=== PATIENT | male | born 1940 | race Caucasian/White ===

== ENCOUNTER → 2017-02-09 | Outpatient (CLI) | payer MEDICARE, OTHER ==
[2017-02-09 10:41] LABS: Basophils # (A) 0.1 k/uL (0-0.2); Basophils % (A) 1 %; CH 31.4; CHCM 34.1; Eosinophils # (A) 0.2 k/uL (0-0.7); Eosinophils % (A) 3 %; HDW 2.65; HGB 16.3 gm/dL (13.0-17.5); Luc # (Auto) 0.18; Luc % (Auto) 2; Lymphocytes # (A) 1.2 k/uL (1.0-4.8); Lymphocytes % (A) 15 %; MCH 30.2 pg (25.0-35.0); MCHC 32.7 g/dL (31.0-37.0); MCV 92.5 fL (80.0-100.0); Monocytes # (A) 0.5 k/uL (0-1.0); Monocytes % (A) 6 %; Neutrophils # (A) 6.2 k/uL (1.3-7.7); Neutrophils % (A) 74 %; RDW 14.2 % (11.5-15.5); WBC 8.4 k/uL (3.8-10.6); WBC (Perox) 8.32
[2017-02-09 12:11] LABS: ALT 67 U/L (21-72); AST 53 U/L (17-59); Alkaline Phosphatase 90 U/L (38-126); Anion Gap 12 mmol/L; Blood Urea Nitrogen 27 mg/dL (9-20); Calcium 9.9 mg/dL (8.4-10.2); Carbon Dioxide 23 mmol/L (22-30); Chloride 105 mmol/L (98-107); Cholesterol 133 mg/dL (<200); Glucose 229 mg/dL (74-99); HDL Cholesterol 36 mg/dL (40-60); Non-African American GFR(MDRD) >60 (>60 ml/min/1.73 sqM); Potassium 4.3 mmol/L (3.5-5.1); Sodium 140 mmol/L (137-145); Total Bilirubin 0.7 mg/dL (0.2-1.3); Total Protein 6.7 g/dL (6.3-8.2)
[2017-02-09 12:54] LABS: Vitamin B12 677 pg/mL
== END | disposition home or self-care (01) ==
LOC: LABWHC1 10:12
PROVIDERS: ATTEND Family Medicine
DX: I25.119 Atherosclerotic heart disease of native coronary artery with unspecified angina pectoris (principal); E11.65 Type 2 diabetes mellitus with hyperglycemia; E78.2 Mixed hyperlipidemia; E53.8 Deficiency of other specified B group vitamins; E66.01 Morbid (severe) obesity due to excess calories
CPT/HCPCS: 36415; 80053; 80061; 82607; 83036; 84443; 85025

== ENCOUNTER 2017-12-22 13:35 | Emergency (ER) | payer MEDICARE, OTHER ==
[2017-12-22 13:41] VITALS: RESP 18
[2017-12-22] MEDS ORDERED: ACETAMINOPHEN TAB 500 MG TAB PO STA (14:29)
--- NOTE | 2017-12-22 14:32 | ED ---
General Adult HPI - General Chief complaint: Eye Problems Stated complaint: Blurred vision Time Seen by Provider: 12/22/17 14:01 Source: patient, family, RN notes reviewed Mode of arrival: ambulatory Limitations: no limitations - History of Present Illness Initial comments: Chief complaint and history of present illness is a 77-year-old male here with his . Patient reports while he was driving developed acute double vision when he looks down. No changes when he looks up left or right. He also complains discomfort behind the left eye. Denies any injury or trauma. No nausea no vomiting. No neuro deficits. - Related Data Home Medications Medication Instructions Recorded Confirmed Esomeprazole Magnesium [NexIUM] 40 mg PO HS 12/30/13 05/25/15 Losartan Potassium [Cozaar] 100 mg PO DAILY 12/30/13 05/25/15 Magnesium Oxide [Mag-Ox] 400 mg PO BID 12/30/13 05/25/15 metFORMIN HCL [metFORMIN HCL ER] 1,000 mg PO AC-BID 12/30/13 05/25/15 Fluticasone Propionate [Flonase] 1 spray EA NOSTRIL HS PRN 12/31/13 05/25/15 Cyclobenzaprine [Flexeril] 10 mg PO DAILY PRN 12/14/14 05/25/15 Desloratadine [Clarinex] 5 mg PO DAILY 12/14/14 05/25/15 Glimepiride [Amaryl] 2 mg PO AC-BID 12/14/14 05/25/15 Aspirin 81 mg PO DAILY 12/25/14 05/25/15 ALPRAZolam [Xanax] 0.25 mg PO BID PRN 01/06/15 05/25/15 Isosorbide Mononitrate ER [Imdur] 30 mg PO DAILY 01/06/15 05/25/15 Ranitidine HCl [Zantac] 150 mg PO ONCE 01/11/15 05/25/15 diphenhydrAMINE [Benadryl] 50 mg PO ONCE 01/11/15 05/25/15 predniSONE 40 mg PO ONCE 01/11/15 05/25/15 Furosemide [Lasix] 20 mg PO DAILY 05/20/15 05/25/15 Insulin Glargine,Hum.rec.anlog 48 unit SQ DAILY 05/25/15 05/25/15 [Lantus Solostar] Previous Rx's Medication Instructions Recorded amLODIPine [Norvasc] 5 mg PO DAILY #30 tab 12/25/14 HYDROcodone/APAP 5-325MG [[place] 1 each PO Q6HR PRN #20 tab 01/01/15 5-325] Metoprolol Tartrate [Lopressor] 50 mg PO BID #60 tab 05/26/15 Allergies Allergy/AdvReac Type Severity Reaction Status Date / Time codeine Allergy Unknown Verified 12/22/17 13:41 iodine Allergy Anaphylaxis Verified 12/22/17 13:41 adhesive AdvReac Mild Rash/Hives Verified 12/22/17 13:41 Review of Systems ROS Statement: Those systems with pertinent positive or pertinent negative responses have been documented in the HPI. Review of systems no headache he does complain discomfort behind the left eye. Reports when he looks down were developed double vision. He can look with one eye up down left and right the other eye covered without any difficulty . Denies chest pain shortness breath GI/ problems. No neuro deficits complained of. All systems were reviewed. Past medical problems angina, diabetes, hyperlipidemia, hypertension. Surgeries heart catheterization, tonsillectomy total left knee. Family history noncontributory patient former smoker quit years ago. No alcohol use. ALLERGIES codeine, iodine and adhesive tape. ROS Other: All systems not noted in ROS Statement are negative. Past Medical History Past Medical History: Chest Pain / Angina, Diabetes Mellitus, Hyperlipidemia, Hypertension Additional Past Medical History / Comment(s): Other HX: umbilical hernia, kidney stones, bowel obstruction , arthiritis, cataracts, vertigo, History of Any Multi-Drug Resistant Organisms: None Reported Past Surgical History: Heart Catheterization, Tonsillectomy Additional Past Surgical History / Comment(s): total left knee, R knee arthroscopy, left wrist tendon repair, vasectomy, kidney stones-4 surgeries for removal. Past Anesthesia/Blood Transfusion Reactions: No Reported Reaction Past Psychological History: No Psychological Hx Reported Smoking Status: Former smoker Past Alcohol Use History: None Reported Past Drug Use History: None Reported - Past Family History Father Family Medical History: CVA/TIA, Diabetes Mellitus, Myocardial Infarction ([place]) Mother Family Medical History: CVA/TIA General Exam - General Exam Comments Initial Comments: General: The patient is awake and alert, here because of discomfort behind his left eye. He states he has double vision when he looks downward. Acute onset. Vital signs temp 98.3 pulse 91 respiratory rate 18 pulse ox 94% room air blood pressure 116/78 Eye: Pupils are equal, round and reactive to light, extra-ocular movements are intact ; there is normal conjunctiva bilaterally. No signs of icterus. Ocular pressure shows the right to be 18 (24. Patient complains discomfort behind his left eye. When he looks downward he developed diplopia. Otherwise individual extraocular movements are all normal. Clinically no evidence of entrapment during examination while he is complaining of diplopia upon looking downward. No rash around the eye. No direct trauma. Denies any previous eye injuries or pathology. Ears, nose, mouth and throat: There are moist mucous membranes and no oral lesions. Neck: The neck is supple, Cardiovascular: There is a regular rate and rhythm. No murmur, rub or gallop is appreciated. Respiratory: Lungs are clear to auscultation, respirations are non-labored, breath sounds are equal. No wheezes, stridor, rales, or rhonchi. Gastrointestinal: Soft, non-distended, non-tender abdomen without masses or organomegaly noted. There is no rebound or guarding present. No CVA tenderness. Bowel sounds are unremarkable. Back: There is no tenderness to palpation in the midline. There is no obvious deformity. No rashes noted. Musculoskeletal: Normal ROM, no tenderness, mild, chronic bilateral pitting edema.. There is no calf tenderness or swelling. Sensation intact. Neurological: CN II-XII intact, There are no obvious motor or sensory deficits. Coordination appears grossly intact. Speech is normal. The patient's significant complaint relative to diplopia. With discomfort behind the left eye of acute onset. CT examination of the eye above. Skin: Skin is warm and dry and no rashes or lesions are noted. Limitations: no limitations Course Vital Signs 12/22/17 13:38 Temperature 98.3 F Pulse Rate 91 Respiratory 18 Rate Blood Pressure 168/78 O2 Sat by Pulse 94 L Oximetry Medical Decision Making - Medical Decision Making Medical decision making; the patient's visual acuity test showed 20/30 with both eyes. And then 20/50 with the right eye alone and 20/[address] of the brain was done and reviewed radiologist his impression is no acute intracranial hemorrhage, or midline shift. There is a mild to moderate diffuse age-related cerebral atrophy and chronic small vessel ischemic change redemonstrated. No significant change from prior CT. As read by Dr. galeana Discussed these findings with the patient and his bedside. I discussed these findings including history, eye pressures, visual acuity with on-call bench shear operator Dr. Tomas. As well as a negative CAT scan report. At this time patient will be seen in the office at 5 PM tomorrow. Disposition Clinical Impression: Diplopia Disposition: HOME SELF-CARE Condition: Fair Instructions: Diplopia (ED) Additional Instructions: Follow-up with Dr. tomas, tomorrow as arranged at 5 PM at his office. Return emergency room if there are any difficulties between now and then. Is patient prescribed a controlled substance at d/c from ED?: No Referrals: John Kemp MD [Primary Care Provider] - 1-2 days Time of Disposition: 15:36
--- NOTE | 2017-12-22 15:19 | CT ---
EXAMINATION TYPE: CT brain wo con DATE OF EXAM: 12/22/2017 HISTORY: Pain, Pressure behind left eye CT DLP: 1029.90 mGycm. Automated Exposure Control for Dose Reduction was Utilized. TECHNIQUE: CT scan of the head is performed without contrast. COMPARISON: CT brain December 30, 2013 FINDINGS: There is no acute intracranial hemorrhage or midline shift identified. There is diffuse v entricular and sulcal prominence consistent with diffuse age-related cerebral atrophy. There is low- attenuation in the periventricular white matter consistent with chronic small vessel ischemic change. Vascular calcification distal internal carotid arteries is present bilaterally. The globes are intac t and the visualized sinuses are clear. IMPRESSION: No acute intracranial hemorrhage or midline shift. There is mild to moderate diffuse ag e-related cerebral atrophy and chronic small vessel ischemic change redemonstrated. No significant c hange from prior CT.
[2017-12-22 15:54] VITALS: BP 120/69; PULSE 63; TEMP 97.6
== END 2017-12-22 15:52 | disposition home or self-care (01) ==
LOC: EC 13:35
DX: H53.2 Diplopia (principal); G31.9 Degenerative disease of nervous system, unspecified; E11.9 Type 2 diabetes mellitus without complications; I10 Essential (primary) hypertension; Z95.818 Presence of other cardiac implants and grafts; Z87.891 Personal history of nicotine dependence; Z79.4 Long term (current) use of insulin; Z79.52 Long term (current) use of systemic steroids; Z79.82 Long term (current) use of aspirin; Z79.899 Other long term (current) drug therapy; Z88.5 Allergy status to narcotic agent; Z91.048 Other nonmedicinal substance allergy status
CPT/HCPCS: 70450; 99284

== ENCOUNTER → 2017-12-24 | Outpatient (CLI) | payer MEDICARE, OTHER ==
[2017-12-24 13:54] LABS: Basophils # (A) 0.1 k/uL (0-0.2); Basophils % (A) 1 %; Eosinophils # (A) 0.2 k/uL (0-0.7); Eosinophils % (A) 2 %; HCT 44.1 % (39.0-53.0); HGB 14.3 gm/dL (13.0-17.5); Lymphocytes # (A) 1.4 k/uL (1.0-4.8); Lymphocytes % (A) 20 %; MCH 29.9 pg (25.0-35.0); MCHC 32.3 g/dL (31.0-37.0); MCV 92.4 fL (80.0-100.0); Mean Platelet Volume 7.3; Monocytes # (A) 0.4 k/uL (0-1.0); Monocytes % (A) 6 %; Neutrophils % (A) 70 %; Platelet Count 266 k/uL (150-450); RBC 4.78 m/uL (4.30-5.90); RDW 14.1 % (11.5-15.5); WBC 7.2 k/uL (3.8-10.6)
[2017-12-24 14:14] LABS: Albumin 3.9 g/dL (3.5-5.0); C Reactive Protein 7.3 mg/L (<10.0); Calcium 8.9 mg/dL (8.4-10.2); Potassium 4.7 mmol/L (3.5-5.1); Total Bilirubin 0.5 mg/dL (0.2-1.3); Total Protein 6.3 g/dL (6.3-8.2)
[2017-12-24 16:41] LABS: Erythrocyte Sedimentation Rate 6 mm/hr (0-15)
[2017-12-24 19:38] LABS: LDL Cholesterol, Direct 62.9 mg/dL (0.0-129.0)
[2017-12-24 21:01] LABS: Hemoglobin A1C 8.2 % (4.0-6.0)
== END | disposition home or self-care (01) ==
LOC: LABWHC1 13:06
PROVIDERS: ATTEND Family Medicine
DX: E11.65 Type 2 diabetes mellitus with hyperglycemia (principal); E53.8 Deficiency of other specified B group vitamins; E78.2 Mixed hyperlipidemia
CPT/HCPCS: 36415; 80053; 80061; 82607; 83036; 83721; 85025; 85652; 86140

== ENCOUNTER → 2018-04-04 | Outpatient (CLI) | payer MEDICARE, OTHER ==
--- NOTE | 2018-04-04 14:03 | CT ---
EXAMINATION TYPE: CT sinus wo con DATE OF EXAM: 04/04/2018 COMPARISON: None HISTORY: Sinus problems and hearing problems. CT DLP: [address] of the paranasal sinuses was performed in the axial and coronal planes. Bone and soft tissue settings are submitted. The paranasal sinuses demonstrate normal aeration and development. The paranasal sinuses are free of mucosal thickening or air fluid level. The osteal meatal units are patent bilaterally. The nasal septum is midline. No bony destructive changes are seen within the field of view. IMPRESSION: Normal unenhanced CT of the paranasal sinuses.
== END | disposition home or self-care (01) ==
LOC: RADCTMAIN 13:20
PROVIDERS: ATTEND Otolaryngology
DX: J32.9 Chronic sinusitis, unspecified (principal); R05 Cough
CPT/HCPCS: 70486

== ENCOUNTER → 2019-01-10 | Outpatient (CLI) | payer MEDICARE | END | disposition home or self-care (01) | LOC: LABPAT 17:07 | PROVIDERS: ATTEND Orthopaedic Surgery | DX: Z01.812 Encounter for preprocedural laboratory examination (principal) | CPT/HCPCS: 87070 ==

== ENCOUNTER → 2019-01-17 | Outpatient (CLI) | payer MEDICARE ==
[2019-01-17 13:11] LABS: Basophils % (A) 1 %; Eosinophils # (A) 0.3 k/uL (0-0.7); Eosinophils % (A) 3 %; HCT 45.9 % (39.0-53.0); HGB 14.7 gm/dL (13.0-17.5); Lymphocytes # (A) 1.4 k/uL (1.0-4.8); Lymphocytes % (A) 16 %; MCH 29.4 pg (25.0-35.0); MCHC 31.9 g/dL (31.0-37.0); MCV 92.2 fL (80.0-100.0); Mean Platelet Volume 7.4; Monocytes # (A) 0.6 k/uL (0-1.0); Monocytes % (A) 6 %; Neutrophils # (A) 6.5 k/uL (1.3-7.7); Neutrophils % (A) 73 %; Platelet Count 288 k/uL (150-450); RBC 4.98 m/uL (4.30-5.90); RDW 14.3 % (11.5-15.5); WBC 8.9 k/uL (3.8-10.6)
[2019-01-17 14:26] LABS: Appearance,Urine Cloudy (Clear); Bacteria,Urine Rare /hpf; Bilirubin,Urine Negative (Negative); Blood,Urine Large (Negative); Color,Urine Yellow; Glucose,Urine (UA) Negative (Negative); Ketones,Urine Negative (Negative); Leukocyte Esterase,Urine Negative (Negative); Mucus,Urine Rare /hpf; Nitrite,Urine Negative (Negative); PH, Urine 6.5 (5.0-8.0); Protein,Urine 2+ (Negative); RBC,Urine >182 /hpf (0-5); Urobilinogen,Urine <2.0 mg/dL (<2.0); WBC,Urine 11 /hpf (0-5)
--- NOTE | 2019-01-17 15:46 | XR ---
EXAMINATION TYPE: XR chest 2V DATE OF EXAM: 01/17/2019 COMPARISON: Prior chest x-ray 12/30/2013 HISTORY: Presurgical, I 25.119 TECHNIQUE: Frontal and lateral views of the chest are obtained. FINDINGS: The heart is enlarged. Suspect prominent epicardial fat pads are present, similar increase d density noted towards the cardiac apex on prior exam. Aorta is dense. No evident airspace disease, pneumothorax, or pleural effusion. There is increased AP diameter chest, flattening the hemidiaphragm s. IMPRESSION: Cardiomegaly. Correlate for COPD. Indeterminate density the cardiac apex may be related to epicardial fat pad but is indeterminate. Consider chest CT.
[2019-01-17 18:51] LABS: African American GFR (CKD) 74.7 (60.0-200.0); Albumin/Globulin Ratio 2.11 (1.60-3.17); Anion Gap 9.1 mmol/L (4.00-12.00); BUN/Creat Ratio 29.09 Ratio (12.00-20.00); Calcium 9.2 mg/dL (8.7-10.3); Carbon Dioxide 26.9 mmol/L (21.6-31.8); Globulin 1.9 g/dL (1.6-3.3); Potassium 4.6 mmol/L (3.5-5.5); Total Bilirubin 0.5 mg/dL (0.2-1.2); Total Protein 5.9 g/dL (6.2-8.2)
== END | disposition home or self-care (01) ==
LOC: LABWHC1 11:42
PROVIDERS: ATTEND Family Medicine
DX: I51.7 Cardiomegaly (principal); I25.119 Atherosclerotic heart disease of native coronary artery with unspecified angina pectoris; E11.65 Type 2 diabetes mellitus with hyperglycemia
CPT/HCPCS: 36415; 71046; 80053; 81001; 85025

== ENCOUNTER 2019-01-28 08:37 | Inpatient (IN) | payer MEDICARE ==
--- NOTE | 2019-01-27 09:18 | HP ---
HISTORY AND PHYSICAL CHIEF COMPLAINT: Left shoulder pain. HISTORY OF PRESENT ILLNESS: The patient is a 78-year-old retired right-hand dominant gentleman who presents after injuring his left shoulder on 10/31/2018. He notes he is having anterior pain and pain with attempted overhead use and at night. He notes significant weakness and is unable to raise his arm over his head. Prior to this, he was able to function. He notes it significantly limits him. PAST MEDICAL HISTORY: Significant for coronary artery disease, hypertension, diabetes, sleep apnea, arthritis. PAST SURGICAL HISTORY: Significant for left total knee arthroplasty, cardiac catheterization, lithotripsy. CURRENT MEDICATIONS: 1. Amlodipine. 2. Aspirin. 3. Clarinex. 4. Lasix. 5. Isosorbide. 6. Losartan. 7. Meloxicam. 8. Metformin. 9. Methocarbamol. 10.Metoprolol. ALLERGIES: He has allergies to IV CONTRAST DYE. FAMILY HISTORY: Significant for diabetes, stroke and hypertension. SOCIAL HISTORY: Significant for previous tobacco use; however, he quit in 1999. REVIEW OF SYSTEMS: Sixteen-point review of systems otherwise reviewed and is noncontributory. PHYSICAL EXAMINATION: On examination, the patient is approximately 5 feet 8 inches, 241 pounds of endomorphic habitus. HEENT exam is nonfocal. Neck is supple. Active motion of the left shoulder: Forward elevation 30 degrees, external rotation with arm at side 50 degrees, internal rotation to L3. Passively I am able to forward elevate him 140 degrees. He has moderate subacromial crepitus. He is tender about the anterior subacromial space. Impingement test, Neer test, and Speed test are positive. His distal neurovascular exam appears intact in the left upper extremity. MRI report 10/05/2018 of the left shoulder shows supraspinatus and infraspinatus tears with significant retraction along with biceps tendinopathy and glenohumeral joint arthropathy. IMPRESSION: 1. Acute on chronic left rotator cuff tear. 2. Severe left rotator cuff arthropathy. 3. Diabetes. 4. Heart disease. RECOMMENDATIONS: I talked to the patient at length regarding his condition along with treatment options. At this point, he is quite symptomatic and opts to proceed with surgery. We will plan to proceed with reverse left total shoulder arthroplasty. Risks and benefits were discussed at length in layman's terms. The patient underwent preoperative medical evaluation by Dr. Kemp and preoperative cardiac evaluation. MMODL / IJN: [id number] /
[~2019-01-28 08:37] MED LIST: ACETAMINOPHEN TAB 500 MG TAB PO ONE; DEXAMETHASONE SOD PHOSPHATE 10 MG/ML 1 ML VIAL IV ONE; HYDROmorphone 0.5 MG/0.5 ML SYRINGE IVP PRN; LIDOCAINE 1% 20 ML VIAL (10MG/ML) FOR IV START INTRADERMA PRN; MELOXICAM 7.5 MG TAB PO ONE; MIDAZOLAM 2 MG/2 ML VIAL IV PRN; ONDANSETRON 4 MG/2 ML VIAL IVP ONE; SCOPOLAMINE 1.5MG/72HR PATCH TRANSDERM ONE; TRANEXAMIC ACID 1,000 MG in SODIUM CHLORIDE 0.9% 100 ML IVPB ONE
[2019-01-28] MEDS: LACTATED RINGERS 1,000 ML IV SCH (09:22)
[2019-01-28 09:49] LABS: Glucose,Whole Blood 165 mg/dL (75-99)
[2019-01-28] MEDS ORDERED: MIDAZOLAM (PF) 2 MG/2 ML VIAL IVP ONE (09:57)
[2019-01-28] MEDS ORDERED: PROPOFOL 10 MG/ML 20 ML VIAL IV ONE (10:41)
[2019-01-28] MEDS ORDERED: NEOSTIGMINE 1 MG/ML 10 ML VIAL ONE (10:41)
[2019-01-28] MEDS ORDERED: SUCCINYLCHOLINE CHLORIDE 100 MG/5 ML SYR IV ONE (10:41)
[2019-01-28] MEDS ORDERED: ROPIVACAINE 5 MG/ML 30 ML VIAL ONE (10:41)
[2019-01-28] MEDS ORDERED: PHENYLEPHRINE-0.9% NACL SYG 1 MG/10 ML SYRINGE ONE (10:41)
[2019-01-28] MEDS ORDERED: ROCURONIUM BROMIDE 10 MG/ML 10 ML VIAL IV ONE (10:41)
[2019-01-28] MEDS ORDERED: ePHEDrine SULFATE/0.9% NACL/PF 50 MG/5 ML SYRINGE IV ONE (10:41)
[2019-01-28] MEDS ORDERED: GLYCOPYRROLATE 0.2 MG/ML 2 ML VIAL ONE (10:41)
[2019-01-28] MEDS ORDERED: LIDOCAINE 1% INJ 10MG/ML (20 ML MDV) ONE (10:41)
[2019-01-28] MEDS ORDERED: DEXAMETHASONE SOD PHOSPHATE 4 MG/ML 1 ML VIAL ONE (10:41)
[2019-01-28] MEDS ORDERED: ceFAZolin 3,000 MG in SODIUM CHLORIDE 0.9% IRRIGATIO 3,000 ML IRRIGATION ONE (11:17)
[2019-01-28] MEDS ORDERED: HYDROmorphone 0.5 MG/0.5 ML SYRINGE IVP PRN (12:39)
[2019-01-28] MEDS ORDERED: ONDANSETRON 4 MG/2 ML VIAL IVP PRN (12:39)
[2019-01-28] MEDS ORDERED: ACETAMINOPHEN TAB 325 MG TAB PO PRN (12:44)
--- NOTE | 2019-01-28 13:11 | P.OP ---
Date of Procedure: 01/28/19 Preoperative Diagnosis: Left shoulder severe rotator cuff arthropathy Postoperative Diagnosis: Same Procedure(s) Performed: Left reverse shoulder arthroplastypress-fit Implants: Depuy Xtend size 12/size 2 epiphysis humeral stem, 42+3 articular surface, 42 mm glenosphere with standard baseplate. Anesthesia: [facility] Surgeon: Campbell Bullard Lead Sql Developer #1: Sonny Christy Estimated Blood Loss (ml): 200 Pathology: other (Humeral head) Condition: stable Disposition: PACU Indications for Procedure: The patient's a 78-year-old male who presents with left shoulder pain and weakness after a recent injury. Upon evaluation he was noted have a large retracted chronic rotator cuff tear. He also had significant arthropathy. A discussion of the risks and benefits of operative intervention versus conservative measures was made with patient. He is quite symptomatically opted to proceed with surgery. Operative risks to include infection, neurovascular injury, development of blood clots, possible instability, possible component loosening, and possible need for subsequent procedures was discussed. Informed consent was obtained. Operative Findings: As below Description of Procedure: The patient was brought to the operating room, and after induction of general anesthesia was placed in a beachchair position. Bony prominences were appropriately padded. The left upper extremity was prepped and draped in a normal fashion. A deltopectoral incision was then made lateral to the coracoid process extending approximately 12 cm. Skin and subcutaneous tissues were div ided sharply. Electrocautery was used for hemostasis. The deltopectoral interval was identified and the cephalic vein was gently retracted laterally with deltoid. Subdeltoid adhesions were bluntly dissected. A self-retaining retractor was placed. The upper one third of the pectoralis major was released with electrocautery to help facilitate exposure. The clavipectoral fascia was opened and the conjoined tendon was gently retracted medially with the deltoid retracted laterally. The biceps was identified and tenotomized and lateral to retract distally. A large rotator cuff was then exposed. I did release the upper one third of the subscapularis to help facilitate exposure. The capsule was released directly off the humeral neck. The supraspinatus, infraspinatus, teres minor were ruptured and retracted past the level of the glenoid. The humeral head was then exposed. A starting hole was made in line with the humeral shaft. The canal was reamed by hand up to 12. There is good distal fit. The cutting guide was then pinned in place planning on 20 of retroversion. Humeral head cut was then made. The inferior osteophytes were carefully removed flush with the bone with a rongeur. Humeral protector plate was placed. Attention was then paid towards the glenoid. A Fukuda retractor was placed posteriorly along with an anterior neck retractor the labrum was released from the 6:00 to 12 o'clock position and excised. The posterior labrum was also released. The guidepin was placed in the inferior aspect of the glenoid slightly tilting inferiorly. The glenoid was reamed down to bleeding bony surface. The central peg hole was then drilled. The glenosphere baseplate was inserted. The inferior, superior, and anterior drill holes were then made. Appropriate length screws were placed. The inferior and superior screws were locking. Good purchase was obtained. The 42 mm glenosphere was then inserted over a guidewire and was fully seated. Care was taken to avoid any soft tissue interposition. Attention was then paid towards preparing the proximal humerus. The broach was inserted and 20 of retroversion. The epiphysis was sized to. An eccentric guide was utilized. The metaphysis was prepared with the appropriate reamer. A trial size 12 broach was inserted again and 20 of retroversion. A trial 42 mm +3 articular surface was placed. The shoulder was gently reduced. It was taken through range of motion and felt to be stable in flexion and extension with internal and external rotation. I felt there is adequate holiness of soft tissue tension judging off the conjoined tendon. The shoulder was gently dislocated. The trial components were then removed. I did place #2 Ethibond suture laterally for reattachment of the subscapularis. The final size 12 stem with a size 2 epiphysis was then inserted and was fully seated. There is good rotational stability. The 42 mm +3 articular surface was gently impacted. The shoulder was gently reduced. Again it was taken through to motion felt to be stable in flexion and extension with internal and external rotation. Again I felt there was adequate holiness of soft tissue tension. Pulsatile lavage was utilized. The subscapularis was repaired with #2 Ethibond suture. The deltopectoral interval was closed with interrupted 2-0 Vicryl sutures. Subcu changed tissues reapproximated interrupted 2-0 Vicryl sutures. The skin was reapproximated with 3-0 subcuticular Prolene suture. Steri-Strips were applied. A sterile dressing was applied in addition to a sling. The patient was then awoken from general anesthesia and transferred to recovery room in fair condition. Blood loss was estimated 200 mL. No complications were incurred. Sponge and needle counts were correct at the end of the case.
[2019-01-28 13:40] LABS: Glucose,Whole Blood 239 mg/dL (75-99)
[2019-01-28] MEDS ORDERED: INSULIN ASPART (NovoLOG) 100 UNIT/ML VIAL SQ ONE (14:09)
--- NOTE | 2019-01-28 14:52 | XR ---
"Left shoulder HISTORY: Status post left reverse total shoulder arthroplasty 2 views of the left shoulder Patient shows left shoulder arthroplasty change. There is lucency in the soft tissues. Alignment is m aintained. There are overlying leads and artifacts. There is increased attenuation at the left lung b ase, obscured left hemidiaphragm and blunting the left costophrenic angle. There is evidence of old g ranulomatous disease. IMPRESSION: Orthopedic follow-up. There may be left lower lobe atelectasis versus pneumonia. A Yellow level critical message alert has been initiated for Campbell Bullard MD via the [employer] 36 0 | Critical Results System on 01/28/2019 2:50 PM. This message alert has been sent to Campbell Bullard MD via the preferences provided by the clinician for the receipt of Radiology Critical Findings. [facility] ID [id number]."
[2019-01-28 14:58] VITALS: BMI 35.6
[2019-01-28 16:55] LABS: Glucose,Whole Blood 193 mg/dL (75-99)
[2019-01-28] MEDS: INSULIN ASPART (NovoLOG) 100 UNIT/ML VIAL SQ SCH ×2 (16:59→21:39)
[2019-01-28] MEDS ORDERED: ALPRAZolam 0.25 MG TAB PO PRN (20:51)
[2019-01-28] MEDS ORDERED: FLUTICASONE 50MCG/SPRAY NASAL 16GM EA NOSTRIL PRN (20:51)
[2019-01-28 20:57] LABS: Glucose,Whole Blood 254 mg/dL (75-99)
[2019-01-28] MEDS ORDERED: FENOFIBRATE 160 MG TAB PO SCH (21:00)
[2019-01-28] MEDS ORDERED: ATORVASTATIN 40 MG TAB PO SCH (21:00)
[2019-01-28] MEDS: CYANOCOBALAMIN 500 MCG TAB PO SCH (21:32)
[2019-01-28] MEDS: MAGNESIUM OXIDE 400 MG TAB PO SCH (21:35)
[2019-01-28] MEDS: BENZOCAINE/MENTHOL LOZENG 1 EACH LOZENGE MUCOUS MEM PRN (21:35)
[2019-01-28] MEDS: HYDROcodone/APAP 5-325MG 1 EACH TAB PO PRN (21:35)
[2019-01-28] MEDS: PANTOPRAZOLE 40 MG TABLET PO SCH (21:35)
[2019-01-28] MEDS: INSULIN DETEMIR (LEVEMIR) 100 UNIT/ML SYR SQ SCH (21:40)
--- NOTE | 2019-01-29 01:17 | P.CONS ---
History of Present Illness - Reason for Consult Consult date: 01/28/19 Medical management of multiple medical problems - Chief Complaint Left reverse shoulder arthroplastypress-fit - History of Present Illness Patient is a 78-year-old male with a known history of hypertension, diabetes type 2 insulin-dependent, history of cardiac catheterization and hyperlipidemia as well as morbid obesity BMI 36.1 who has been having shoulder pain due to rotator cuff arthropathy and failed conservative therapy and patient underwent Left reverse shoulder arthroplastypress-fit. Tolerated the procedure very well. Currently pain is controlled with epidural. No complaints of headache or dizziness or lightheadedness. No chest pain or shortness of breath. Postoperatively patient is hypotensive and currently blood pressure in the lower side .blood pressure medications have been held at this time. Review of Systems Constitutional: Patient denies any fever or chills . No generalized weakness or weight loss. Abdomen: Patient denied nausea vomiting and diarrhea and abdominal pain. Cardiovascular: Patient denies any chest pain or short of breath no palpitations. Respiratory: patient denied any cough is from production. No shortness of breath Neurologic: Patient denied any numbness or tingling headache. Musculoskeletal: Patient denies any complaints of joint swelling or deformity. Skin: Negative Psychiatric: Negative Endocrine: No heat or cold intolerance. No recent weight gain. Genitourinary: No dysuria or hematuria. 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, states has been currently passing kidney stones History of Any Multi-Drug Resistant Organisms: None Reported Past Surgical History: Heart Catheterization, Joint Replacement, Tonsillectomy Additional Past Surgical History / Comment(s): total left knee, R knee arthroscopy, left wrist tendon repair, vasectomy, kidney stones-4 surgeries for removal, rt carpal tunnel, lt wrist tendonitis , Reversed total left shoulder Past Anesthesia/Blood Transfusion Reactions: No Reported Reaction Additional Past Anesthesia/Blood Transfusion Reaction / Comm: hx vertigo Past Psychological History: No Psychological Hx Reported Additional Psychological History / Comment(s): Pt resides with his spouse of 48yrs. He is independent. He uses no assistive device but feels he would benefit from possibly a cane. He uses a drive cart when shopping due to bilateral knee pain and R ankle/foot problems. Pt drives a car. Smoking Status: Former smoker Past Alcohol Use History: None Reported Additional Past Alcohol Use History / Comment(s): Pt quit smoking in 1996. Past Drug Use History: None Reported Additional Drug Use History / Comment(s): uses cbd oil for pain in shower - Past Family History Father Family Medical History: CVA/TIA, Diabetes Mellitus, Myocardial Infarction ([place]) Mother Family Medical History: CVA/TIA Medications and Allergies Home Medications Medication Instructions Recorded Confirmed Type Losartan Potassium [Cozaar] 100 mg PO DAILY 12/30/13 01/28/19 History metFORMIN HCL [metFORMIN HCL ER] 1,000 mg PO AC-BID 12/30/13 01/28/19 History Fluticasone Propionate [Flonase] 1 spray EA NOSTRIL HS PRN 12/31/13 01/28/19 History Desloratadine [Clarinex] 5 mg PO DAILY 12/14/14 01/28/19 History Aspirin 81 mg PO DAILY 12/25/14 01/28/19 History ALPRAZolam [Xanax] 0.25 mg PO BID PRN 01/06/15 01/28/19 History Isosorbide Mononitrate ER [Imdur] 30 mg PO DAILY 01/06/15 01/28/19 History Furosemide [Lasix] 20 mg PO Q48H 05/20/15 01/28/19 History Cyanocobalamin (Vitamin B-12) 1,000 mcg PO BID 01/20/19 01/28/19 History [Vitamin B-12] Fenofibrate [Lofibra] 160 mg PO DAILY 01/20/19 01/28/19 History Insulin Detemir (Levemir) [Levemir] 44 unit PO AC-BRKFST 01/20/19 01/28/19 History Insulin Detemir (Levemir) [Levemir] 52 unit SQ AC-SUPPER 01/20/19 01/28/19 History Lansoprazole [Prevacid] 30 mg PO DAILY 01/20/19 01/28/19 History Magnesium Oxide [Mag-Ox] 400 mg PO DAILY 01/20/19 01/28/19 History Meloxicam 15 mg PO DAILY 01/20/19 01/28/19 History Methocarbamol [Robaxin] 500 mg PO BID PRN 01/20/19 01/28/19 History Metoprolol Tartrate [Lopressor] 100 mg PO BID 01/20/19 01/28/19 History Rosuvastatin [Crestor] 20 mg PO DAILY 01/20/19 01/28/19 History amLODIPine BESYLATE [Norvasc] 5 mg PO BID 01/20/19 01/28/19 History HYDROcodone/APAP 5-325MG [[place] 1 tab PO Q6HR PRN 01/28/19 01/28/19 History 5-325] Allergies Allergy/AdvReac Type Severity Reaction Status Date / Time codeine Allergy Unknown Verified 01/28/19 15:20 iodine Allergy Anaphylaxis Verified 01/28/19 15:20 adhesive AdvReac Mild Rash/Hives Verified 01/28/19 15:20 Physical Exam Vitals: Vital Signs Temp Pulse Pulse Pulse Resp BP Pulse Ox 01/28/19 19:09 98.1 F 90 18 119/71 94 L 01/28/19 16:35 81 129/78 94 L 01/28/19 16:20 73 122/71 95 01/28/19 16:05 72 129/73 95 01/28/19 15:50 69 126/72 95 01/28/19 15:35 69 129/76 94 L 01/28/19 15:20 77 131/74 93 L 01/28/19 15:05 79 128/73 92 L 01/28/19 14:50 76 123/70 92 L 01/28/19 14:35 97.1 F L 73 20 118/69 93 L 01/28/19 14:10 75 18 113/65 98 01/28/19 13:55 76 18 113/65 97 01/28/19 13:40 81 18 118/61 100 01/28/19 13:25 81 16 120/74 100 01/28/19 13:11 96.9 F L 81 16 120/65 96 01/28/19 09:00 97.1 F L 69 16 155/74 94 L Intake and Output 01/28/19 01/28/19 01/28/19 06:59 14:59 22:59 Intake Total 802 250 Output Total 300 Balance 502 250 Intake: IV 802 Oral 250 Output: Estimated Blood Loss 300 PHYSICAL EXAMINATION: Patient is lying in the bed comfortably, no acute distress, awake alert and oriented.. HEENT: Normocephalic. Neck is supple. Pupils reactive. Nostrils clear. Oral cavity is moist. Ears reveal no drainage. Neck reveals no JVD, carotid bruits, or thyromegaly. CHEST EXAMINATION: Trachea is central. Symmetrical expansion. Bibasilar diminished air entry Lung slater clear to auscultation and percussion. CARDIAC: Normal S1, S2 with no gallops. No murmurs ABDOMEN: Soft. Bowel sounds normal. No organomegaly. No abdominal bruits. Extremities: reveal no edema. No clubbing or cyanosis Neurologically awake, alert, oriented x3 with well-coordinated movements. No focal deficits noted Skin: No rash or skin lesions. Psychiatric: Coperative. Nonsuicidal Musculoskeletal: No joint swelling or deformity. Left shoulder surgical site is packed. Decreased range of motion.. Results Labs: Abnormal Lab Results - Last 24 Hours (Table) 01/28/19 01/28/19 01/28/19 Range/Units 09:19 13:36 16:54 POC Glucose (mg/dL) 165 H 239 H 193 H (75-99) mg/dL 01/28/19 Range/Units 20:46 POC Glucose (mg/dL) 254 H (75-99) mg/dL Assessment and Plan Assessment: s/p left shoulder reverse arthroplasty due to rotator cuff arthropathy. Hypertension. Currently patient is not hypertensive blood pressure medications have been held. Diabetes type 2 insulin-dependent Hyperlipidemia History of renal stones History of bowel obstruction Osteoarthritis of multiple joints Morbid obesity with BMI 36.1 Previous history of smoking DVT prophylaxis Plan: Patient be continued on pain management, bowel regimen. Encourage incentive spirometry. Continue with home insulin dose and insulin sliding scale and Accu- Cheks. Patient is on Norvasc, metoprolol and lisinopril and Lasix Q48 hours at home, which have been held at this time. Can be started back positive blood pressure starts going up. Continue the home medications and follow closely. Discussed with the patient and his at bedside in detail. Further recommendations based on the clinical course. We will continue to follow. Thank you for your consult. Time with Patient: Greater than 30
[2019-01-29] MEDS: HYDROcodone/APAP 5-325MG 1 EACH TAB PO PRN ×4 (03:19→20:45)
[2019-01-29 06:46] LABS: Glucose,Whole Blood 286 mg/dL (75-99)
[2019-01-29 07:14] LABS: Basophils % (A) 0 %; Eosinophils % (A) 0 %; HCT 40.2 % (39.0-53.0); HGB 12.4 gm/dL (13.0-17.5); Hypochromasia Slight; Lymphocytes # (A) 0.9 k/uL (1.0-4.8); Lymphocytes % (A) 7 %; MCH 28.7 pg (25.0-35.0); MCHC 30.8 g/dL (31.0-37.0); MCV 93.2 fL (80.0-100.0); Mean Platelet Volume 7.4; Monocytes # (A) 0.9 k/uL (0-1.0); Monocytes % (A) 8 %; Neutrophils # (A) 10.3 k/uL (1.3-7.7); Neutrophils % (A) 84 %; Platelet Count 267 k/uL (150-450); RBC 4.32 m/uL (4.30-5.90); RDW 14.1 % (11.5-15.5); WBC 12.3 k/uL (3.8-10.6)
[2019-01-29] MEDS: INSULIN DETEMIR (LEVEMIR) 100 UNIT/ML SYR SQ SCH ×2 (07:20→20:45)
[2019-01-29] MEDS: CYANOCOBALAMIN 500 MCG TAB PO SCH ×2 (07:20→20:45)
[2019-01-29] MEDS: MAGNESIUM OXIDE 400 MG TAB PO SCH ×2 (07:20→20:45)
[2019-01-29] MEDS: PANTOPRAZOLE 40 MG TABLET PO SCH (07:20)
[2019-01-29] MEDS: INSULIN ASPART (NovoLOG) 100 UNIT/ML VIAL SQ SCH ×4 (07:20→20:46)
[2019-01-29] MEDS: BENZOCAINE/MENTHOL LOZENG 1 EACH LOZENGE MUCOUS MEM PRN (07:20)
[2019-01-29] MEDS: ASPIRIN 325 MG TAB PO SCH (07:21)
[2019-01-29 07:34] LABS: Calcium 8.5 mg/dL (8.4-10.2); Potassium 4.5 mmol/L (3.5-5.1)
[2019-01-29 11:25] LABS: Glucose,Whole Blood 218 mg/dL (75-99)
--- NOTE | 2019-01-29 12:42 | P.PN ---
Subjective Progress Note Date: 01/29/19 Principal diagnosis: s/p reverse left tsa Patient evaluate at bedside, resting comfortably. Pain is controlled. Denies chest pain or shortness of breath Objective - Vital Signs Vital signs: Vital Signs Temp 98.2 F 01/29/19 07:00 Pulse 92 01/29/19 08:15 Resp 15 01/29/19 08:15 BP 138/68 01/29/19 07:00 Pulse Ox 94 L 01/29/19 07:00 Intake & Output 01/28/19 01/29/19 01/29/19 18:59 06:59 18:59 Intake Total 802 980 200 Output Total 300 Balance 502 980 200 Intake: IV 802 Intake, IV Titration 580 Amount Lactated Ringers 1,000 ml 480 @ 40 mls/hr IV .Q24H [facility] Rx#:[id number] ceFAZolin 2 gm In Sodium 100 Chloride 0.9% 50 ml @ 100 mls/hr IVPB Q8H [facility] Rx#: [id number] Oral 400 200 Output: Estimated Blood Loss 300 Other: Voiding Method Urinal Urinal # Voids 3 3 - Exam Left upper extremity: Postoperative bandages removed, Steri-Strips are in good position and condition. No active drainage. Soft tissue swelling noted throughout the upper extremity, also bruising. Sensation to light touch throughout the extremity is intact. Extension and flexion are intact at the wrist. Radial pulses 2+. - Labs CBC & Chem 7: 01/29/19 06:24 01/29/19 06:24 Labs: Abnormal Lab Results - Last 24 Hours (Table) 01/28/19 01/28/19 01/28/19 Range/Units 13:36 16:54 20:46 WBC (3.8-10.6) k/uL Hgb (13.0-17.5) gm/dL MCHC (31.0-37.0) g/dL Neutrophils # (1.3-7.7) k/uL Lymphocytes # (1.0-4.8) k/uL BUN (9-20) mg/dL Glucose (74-99) mg/dL POC Glucose (mg/dL) 239 H 193 H 254 H (75-99) mg/dL 01/29/19 01/29/19 01/29/19 Range/Units 06:24 06:24 06:44 WBC 12.3 H (3.8-10.6) k/uL Hgb 12.4 L (13.0-17.5) gm/dL MCHC 30.8 L (31.0-37.0) g/dL Neutrophils # 10.3 H (1.3-7.7) k/uL Lymphocytes # 0.9 L (1.0-4.8) k/uL BUN 38 H (9-20) mg/dL Glucose 253 H (74-99) mg/dL POC Glucose (mg/dL) 286 H (75-99) mg/dL / Range/Units 11:14 WBC (3.8-10.6) k/uL Hgb (13.0-17.5) gm/dL MCHC (31.0-37.0) g/dL Neutrophils # (1.3-7.7) k/uL Lymphocytes # (1.0-4.8) k/uL BUN (9-20) mg/dL Glucose (74-99) mg/dL POC Glucose (mg/dL) 218 H (75-99) mg/dL Assessment and Plan Plan: Assessment: Postop day #1 status post reverse left total shoulder arthroplasty Plan: Pain control, continue current medication GI and DVT prophylaxis, continue current medication Utilize arm sling, ice the extremity often Medical recommendations Plan for discharge home tomorrow Time with Patient: Less than 30
--- NOTE | 2019-01-29 13:42 | P.ANPRN ---
Procedure Note - Anesthesia - Nerve Block Performed Left Adductor Canal Single Time Out Performed: Yes Date of Procedure: 01/29/19 Procedure Start Time: 09:58 Procedure Stop Time: 10:00 Location of Patient Procedure: PreOp Indication: Acute Post-Operative Pain, Requested by Surgeon Sedation Type: Sedate with meaningful contact maintained Preparation: Sterile Prep, Sterile Dressing Position: Supine Needle Types: Pajunk Needle Gauge: 21 Technique: Ultrasound (ropi .5% 30cc plus dexamethasone 4mg) Blood Aspirated: No Pain Paresthesia on Injection Noted: No Resistance on Injection: Normal Events: Uneventful and Well Tolerated
[2019-01-29 16:48] LABS: Glucose,Whole Blood 295 mg/dL (75-99)
[2019-01-29 20:19] LABS: Glucose,Whole Blood 337 mg/dL (75-99)
[2019-01-29] MEDS: LACTATED RINGERS 1,000 ML IV SCH (20:49)
[2019-01-29] MEDS ORDERED: FENOFIBRATE 160 MG TAB PO SCH (21:00)
[2019-01-29] MEDS ORDERED: ATORVASTATIN 40 MG TAB PO SCH (21:00)
[2019-01-30] MEDS: HYDROcodone/APAP 5-325MG 1 EACH TAB PO PRN ×2 (03:04→12:32)
[2019-01-30] MEDS: LACTATED RINGERS 1,000 ML IV SCH (03:54)
[2019-01-30] MEDS: PANTOPRAZOLE 40 MG TABLET PO SCH (07:27)
[2019-01-30] MEDS: ASPIRIN 325 MG TAB PO SCH (07:28)
[2019-01-30] MEDS: CYANOCOBALAMIN 500 MCG TAB PO SCH (07:28)
[2019-01-30] MEDS: INSULIN ASPART (NovoLOG) 100 UNIT/ML VIAL SQ SCH ×2 (07:28→12:32)
[2019-01-30] MEDS: MAGNESIUM OXIDE 400 MG TAB PO SCH (07:28)
[2019-01-30] MEDS: INSULIN DETEMIR (LEVEMIR) 100 UNIT/ML SYR SQ SCH (07:28)
[2019-01-30 07:40] LABS: Glucose,Whole Blood 152 mg/dL (75-99)
[2019-01-30 08:15] VITALS: PULSE 97; RESP 16; TEMP 98.9
[2019-01-30 08:19] VITALS: BP 153/72
--- NOTE | 2019-01-30 10:25 | P.PN ---
Subjective Progress Note Date: 01/30/19 Principal diagnosis: s/p reverse left tsa Patient evaluate at bedside, resting comfortably. Pain is controlled. Denies chest pain or shortness of breath Objective - Vital Signs Vital signs: Vital Signs Temp 98.9 F 01/30/19 07:00 Pulse 97 01/30/19 07:00 Resp 16 01/30/19 07:00 BP 153/72 01/30/19 07:00 Pulse Ox 95 01/30/19 07:00 Intake & Output 01/29/19 01/30/19 01/30/19 18:59 06:59 18:59 Intake Total 1800 540 Output Total 400 Balance 1400 540 Intake: Intake, IV Titration 480 Amount Lactated Ringers 1,000 ml 480 @ 40 mls/hr IV .Q24H [facility] Rx#:[id number] Oral 1320 540 Output: Urine 400 Other: Voiding Method Urinal # Voids 2 - Exam Left upper extremity: Steri-Strips are in good position and condition. No active drainage. Soft tissue swelling noted throughout the upper extremity, also bruising. Sensation to light touch throughout the extremity is intact. Extension and flexion are intact at the wrist. Radial pulses 2+. - Labs CBC & Chem 7: 01/29/19 06:24 01/29/19 06:24 Labs: Abnormal Lab Results - Last 24 Hours (Table) 01/29/19 01/29/19 01/29/19 Range/Units 11:14 16:46 20:17 POC Glucose (mg/dL) 218 H 295 H 337 H (75-99) mg/dL 01/30/19 Range/Units 07:10 POC Glucose (mg/dL) 152 H (75-99) mg/dL Assessment and Plan Plan: Assessment: Postop day #2 status post reverse left total shoulder arthroplasty Plan: Pain control, plan for discharge on [place] 5mg/325mg GI and DVT prophylaxis, aspirin 81mg bid Utilize arm sling, ice the extremity often Medical recommendations Plan for discharge home today Time with Patient: Less than 30
--- NOTE | 2019-01-30 10:28 | P.DS ---
Providers Date of admission: 01/28/19 08:37 Expected date of discharge: 01/30/19 Attending physician: Campbell Bullard Consults: 01/28/19 12:39 Consult Physician Routine Consulting Provider: John Kemp Consult Reason/Comments: medical management Do you want consulting provider notified?: Yes Primary care physician: John Kemp [facility] Course: Date of admission: 01/28/2019 Date of discharge: 01/30/2019 Admission diagnosis: Status post reverse total shoulder arthroplasty Discharge diagnosis: Same Attending physician: Dr. uBllard Surgical procedures: Reverse total shoulder arthroplasty Brief history: Patient is a 78-year-old male with a history of left shoulder rotator cuff arthropathy with osteoarthritis At this point patient has failed conservative treatment measures and has opted to proceed with a elective [reverse left total shoulder arthroplasty. Hospital course: Details of patient's surgery can be found in operative report. Patient tolerated the procedure well and was subsequently transported to orthopedic floor. Patient's orthopeidc and medical care was provided daily. Patient had daily laboratory tests performed for evaluation of overall blood counts Patient had daily physical therapy to include strengthening range of motion as well as education with walker ambulation. Patient was treated with aspirin for their postoperative DVT prophylaxis during their inpatient stay. Patient was noted to have a relatively uneventful postoperative course. Patient reported satisfactory pain control with oral pain medications by postoperative day 0. Patient showed satisfactory progress with physical therapy. Patient moved steadily through the program and had no difficulty meeting the goals by postoperative day 2. Given patient's otherwise satisfactory course and having met physical therapy goals, plan is to discharge patient home on postoperative day 2. Discharge condition/disposition: Patient will be discharged home in stable condition. Discharge medications: Instructions are given on resumption of patient's normal daily medications per primary care recommendation, in addition patient will be prescribed [place] 5 mg/325 mg, aspirin 81 mg. Discharge instructions: 1. Wound care and infection precautions, keep incision dry and covered while showering, no lotions, creams, moisturizers. No soaking, tubs, pools, hottubs. Do not scrub over the incision. 2. Utilize arm sling 3. Ice and elevate when necessary. Do not exceed 20 minutes per hour with ice pack. 4. Utilize compression sleeve until seen at first follow up appointment. 5. Visiting nursing care. 6. Home physical therapy 7. Pain meds and anticoagulants per prescription. 8. Pain medication has potential to cause constipation. Increase oral fluid and fiber intake. Contact primary care provider if you have not had a bowel movement within 48 hours after discharge 9. No anti-inflammatory medication until discussed at first post operative visit, this including Motrin, Aleve, Mobic, Diclofenac 10. Follow up in office at 2 weeks postop with Braden Christy PA-C 11. Follow up with your primary care doctor 7-10 days after discharge. 12. Contact [facility] with any questions, . Procedures: Reverse left total shoulder arthroplasty Patient Condition at Discharge: Good Plan - Discharge Summary Discharge Rx Participant: Yes New Discharge Prescriptions: New Aspirin [Adult Low Dose Aspirin EC] 81 mg PO BID #60 tablet. Hydrocodone/Acetaminophen [[place] 5-325] 1 - 2 each PO Q6HR PRN #56 tab PRN Reason: Pain No Action Losartan Potassium [Cozaar] 100 mg PO DAILY metFORMIN HCL [metFORMIN HCL ER] 1,000 mg PO AC-BID Fluticasone Propionate [Flonase] 1 spray EA NOSTRIL HS PRN PRN Reason: Nasal Congestion Desloratadine [Clarinex] 5 mg PO DAILY Isosorbide Mononitrate ER [Imdur] 30 mg PO DAILY ALPRAZolam [Xanax] 0.25 mg PO BID PRN PRN Reason: Anxiety Furosemide [Lasix] 20 mg PO Q48H Insulin Detemir (Levemir) [Levemir] 52 unit SQ AC-SUPPER Insulin Detemir (Levemir) [Levemir] 44 unit PO AC-BRKFST Methocarbamol [Robaxin] 500 mg PO BID PRN PRN Reason: muscle spasms Meloxicam 15 mg PO DAILY Cyanocobalamin (Vitamin B-12) [Vitamin B-12] 1,000 mcg PO BID Magnesium Oxide [Mag-Ox] 400 mg PO DAILY Rosuvastatin [Crestor] 20 mg PO DAILY Lansoprazole [Prevacid] 30 mg PO DAILY amLODIPine BESYLATE [Norvasc] 5 mg PO BID Fenofibrate [Lofibra] 160 mg PO DAILY Metoprolol Tartrate [Lopressor] 100 mg PO BID Discharge Medication List Losartan Potassium [Cozaar] 100 mg PO DAILY 12/30/13 [History] metFORMIN HCL [metFORMIN HCL ER] 1,000 mg PO AC-BID 12/30/13 [History] Fluticasone Propionate [Flonase] 1 spray EA NOSTRIL HS PRN 12/31/13 [History] Desloratadine [Clarinex] 5 mg PO DAILY 12/14/14 [History] ALPRAZolam [Xanax] 0.25 mg PO BID PRN 01/06/15 [History] Isosorbide Mononitrate ER [Imdur] 30 mg PO DAILY 01/06/15 [History] Furosemide [Lasix] 20 mg PO Q48H 05/20/15 [History] Cyanocobalamin (Vitamin B-12) [Vitamin B-12] 1,000 mcg PO BID 01/20/19 [History] Fenofibrate [Lofibra] 160 mg PO DAILY 01/20/19 [History] Insulin Detemir (Levemir) [Levemir] 44 unit PO AC-BRKFST 01/20/19 [History] Insulin Detemir (Levemir) [Levemir] 52 unit SQ AC-SUPPER 01/20/19 [History] Lansoprazole [Prevacid] 30 mg PO DAILY 01/20/19 [History] Magnesium Oxide [Mag-Ox] 400 mg PO DAILY 01/20/19 [History] Meloxicam 15 mg PO DAILY 01/20/19 [History] Methocarbamol [Robaxin] 500 mg PO BID PRN 01/20/19 [History] Metoprolol Tartrate [Lopressor] 100 mg PO BID 01/20/19 [History] Rosuvastatin [Crestor] 20 mg PO DAILY 01/20/19 [History] amLODIPine BESYLATE [Norvasc] 5 mg PO BID 01/20/19 [History] Aspirin [Adult Low Dose Aspirin EC] 81 mg PO BID #60 tablet. 01/30/19 [Rx] Hydrocodone/Acetaminophen [[place] 5-325] 1 - 2 each PO Q6HR PRN #56 tab 01/30/19 [Rx] Follow up Appointment(s)/Referral(s): Campbell Bullard MD [STAFF PHYSICIAN] - 02/12/19 8:30 am John Kemp MD [Primary Care Provider] - 02/05/19 2:30 pm Activity/Diet/Wound Care/Special Instructions: Orthopedic Discharge Instructions: 1. Wound care and infection precautions, keep incision dry and covered while showering, no lotions, creams, moisturizers. No soaking, pools, hot tubs. Do not scrub over incision. 2. Utilize arm sling 3. Ice and elevate when necessary. Do not exceed 20 minutes per hour with ice pack. 4. Utilize compression sleeve until seen at first follow up appointment. 5. Pain meds and anticoagulants per prescription. 6. Pain medication has potential to cause constipation. Increase oral fluid and fiber intake. Contact primary care provider if you have not had a bowel movement within 48 hours after discharge. 7. No anti-inflammatory medication until discussed at first post operative visit, this including Motrin, Aleve, Mobic, Diclofenac. 8. Follow up in office at 2 weeks postop with Braden Christy PA-C 9. Follow up with your primary care doctor 7-10 days after discharge. 10. Contact [facility] with any questions, . Discharge Disposition: HOME SELF-CARE
[2019-01-30 11:44] LABS: Glucose,Whole Blood 239 mg/dL (75-99)
== END 2019-01-30 14:16 | disposition home or self-care (01) | DRG 483 ==
LOC: 2ORMAIN 08:37 → 4SSUR 14:09
PROVIDERS: ADMIT Orthopaedic Surgery; ATTEND Orthopaedic Surgery
PROC: 0RRK00Z Replacement of Left Shoulder Joint with Reverse Ball and Socket Synthetic Substitute, Open Approach (ICD-10-PCS; principal; 2019-01-28 10:45)
DX: M19.012 Primary osteoarthritis, left shoulder (principal); I95.9 Hypotension, unspecified; E11.65 Type 2 diabetes mellitus with hyperglycemia; E11.36 Type 2 diabetes mellitus with diabetic cataract; E66.01 Morbid (severe) obesity due to excess calories; M75.102 Unspecified rotator cuff tear or rupture of left shoulder, not specified as traumatic; G47.33 Obstructive sleep apnea (adult) (pediatric); E78.2 Mixed hyperlipidemia; I10 Essential (primary) hypertension; I25.119 Atherosclerotic heart disease of native coronary artery with unspecified angina pectoris; Z68.36 Body mass index [BMI] 36.0-36.9, adult; Z79.4 Long term (current) use of insulin; Z79.1 Long term (current) use of non-steroidal anti-inflammatories (NSAID); Z79.82 Long term (current) use of aspirin; Z79.899 Other long term (current) drug therapy; Z96.652 Presence of left artificial knee joint; Z98.890 Other specified postprocedural states; Z87.891 Personal history of nicotine dependence; Z87.442 Personal history of urinary calculi; Z98.52 Vasectomy status; Z91.041 Radiographic dye allergy status; Z88.5 Allergy status to narcotic agent; Z88.8 Allergy status to other drugs, medicaments and biological substances; Z91.048 Other nonmedicinal substance allergy status; Z83.3 Family history of diabetes mellitus; Z82.3 Family history of stroke; Z82.49 Family history of ischemic heart disease and other diseases of the circulatory system
CPT/HCPCS: 64415; 80048; 85025; 88300

== ENCOUNTER 2019-02-05 16:13 | Emergency (ER) | payer MEDICARE ==
[2019-02-05 16:27] VITALS: RESP 18; TEMP 98.1
[2019-02-05] MEDS ORDERED: HYDROcodone/APAP 7.5-325MG 1 EACH TAB PO ONE (16:32)
--- NOTE | 2019-02-05 17:08 | XR ---
EXAMINATION TYPE: XR shoulder complete LT DATE OF EXAM: 02/05/2019 COMPARISON: NONE HISTORY: Pain TECHNIQUE: Shoulder examined in 3 views FINDINGS: Glenoid and humeral prosthesis are present. Postsurgical changes are within the soft tissues. No acut e fractures are evident. The acromio-clavicular junction has some hypertrophy No acute fractures or dislocations are evident. A follow up study can be performed 7-10 days from acute trauma for continued pain. IMPRESSION: 1. No acute fractures. 2. Left shoulder prosthesis appears intact.
--- NOTE | 2019-02-05 17:16 | ED ---
Upper Extremity HPI - General Chief Complaint: Extremity Injury, Upper Stated Complaint: post op shoulder injury Time Seen by Provider: 02/05/19 16:22 Source: patient, family Mode of arrival: wheelchair Limitations: physical limitation - History of Present Illness Initial Comments: 78-year-old male patient presents to the emergency department today for e valuation of left shoulder pain. Patient is one week status post left total shoulder replacement with Dr. Bullard at [facility]. Since states he was getting up into his truck today and was fighting himself over when he pulled his left shoulder. Patient states he had onset of severe pain. Denies any radiation of the pain down his arm. Denies numbness or tingling to the hands. Patient states he has increased pain with any attempt at moving the arm. Patient took his last pain medication around 0800 this morning. Denies any other injuries or concerns. Patient denies any headache, neck pain, back pain, chest pain, shortness of breath, dizziness, weakness, abdominal pain, nausea, vomiting, or difficulties with bowel movements or urination. - Related Data Home Medications Medication Instructions Recorded Confirmed Losartan Potassium [Cozaar] 100 mg PO DAILY 12/30/13 01/28/19 metFORMIN HCL [metFORMIN HCL ER] 1,000 mg PO AC-BID 12/30/13 01/28/19 Fluticasone Propionate [Flonase] 1 spray EA NOSTRIL HS PRN 12/31/13 01/28/19 Desloratadine [Clarinex] 5 mg PO DAILY 12/14/14 01/28/19 ALPRAZolam [Xanax] 0.25 mg PO BID PRN 01/06/15 01/28/19 Isosorbide Mononitrate ER [Imdur] 30 mg PO DAILY 01/06/15 01/28/19 Furosemide [Lasix] 20 mg PO Q48H 05/20/15 01/28/19 Cyanocobalamin (Vitamin B-12) 1,000 mcg PO BID 01/20/19 01/28/19 [Vitamin B-12] Fenofibrate [Lofibra] 160 mg PO DAILY 01/20/19 01/28/19 Insulin Detemir (Levemir) [Levemir] 44 unit PO AC-BRKFST 01/20/19 01/28/19 Insulin Detemir (Levemir) [Levemir] 52 unit SQ AC-SUPPER 01/20/19 01/28/19 Lansoprazole [Prevacid] 30 mg PO DAILY 01/20/19 01/28/19 Magnesium Oxide [Mag-Ox] 400 mg PO DAILY 01/20/19 01/28/19 Meloxicam 15 mg PO DAILY 01/20/19 01/28/19 Methocarbamol [Robaxin] 500 mg PO BID PRN 01/20/19 01/28/19 Metoprolol Tartrate [Lopressor] 100 mg PO BID 01/20/19 01/28/19 Rosuvastatin [Crestor] 20 mg PO DAILY 01/20/19 01/28/19 amLODIPine BESYLATE [Norvasc] 5 mg PO BID 01/20/19 01/28/19 Previous Rx's Medication Instructions Recorded Aspirin [Adult Low Dose Aspirin EC] 81 mg PO BID #60 tablet. 01/30/19 Hydrocodone/Acetaminophen [[place] 1 - 2 each PO Q6HR PRN #56 tab 01/30/19 5-325] Allergies Allergy/AdvReac Type Severity Reaction Status Date / Time codeine Allergy Unknown Verified 02/05/19 16:27 iodine Allergy Anaphylaxis Verified 02/05/19 16:27 adhesive AdvReac Mild Rash/Hives Verified 02/05/19 16:27 Review of Systems ROS Statement: Those systems with pertinent positive or pertinent negative responses have been documented in the HPI. ROS Other: All systems not noted in ROS Statement are negative. 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, states has been currently passing kidney stones History of Any Multi-Drug Resistant Organisms: None Reported Past Surgical History: Heart Catheterization, Joint Replacement, Tonsillectomy Additional Past Surgical History / Comment(s): total left knee, R knee arthroscopy, left wrist tendon repair, vasectomy, kidney stones-4 surgeries for removal, rt carpal tunnel, lt wrist tendonitis , Reversed total left shoulder Past Anesthesia/Blood Transfusion Reactions: No Reported Reaction Additional Past Anesthesia/Blood Transfusion Reaction / Comment(s): hx vertigo Past Psychological History: No Psychological Hx Reported Smoking Status: Former smoker Past Alcohol Use History: None Reported Past Drug Use History: None Reported - Past Family History Father Family Medical History: CVA/TIA, Diabetes Mellitus, Myocardial Infarction ([place]) Mother Family Medical History: CVA/TIA General Exam Limitations: physical limitation General appearance: alert, in no apparent distress, other (This is a well- developed, well-nourished elderly male patient in no acute distress. Vital signs upon presentation are temperature 98.1F, pulse 81, respirations 18, blood pressure 204/96, pulse ox 96% on room air.) Eye exam: Present: normal appearance, PERRL, EOMI. Absent: scleral icterus, conjunctival injection, periorbital swelling ENT exam: Present: normal exam, normal oropharynx, mucous membranes moist Respiratory exam: Present: normal lung sounds bilaterally. Absent: respiratory distress, wheezes, rales, rhonchi, stridor Cardiovascular Exam: Present: regular rate, normal rhythm, normal heart sounds. Absent: systolic murmur, diastolic murmur, rubs, gallop, clicks Extremities exam: Present: full ROM, tenderness (Left shoulder), normal capillary refill, other (Incision is well approximated. No surrounding erythema or drainage. Dressing dry and intact. Skin to the left arm is pink, warm, dry. Cap refills less than 3 seconds. Radial pulses 2+ and equal bilaterally.). Absent: normal inspection, pedal edema, joint swelling, calf tenderness Neurological exam: Present: alert, oriented X3, CN II-XII intact Psychiatric exam: Present: normal affect, normal mood Skin exam: Present: warm, dry, intact, normal color. Absent: rash Course Vital Signs 02/05/19 16:24 Temperature 98.1 F Pulse Rate 81 Respiratory 18 Rate Blood Pressure 204/96 O2 Sat by Pulse 96 Oximetry Medical Decision Making - Medical Decision Making 78-year-old male patient presents to the emergency department today for evaluation of left shoulder pain. Patient is one week status post left total shoulder replacement. He did pull the shoulder today while getting into his truck. Physical examination is unremarkable. He has good neurovascular status. X-ray was obtained and shows an intact prosthesis. I did discuss findings and results with the patient. He was given pain medication. He'll be discharged with his acls specialist for further evaluation as soon as possible. Return parameters were discussed in detail. He verbalizes understanding and agrees with this plan. - Radiology Data Radiology results: report reviewed, image reviewed 3 views of the left shoulder obtained. Report was reviewed in its entirety. Impression by Dr. Fischer shows no acute fractures. Left shoulder prosthesis appears intact. Disposition Clinical Impression: Left shoulder pain, Post-op pain Disposition: HOME SELF-CARE Condition: Good Instructions (If sedation given, give patient instructions): Shoulder Pain (ED) Additional Instructions: Apply ice to the shoulder. Take home medication as directed for pain. Follow up with the surgeon for further evaluation as soon as possible. Return to the emergency department for any new, worsening, or concerning symptoms. Is patient prescribed a controlled substance at d/c from ED?: No Referrals: John Kemp MD [Primary Care Provider] - 1-2 days Time of Disposition: 17:15
[2019-02-05] MEDS ORDERED: amLODIPine 5 MG TAB PO STA (17:53)
[2019-02-05 18:44] VITALS: BP 179/75; PULSE 75
== END 2019-02-05 18:43 | disposition home or self-care (01) ==
LOC: EC 16:13
DX: G89.18 Other acute postprocedural pain (principal); M25.512 Pain in left shoulder; S49.92XA Unspecified injury of left shoulder and upper arm, initial encounter; I25.2 Old myocardial infarction; E11.9 Type 2 diabetes mellitus without complications; E78.5 Hyperlipidemia, unspecified; I10 Essential (primary) hypertension; M19.90 Unspecified osteoarthritis, unspecified site; N20.0 Calculus of kidney; Z79.4 Long term (current) use of insulin; Z79.899 Other long term (current) drug therapy; Z79.1 Long term (current) use of non-steroidal anti-inflammatories (NSAID); Z88.5 Allergy status to narcotic agent; Z91.041 Radiographic dye allergy status; Z91.048 Other nonmedicinal substance allergy status; Z95.5 Presence of coronary angioplasty implant and graft; Z96.612 Presence of left artificial shoulder joint; Z87.891 Personal history of nicotine dependence; X50.0XXA Overexertion from strenuous movement or load, initial encounter; Y93.89 Activity, other specified
CPT/HCPCS: 99283

== ENCOUNTER 2019-03-06 09:16 | Emergency (ER) | payer MEDICARE ==
[2019-03-06 09:27] VITALS: TEMP 98
[2019-03-06] MEDS ORDERED: LIDOCAINE/EPINEPHR/TETRACAINE 5 ML BOTTLE TOPICAL ONE (10:13)
[2019-03-06 10:42] LABS: Appearance,Urine Clear (Clear); Bilirubin,Urine Negative (Negative); Blood,Urine Large (Negative); Color,Urine Yellow; Glucose,Urine (UA) Negative (Negative); Ketones,Urine Negative (Negative); Leukocyte Esterase,Urine Negative (Negative); Mucus,Urine Rare /hpf; Nitrite,Urine Negative (Negative); PH, Urine 5.5 (5.0-8.0); Protein,Urine 2+ (Negative); RBC,Urine 77 /hpf (0-5); Specific Gravity,Urine 1.013 (1.001-1.035); Urobilinogen,Urine <2.0 mg/dL (<2.0)
--- NOTE | 2019-03-06 11:05 | XR ---
EXAMINATION TYPE: XR chest 2V DATE OF EXAM: 03/06/2019 COMPARISON: Prior chest x-ray 01/17/2019 HISTORY: Breathing difficulty TECHNIQUE: Frontal and lateral views of the chest are obtained. FINDINGS: There is no focal air space opacity, pleural effusion, or pneumothorax seen. The cardiac silhouette size is stable and enlarged. The osseous structures are intact. Post op changes are pres ent in the left shoulder. IMPRESSION: No acute cardiopulmonary process. Stable cardiomegaly.
[2019-03-06 11:07] LABS: Basophils # (A) 0.2 k/uL (0-0.2); Basophils % (A) 2 %; Eosinophils # (A) 0.2 k/uL (0-0.7); Eosinophils % (A) 3 %; HCT 43.6 % (39.0-53.0); HGB 13.8 gm/dL (13.0-17.5); Lymphocytes # (A) 1.2 k/uL (1.0-4.8); Lymphocytes % (A) 13 %; MCH 28.3 pg (25.0-35.0); MCHC 31.7 g/dL (31.0-37.0); MCV 89.3 fL (80.0-100.0); Mean Platelet Volume 7.1; Monocytes # (A) 0.7 k/uL (0-1.0); Monocytes % (A) 7 %; Neutrophils # (A) 7.1 k/uL (1.3-7.7); Neutrophils % (A) 74 %; Platelet Count 332 k/uL (150-450); RBC 4.88 m/uL (4.30-5.90); RDW 14.2 % (11.5-15.5); WBC 9.6 k/uL (3.8-10.6)
[2019-03-06 11:22] LABS: INR 1.1 (<1.2); Partial Thromboplastin Time 24.4 sec (22.0-30.0); Prothrombin Time 11.2 sec (9.0-12.0)
[2019-03-06 11:29] LABS: Calcium 10.2 mg/dL (8.4-10.2); Magnesium 1.9 mg/dL (1.6-2.3); Potassium 5.2 mmol/L (3.5-5.1); Total Bilirubin 0.5 mg/dL (0.2-1.3); Total Protein 7.1 g/dL (6.3-8.2)
--- NOTE | 2019-03-06 13:05 | ED ---
SOB HPI - General Chief Complaint: Shortness of Breath Stated Complaint: SOB, swollen feet Time Seen by Provider: 03/06/19 09:28 Source: patient, family, RN notes reviewed Mode of arrival: EMS Limitations: physical limitation - History of Present Illness Initial Comments: This 78-year-old male with a history of a recent left shoulder surgery as well as history kidney stones who is brought in today by his with complaints of shortness of breath denies any chest pain no fevers chills nausea vomiting sweats he states he has a hard time lying down to the shoulder surgery pain. He also is reported have swelling to his legs recently that his got better also elevated glucose of exertional dyspnea and feeling tired he states he feels none of these at this time. She is here for a checkup. MD Complaint: shortness of breath - Related Data Home Medications Medication Instructions Recorded Confirmed Losartan Potassium [Cozaar] 100 mg PO DAILY 12/30/13 03/06/19 metFORMIN HCL [metFORMIN HCL ER] 1,000 mg PO AC-BID 12/30/13 03/06/19 Desloratadine [Clarinex] 5 mg PO HS 12/14/14 03/06/19 Isosorbide Mononitrate ER [Imdur] 30 mg PO DAILY 01/06/15 03/06/19 Furosemide [Lasix] 20 mg PO DAILY 05/20/15 03/06/19 Cyanocobalamin (Vitamin B-12) 1,000 mcg PO BID 01/20/19 03/06/19 [Vitamin B-12] Fenofibrate [Lofibra] 160 mg PO HS 01/20/19 03/06/19 Insulin Detemir (Levemir) [Levemir] 44 unit PO AC-BRKFST 01/20/19 03/06/19 Insulin Detemir (Levemir) [Levemir] 52 unit SQ AC-SUPPER 01/20/19 03/06/19 Lansoprazole [Prevacid] 30 mg PO HS 01/20/19 03/06/19 Magnesium Oxide [Mag-Ox] 400 mg PO BID 01/20/19 03/06/19 Meloxicam 15 mg PO DAILY PRN 01/20/19 03/06/19 Methocarbamol [Robaxin] 500 mg PO BID PRN 01/20/19 03/06/19 Metoprolol Tartrate [Lopressor] 100 mg PO BID 01/20/19 03/06/19 Rosuvastatin [Crestor] 20 mg PO HS 01/20/19 03/06/19 amLODIPine BESYLATE [Norvasc] 5 mg PO BID 01/20/19 03/06/19 HYDROcodone/APAP 5-325MG [[place] 1 tab PO Q6H PRN 03/06/19 03/06/19 5-325] Previous Rx's Medication Instructions Recorded Aspirin [Adult Low Dose Aspirin EC] 81 mg PO BID #60 tablet. 01/30/19 Allergies Allergy/AdvReac Type Severity Reaction Status Date / Time codeine Allergy Unknown Verified 03/06/19 09:39 iodine Allergy Anaphylaxis Verified 03/06/19 09:39 adhesive AdvReac Mild Rash/Hives Verified 03/06/19 09:39 Review of Systems ROS Statement: Those systems with pertinent positive or pertinent negative responses have been documented in the HPI. ROS Other: All systems not noted in ROS Statement are negative. 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, states has been currently passing kidney stones History of Any Multi-Drug Resistant Organisms: None Reported Past Surgical History: Heart Catheterization, Joint Replacement, Tonsillectomy Additional Past Surgical History / Comment(s): total left knee, R knee arthroscopy, left wrist tendon repair, vasectomy, kidney stones-4 surgeries for removal, rt carpal tunnel, lt wrist tendonitis , Reversed total left shoulder Past Anesthesia/Blood Transfusion Reactions: No Reported Reaction Additional Past Anesthesia/Blood Transfusion Reaction / Comment(s): hx vertigo Past Psychological History: No Psychological Hx Reported Smoking Status: Former smoker Past Alcohol Use History: None Reported Past Drug Use History: None Reported - Past Family History Father Family Medical History: CVA/TIA, Diabetes Mellitus, Myocardial Infarction ([place]) Mother Family Medical History: CVA/TIA General Exam - General Exam Comments Initial Comments: This is a well-developed well-nourished awake alert oriented 3 male Limitations: physical limitation General appearance: alert, in no apparent distress Head exam: Present: atraumatic, normocephalic, normal inspection Eye exam: Present: normal appearance, PERRL, EOMI. Absent: scleral icterus, conjunctival injection, periorbital swelling ENT exam: Present: mucous membranes dry Neck exam: Present: normal inspection, full ROM, other (No stridor JVD or bruits). Absent: tenderness, meningismus, lymphadenopathy Respiratory exam: Present: normal lung sounds bilaterally. Absent: respiratory distress, wheezes, rales, rhonchi, stridor Cardiovascular Exam: Present: regular rate, normal rhythm, normal heart sounds. Absent: systolic murmur, diastolic murmur, rubs, gallop, clicks GI/Abdominal exam: Present: soft, normal bowel sounds. Absent: distended, tenderness, guarding, rebound, rigid Extremities exam: Present: full ROM, normal capillary refill, other (Well healing surgical scar in the left shoulder). Absent: tenderness, pedal edema, joint swelling, calf tenderness Back exam: Present: normal inspection Neurological exam: Present: alert, oriented X3, CN II-XII intact Psychiatric exam: Present: normal affect, normal mood Skin exam: Present: warm, dry, intact, normal color. Absent: rash Course Vital Signs 03/06/19 03/06/19 03/06/19 09:23 10:57 11:00 Temperature 98.0 F Pulse Rate 65 68 Respiratory 16 12 Rate Blood Pressure 143/76 135/85 O2 Sat by Pulse 94 L 92 L 92 L Oximetry 03/06/19 03/06/19 11:30 12:00 Temperature Pulse Rate 51 L 66 Respiratory 15 12 Rate Blood Pressure 149/88 172/102 O2 Sat by Pulse 91 L 94 L Oximetry Medical Decision Making - Medical Decision Making I did discuss [employer] the patient's family patient is asymptomatic this time we did discuss the findings he has a history of passing multiple kidney stones. He just has some recently. Which would explain hematuria. The patient was advised to increase his oral fluid intake. He is a follow-up with his doctor and return when necessary a consult does not believe he was short of breath today. - Lab Data Result diagrams: 03/06/19 10:52 03/06/19 10:52 Lab Results 03/06/19 03/06/19 03/06/19 Range/Units 10:25 10:52 10:52 WBC 9.6 (3.8-10.6) k/uL RBC 4.88 (4.30-5.90) m/uL Hgb 13.8 (13.0-17.5) gm/dL Hct 43.6 (39.0-53.0) % MCV 89.3 (80.0-100.0) fL MCH 28.3 (25.0-35.0) pg MCHC 31.7 (31.0-37.0) g/dL RDW 14.2 (11.5-15.5) % Plt Count 332 (150-450) k/uL Neutrophils % 74 % Lymphocytes % 13 % Monocytes % 7 % Eosinophils % 3 % Basophils % 2 % Neutrophils # 7.1 (1.3-7.7) k/uL Lymphocytes # 1.2 (1.0-4.8) k/uL Monocytes # 0.7 (0-1.0) k/uL Eosinophils # 0.2 (0-0.7) k/uL Basophils # 0.2 (0-0.2) k/uL PT (9.0-12.0) sec INR (<1.2) APTT (22.0-30.0) sec Sodium 142 (137-145) mmol/L Potassium 5.2 H (3.5-5.1) mmol/L Chloride 105 (98-107) mmol/L Carbon Dioxide 30 (22-30) mmol/L Anion Gap 7 mmol/L BUN 27 H (9-20) mg/dL Creatinine 0.95 (0.66-1.25) mg/dL Est GFR (CKD-EPI)AfAm 89 (>60 ml/min/1.73 sqM) Est GFR (CKD-EPI)NonAf 77 (>60 ml/min/1.73 sqM) Glucose 207 H (74-99) mg/dL Calcium 10.2 (8.4-10.2) mg/dL Magnesium 1.9 (1.6-2.3) mg/dL Total Bilirubin 0.5 (0.2-1.3) mg/dL AST 30 (17-59) U/L ALT 20 L (21-72) U/L Alkaline Phosphatase 88 (38-126) U/L Creatine Kinase 42 L (55-170) U/L Troponin I (0.000-0.034) ng/mL NT-Pro-B Natriuret Pep pg/mL Total Protein 7.1 (6.3-8.2) g/dL Albumin 4.0 (3.5-5.0) g/dL Urine Color Yellow Urine Appearance Clear (Clear) Urine pH 5.5 (5.0-8.0) Ur Specific [place] 1.013 (1.001-1.035) Urine Protein 2+ H (Negative) Urine Glucose (UA) Negative (Negative) Urine Ketones Negative (Negative) Urine Blood Large H (Negative) Urine Nitrite Negative (Negative) Urine Bilirubin Negative (Negative) Urine Urobilinogen <2.0 (<2.0) mg/dL Ur Leukocyte Esterase Negative (Negative) Urine RBC 77 H (0-5) /hpf Urine WBC 1 (0-5) /hpf Urine Mucus Rare H (None) /hpf 03/06/19 03/06/19 03/06/19 Range/Units 10:52 10:52 10:52 WBC (3.8-10.6) k/uL RBC (4.30-5.90) m/uL Hgb (13.0-17.5) gm/dL Hct (39.0-53.0) % MCV (80.0-100.0) fL MCH (25.0-35.0) pg MCHC (31.0-37.0) g/dL RDW (11.5-15.5) % Plt Count (150-450) k/uL Neutrophils % % Lymphocytes % % Monocytes % % Eosinophils % % Basophils % % Neutrophils # (1.3-7.7) k/uL Lymphocytes # (1.0-4.8) k/uL Monocytes # (0-1.0) k/uL Eosinophils # (0-0.7) k/uL Basophils # (0-0.2) k/uL PT 11.2 (9.0-12.0) sec INR 1.1 (<1.2) APTT 24.4 (22.0-30.0) sec Sodium (137-145) mmol/L Potassium (3.5-5.1) mmol/L Chloride (98-107) mmol/L Carbon Dioxide (22-30) mmol/L Anion Gap mmol/L BUN (9-20) mg/dL Creatinine (0.66-1.25) mg/dL Est GFR (CKD-EPI)AfAm (>60 ml/min/1.73 sqM) Est GFR (CKD-EPI)NonAf (>60 ml/min/1.73 sqM) Glucose (74-99) mg/dL Calcium (8.4-10.2) mg/dL Magnesium (1.6-2.3) mg/dL Total Bilirubin (0.2-1.3) mg/dL AST (17-59) U/L ALT (21-72) U/L Alkaline Phosphatase (38-126) U/L Creatine Kinase (55-170) U/L Troponin I <0.012 (0.000-0.034) ng/mL NT-Pro-B Natriuret Pep 553 pg/mL Total Protein (6.3-8.2) g/dL Albumin (3.5-5.0) g/dL Urine Color Urine Appearance (Clear) Urine pH (5.0-8.0) Ur Specific [place] (1.001-1.035) Urine Protein (Negative) Urine Glucose (UA) (Negative) Urine Ketones (Negative) Urine Blood (Negative) Urine Nitrite (Negative) Urine Bilirubin (Negative) Urine Urobilinogen (<2.0) mg/dL Ur Leukocyte Esterase (Negative) Urine RBC (0-5) /hpf Urine WBC (0-5) /hpf Urine Mucus (None) /hpf - Radiology Data Radiology results: report reviewed, image reviewed Disposition Clinical Impression: Hematuria, Dehydration, Kidney stones Disposition: HOME SELF-CARE Condition: Good Instructions (If sedation given, give patient instructions): Dehydration (ED), Hematuria (ED), Kidney Stones (ED) Is patient prescribed a controlled substance at d/c from ED?: No Referrals: John Kemp MD [Primary Care Provider] - 1-2 days
[2019-03-06 13:39] VITALS: BP 172/90; PULSE 81; RESP 20
== END 2019-03-06 13:38 | disposition home or self-care (01) ==
LOC: EC 09:16
DX: N20.0 Calculus of kidney (principal); E86.0 Dehydration; R31.9 Hematuria, unspecified; E11.9 Type 2 diabetes mellitus without complications; I10 Essential (primary) hypertension; E78.5 Hyperlipidemia, unspecified; Z79.4 Long term (current) use of insulin; Z79.899 Other long term (current) drug therapy; Z88.5 Allergy status to narcotic agent; Z91.048 Other nonmedicinal substance allergy status; Z87.891 Personal history of nicotine dependence; Z95.5 Presence of coronary angioplasty implant and graft
CPT/HCPCS: 36415; 71046; 80053; 81001; 82550; 83735; 83880; 84484; 85025; 85610; 85730; 93005; 99285

== ENCOUNTER → 2019-03-19 | Outpatient (CLI) | payer MEDICARE ==
[2019-03-19 16:35] LABS: Basophils # (A) 0.3 k/uL (0-0.2); Basophils % (A) 3 %; Eosinophils # (A) 0.2 k/uL (0-0.7); Eosinophils % (A) 2 %; HCT 44.8 % (39.0-53.0); HGB 13.1 gm/dL (13.0-17.5); Hypochromasia Slight; Lymphocytes # (A) 1.2 k/uL (1.0-4.8); Lymphocytes % (A) 13 %; MCH 27.4 pg (25.0-35.0); MCHC 29.3 g/dL (31.0-37.0); MCV 93.5 fL (80.0-100.0); Mean Platelet Volume 7.7; Monocytes # (A) 0.6 k/uL (0-1.0); Monocytes % (A) 7 %; Neutrophils # (A) 6.3 k/uL (1.3-7.7); Neutrophils % (A) 73 %; Platelet Count 309 k/uL (150-450); RDW 13.7 % (11.5-15.5); WBC 8.6 k/uL (3.8-10.6)
== END | disposition home or self-care (01) ==
LOC: LABWHC1 14:45
PROVIDERS: ATTEND Family Medicine
DX: R31.0 Gross hematuria (principal)
CPT/HCPCS: 36415; 85025

== ENCOUNTER → 2019-03-24 | Outpatient (CLI) | payer MEDICARE ==
--- NOTE | 2019-03-25 08:53 | XR ---
EXAMINATION TYPE: XR KUB DATE OF EXAM: 03/24/2019 COMPARISON: 01/01/2015 HISTORY: Hematuria TECHNIQUE: One view abdominal series FINDINGS: The osseous structures are intact. The bowel gas pattern is nonspecific. There is a curvature the sp ine with multilevel degenerative disc disease. Technique limits the exam. There is a question of a ca lcification measuring 3 mm adjacent to the L4 left transverse process. Calcifications the pelvis are nonspecific but likely vascular. Vascular calcifications and arthropathy of the hips noted. Subsegmen edwin changes at the lung bases are noted which may been the basis of chronic atelectasis. IMPRESSION: 1. Question a 3 mm left ureteral calcification. Correlate clinically. Correlate with CT scan as clini jaya warranted.
--- NOTE | 2019-03-25 08:54 | US ---
EXAMINATION TYPE: US renals and bladder DATE OF EXAM: 03/24/2019 COMPARISON: NONE CLINICAL HISTORY: R31.0 Hematuria. Gross hematuria. Patient states having multiple kidney stones. EXAM MEASUREMENTS: Right Kidney: 12.2 x 5.5 x 6.1 cm Left Kidney: 13.6 x 5.3 x 6.8 cm Limited exam due to patient body habitus Right Kidney: two cystic appearing lesions visualized. 1- superior lateral = 2.1 x 2.1 x 2.2 cm. 2= m id lateral = 2.0 x 1.6 x 1.7 cm Left Kidney: Appears enlarged in size. Cystic appearing lesions visualized. Largest measured. 1- aguilar perior medial- 6.6 x 6.1 x 5.8 cm. 2- superior medial = 6.2 x 6.4 x 4.5 cm Bladder: mildly distended, anechoic Bilateral Jets not visualized Incidental finding: echogenic foci seen in spleen IMPRESSION: 1. No hydronephrosis or nephrolithiasis. Left kidney appears to be enlarged in size relative to the r ight. Bilateral hypoechoic lesions most typical cysts are seen. KUB x-ray demonstrated findings suspi cious for a ureteral calculus. CT of the abdomen with and without contrast recommended. 2. Splenic granuloma.
== END | disposition home or self-care (01) ==
LOC: RADUSMAIN 15:56
PROVIDERS: ATTEND Family Medicine
DX: R31.0 Gross hematuria (principal); R93.422 Abnormal radiologic findings on diagnostic imaging of left kidney; N28.9 Disorder of kidney and ureter, unspecified; R93.41 Abnormal radiologic findings on diagnostic imaging of renal pelvis, ureter, or bladder; D73.89 Other diseases of spleen
CPT/HCPCS: 74018; 76770

== ENCOUNTER 2019-04-05 07:22 | Emergency (ER) | payer MEDICARE ==
[2019-04-05 07:31] VITALS: TEMP 97.6
[2019-04-05] MEDS ORDERED: SODIUM CHLORIDE 0.9% 1,000 ML IV STA (07:57)
[2019-04-05] MEDS ORDERED: MORPHINE SULFATE 4 MG/ML SYRINGE IV STA (07:57)
[2019-04-05] MEDS ORDERED: FAMOTIDINE 20 MG/2 ML VIAL IV STA (07:59)
[2019-04-05] MEDS ORDERED: methylPREDNISolone SOD SUCCI 125 MG/2 ML VIAL IV STA (07:59)
[2019-04-05] MEDS ORDERED: diphenhydrAMINE 50 MG/ML 1 ML VIAL IVP STA (07:59)
--- NOTE | 2019-04-05 08:03 | ED ---
General Adult HPI - General Chief complaint: Urogenital Stated complaint: blood in urine Time Seen by Provider: 04/05/19 07:29 Source: patient, family, RN notes reviewed Mode of arrival: ambulatory Limitations: no limitations - History of Present Illness Initial comments: Patient is a pleasant 78-year-old male presenting to the emergency Department with with complaints for urinary urgency and hematuria. Patient does have history of kidney stones and does see urology for this. Patient is scheduled for computed tomography scan with contrast next week. Patient has been urinating blood recently as well as blood clots. Patient has been having decreased urinary output since last night and feels like there could be something stuck. No nausea or vomiting or fevers. No abdominal pain. Patient does have fullness in the suprapubic region. - Related Data Home Medications Medication Instructions Recorded Confirmed Losartan Potassium [Cozaar] 100 mg PO DAILY 12/30/13 04/05/19 metFORMIN HCL [metFORMIN HCL ER] 1,000 mg PO AC-BID 12/30/13 04/05/19 Desloratadine [Clarinex] 5 mg PO HS 12/14/14 04/05/19 Isosorbide Mononitrate ER [Imdur] 30 mg PO DAILY 01/06/15 04/05/19 Furosemide [Lasix] 20 mg PO DAILY 05/20/15 04/05/19 Cyanocobalamin (Vitamin B-12) 1,000 mcg PO BID 01/20/19 04/05/19 [Vitamin B-12] Fenofibrate [Lofibra] 160 mg PO HS 01/20/19 04/05/19 Insulin Detemir (Levemir) [Levemir] 44 unit PO AC-BRKFST 01/20/19 04/05/19 Insulin Detemir (Levemir) [Levemir] 52 unit SQ AC-SUPPER 01/20/19 04/05/19 Lansoprazole [Prevacid] 30 mg PO HS 01/20/19 04/05/19 Magnesium Oxide [Mag-Ox] 400 mg PO BID 01/20/19 04/05/19 Methocarbamol [Robaxin] 500 mg PO BID PRN 01/20/19 04/05/19 Metoprolol Tartrate [Lopressor] 100 mg PO BID 01/20/19 04/05/19 Rosuvastatin [Crestor] 20 mg PO HS 01/20/19 04/05/19 amLODIPine BESYLATE [Norvasc] 5 mg PO BID 01/20/19 04/05/19 HYDROcodone/APAP 5-325MG [[place] 1 tab PO Q6H PRN 03/06/19 04/05/19 5-325] Aspirin [Adult Low Dose Aspirin EC] 81 mg PO DAILY 04/05/19 04/05/19 Allergies Allergy/AdvReac Type Severity Reaction Status Date / Time codeine Allergy Unknown Verified 04/05/19 08:58 iodine Allergy Anaphylaxis Verified 04/05/19 08:58 adhesive AdvReac Mild Rash/Hives Verified 04/05/19 08:58 Review of Systems ROS Statement: Those systems with pertinent positive or pertinent negative responses have been documented in the HPI. ROS Other: All systems not noted in ROS Statement are negative. Constitutional: Denies: fever Eyes: Denies: eye pain ENT: Denies: ear pain Respiratory: Denies: cough Cardiovascular: Denies: chest pain Endocrine: Denies: fatigue Gastrointestinal: Reports: as per HPI Genitourinary: Reports: as per HPI, urgency, hematuria. Denies: testicular pain, testicular mass Musculoskeletal: Denies: back pain Skin: Denies: rash Neurological: Denies: weakness 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, states has been currently passing kidney stones History of Any Multi-Drug Resistant Organisms: None Reported Past Surgical History: Heart Catheterization, Joint Replacement, Tonsillectomy Additional Past Surgical History / Comment(s): total left knee, R knee arthroscopy, left wrist tendon repair, vasectomy, kidney stones-4 surgeries for removal, rt carpal tunnel, lt wrist tendonitis , Reversed total left shoulder Past Anesthesia/Blood Transfusion Reactions: No Reported Reaction Additional Past Anesthesia/Blood Transfusion Reaction / Comment(s): hx vertigo Past Psychological History: No Psychological Hx Reported Smoking Status: Former smoker Past Alcohol Use History: None Reported Past Drug Use History: None Reported - Past Family History Father Family Medical History: CVA/TIA, Diabetes Mellitus, Myocardial Infarction ([place]) Mother Family Medical History: CVA/TIA General Exam Limitations: no limitations General appearance: alert, anxious Head exam: Present: normocephalic Eye exam: Present: normal appearance, PERRL Neck exam: Present: normal inspection Respiratory exam: Present: normal lung sounds bilaterally Cardiovascular Exam: Present: regular rate, normal rhythm GI/Abdominal exam: Present: soft. Absent: distended, tenderness exam: Present: normal inspection Extremities exam: Present: normal inspection Neurological exam: Present: alert Psychiatric exam: Present: normal affect, normal mood Skin exam: Present: normal color Course Vital Signs 04/05/19 07:26 Temperature 97.6 F Pulse Rate 88 Respiratory 18 Rate Blood Pressure 200/94 O2 Sat by Pulse 94 L Oximetry Medical Decision Making - Medical Decision Making Patient reevaluated and resting comfortably in bed. Patient remains symptom- free. Patient family updated on results, specifically including CT results regarding right kidney lesion. They give an appointment with urology on Sunday and will keep this. They are advised to have the urologist review of computed tomography scan. - Lab Data Result diagrams: 04/05/19 08:05 04/05/19 08:05 Lab Results 04/05/19 04/05/19 04/05/19 Range/Units 07:50 08:05 08:05 WBC 10.3 (3.8-10.6) k/uL RBC 4.60 (4.30-5.90) m/uL Hgb 13.1 (13.0-17.5) gm/dL Hct 40.8 (39.0-53.0) % MCV 88.8 (80.0-100.0) fL MCH 28.5 (25.0-35.0) pg MCHC 32.0 (31.0-37.0) g/dL RDW 13.8 (11.5-15.5) % Plt Count 352 (150-450) k/uL Neutrophils % 77 % Lymphocytes % 12 % Monocytes % 7 % Eosinophils % 2 % Basophils % 1 % Neutrophils # 7.9 H (1.3-7.7) k/uL Lymphocytes # 1.2 (1.0-4.8) k/uL Monocytes # 0.7 (0-1.0) k/uL Eosinophils # 0.2 (0-0.7) k/uL Basophils # 0.1 (0-0.2) k/uL Hypochromasia Slight PT (9.0-12.0) sec INR (<1.2) APTT (22.0-30.0) sec Sodium 143 (137-145) mmol/L Potassium 4.5 (3.5-5.1) mmol/L Chloride 107 (98-107) mmol/L Carbon Dioxide 27 (22-30) mmol/L Anion Gap 9 mmol/L BUN 28 H (9-20) mg/dL Creatinine 0.96 (0.66-1.25) mg/dL Est GFR (CKD-EPI)AfAm 88 (>60 ml/min/1.73 sqM) Est GFR (CKD-EPI)NonAf 77 (>60 ml/min/1.73 sqM) Glucose 297 H (74-99) mg/dL POC Glucose (mg/dL) (75-99) mg/dL POC Glu Gas Plant Repairer ID Calcium 9.8 (8.4-10.2) mg/dL Total Bilirubin 0.3 (0.2-1.3) mg/dL AST 25 (17-59) U/L ALT 19 L (21-72) U/L Alkaline Phosphatase 118 (38-126) U/L Total Protein 6.8 (6.3-8.2) g/dL Albumin 3.9 (3.5-5.0) g/dL Amylase 48 (30-110) U/L Lipase 377 H (23-300) U/L Urine Color Red Urine Appearance Bloody (Clear) Urine RBC >182 H (0-5) /hpf Urine WBC >182 H (0-5) /hpf Urine WBC Clumps Many H (None) /hpf 04/05/19 04/05/19 Range/Units 08:05 10:06 WBC (3.8-10.6) k/uL RBC (4.30-5.90) m/uL Hgb (13.0-17.5) gm/dL Hct (39.0-53.0) % MCV (80.0-100.0) fL MCH (25.0-35.0) pg MCHC (31.0-37.0) g/dL RDW (11.5-15.5) % Plt Count (150-450) k/uL Neutrophils % % Lymphocytes % % Monocytes % % Eosinophils % % Basophils % % Neutrophils # (1.3-7.7) k/uL Lymphocytes # (1.0-4.8) k/uL Monocytes # (0-1.0) k/uL Eosinophils # (0-0.7) k/uL Basophils # (0-0.2) k/uL Hypochromasia PT 10.4 (9.0-12.0) sec INR 1.0 (<1.2) APTT 23.3 (22.0-30.0) sec Sodium (137-145) mmol/L Potassium (3.5-5.1) mmol/L Chloride (98-107) mmol/L Carbon Dioxide (22-30) mmol/L Anion Gap mmol/L BUN (9-20) mg/dL Creatinine (0.66-1.25) mg/dL Est GFR (CKD-EPI)AfAm (>60 ml/min/1.73 sqM) Est GFR (CKD-EPI)NonAf (>60 ml/min/1.73 sqM) Glucose (74-99) mg/dL POC Glucose (mg/dL) 254 H (75-99) mg/dL POC Glu Gas Plant Repairer ID Raf Mccollum Calcium (8.4-10.2) mg/dL Total Bilirubin (0.2-1.3) mg/dL AST (17-59) U/L ALT (21-72) U/L Alkaline Phosphatase (38-126) U/L Total Protein (6.3-8.2) g/dL Albumin (3.5-5.0) g/dL Amylase (30-110) U/L Lipase (23-300) U/L Urine Color Urine Appearance (Clear) Urine RBC (0-5) /hpf Urine WBC (0-5) /hpf Urine WBC Clumps (None) /hpf - Radiology Data Radiology results: report reviewed (Computed tomography scan of the abdomen and pelvis does show complex high-density lesion right mid pole or kidney. Cholelithiasis.), image reviewed (KUB read as unable to visualize ureterolithiasis) Disposition Clinical Impression: Urinary retention, Hematuria Disposition: HOME SELF-CARE Condition: Stable Instructions (If sedation given, give patient instructions): Hematuria (ED), Urinary Retention in Men (ED) Additional Instructions: Please follow-up with your urologist, Dr. Winter Sunday as planned. Please follow-up with primary care physician in the next couple days for recheck. Return for not passing urine, fever, increased pain, worsening symptoms or other concerns. Please restart her Cipro and discussed this with Dr. Winter again on Sunday. Dr. Winter should review computed tomography scan report, this is very important. Dr. Winter should also review urine culture report. Is patient prescribed a controlled substance at d/c from ED?: No Referrals: John Kemp MD [Primary Care Provider] - 1-2 days Time of Disposition: 10:18
[2019-04-05 08:30] LABS: Basophils # (A) 0.1 k/uL (0-0.2); Basophils % (A) 1 %; Eosinophils # (A) 0.2 k/uL (0-0.7); Eosinophils % (A) 2 %; HCT 40.8 % (39.0-53.0); HGB 13.1 gm/dL (13.0-17.5); Hypochromasia Slight; Lymphocytes # (A) 1.2 k/uL (1.0-4.8); Lymphocytes % (A) 12 %; MCH 28.5 pg (25.0-35.0); MCV 88.8 fL (80.0-100.0); Mean Platelet Volume 6.4; Monocytes # (A) 0.7 k/uL (0-1.0); Monocytes % (A) 7 %; Neutrophils # (A) 7.9 k/uL (1.3-7.7); Neutrophils % (A) 77 %; Platelet Count 352 k/uL (150-450); RDW 13.8 % (11.5-15.5); WBC 10.3 k/uL (3.8-10.6)
[2019-04-05 08:39] LABS: Partial Thromboplastin Time 23.3 sec (22.0-30.0); Prothrombin Time 10.4 sec (9.0-12.0)
[2019-04-05 08:41] LABS: RBC,Urine >182 /hpf (0-5); WBC,Urine >182 /hpf (0-5)
[2019-04-05 08:42] LABS: Albumin 3.9 g/dL (3.5-5.0); Calcium 9.8 mg/dL (8.4-10.2); Potassium 4.5 mmol/L (3.5-5.1); Total Bilirubin 0.3 mg/dL (0.2-1.3); Total Protein 6.8 g/dL (6.3-8.2)
[2019-04-05 08:42] LABS: Appearance,Urine Bloody (Clear); Color,Urine Red
--- NOTE | 2019-04-05 08:50 | XR ---
EXAMINATION TYPE: XR KUB , 2 VIEWS DATE OF EXAM ORDERED: 04/05/2019 HISTORY: abdominal pain. COMPARISON: Previous study dated 03/24/2019. FINDINGS: The abdominal gas pattern is normal. There is no evidence of obstruction or free air. 3 mm questionable right ureteric calculus seen on the left previously is not clearly evident. There is a phlebolith in the right hemipelvis. No other unusual calcifications are seen. There is a dextroscolio sis. There are degenerative changes in the lumbar spine. IMPRESSION: 1. NONOBSTRUCTIVE ABDOMINAL GAS PICTURE. 2. I NO LONGER IDENTIFY THE QUESTIONABLE LEFT URETERIC CALCULUS.
--- NOTE | 2019-04-05 09:52 | CT ---
EXAMINATION TYPE: CT abdomen pelvis wo/w con DATE OF EXAM: 04/05/2019 REFERENCE: NONE HISTORY: Kidney stones, urinary retention, evaluate HISTORY: Blood in urine-bright red CT DLP: 3979.4 mGy Automated exposure control for dose reduction was used. TECHNIQUE: Helical acquisition through the abdomen and pelvis was obtained following the oral ingesti on of without Oral Contrast and following intravenous administration of 100 mL of Isovue 300. The jaqueline a was reformatted in axial, coronal and sagittal projections. FINDINGS: Visualized portions of the lungs are clear. There is no pleural or pericardial fluid. The heart is mildly enlarged. Within the abdomen, the liver is prominent measuring 21 cm. There are gallstones within the gallbladd er. There is granulomatous change within the spleen. There are 2 large, simple appearing cyst in the upper pole of the left kidney measuring 5.5) 5.7 cm r espectively. There is a high density lesion arising from the mid polar region of the right kidney luh suring 2.7 cm. There is a third medullary cyst involving the mid polar region of the right kidney luh suring 1.5 cm. A small calcification associated with the left kidney is believed to BE vascular. Ther e is no evidence of nephrolithiasis or hydronephrosis. The pancreas is unremarkable. There is mild to moderate atheromatous calcification of the visualized arterial tree. There is no sig nificant retroperitoneal, iliac or inguinal adenopathy. There is a Larkin catheter within the bladder. There are scattered diverticula within the sigmoid colon without radiographic evidence of diverticulo sis. The appendix is normal. Small bowel loops are normal in caliber. There is a periumbilical hernia containing fat and a small calcification. The mouth measures 1.4 cm. There is degenerative disc disease, hypertrophic spondylosis and facet arthropathy within the lumbar spine. IMPRESSION: 1. NO EVIDENCE OF HYDRONEPHROSIS OR NEPHROLITHIASIS. 2. MULTIPLE, BILATERAL SIMPLE APPEARING RENAL CYSTS. 3. COMPLEX, HIGH DENSITY LESION SEEN ARISING FROM MID POLAR REGION OF THE RIGHT KIDNEY MEASURING 2.7 CM. #4 HEPATOMEGALY. 5. CHOLELITHIASIS. 6. UNCOMPLICATED DIVERTICULOSIS OF THE SIGMOID COLON. 7. DEGENERATIVE CHANGES WITHIN THE SPINE. 8.. UMBILICAL HERNIA CONTAINING FAT AND A SMALL CALCIFICATION.
[2019-04-05 10:09] LABS: Glucose,Whole Blood 254 mg/dL (75-99)
[2019-04-05 11:31] VITALS: BP 156/83; PULSE 70; RESP 16
== END 2019-04-05 11:29 | disposition home or self-care (01) ==
LOC: EC 07:22
DX: R33.9 Retention of urine, unspecified (principal); R31.9 Hematuria, unspecified; E78.5 Hyperlipidemia, unspecified; E11.9 Type 2 diabetes mellitus without complications; I10 Essential (primary) hypertension; I25.2 Old myocardial infarction; Z79.4 Long term (current) use of insulin; Z79.82 Long term (current) use of aspirin; Z79.899 Other long term (current) drug therapy; Z88.5 Allergy status to narcotic agent; Z91.041 Radiographic dye allergy status; Z91.048 Other nonmedicinal substance allergy status; Z87.19 Personal history of other diseases of the digestive system; Z87.442 Personal history of urinary calculi; Z95.5 Presence of coronary angioplasty implant and graft; Z87.891 Personal history of nicotine dependence; Z96.652 Presence of left artificial knee joint; Z98.52 Vasectomy status; Z98.890 Other specified postprocedural states
CPT/HCPCS: 99284 ×2; 96374 ×3; 96375 ×4; 99283; 51702; 51798; 36415; 80053; 82150; 83690; 85025; 85610; 85730; 81001; 87086; 74018; 74178; J2270; J1200; J2930; Q9967

== ENCOUNTER 2019-04-05 14:13 | Emergency (ER) | payer MEDICARE ==
[2019-04-05 14:32] VITALS: RESP 18; TEMP 97.8
--- NOTE | 2019-04-05 14:41 | ED ---
General Adult HPI - General Chief complaint: Urogenital Stated complaint: Urogenital Time Seen by Provider: 04/05/19 14:34 Source: patient, family, RN notes reviewed Mode of arrival: wheelchair Limitations: no limitations - History of Present Illness Initial comments: 78-year-old male with a complicated past medical history presents for leaking catheter. Patient states that he had a catheter placed this morning as he was unable to urinate and was passing clots. States that they were on their way home when he noticed the catheter was leaking blood. States it is still draining urine. Patient is unsure if it is working correctly.Patient has no other complaints at this time including shortness of breath, chest pain, abdominal pain, nausea or vomiting, headache, or visual changes. - Related Data Home Medications Medication Instructions Recorded Confirmed Losartan Potassium [Cozaar] 100 mg PO DAILY 12/30/13 04/05/19 metFORMIN HCL [metFORMIN HCL ER] 1,000 mg PO AC-BID 12/30/13 04/05/19 Desloratadine [Clarinex] 5 mg PO HS 12/14/14 04/05/19 Isosorbide Mononitrate ER [Imdur] 30 mg PO DAILY 01/06/15 04/05/19 Furosemide [Lasix] 20 mg PO DAILY 05/20/15 04/05/19 Cyanocobalamin (Vitamin B-12) 1,000 mcg PO BID 01/20/19 04/05/19 [Vitamin B-12] Fenofibrate [Lofibra] 160 mg PO HS 01/20/19 04/05/19 Insulin Detemir (Levemir) [Levemir] 44 unit PO AC-BRKFST 01/20/19 04/05/19 Insulin Detemir (Levemir) [Levemir] 52 unit SQ AC-SUPPER 01/20/19 04/05/19 Lansoprazole [Prevacid] 30 mg PO HS 01/20/19 04/05/19 Magnesium Oxide [Mag-Ox] 400 mg PO BID 01/20/19 04/05/19 Methocarbamol [Robaxin] 500 mg PO BID PRN 01/20/19 04/05/19 Metoprolol Tartrate [Lopressor] 100 mg PO BID 01/20/19 04/05/19 Rosuvastatin [Crestor] 20 mg PO HS 01/20/19 04/05/19 amLODIPine BESYLATE [Norvasc] 5 mg PO BID 01/20/19 04/05/19 HYDROcodone/APAP 5-325MG [[place] 1 tab PO Q6H PRN 03/06/19 04/05/19 5-325] Aspirin [Adult Low Dose Aspirin EC] 81 mg PO DAILY 04/05/19 04/05/19 Allergies Allergy/AdvReac Type Severity Reaction Status Date / Time codeine Allergy Unknown Verified 04/05/19 14:32 iodine Allergy Anaphylaxis Verified 04/05/19 14:32 adhesive AdvReac Mild Rash/Hives Verified 04/05/19 14:32 Review of Systems ROS Statement: Those systems with pertinent positive or pertinent negative responses have been documented in the HPI. ROS Other: All systems not noted in ROS Statement are negative. 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, states has been currently passing kidney stones History of Any Multi-Drug Resistant Organisms: None Reported Past Surgical History: Heart Catheterization, Joint Replacement, Tonsillectomy Additional Past Surgical History / Comment(s): total left knee, R knee arthroscopy, left wrist tendon repair, vasectomy, kidney stones-4 surgeries for removal, rt carpal tunnel, lt wrist tendonitis , Reversed total left shoulder Past Anesthesia/Blood Transfusion Reactions: No Reported Reaction Additional Past Anesthesia/Blood Transfusion Reaction / Comment(s): hx vertigo Past Psychological History: No Psychological Hx Reported Smoking Status: Former smoker Past Alcohol Use History: None Reported Past Drug Use History: None Reported - Past Family History Father Family Medical History: CVA/TIA, Diabetes Mellitus, Myocardial Infarction ([place]) Mother Family Medical History: CVA/TIA General Exam Limitations: no limitations General appearance: alert, in no apparent distress Head exam: Present: atraumatic, normocephalic, normal inspection Eye exam: Present: normal appearance, PERRL, EOMI. Absent: scleral icterus, conjunctival injection, periorbital swelling ENT exam: Present: normal exam, mucous membranes moist Neck exam: Present: normal inspection, full ROM. Absent: tenderness, meningismus, lymphadenopathy Respiratory exam: Present: normal lung sounds bilaterally. Absent: respiratory distress, wheezes, rales, rhonchi, stridor Cardiovascular Exam: Present: regular rate, normal rhythm, normal heart sounds. Absent: systolic murmur, diastolic murmur, rubs, gallop, clicks GI/Abdominal exam: Present: soft, normal bowel sounds. Absent: distended, tenderness, guarding, rebound, rigid exam: Present: normal inspection, other (Catheter is placed in an penis. I do not see any significant leakage. There is urine in bag.) Course Vital Signs 04/05/19 04/05/19 14:29 16:46 Temperature 97.8 F 97.8 F Pulse Rate 98 98 Respiratory 18 18 Rate Blood Pressure 108/99 108/99 O2 Sat by Pulse 92 L 92 L Oximetry - Reevaluation(s) Reevaluation #1: 04/05/19 14:41 Previous visit reports reviewed. There are multiple bilateral simple appearing renal cysts. There is a complex high density lesion seen arising from the mid polar region of the right kidney. Urine culture is pending as patient has greater than 182 red blood cells and white blood cells. We will restart Cipro.. Patient has an appointment with urology on Sunday. Medical Decision Making - Medical Decision Making We did flush bladder to remove any clots over none were obtained. Catheter does appear to be draining urine however does have some small amount of blood leaking. Therefore catheter was removed and another catheter was inserted. There is no safety retention. Patient continues to have a very small amount of bleeding around the catheter. I believe this is likely due to inflammation of the prostate or penile tissues rather than related to his hematuria. He will follow-up with his urologist on Sunday which was discussed with him thoroughly. He will return if he has any worsening symptoms. Disposition Clinical Impression: Hematuria Disposition: HOME SELF-CARE Condition: Good Instructions (If sedation given, give patient instructions): Hematuria (ED) Additional Instructions: Please follow-up with your urologist Dr. Bojorquez on Sunday as planned. Follow up with primary care physician in the next couple of days for a recheck. Return for not passing urine, fever, increased pain, worsening symptoms or other concerns. Please restart Cipro and discuss this again with Dr. Winter on Sunday. Dr. Winter should review computed tomography scan report, this is very important. Dr. Winter should also review urine culture report. Is patient prescribed a controlled substance at d/c from ED?: No Referrals: John Kemp MD [Primary Care Provider] - 1-2 days John Bojorquez MD [STAFF PHYSICIAN] - 1-2 days Time of Disposition: 16:43
[2019-04-05] MEDS ORDERED: MORPHINE SULFATE 4 MG/ML SYRINGE IM STA (14:46)
[2019-04-05] MEDS ORDERED: LIDOCAINE URO-JET JELLY 2% 5 ML KIT URETHRAL ONE (16:09)
[2019-04-05 16:52] VITALS: BP 171/92; PULSE 94
== END 2019-04-05 17:12 | disposition home or self-care (01) ==
LOC: EC 14:13
DX: R31.9 Hematuria, unspecified (principal); I25.2 Old myocardial infarction; E11.9 Type 2 diabetes mellitus without complications; E78.5 Hyperlipidemia, unspecified; I10 Essential (primary) hypertension; Z79.4 Long term (current) use of insulin; Z79.82 Long term (current) use of aspirin; Z79.899 Other long term (current) drug therapy; Z88.5 Allergy status to narcotic agent; Z91.041 Radiographic dye allergy status; Z91.048 Other nonmedicinal substance allergy status; Z95.5 Presence of coronary angioplasty implant and graft; Z96.652 Presence of left artificial knee joint; Z87.891 Personal history of nicotine dependence
CPT/HCPCS: 96374; 99283; 51702; J2270

== ENCOUNTER 2019-04-06 17:05 | Emergency (ER) | payer MEDICARE ==
[2019-04-06 17:34] VITALS: BP 128/74; PULSE 74; RESP 18; TEMP 98.1
--- NOTE | 2019-04-06 17:40 | ED ---
Male Urogenital HPI - General Chief complaint: Urogenital Stated complaint: recheck - catheter problem Time Seen by Provider: 04/06/19 17:39 Source: patient, family, RN notes reviewed, old records reviewed Mode of arrival: wheelchair Limitations: physical limitation - History of Present Illness Initial comments: This is a 78-year-old male the ER for evaluation presented for evaluation regards to testicular pain. Patient otherwise has no significant complaints. Patient complaining of Larkin not working he is having urine around his Larkin placement. Patient sent to ER visits history for similar complaint. He does admit to mild abdominal pain. MD Complaint: other (Urinating around Larkin) -: hour(s) Location: penis Radiation: none Severity: mild Severity scale (1-10): 3 Quality: other (No significant current) Consistency: constant Improves with: none Worsens with: urination Reports: urinary retention, other (Patient has Larkin catheter placed) - Related Data Home Medications Medication Instructions Recorded Confirmed Losartan Potassium [Cozaar] 100 mg PO DAILY 12/30/13 04/05/19 metFORMIN HCL [metFORMIN HCL ER] 1,000 mg PO AC-BID 12/30/13 04/05/19 Desloratadine [Clarinex] 5 mg PO HS 12/14/14 04/05/19 Isosorbide Mononitrate ER [Imdur] 30 mg PO DAILY 01/06/15 04/05/19 Furosemide [Lasix] 20 mg PO DAILY 05/20/15 04/05/19 Cyanocobalamin (Vitamin B-12) 1,000 mcg PO BID 01/20/19 04/05/19 [Vitamin B-12] Fenofibrate [Lofibra] 160 mg PO HS 01/20/19 04/05/19 Insulin Detemir (Levemir) [Levemir] 44 unit PO AC-BRKFST 01/20/19 04/05/19 Insulin Detemir (Levemir) [Levemir] 52 unit SQ AC-SUPPER 01/20/19 04/05/19 Lansoprazole [Prevacid] 30 mg PO HS 01/20/19 04/05/19 Magnesium Oxide [Mag-Ox] 400 mg PO BID 01/20/19 04/05/19 Methocarbamol [Robaxin] 500 mg PO BID PRN 01/20/19 04/05/19 Metoprolol Tartrate [Lopressor] 100 mg PO BID 01/20/19 04/05/19 Rosuvastatin [Crestor] 20 mg PO HS 01/20/19 04/05/19 amLODIPine BESYLATE [Norvasc] 5 mg PO BID 01/20/19 04/05/19 HYDROcodone/APAP 5-325MG [[place] 1 tab PO Q6H PRN 03/06/19 04/05/19 5-325] Aspirin [Adult Low Dose Aspirin EC] 81 mg PO DAILY 04/05/19 04/05/19 Allergies Allergy/AdvReac Type Severity Reaction Status Date / Time codeine Allergy Unknown Verified 04/06/19 17:34 iodine Allergy Anaphylaxis Verified 04/06/19 17:34 adhesive AdvReac Mild Rash/Hives Verified 04/06/19 17:34 Review of Systems ROS Statement: Those systems with pertinent positive or pertinent negative responses have been documented in the HPI. ROS Other: All systems not noted in ROS Statement are negative. 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, states has been currently passing kidney stones History of Any Multi-Drug Resistant Organisms: None Reported Past Surgical History: Heart Catheterization, Joint Replacement, Tonsillectomy Additional Past Surgical History / Comment(s): total left knee, R knee arthroscopy, left wrist tendon repair, vasectomy, kidney stones-4 surgeries for removal, rt carpal tunnel, lt wrist tendonitis , Reversed total left shoulder Past Anesthesia/Blood Transfusion Reactions: No Reported Reaction Additional Past Anesthesia/Blood Transfusion Reaction / Comment(s): hx vertigo Past Psychological History: No Psychological Hx Reported Smoking Status: Former smoker Past Alcohol Use History: None Reported Past Drug Use History: None Reported - Past Family History Father Family Medical History: CVA/TIA, Diabetes Mellitus, Myocardial Infarction (SD) Mother Family Medical History: CVA/TIA General Exam Limitations: physical limitation General appearance: alert, in no apparent distress Head exam: Present: atraumatic, normocephalic, normal inspection Eye exam: Present: normal appearance, PERRL, EOMI. Absent: scleral icterus, conjunctival injection, periorbital swelling ENT exam: Present: normal exam, mucous membranes moist Neck exam: Present: normal inspection. Absent: tenderness, meningismus, lymphadenopathy Respiratory exam: Present: normal lung sounds bilaterally. Absent: respiratory distress, wheezes, rales, rhonchi, stridor Cardiovascular Exam: Present: regular rate, normal rhythm, normal heart sounds. Absent: systolic murmur, diastolic murmur, rubs, gallop, clicks GI/Abdominal exam: Present: soft, normal bowel sounds. Absent: distended, tenderness, guarding, rebound, rigid Extremities exam: Present: normal inspection, full ROM, normal capillary refill. Absent: tenderness, pedal edema, joint swelling, calf tenderness Back exam: Present: normal inspection Neurological exam: Present: alert, oriented X3, CN II-XII intact Psychiatric exam: Present: normal affect, normal mood Skin exam: Present: warm, dry, intact, normal color. Absent: rash Course Vital Signs 04/06/19 17:31 Temperature 98.1 F Pulse Rate 74 Respiratory 18 Rate Blood Pressure 128/74 O2 Sat by Pulse 94 L Oximetry - Reevaluation(s) Reevaluation #1: 04/06/19 17:59 Medical records reviewed Reevaluation #2: 04/06/19 19:48 Patient refusing a Larkin reinserted states he is able to urinate and patient did urinate here in the ER Medical Decision Making - Medical Decision Making 38 male the ER patient resents ER with malfunctioning Larkin. Patient states he like to be discharged home when not well for replacement we'll see how he does feel return of abdominal pain or decrease in urination occurs Disposition Clinical Impression: Urinary retention, Malfunction of Larkin catheter Disposition: HOME SELF-CARE Condition: Good Instructions (If sedation given, give patient instructions): Larkin Catheter Placement and Care (ED), Urinary Retention in Men (ED) Is patient prescribed a controlled substance at d/c from ED?: No Referrals: John Kemp MD [Primary Care Provider] - 1-2 days
== END 2019-04-06 22:06 | disposition home or self-care (01) ==
LOC: EC 17:05
DX: T83.018A Breakdown (mechanical) of other urinary catheter, initial encounter (principal); R33.9 Retention of urine, unspecified; E11.9 Type 2 diabetes mellitus without complications; E78.5 Hyperlipidemia, unspecified; I10 Essential (primary) hypertension; M19.90 Unspecified osteoarthritis, unspecified site; Z87.891 Personal history of nicotine dependence; Z88.5 Allergy status to narcotic agent; Z91.048 Other nonmedicinal substance allergy status; Z79.4 Long term (current) use of insulin; Z79.82 Long term (current) use of aspirin; Z79.899 Other long term (current) drug therapy; Z96.652 Presence of left artificial knee joint
CPT/HCPCS: 99283

== ENCOUNTER 2019-06-06 11:55 | Inpatient (IN) | payer MEDICARE ==
--- NOTE | 2019-06-06 12:07 | ED ---
General Adult HPI - General Stated complaint: EVAN Time Seen by Provider: 06/06/19 11:55 Source: RN notes reviewed, old records reviewed - History of Present Illness Initial comments: This is a 78-year-old male who presents emergency Department with a past medical history significant for coronary artery disease. Patient comes in today complaining of difficulty breathing. Patient states his been ongoing since last evening. Patient also is noted that he has had swelling to both his legs which seems to be increased. Patient states he is also swelling to his left arm ever since she had surgery on her shoulder in January. Patient denies any recent fever chills per patient denies any significant cough. Patient denies any chest pain or palpitations. Patient denies being lightheaded dizzy in any way. Patient denies any calf tenderness. Patient denies any abdominal pain patient denies nausea or vomiting. - Related Data Home Medications Medication Instructions Recorded Confirmed Losartan Potassium [Cozaar] 100 mg PO BID 12/30/13 06/06/19 metFORMIN HCL [metFORMIN HCL ER] 1,000 mg PO AC-BID 12/30/13 06/06/19 Desloratadine [Clarinex] 5 mg PO HS 12/14/14 06/06/19 Isosorbide Mononitrate ER [Imdur] 30 mg PO DAILY 01/06/15 06/06/19 Furosemide [Lasix] 20 mg PO Q48H 05/20/15 06/06/19 Cyanocobalamin (Vitamin B-12) 1,000 mcg PO BID 01/20/19 06/06/19 [Vitamin B-12] Fenofibrate [Lofibra] 160 mg PO HS 01/20/19 06/06/19 Insulin Detemir (Levemir) [Levemir] 44 unit PO AC-BRKFST 01/20/19 06/06/19 Insulin Detemir (Levemir) [Levemir] 52 unit SQ AC-SUPPER 01/20/19 06/06/19 Lansoprazole [Prevacid] 30 mg PO HS 01/20/19 06/06/19 Magnesium Oxide [Mag-Ox] 400 mg PO BID 01/20/19 06/06/19 Methocarbamol [Robaxin] 500 mg PO BID PRN 01/20/19 06/06/19 Rosuvastatin [Crestor] 20 mg PO HS 01/20/19 06/06/19 amLODIPine BESYLATE [Norvasc] 5 mg PO BID 01/20/19 06/06/19 HYDROcodone/APAP 5-325MG [[place] 1 tab PO Q6H PRN 03/06/19 06/06/19 5-325] Aspirin [Adult Low Dose Aspirin EC] 81 mg PO HS 04/05/19 06/06/19 Meloxicam 15 mg PO DAILY PRN 06/06/19 06/06/19 Metoprolol Tartrate [Lopressor] 100 mg PO BID 06/06/19 06/06/19 Allergies Allergy/AdvReac Type Severity Reaction Status Date / Time codeine Allergy Unknown Verified 06/06/19 14:36 iodine Allergy Anaphylaxis Verified 06/06/19 14:36 adhesive AdvReac Mild Rash/Hives Verified 06/06/19 14:36 Review of Systems ROS Statement: Those systems with pertinent positive or pertinent negative responses have been documented in the HPI. ROS Other: All systems not noted in ROS Statement are negative. 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, states has been currently passing kidney stones History of Any Multi-Drug Resistant Organisms: None Reported Past Surgical History: Heart Catheterization, Joint Replacement, Tonsillectomy Additional Past Surgical History / Comment(s): total left knee, R knee arthroscopy, left wrist tendon repair, vasectomy, kidney stones-4 surgeries for removal, rt carpal tunnel, lt wrist tendonitis , Reversed total left shoulder Past Anesthesia/Blood Transfusion Reactions: No Reported Reaction Additional Past Anesthesia/Blood Transfusion Reaction / Comment(s): hx vertigo Past Psychological History: No Psychological Hx Reported Smoking Status: Former smoker Past Alcohol Use History: None Reported Past Drug Use History: None Reported - Past Family History Father Family Medical History: CVA/TIA, Diabetes Mellitus, Myocardial Infarction (MD) Mother Family Medical History: CVA/TIA General Exam - General Exam Comments Initial Comments: GENERAL: Patient is well-developed and well-nourished. Patient is nontoxic and well- hydrated and is in mild distress. Pulse ox was 85% on room air. ENT: Neck is soft and supple. No significant lymphadenopathy is noted. Oropharynx is clear. Moist mucous membranes. Neck has full range of motion without eliciting any pain. Patient does appear to have some swelling to the left side of his neck. EYES: The sclera were anicteric and conjunctiva were pink and moist. Extraocular movements were intact and pupils were equal round and reactive to light. Eyelids were unremarkable. PULMONARY: Patient has diminished breath sounds bilaterally but more so on the left than the right. CARDIOVASCULAR: There is a regular rate and rhythm without any murmurs gallops or rubs. ABDOMEN: Soft and nontender with normal bowel sounds. No palpable organomegaly was noted. There is no palpable pulsatile mass. SKIN: Skin is clear with no lesions or rashes and otherwise unremarkable. NEUROLOGIC: Patient is alert and oriented x3. Cranial nerves II through XII are grossly intact. Motor and sensory are also intact. Normal speech, volume and content. Symmetrical smile. MUSCULOSKELETAL: Normal extremities with adequate strength and full range of motion. Patient has 2+ edema bilaterally patient also has edema to the left hand and arm. LYMPHATICS: No significant lymphadenopathy is noted PSYCHIATRIC: Normal psychiatric evaluation. Course Vital Signs 06/06/19 06/06/19 06/06/19 11:59 12:00 12:05 Temperature 98 F Pulse Rate 80 Respiratory 20 20 Rate Blood Pressure 143/87 O2 Sat by Pulse 84 L 86 L 94 L Oximetry 06/06/19 06/06/19 06/06/19 13:00 13:05 13:30 Temperature Pulse Rate 57 L Respiratory 20 Rate Blood Pressure 143/87 147/99 O2 Sat by Pulse 94 L 95 Oximetry 06/06/19 06/06/19 06/06/19 14:00 14:30 14:35 Temperature Pulse Rate 72 79 80 Respiratory 18 18 Rate Blood Pressure 156/92 147/99 O2 Sat by Pulse 95 95 96 Oximetry 06/06/19 06/06/19 06/06/19 14:50 15:00 15:05 Temperature Pulse Rate 83 83 Respiratory 18 18 18 Rate Blood Pressure 145/96 156/92 O2 Sat by Pulse 94 L 94 L Oximetry Medical Decision Making - Medical Decision Making EKG shows normal sinus rhythm at 79 bpm CO interval 150 QRS is 94 QT interval 380 QTC is 435 per patient's EKG shows no ST segment elevation or depression. Patient's chest x-ray showed slight interstitial edema. Patient's d-dimer is elevated so I ordered a computed tomography scan but I gave the patient treatment because he has an ALLERGY to contrast. Shortly thereafter patient was having slurred speech and "stroke was called. CT of the chest showed no PE. CTA and CT of the head were both normal read by Dr. Contreras as well as spoke with Dr. Contreras he agreed that the patient needed no intervention for what appeared to be strokelike symptoms I spoke with Dr. CASPER agreed to admit the patient admitted the patient wrote admitting orders. - Lab Data Result diagrams: 06/06/19 12:23 06/06/19 12:23 Lab Results 06/06/19 06/06/19 06/06/19 Range/Units 12:15 12:23 12:23 WBC 10.3 (3.8-10.6) k/uL RBC 3.79 L (4.30-5.90) m/uL Hgb 9.1 L D (13.0-17.5) gm/dL Hct 31.6 L (39.0-53.0) % MCV 83.3 D (80.0-100.0) fL MCH 23.9 L (25.0-35.0) pg MCHC 28.7 L (31.0-37.0) g/dL RDW 15.6 H (11.5-15.5) % Plt Count 465 H (150-450) k/uL Neutrophils % 76 % Lymphocytes % 11 % Monocytes % 7 % Eosinophils % 2 % Basophils % 1 % Neutrophils # 7.9 H (1.3-7.7) k/uL Lymphocytes # 1.2 (1.0-4.8) k/uL Monocytes # 0.8 (0-1.0) k/uL Eosinophils # 0.2 (0-0.7) k/uL Basophils # 0.1 (0-0.2) k/uL Hypochromasia Marked Poikilocytosis Slight PT (9.0-12.0) sec INR (<1.2) APTT (22.0-30.0) sec D-Dimer (<0.60) mg/L FEU Sodium 143 (137-145) mmol/L Potassium 4.9 (3.5-5.1) mmol/L Chloride 107 (98-107) mmol/L Carbon Dioxide 30 (22-30) mmol/L Anion Gap 6 mmol/L BUN 34 H (9-20) mg/dL Creatinine 1.31 H (0.66-1.25) mg/dL Est GFR (CKD-EPI)AfAm 61 (>60 ml/min/1.73 sqM) Est GFR (CKD-EPI)NonAf 52 (>60 ml/min/1.73 sqM) Glucose 236 H (74-99) mg/dL POC Glucose (mg/dL) (75-99) mg/dL POC Glu Mold Capper Helper ID Calcium 9.1 (8.4-10.2) mg/dL Magnesium 1.7 (1.6-2.3) mg/dL Total Bilirubin 0.4 (0.2-1.3) mg/dL AST 18 (17-59) U/L ALT 10 (4-49) U/L Alkaline Phosphatase 104 (38-126) U/L Troponin I (0.000-0.034) ng/mL NT-Pro-B Natriuret Pep pg/mL Total Protein 6.4 (6.3-8.2) g/dL Albumin 3.4 L (3.5-5.0) g/dL Urine Color Red Urine Appearance Cloudy (Clear) Urine pH 5.5 (5.0-8.0) Ur Specific [place] 1.016 (1.001-1.035) Urine Protein 2+ H (Negative) Urine Glucose (UA) Trace H (Negative) Urine Ketones Negative (Negative) Urine Blood Large H (Negative) Urine Nitrite Negative (Negative) Urine Bilirubin Negative (Negative) Urine Urobilinogen <2.0 (<2.0) mg/dL Ur Leukocyte Esterase Trace H (Negative) Urine RBC >182 H (0-5) /hpf Urine WBC 27 H (0-5) /hpf Urine Mucus Rare H (None) /hpf 06/06/19 06/06/19 06/06/19 Range/Units 12:23 12:23 12:23 WBC (3.8-10.6) k/uL RBC (4.30-5.90) m/uL Hgb (13.0-17.5) gm/dL Hct (39.0-53.0) % MCV (80.0-100.0) fL MCH (25.0-35.0) pg MCHC (31.0-37.0) g/dL RDW (11.5-15.5) % Plt Count (150-450) k/uL Neutrophils % % Lymphocytes % % Monocytes % % Eosinophils % % Basophils % % Neutrophils # (1.3-7.7) k/uL Lymphocytes # (1.0-4.8) k/uL Monocytes # (0-1.0) k/uL Eosinophils # (0-0.7) k/uL Basophils # (0-0.2) k/uL Hypochromasia Poikilocytosis PT 11.2 (9.0-12.0) sec INR 1.1 (<1.2) APTT 24.4 (22.0-30.0) sec D-Dimer 1.49 H (<0.60) mg/L FEU Sodium (137-145) mmol/L Potassium (3.5-5.1) mmol/L Chloride (98-107) mmol/L Carbon Dioxide (22-30) mmol/L Anion Gap mmol/L BUN (9-20) mg/dL Creatinine (0.66-1.25) mg/dL Est GFR (CKD-EPI)AfAm (>60 ml/min/1.73 sqM) Est GFR (CKD-EPI)NonAf (>60 ml/min/1.73 sqM) Glucose (74-99) mg/dL POC Glucose (mg/dL) (75-99) mg/dL POC Glu Mold Capper Helper ID Calcium (8.4-10.2) mg/dL Magnesium (1.6-2.3) mg/dL Total Bilirubin (0.2-1.3) mg/dL AST (17-59) U/L ALT (4-49) U/L Alkaline Phosphatase (38-126) U/L Troponin I 0.114 H* (0.000-0.034) ng/mL NT-Pro-B Natriuret Pep 1900 pg/mL Total Protein (6.3-8.2) g/dL Albumin (3.5-5.0) g/dL Urine Color Urine Appearance (Clear) Urine pH (5.0-8.0) Ur Specific [place] (1.001-1.035) Urine Protein (Negative) Urine Glucose (UA) (Negative) Urine Ketones (Negative) Urine Blood (Negative) Urine Nitrite (Negative) Urine Bilirubin (Negative) Urine Urobilinogen (<2.0) mg/dL Ur Leukocyte Esterase (Negative) Urine RBC (0-5) /hpf Urine WBC (0-5) /hpf Urine Mucus (None) /hpf 06/06/19 Range/Units 14:40 WBC (3.8-10.6) k/uL RBC (4.30-5.90) m/uL Hgb (13.0-17.5) gm/dL Hct (39.0-53.0) % MCV (80.0-100.0) fL MCH (25.0-35.0) pg MCHC (31.0-37.0) g/dL RDW (11.5-15.5) % Plt Count (150-450) k/uL Neutrophils % % Lymphocytes % % Monocytes % % Eosinophils % % Basophils % % Neutrophils # (1.3-7.7) k/uL Lymphocytes # (1.0-4.8) k/uL Monocytes # (0-1.0) k/uL Eosinophils # (0-0.7) k/uL Basophils # (0-0.2) k/uL Hypochromasia Poikilocytosis PT (9.0-12.0) sec INR (<1.2) APTT (22.0-30.0) sec D-Dimer (<0.60) mg/L FEU Sodium (137-145) mmol/L Potassium (3.5-5.1) mmol/L Chloride (98-107) mmol/L Carbon Dioxide (22-30) mmol/L Anion Gap mmol/L BUN (9-20) mg/dL Creatinine (0.66-1.25) mg/dL Est GFR (CKD-EPI)AfAm (>60 ml/min/1.73 sqM) Est GFR (CKD-EPI)NonAf (>60 ml/min/1.73 sqM) Glucose (74-99) mg/dL POC Glucose (mg/dL) 215 H (75-99) mg/dL POC Glu Mold Capper Helper ID Rubi Wong Calcium (8.4-10.2) mg/dL Magnesium (1.6-2.3) mg/dL Total Bilirubin (0.2-1.3) mg/dL AST (17-59) U/L ALT (4-49) U/L Alkaline Phosphatase (38-126) U/L Troponin I (0.000-0.034) ng/mL NT-Pro-B Natriuret Pep pg/mL Total Protein (6.3-8.2) g/dL Albumin (3.5-5.0) g/dL Urine Color Urine Appearance (Clear) Urine pH (5.0-8.0) Ur Specific [place] (1.001-1.035) Urine Protein (Negative) Urine Glucose (UA) (Negative) Urine Ketones (Negative) Urine Blood (Negative) Urine Nitrite (Negative) Urine Bilirubin (Negative) Urine Urobilinogen (<2.0) mg/dL Ur Leukocyte Esterase (Negative) Urine RBC (0-5) /hpf Urine WBC (0-5) /hpf Urine Mucus (None) /hpf Critical Care Time Critical Care Time: Yes Total Critical Care Time: 35 Disposition Clinical Impression: Dyspnea, Anemia, CVA (cerebral vascular accident), Hematuria, Renal insufficiency Disposition: ADMITTED IP TO THIS [facility] Referrals: John Kemp MD [Primary Care Provider] - 1-2 days Time of Disposition: 15:44
[2019-06-06 12:41] LABS: Basophils # (A) 0.1 k/uL (0-0.2); Basophils % (A) 1 %; Eosinophils # (A) 0.2 k/uL (0-0.7); Eosinophils % (A) 2 %; HCT 31.6 % (39.0-53.0); Hypochromasia Marked; Lymphocytes # (A) 1.2 k/uL (1.0-4.8); Lymphocytes % (A) 11 %; MCH 23.9 pg (25.0-35.0); MCHC 28.7 g/dL (31.0-37.0); Mean Platelet Volume 7.7; Monocytes # (A) 0.8 k/uL (0-1.0); Monocytes % (A) 7 %; Neutrophils # (A) 7.9 k/uL (1.3-7.7); Neutrophils % (A) 76 %; Platelet Count 465 k/uL (150-450); Poikilocytosis Slight; RBC 3.79 m/uL (4.30-5.90); RDW 15.6 % (11.5-15.5); WBC 10.3 k/uL (3.8-10.6)
--- NOTE | 2019-06-06 12:47 | XR ---
EXAMINATION TYPE: XR chest 2V DATE OF EXAM: 06/06/2019 COMPARISON: Prior chest x-ray 03/06/2019 HISTORY: Difficulty breathing TECHNIQUE: Frontal and lateral views of the chest are obtained. FINDINGS: There is no pneumothorax. Some mild increased basilar density noted. The cardiac silhouett e size is enlarged as on prior. Pleural thickening along the lateral pleural margin on the right, lef t costophrenic angle are stable findings. There are overlying cardiac leads. Interstitium and central vascularity are mildly increased. The osseous structures are intact. IMPRESSION: Correlate for possible pulmonary venous hypertension and interstitial edema, small pleur al effusions
[2019-06-06 12:54] LABS: INR 1.1 (<1.2); Partial Thromboplastin Time 24.4 sec (22.0-30.0); Prothrombin Time 11.2 sec (9.0-12.0)
[2019-06-06 12:56] LABS: Albumin 3.4 g/dL (3.5-5.0); Calcium 9.1 mg/dL (8.4-10.2); Magnesium 1.7 mg/dL (1.6-2.3); Potassium 4.9 mmol/L (3.5-5.1); Total Bilirubin 0.4 mg/dL (0.2-1.3); Total Protein 6.4 g/dL (6.3-8.2)
[2019-06-06 12:57] LABS: HGB 9.1 gm/dL (13.0-17.5)
[2019-06-06 12:58] LABS: MCV 83.3 fL (80.0-100.0)
[2019-06-06 13:19] LABS: D-Dimer 1.49 mg/L FEU (<0.60)
[2019-06-06 13:23] LABS: Appearance,Urine Cloudy (Clear); Bilirubin,Urine Negative (Negative); Blood,Urine Large (Negative); Color,Urine Red; Glucose,Urine (UA) Trace (Negative); Ketones,Urine Negative (Negative); Leukocyte Esterase,Urine Trace (Negative); Mucus,Urine Rare /hpf; Nitrite,Urine Negative (Negative); PH, Urine 5.5 (5.0-8.0); Protein,Urine 2+ (Negative); RBC,Urine >182 /hpf (0-5); Specific Gravity,Urine 1.016 (1.001-1.035); Urobilinogen,Urine <2.0 mg/dL (<2.0); WBC,Urine 27 /hpf (0-5)
--- NOTE | 2019-06-06 13:35 | US ---
EXAMINATION TYPE: US venous doppler duplex UE LT DATE OF EXAM: 06/06/2019 COMPARISON: NONE CLINICAL HISTORY: Arm swelling and difficulty breathing . Left arm edema, left shoulder surgery 01/27 , difficulty breathing SIDE PERFORMED: left Left Arm: No evidence of venous thrombosis as visualized Grayscale, color doppler, spectral doppler imaging performed of the deep veins of the left upper extr emity. There is normal flow, compressibility and vascular waveforms. IMPRESSION: No evidence of acute deep or superficial venous thrombosis involving the left upper extre mity.
[2019-06-06] MEDS ORDERED: FAMOTIDINE 20 MG/2 ML VIAL IV STA (13:59)
[2019-06-06] MEDS ORDERED: methylPREDNISolone SOD SUCCI 125 MG/2 ML VIAL IV STA (13:59)
[2019-06-06] MEDS ORDERED: diphenhydrAMINE 50 MG/ML 1 ML VIAL IVP STA (13:59)
[2019-06-06 14:42] LABS: Glucose,Whole Blood 215 mg/dL (75-99)
[2019-06-06] MEDS ORDERED: SODIUM CHLORIDE 0.9% 500 ML 500 ML IV ONE (14:47)
--- NOTE | 2019-06-06 15:00 | CT ---
EXAMINATION TYPE: CT brain wo con for TPA DATE OF EXAM: 06/06/2019 COMPARISON: 12/22/2017 HISTORY: Aphasia, slurred speech. Neuro deficits. CT DLP: 1058.[address] of the brain was performed. The ventricles, basal cisterns and sulci overlying the cerebral convexities demonstrate mild enlargem ent. There is no evidence for intracranial hemorrhage or sulcal effacement. There is decreased attenuation about the periventricular white matter and deep white matter of both c erebral hemispheres, compatible with chronic small vessel ischemia. Differential diagnosis does inclu de demyelination. No mass effects are seen.No midline shift. Osseous calvarium is intact. If symptoms persist consider MRI. IMPRESSION: 1. Age related atrophic and chronic small vessel ischemic change without acute intracranial process s een at this time.
--- NOTE | 2019-06-06 15:17 | CT ---
EXAMINATION TYPE: CT chest angio for PE DATE OF EXAM: 06/06/2019 COMPARISON: None HISTORY: Elevated d-dimer, low O2 sat CT DLP: 1281.9 mGycm CONTRAST: CT chest with contrast and 3D reconstruction with MIP imaging is performed with IV Contrast, patient injected with 80 mL of Isovue 300. Contrast-enhanced CT of the chest was performed through the course of the pulmonary arteries with rhonda g and mediastinal window settings submitted. 3D reconstruction with MIP imaging was also performed. PULMONARY ARTERIES: The pulmonary arteries and their major tributaries are patent. I do not see robyn dence for sizable filling defect to suggest pulmonary embolic process. LUNGS: Basilar atelectasis noted. No pulmonary nodule or mass is detected. No pleural effusion. MEDIASTINUM: Thoracic aorta is of normal caliber,however, evaluation is limited given timing of the contrast bolus. If there is concern for thoracic aortic pathology consider RACHEL. Correlate clinicall y . The heart is not enlarged. No evidence for mediastinal mass. No mediastinal lymph nodes greater than 1cm. HILAR STRUCTURES: No evidence for mass. No hilar lymph nodes greater than 1 cm. UPPER ABDOMEN: There is evidence of pneumobilia. Multiple simple cysts are noted of the left kidney. Solid appearing exophytic lesion posterior margin of the right kidney measures 2.6 cm. Granulomas of the spleen. IMPRESSION: 1. No evidence for Pulmonary embolism at this time. See above.
[2019-06-06] MEDS: ASPIRIN 325 MG TAB PO STA ×2 (16:03→16:04)
--- NOTE | 2019-06-06 16:26 | CT ---
EXAMINATION TYPE: CODE STROKE: CTA head neck DATE OF EXAM: 06/06/2019 COMPARISON: None HISTORY: Slurred speech. aphasia CT DLP: 603.2 mGycm CONTRAST: Performed with IV Contrast, patient injected with 65 mL of Isovue 370. Combination Contrast CTA cervical carotids and [place] CTA cervical carotids with 3-D recons truction Contrast CTA of the cervical carotids was performed 3-D reconstruction imaging obtained at a separate workstation. Right carotid system: Mild plaque is seen of the right common carotid artery. There is mild plaque a lso noted at the carotid bulb and proximal ICA. No significant diameter reduction. ECA is patent. Right vertebral artery appears unremarkable. Left carotid system: Mild plaque is seen of the left common carotid artery. There is moderate to sev ere mixed plaque also noted at the carotid bulb and proximal ICA. Estimated diameter reduction of gr eater than 90%. ECA is patent. Left vertebral artery appears unremarkable. IMPRESSION: 1. 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 2. No evidence for hemodynamically significant stenosis left carotid system. CTA [place] with 3-D reconstruction Contrast CTA of the [place] was performed 3-D reconstruction imaging obtained at a separate workstation. Vertebrobasilar system as well as intracranial portions of the internal carotid arteries and their ma geronimo tributaries are patent. I do not see evidence for sizable aneurysm or vascular malformation. Pl ease note MRI provides greater sensitivity and specificity. Visualized brain appears grossly unremar kable. IMPRESSION: 1. No significant abnormality.
[2019-06-06 18:06] LABS: Basophils % (A) 0 %; Eosinophils # (A) 0.1 k/uL (0-0.7); Eosinophils % (A) 1 %; HCT 33.3 % (39.0-53.0); HGB 9.4 gm/dL (13.0-17.5); Hypochromasia Marked; Lymphocytes # (A) 0.7 k/uL (1.0-4.8); Lymphocytes % (A) 7 %; MCHC 28.1 g/dL (31.0-37.0); MCV 85.3 fL (80.0-100.0); Mean Platelet Volume 7.4; Monocytes # (A) 0.3 k/uL (0-1.0); Monocytes % (A) 3 %; Neutrophils # (A) 8.4 k/uL (1.3-7.7); Neutrophils % (A) 88 %; Platelet Count 450 k/uL (150-450); Poikilocytosis Slight; RBC 3.91 m/uL (4.30-5.90); RDW 15.5 % (11.5-15.5); WBC 9.5 k/uL (3.8-10.6)
[2019-06-06 20:13] LABS: Glucose,Whole Blood 369 mg/dL (75-99)
[2019-06-06] MEDS ORDERED: INSULIN DETEMIR (LEVEMIR) 100 UNIT/ML SYR SQ SCH (21:00)
[2019-06-06] MEDS ORDERED: LOSARTAN 50 MG TAB PO SCH (21:00)
[2019-06-06] MEDS ORDERED: INSULIN ASPART (NovoLOG) 100 UNIT/ML VIAL SQ SCH (21:00)
[2019-06-06] MEDS ORDERED: METOPROLOL TARTRATE 50 MG TAB PO SCH (21:00)
[2019-06-06] MEDS ORDERED: PANTOPRAZOLE 40 MG TABLET PO SCH (21:00)
[2019-06-06] MEDS ORDERED: ASPIRIN 81 MG PO SCH (21:00)
[2019-06-06] MEDS: amLODIPine 5 MG TAB PO SCH (21:19)
[2019-06-06] MEDS: ATORVASTATIN 40 MG TAB PO SCH (21:19)
[2019-06-06] MEDS: CYANOCOBALAMIN 500 MCG TAB PO SCH (21:19)
[2019-06-06] MEDS: FENOFIBRATE 160 MG TAB PO SCH (21:19)
[2019-06-06] MEDS: LORATADINE 10 MG TAB PO SCH (21:19)
[2019-06-06] MEDS: MAGNESIUM OXIDE 400 MG TAB PO SCH (21:19)
[2019-06-06] MEDS: ASPIRIN 81 MG PO SCH (21:20)
--- NOTE | 2019-06-06 21:34 | P.CNNES ---
History of Present Illness Consult date: 06/06/19 Requesting physician: Armond Hurtado Reason for Consult: CVA History of Present Illness: Patient is a 78-year-old male who has history of diabetes, hypertension, bladder cancer with hematuria, kidney stones, came to the hospital because of difficulty breathing since last evening. He was also noticed to have increased weight gain, fluid retention, significant swelling of the lower extremities. He also complains of swelling of the left arm ever since he had surgery on the left shoulder in January 2019. Patient's blood pressure on arrival was 156/92, oxygen saturation 85%. Pulse rate 83. While in the ER, patient was noted to have some slurred speech. Stroke code was initiated. There was no other associated focal numbness tingling weakness facial droop or problem with the vision. Patient does have flabby facial musculature. He speaks with some slurring, which his understands very well. She states that even she was having problems with understanding his speech. Patient underwent stat computed tomography scan of the head, which revealed no acute process. CTA of head and neck showed greater than 90% stenosis of the proximal right ICA. No evidence for hemodynamically significant stenosis left carotid system. CTA of head was normal. Vertebrobasilar system is patent. EKG shows normal sinus rhythm. Nonspecific ST-T wave abnormality. CT of the chest was negative for any pulmonary embolism. Venous Doppler of lower extremity negative for DVT. Patient has history of hypertension for long time, diabetes for almost 30 years. He also smoked half pack per day from age 17, until he quit in the year 1999. Patient also has been diagnosed with kidney stones in the past and also has been diagnosed with bladder cancer recently. He is being evaluated at [facility]. Patient also had left shoulder surgery in January 2019 and also right knee replacement in the past. He has suffered from some falls in the past. Review of Systems Positive for generalized edema, shortness of breath, left shoulder pain, hematuria. Denies any abdominal pain. He has shortness of breath, but no chest pain. Denies fever or chills. He does have tremors. Denies headache. Patient is hard of hearing. Patient has some gait dysfunction, All other review of systems unremarkable. 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, states has been currently passing kidney stones History of Any Multi-Drug Resistant Organisms: None Reported Past Surgical History: Heart Catheterization, Joint Replacement, Tonsillectomy Additional Past Surgical History / Comment(s): total left knee, R knee arthroscopy, left wrist tendon repair, vasectomy, kidney stones-4 surgeries for removal, rt carpal tunnel, lt wrist tendonitis , Reversed total left shoulder- very sensitive to movement (01/28/19) Past Anesthesia/Blood Transfusion Reactions: No Reported Reaction Additional Past Anesthesia/Blood Transfusion Reaction / Comment(s): hx vertigo Past Psychological History: No Psychological Hx Reported Additional Psychological History / Comment(s): Pt resides with his spouse of 48yrs. He is independent. He uses no assistive device but feels he would benefit from possibly a cane. He uses a drive cart when shopping due to bilateral knee pain and R ankle/foot problems. Pt drives a car. Smoking Status: Former smoker Past Alcohol Use History: None Reported Additional Past Alcohol Use History / Comment(s): Pt quit smoking in 1996. Past Drug Use History: None Reported Additional Drug Use History / Comment(s): uses cbd oil for pain in shower - Past Family History Father Family Medical History: CVA/TIA, Diabetes Mellitus, Myocardial Infarction ([place]) Mother Family Medical History: CVA/TIA Medications and Allergies Home Medications Medication Instructions Recorded Confirmed Type Losartan Potassium [Cozaar] 100 mg PO BID 12/30/13 06/06/19 History metFORMIN HCL [metFORMIN HCL ER] 1,000 mg PO AC-BID 12/30/13 06/06/19 History Desloratadine [Clarinex] 5 mg PO HS 12/14/14 06/06/19 History Isosorbide Mononitrate ER [Imdur] 30 mg PO DAILY 01/06/15 06/06/19 History Furosemide [Lasix] 20 mg PO Q48H 05/20/15 06/06/19 History Cyanocobalamin (Vitamin B-12) 1,000 mcg PO BID 01/20/19 06/06/19 History [Vitamin B-12] Fenofibrate [Lofibra] 160 mg PO HS 01/20/19 06/06/19 History Insulin Detemir (Levemir) [Levemir] 44 unit PO AC-BRKFST 01/20/19 06/06/19 History Insulin Detemir (Levemir) [Levemir] 52 unit SQ AC-SUPPER 01/20/19 06/06/19 History Lansoprazole [Prevacid] 30 mg PO HS 01/20/19 06/06/19 History Magnesium Oxide [Mag-Ox] 400 mg PO BID 01/20/19 06/06/19 History Methocarbamol [Robaxin] 500 mg PO BID PRN 01/20/19 06/06/19 History Rosuvastatin [Crestor] 20 mg PO HS 01/20/19 06/06/19 History amLODIPine BESYLATE [Norvasc] 5 mg PO BID 01/20/19 06/06/19 History HYDROcodone/APAP 5-325MG [[place] 1 tab PO Q6H PRN 03/06/19 06/06/19 History 5-325] Aspirin [Adult Low Dose Aspirin EC] 81 mg PO HS 04/05/19 06/06/19 History Meloxicam 15 mg PO DAILY PRN 06/06/19 06/06/19 History Metoprolol Tartrate [Lopressor] 100 mg PO BID 06/06/19 06/06/19 History Allergies Allergy/AdvReac Type Severity Reaction Status Date / Time codeine Allergy Unknown Verified 06/06/19 14:36 iodine Allergy Anaphylaxis Verified 06/06/19 14:36 adhesive AdvReac Mild Rash/Hives Verified 06/06/19 14:36 Physical Examination - Vital Signs Vital Signs: Vital Signs Temp Pulse Pulse Resp BP BP Pulse Ox 06/06/19 19:30 98.5 F 86 20 173/75 96 06/06/19 18:00 84 18 162/78 89 L 06/06/19 17:30 75 06/06/19 17:00 79 18 06/06/19 16:30 79 155/74 06/06/19 16:01 85 153/74 06/06/19 16:00 18 06/06/19 15:47 18 06/06/19 15:35 79 18 143/100 06/06/19 15:30 80 143/71 91 L 06/06/19 15:20 75 18 143/71 06/06/19 15:05 83 18 156/92 06/06/19 15:00 18 94 L 06/06/19 14:50 83 18 145/96 94 L 06/06/19 14:35 80 18 147/99 96 06/06/19 14:30 79 156/92 95 06/06/19 14:00 72 18 95 06/06/19 13:30 57 L 147/99 95 06/06/19 13:05 20 94 L 06/06/19 13:00 143/87 06/06/19 12:05 20 94 L 06/06/19 12:00 98 F 80 20 143/87 86 L 06/06/19 11:59 84 L Intake and Output 06/06/19 06/06/19 06/06/19 06:59 14:59 22:59 Other: Weight 113.398 kg 122.1 kg On examination patient is an elderly male, who appears to be mildly short of breath. His speech sometimes appears slurred, but no aphasia. Patient does have flabby facial musculature, and decreased amount of dentition, which sometimes also creates slurring. On cranial examination pupils are round and reacting to light, visual slater are full on confrontation, extra muscles are intact. Face is symmetric and tongue protrudes the midline. On muscle strength testing patient has no pronator drift. The strength appears normal in arms and legs distally and proximally except hip flexion which is 4 bilaterally. Left shoulder not checked because of recent surgery. Reflexes are diminished and plantars are downgoing. Sensory touch is equal. No ataxia for [id number] testing. Patient does have moderate amount of asterixis/myoclonic jerks of outstretched hands, indicative of metabolic encephalopathy. There is no obvious bruit S1 and S2 audible. Results Patient's liver functions are normal. Hemoglobin A1c 8.2 on 12/24/2017. Lipid panel showed cholesterol 141, LDL 62.9, HDL 36 and triglycerides 356. Vitamin B12 is 700 on 12/24/2017. Thyroid functions normal. - Laboratory Findings CBC and BMP: 06/06/19 17:55 06/06/19 12:23 Abnormal Lab Findings: Abnormal Labs 06/06/19 06/06/19 12 12:15 12:23 12:23 RBC 3.79 L Hgb 9.1 L D Hct 31.6 L MCH 23.9 L MCHC 28.7 L RDW 15.6 H Plt Count 465 H Neutrophils # 7.9 H Lymphocytes # D-Dimer BUN 34 H Creatinine 1.31 H Glucose 236 H POC Glucose (mg/dL) Troponin I Albumin 3.4 L Urine Protein 2+ H Urine Glucose (UA) Trace H Urine Blood Large H Ur Leukocyte Esterase Trace H Urine RBC >182 H Urine WBC 27 H Urine Mucus Rare H 06/06/19 06/06/19 06/06/19 12:23 12:23 14:40 RBC Hgb Hct MCH MCHC RDW Plt Count Neutrophils # Lymphocytes # D-Dimer 1.49 H BUN Creatinine Glucose POC Glucose (mg/dL) 215 H Troponin I 0.114 H* Albumin Urine Protein Urine Glucose (UA) Urine Blood Ur Leukocyte Esterase Urine RBC Urine WBC Urine Mucus 06/06/19 06/06/19 17:55 20:11 RBC 3.91 L Hgb 9.4 L Hct 33.3 L MCH 24.0 L MCHC 28.1 L RDW Plt Count Neutrophils # 8.4 H Lymphocytes # 0.7 L D-Dimer BUN Creatinine Glucose POC Glucose (mg/dL) 369 H Troponin I Albumin Urine Protein Urine Glucose (UA) Urine Blood Ur Leukocyte Esterase Urine RBC Urine WBC Urine Mucus Assessment and Plan Assessment: * 78-year-old male admitted for shortness of breath, had possible episodes of slurred speech while in the ER. Patient's states that the slurring gets better and worse at times. Uncertain if related to difficulty breathing or due to TIAs. Patient's neurologic examination otherwise is nonfocal. * Severe right ICA stenosis 90%. * Hypertension * Diabetes * Obesity * X tobacco use * Hematuria with recent diagnosis of bladder cancer. * History of kidney stones. Plan: * Patient has some slurred speech noted in the ER, raising possibility of TIA. Patient does take aspirin 81 mg daily. We will increase dose of aspirin to 81 mg twice a day. As patient is currently having hematuria and sometimes he passes clots, therefore would avoid putting him on dual antiplatelet medication or even switching to Plavix. * Discussed with patient about MRI of the brain, but he declined. He is very claustrophobic. Would avoid giving sedatives, as it can make his breathing difficulty worse. * Suggest vascular surgical consultation for right ICA stenosis. * Patient will undergo treatment of his underlying cardiopulmonary process and peripheral edema. Hopefully his speech difficulty will improve. If patient has more definitive lateralizing symptoms, then we will consider MRI of the brain with sedation. * We will check 2-D echo to evaluate for cardioembolic source. * Hemoglobin A1c and fasting lipid panel. * Neurology coverage not available on the weekend. Dr. Fink will be covering from Sunday.
[2019-06-06 23:09] LABS: Glucose,Whole Blood 358 mg/dL (75-99)
[2019-06-06] MEDS ORDERED: FUROSEMIDE 10 MG/ML 10 ML VIAL IV STA (23:36)
[2019-06-06] MEDS ORDERED: NALOXONE 0.4 MG/ML 1 ML VIAL IV PRN (23:45)
[2019-06-07 00:20] LABS: Glucose,Whole Blood 392 mg/dL (75-99)
--- NOTE | 2019-06-07 00:23 | XR ---
EXAMINATION TYPE: XR chest 1V DATE OF EXAM: 06/07/2019 COMPARISON: 06/06/2019 HISTORY: Intubation. Hypoxemia. TECHNIQUE: Single view FINDINGS: Endotracheal tube is 2.3 cm from the ashly. Nasogastric tube is probably in good position. There is infiltrates and atelectasis at both lung bases. There is pulmonary vascular congestion. The re is left shoulder prosthesis. IMPRESSION: There is increasing pulmonary congestion and edema compared to exam yesterday and consist ent with RDS or congestive heart failure.
[2019-06-07 00:26] LABS: Basophils % (A) 0 %; Eosinophils % (A) 0 %; HCT 30.6 % (39.0-53.0); HGB 8.6 gm/dL (13.0-17.5); Hypochromasia Marked; Lymphocytes # (A) 0.4 k/uL (1.0-4.8); Lymphocytes % (A) 5 %; MCHC 28.3 g/dL (31.0-37.0); MCV 85.1 fL (80.0-100.0); Mean Platelet Volume 7.9; Monocytes # (A) 0.2 k/uL (0-1.0); Monocytes % (A) 2 %; Neutrophils # (A) 7.5 k/uL (1.3-7.7); Neutrophils % (A) 92 %; Platelet Count 452 k/uL (150-450); Poikilocytosis Slight; RBC 3.59 m/uL (4.30-5.90); RDW 15.5 % (11.5-15.5); WBC 8.1 k/uL (3.8-10.6)
[2019-06-07 00:36] LABS: ABG Base Excess 2.4 mmol/L; ABG HCO3 29 mmol/L (21-25); ABG Oxygen Saturation 99.5 % (94-97); ABG PCO2 59 mmHg (35-45); ABG PO2 213 mmHg (83-108); ABG TCO2 31 mmol/L (19-24); Allen Test Performed? Yes
[2019-06-07 00:45] LABS: Albumin 3.2 g/dL (3.5-5.0); Calcium 8.9 mg/dL (8.4-10.2); Potassium 5.2 mmol/L (3.5-5.1); Total Bilirubin 0.4 mg/dL (0.2-1.3)
[2019-06-07] MEDS ORDERED: FUROSEMIDE 100 MG in SODIUM CHLORIDE 0.9% 90 ML IV SCH (00:45)
[2019-06-07 00:50] LABS: Anisocytosis Slight; Basophils % (A) 0 %; Eosinophils % (A) 0 %; HCT 29.2 % (39.0-53.0); HGB 8.3 gm/dL (13.0-17.5); Hypochromasia Marked; Lymphocytes % (A) 5 %; MCH 23.9 pg (25.0-35.0); MCHC 28.4 g/dL (31.0-37.0); Mean Platelet Volume 7.7; Monocytes % (A) 3 %; Neutrophils % (A) 92 %; Platelet Count 411 k/uL (150-450); Poikilocytosis Slight; RBC 3.48 m/uL (4.30-5.90); WBC 7.7 k/uL (3.8-10.6)
[2019-06-07 00:51] LABS: Lymphocytes # (A) 0.4 k/uL (1.0-4.8); Monocytes # (A) 0.2 k/uL (0-1.0); Neutrophils # (A) 7.1 k/uL (1.3-7.7)
[2019-06-07 00:55] LABS: Appearance,Urine Cloudy (Clear); Bilirubin,Urine Negative (Negative); Blood,Urine Large (Negative); Color,Urine Red; Glucose,Urine (UA) 4+ (Negative); Ketones,Urine Trace (Negative); Leukocyte Esterase,Urine Small (Negative); Nitrite,Urine Negative (Negative); PH, Urine 5.5 (5.0-8.0); Protein,Urine 2+ (Negative); RBC,Urine >182 /hpf (0-5); Specific Gravity,Urine 1.026 (1.001-1.035); Urobilinogen,Urine <2.0 mg/dL (<2.0); WBC,Urine 41 /hpf (0-5)
[2019-06-07 01:17] LABS: Magnesium 1.9 mg/dL (1.6-2.3); Phosphorus 4.6 mg/dL (2.5-4.5)
[2019-06-07] MEDS: NOREPINEPHRINE 4 MG in SODIUM CHLORIDE 0.9% 250 ML IV SCH ×2 (01:30→13:10)
[2019-06-07] MEDS ORDERED: INSULIN REGULAR BOLUS (FROM DRIP BAG) IV PRN (01:49)
[2019-06-07] MEDS: HEPARIN SODIUM,PORCINE 5,000 UNIT/ML 1 ML VIAL SQ SCH ×4 (02:09→23:35)
[2019-06-07] MEDS: INSULIN REGULAR 100 UNIT in SODIUM CHLORIDE 0.9% 100 ML IV SCH (02:25)
[2019-06-07 02:28] LABS: Glucose,Whole Blood 356 mg/dL (75-99)
[2019-06-07 03:15] LABS: Glucose,Whole Blood 315 mg/dL (75-99)
[2019-06-07] MEDS: PROPOFOL 1,000 MG in EMPTY BAG 1 BAG IV SCH ×8 (03:57→23:34)
[2019-06-07 04:37] LABS: Glucose,Whole Blood 184 mg/dL (75-99)
[2019-06-07 04:46] LABS: Basophils % (A) 0 %; Eosinophils % (A) 0 %; HCT 28.6 % (39.0-53.0); HGB 8.3 gm/dL (13.0-17.5); Hypochromasia Marked; Lymphocytes # (A) 0.7 k/uL (1.0-4.8); Lymphocytes % (A) 8 %; MCH 24.3 pg (25.0-35.0); MCHC 29.2 g/dL (31.0-37.0); MCV 83.2 fL (80.0-100.0); Mean Platelet Volume 7.6; Monocytes # (A) 0.5 k/uL (0-1.0); Monocytes % (A) 5 %; Neutrophils # (A) 7.8 k/uL (1.3-7.7); Neutrophils % (A) 86 %; Platelet Count 437 k/uL (150-450); Poikilocytosis Slight; RBC 3.43 m/uL (4.30-5.90); RDW 15.5 % (11.5-15.5); WBC 9.1 k/uL (3.8-10.6)
[2019-06-07 05:16] LABS: Glucose,Whole Blood 167 mg/dL (75-99)
[2019-06-07 05:30] LABS: Calcium 9.2 mg/dL (8.4-10.2); Phosphorus 3.9 mg/dL (2.5-4.5); Potassium 4.8 mmol/L (3.5-5.1); Total Bilirubin 0.3 mg/dL (0.2-1.3); Total Protein 5.7 g/dL (6.3-8.2)
[2019-06-07 06:30] LABS: Glucose,Whole Blood 125 mg/dL (75-99)
--- NOTE | 2019-06-07 06:50 | XR ---
EXAMINATION TYPE: XR chest 1V portable DATE OF EXAM: 06/07/2019 CLINICAL HISTORY: Difficulty breathing progress study. TECHNIQUE: Single AP portable semiupright view of the chest is obtained. COMPARISON: Chest x-ray from earlier today and older studies. CTA chest from yesterday. FINDINGS: Redemonstration of endotracheal and orogastric tubes with tips not well-visualized due to body habitus.. There is background chronic emphysematous change and cardiomegaly with bibasilar opaci ties. Scattered peripheral nodules bilaterally are seen better on CT versus x-ray. Scoliotic curvatur e with multilevel spurring in the spine. IMPRESSION: Overall stable findings, chronic emphysematous change and cardiomegaly with small to ti ny bilateral pleural effusions and associated bilateral lower lung atelectasis and/or infiltrate are all redemonstrated.
[2019-06-07 07:16] LABS: Glucose,Whole Blood 144 mg/dL (75-99)
[2019-06-07] MEDS ORDERED: INSULIN DETEMIR (LEVEMIR) 100 UNIT/ML SYR SQ SCH (07:30)
[2019-06-07 08:03] LABS: ABG Base Excess 6.4 mmol/L; ABG HCO3 31 mmol/L (21-25); ABG Oxygen Saturation 94.2 % (94-97); ABG PCO2 46 mmHg (35-45); ABG PH 7.44 (7.35-7.45); ABG PO2 69 mmHg (83-108); ABG TCO2 32 mmol/L (19-24); Allen Test Performed? Yes
--- NOTE | 2019-06-07 08:22 | P.NPCON ---
History of Present Illness - Reason for Consult acute renal failure - History of Present Illness Reason for consultation: Acute kidney injury History of present illness: Patient is a 78-year-old male seen in renal consultation for acute kidney injury. Patient's creatinine March 2019 was 0.96. This admission and was elevated at 1.3 and is 1.54 today. Patient presented to the hospital due to worsening shortness of breath as well as lower extremity edema. According to the family, the symptoms have been going on for the last 1 month or so. Patient has history of left total knee arthroplasty which was done in 2007. Patient also fell a couple of times which had made his swelling worse. Patient underwent CTA on June 06 which revealed no evidence of pulmonary embolism. He also underwent CTA of the head and neck on June 06 which revealed 90% reduction in the right proximal ICA diameter. Patient was on Levophed overnight but it has now been discontinued. He was also on Lasix drip which has not been discontinued. He is currently maintained on normal saline at 75 mL an hour. He is nonoliguric. Patient is currently intubated. No regular use of nonsteroidals. Patient does have long-standing history of diabetes mellitus. Patient also has history of bladder cancer for which he follows at [facility]. He has not been on chemotherapy according to family as of yet. Vital signs are stable. General: The patient appeared well nourished and normally developed. HEENT: Head exam is unremarkable. Neck is without jugular venous distension. Intubated. LUNGS: Breath sounds decreased. HEART: Rate and Rhythm are regular. First and second heart sounds normal. No murmurs, rubs or gallops. ABDOMEN: Abdominal exam reveals normal bowel sounds. Non-tender and non-distend ed. No evidence of peritonitis. EXTREMITITES: 1+ edema. 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, states has been currently passing kidney stones History of Any Multi-Drug Resistant Organisms: None Reported Past Surgical History: Heart Catheterization, Joint Replacement, Tonsillectomy Additional Past Surgical History / Comment(s): total left knee, R knee arthroscopy, left wrist tendon repair, vasectomy, kidney stones-4 surgeries for removal, rt carpal tunnel, lt wrist tendonitis , Reversed total left shoulder- very sensitive to movement (01/28/19) Past Anesthesia/Blood Transfusion Reactions: No Reported Reaction Additional Past Anesthesia/Blood Transfusion Reaction / Comment(s): hx vertigo Past Psychological History: No Psychological Hx Reported Additional Psychological History / Comment(s): Pt resides with his spouse of 48yrs. He is independent. He uses no assistive device but feels he would benefit from possibly a cane. He uses a drive cart when shopping due to bilateral knee pain and R ankle/foot problems. Pt drives a car. Smoking Status: Former smoker Past Alcohol Use History: None Reported Additional Past Alcohol Use History / Comment(s): Pt quit smoking in 1996. Past Drug Use History: None Reported Additional Drug Use History / Comment(s): uses cbd oil for pain in shower - Past Family History Father Family Medical History: CVA/TIA, Diabetes Mellitus, Myocardial Infarction ([place]) Mother Family Medical History: CVA/TIA Medications and Allergies Home Medications Medication Instructions Recorded Confirmed Type Losartan Potassium [Cozaar] 100 mg PO BID 12/30/13 06/06/19 History metFORMIN HCL [metFORMIN HCL ER] 1,000 mg PO AC-BID 12/30/13 06/06/19 History Desloratadine [Clarinex] 5 mg PO HS 12/14/14 06/06/19 History Isosorbide Mononitrate ER [Imdur] 30 mg PO DAILY 01/06/15 06/06/19 History Furosemide [Lasix] 20 mg PO Q48H 05/20/15 06/06/19 History Cyanocobalamin (Vitamin B-12) 1,000 mcg PO BID 01/20/19 06/06/19 History [Vitamin B-12] Fenofibrate [Lofibra] 160 mg PO HS 01/20/19 06/06/19 History Insulin Detemir (Levemir) [Levemir] 44 unit PO AC-BRKFST 01/20/19 06/06/19 History Insulin Detemir (Levemir) [Levemir] 52 unit SQ AC-SUPPER 01/20/19 06/06/19 History Lansoprazole [Prevacid] 30 mg PO HS 01/20/19 06/06/19 History Magnesium Oxide [Mag-Ox] 400 mg PO BID 01/20/19 06/06/19 History Methocarbamol [Robaxin] 500 mg PO BID PRN 01/20/19 06/06/19 History Rosuvastatin [Crestor] 20 mg PO HS 01/20/19 06/06/19 History amLODIPine BESYLATE [Norvasc] 5 mg PO BID 01/20/19 06/06/19 History HYDROcodone/APAP 5-325MG [[place] 1 tab PO Q6H PRN 03/06/19 06/06/19 History 5-325] Aspirin [Adult Low Dose Aspirin EC] 81 mg PO HS 04/05/19 06/06/19 History Meloxicam 15 mg PO DAILY PRN 06/06/19 06/06/19 History Metoprolol Tartrate [Lopressor] 100 mg PO BID 06/06/19 06/06/19 History Allergies Allergy/AdvReac Type Severity Reaction Status Date / Time codeine Allergy Unknown Verified 06/06/19 14:36 iodine Allergy Anaphylaxis Verified 06/06/19 14:36 adhesive AdvReac Mild Rash/Hives Verified 06/06/19 14:36 Physical Exam Vitals: Vital Signs Temp Pulse Pulse Resp BP BP Pulse Ox 06/07/19 07:00 60 20 93 L 06/07/19 06:45 62 20 92 L 06/07/19 06:30 64 20 93 L 06/07/19 06:15 62 20 93 L 06/07/19 06:00 61 20 93 L 06/07/19 05:45 61 20 93 L 06/07/19 05:30 60 20 93 L 06/07/19 05:15 60 20 93 L 06/07/19 05:00 58 L 20 93 L 06/07/19 04:45 58 L 20 94 L 06/07/19 04:30 59 L 21 93 L 06/07/19 04:15 98.5 F 57 L 20 93 L 06/07/19 04:00 57 L 20 92 L 06/07/19 03:45 56 L 20 92 L 06/07/19 03:30 56 L 20 92 L 06/07/19 03:00 59 L 20 92 L 06/07/19 02:30 53 L 20 91 L 06/07/19 02:01 56 L 20 92 L 06/07/19 01:30 55 L 20 90 L 06/07/19 01:00 62 20 89 L 06/07/19 00:30 98.2 F 73 18 94/57 97 06/06/19 19:30 98.5 F 86 20 173/75 96 06/06/19 18:00 84 18 162/78 89 L 06/06/19 17:30 75 06/06/19 17:00 79 18 06/06/19 16:30 79 155/74 06/06/19 16:01 85 153/74 06/06/19 16:00 18 06/06/19 15:47 18 06/06/19 15:35 79 18 143/100 06/06/19 15:30 80 143/71 91 L 06/06/19 15:20 75 18 143/71 06/06/19 15:05 83 18 156/92 06/06/19 15:00 18 94 L 06/06/19 14:50 83 18 145/96 94 L 06/06/19 14:35 80 18 147/99 96 06/06/19 14:30 79 156/92 95 06/06/19 14:00 72 18 95 06/06/19 13:30 57 L 147/99 95 06/06/19 13:05 20 94 L 06/06/19 13:00 143/87 06/06/19 12:05 20 94 L 06/06/19 12:00 98 F 80 20 143/87 86 L 06/06/19 11:59 84 L Intake and Output 06/06/19 06/07/19 06/07/19 22:59 06:59 14:59 Intake Total 237 307.141 24.191 Output Total 330 125 Balance 237 -22.859 -100.809 Intake: Intake, IV Titration 307.141 24.191 Amount Insulin Regular 100 unit 25.325 In Sodium Chloride 0.9% 100 ml @ Per Protocol IV .Q0M [facility] Rx#:[id number] Norepinephrine 4 mg In 114.905 24.191 Sodium Chloride 0.9% 250 ml @ 0.05 MCG/KG/MIN 23. 26 mls/hr IV .[id number] [facility] Rx#:[id number] Propofol 1,000 mg In 166.911 Empty Bag 1 bag @ Titrate IV .Q0M [facility] Rx#: [id number] Oral 237 Output: Urine 330 125 Other: Voiding Method Indwelling Catheter Weight 122.1 kg 123.5 kg ABP, PAP, CO, CI - Last 8 Hours Arterial Blood Pressure 135/53 Arterial Blood Pressure 135/54 Arterial Blood Pressure 137/54 Arterial Blood Pressure 145/57 Arterial Blood Pressure 145/55 Arterial Blood Pressure 146/55 Arterial Blood Pressure 144/56 Arterial Blood Pressure 145/56 Arterial Blood Pressure 140/58 Arterial Blood Pressure 136/55 Arterial Blood Pressure 117/48 Arterial Blood Pressure 114/46 Arterial Blood Pressure 111/41 Arterial Blood Pressure 111/49 Arterial Blood Pressure 114/49 Arterial Blood Pressure 121/50 Arterial Blood Pressure 117/51 Arterial Blood Pressure 128/53 Arterial Blood Pressure 83/38 Arterial Blood Pressure 96/42 Arterial Blood Pressure 107/42 Results - Lab Results Most recent lab results ABG pH 7.44 (7.35-7.45) 06/07/19 07:58 ABG pCO2 46 mmHg (35-45) H 06/07/19 07:58 ABG pO2 69 mmHg (83-108) L 06/07/19 07:58 ABG HCO3 31 mmol/L (21-25) H 06/07/19 07:58 ABG O2 Saturation 94.2 % (94-97) 06/07/19 07:58 Calcium 9.2 mg/dL (8.4-10.2) 06/07/19 04:10 Phosphorus 3.9 mg/dL (2.5-4.5) 06/07/19 04:10 Magnesium 2.0 mg/dL (1.6-2.3) 06/07/19 04:10 06/07/19 04:10 06/07/19 04:10 Assessment and Plan Plan: Assessment: 1. Acute kidney injury secondary to ATN secondary to hypotension, diuresis and further worsened with the use of losartan. Additionally, the patient also received IV contrast on June 06. Creatinine 1.54 today. Renal ultrasound from March 2019 revealed no evidence of hydronephrosis. 2. Acute hypercapnic respiratory failure. Currently intubated. 3. Bladder cancer. Patient follows at [facility]. 4. Proteinuria. This is most likely secondary to underlying diabetic kidney disease. Will need further workup outpatient. 5. Insulin-dependent diabetes mellitus. 6. Benign hypertension. Controlled. 7. Right ICA stenosis. 8. Anemia. Rule out iron deficiency. Plan: Maintain normal saline at 75 mL an hour. Discontinue losartan. Hold antihypertensives for systolic blood pressure less than 120. Avoid nephrotoxins. Continue to monitor renal function and urine output. Contrast toxicity is expected to peak at 72 hours. Thank you for the consultation. I will continue to follow the patient with you during his hospital stay.
[2019-06-07] MEDS: SODIUM CHLORIDE 0.9% 1,000 ML IV SCH ×2 (08:39→21:44)
[2019-06-07] MEDS: PANTOPRAZOLE 40 MG/10 ML VIAL IV SCH (08:40)
[2019-06-07] MEDS: CYANOCOBALAMIN 500 MCG TAB PO SCH ×2 (08:40→21:43)
[2019-06-07] MEDS: MAGNESIUM OXIDE 400 MG TAB PO SCH ×2 (08:40→21:43)
[2019-06-07] MEDS: CHLORHEXIDINE GLUCONATE 15 ML CUP MUCOUS MEM SCH ×2 (08:40→21:43)
[2019-06-07] MEDS: ASPIRIN 81 MG PO SCH (08:41)
[2019-06-07] MEDS: amLODIPine 5 MG TAB PO SCH (08:42)
[2019-06-07] MEDS: ISOSORBIDE MONONITRATE ER 30 MG TAB.ER.24H PO SCH (08:43)
--- NOTE | 2019-06-07 08:51 | HP ---
HISTORY AND PHYSICAL DATE OF SERVICE: 06/07/2019 CHIEF COMPLAINT: Shortness of breath and slurring of speech. HISTORY OF PRESENT ILLNESS: This 78-year-old gentleman with a past medical history of multiple medical problems including diabetes, hypertension, hyperlipidemia, history of cardiac catheterization and joint replacement, being followed by Dr. Ryan Kemp in the outpatient, had surgery in January by Dr. Bullard in the form of shoulder arthroplasty. Currently the patient is having increased shortness of breath and some chest pains. Troponins was found to be slightly elevated in the ER. The patient admitted. Patient also has some slurring of speech. Neurology workup is underway also. According to the the patient is also taking [place], which causes some change in mental status at home also, but subsequently on the floor the patient became combative, hypoxic, shortness of breath and the patient had features of acute respiratory failure. Dr. Leon was contacted and the patient had profound respiratory acidosis. The patient was intubated mechanically and sedated and transferred to ICU at this time. The chest x-ray showed features of CHF. There was no ( ) the patient because the patient is on mechanical ventilation. most history taken from my discussion with staff and review of chart. PAST MEDICAL HISTORY: History of joint replacement, chest pain, history of diabetes, hypertension, hyperlipidemia, umbilical hernia. HOME MEDICATIONS: 1. Lopressor 100 mg p.o. b.i.d. 2. Cozaar 100 mg p.o. b.i.d. 3. Lasix 20 mg q.48 hours. 4. Meloxicam 50 mg daily p.r.n. 5. Metformin 1000 mg b.i.d. 6. Levemir 52 units subcu supper. 7. Robaxin 500 mg b.i.d. p.r.n. 8. Levemir 44 units subcu a.c. breakfast. 9. [place] 1 tablet q.6 p.r.n. 10.Magnesium oxide 400 mg p.o. b.i.d. 11.Clarinex 5 mg p.o. q.h.s. 12.Vitamin B12 1000 mcg p.o. b.i.d. 13.Aspirin 81 mg q.h.s. 14.Prevacid 30 mg q.h.s. 15.Crestor 10 mg q.h.s. 16.Norvasc 5 mg p.o. b.i.d. 17.Imdur 30 mg p.o. daily. 18.Lofibra 160 mg p.o. q.h.s. ALLERGIES: CODEINE, IODINE, ADHESIVES. FAMILY HISTORY: History of CVA, TIA, diabetes, myocardial infarction. SOCIAL HISTORY: Previous smoking history, no current smoking or alcohol intake per chart. REVIEW OF SYSTEMS: Could not be taken as mentioned earlier. PHYSICAL EXAM: Pulse 86, blood pressure ( ), respiration 20, temperature 98.2, pulse ox 100% on mechanical ventilation. Vent settings are noted. HEENT: Conjunctivae normal. Facial puffiness present. CARDIOVASCULAR: S1, S2; muffled. RESPIRATORY: Diminished breath sounds at the bases. A few scattered rhonchi and crackles. ABDOMEN: Soft, obese, nontender. LEGS: Bilateral leg edema. NERVOUS SYSTEM: Patient mechanically ventilated and sedated. SKIN: No rash. JOINTS: No active deforming arthropathy. LABS: WBC 8.2, hemoglobin is 8.6. ABGs noted. D-dimer is 1.49, creatinine 1.31, glucose 358 and troponin 0.114. UA noted. ASSESSMENT: 1. Congestive heart failure acute exacerbation, ejection fraction unknown with acute hypoxic respiratory failure on mechanical ventilation. 2. Slurring of speech, possible transient ischemic attack. 3. Elevated D-dimer without any evidence of any pulmonary embolism. 4. Acute respiratory acidosis secondary to acute hypoxic respiratory failure. 5. Possible cellulitis of the legs. 6. Acute hypoxic hypercarbic respiratory failure. 7. Anemia, normocytic anemia of chronic disease. 8. Obesity with body mass of 40.9. 9. Elevated creatinine with mild acute renal failure. 10.Diabetes mellitus type 2, uncontrolled. 11.Troponin 0.114, rule out acute myocardial infarction. 12.Possible urinary tract infection, present on admission. 13.History of recent shoulder arthroplasty. 14.Diabetes mellitus type 2. 15.Hypertension. 16.Hyperlipidemia. 17.History of umbilical hernia. 18.History of renal stones. 19.History of bowel obstruction. 20.History of degenerative joint disease. 21.History vertigo. 22.History of nicotine dependence. 23.Obesity with body mass of 40.9. 24.FULL CODE. RECOMMENDATIONS AND DISCUSSION: In this 78-year-old gentleman who presented with multiple complex medical issues, will monitor the patient closely in ICU, continue with Kathleen schmidip, monitor electrolyte imbalance closely, troponins, cardiology consultation, 2D echo with Doppler. I would also recommend a course of empiric IV antibiotics. We will follow the cultures. The D- dimer is elevated. Otherwise, I would also recommend lactic acid as well. We will continue to monitor as mentioned earlier. Cardiology being consulted for a complete cardiac workup also. Dr. Leon has been consulted for ICU management. Further recommendations to follow. Will continue the insulin to scale also. MMODL / IJN: [id number] /
[2019-06-07 09:08] LABS: Glucose,Whole Blood 160 mg/dL (75-99)
[2019-06-07] MEDS: FUROSEMIDE 10 MG/ML 4 ML VIAL IV SCH ×3 (10:24→23:35)
[2019-06-07 10:38] LABS: Glucose,Whole Blood 166 mg/dL (75-99)
[2019-06-07 11:22] LABS: Glucose,Whole Blood 167 mg/dL (75-99)
--- NOTE | 2019-06-07 11:23 | P.CNPUL ---
History of Present Illness Consult date: 06/07/19 Requesting physician: Basilio E Sheet Reason for consult: other (Acute pulmonary edema and hypoxic respiratory failure) Chief complaint: Shortness of breath and slurred speech History of present illness: This is a 78-year-old white male with history of hypertension, diabetes, degenerative joint disease, coronary artery disease, shoulder arthroplasty in January of 2019, primarily a patient of Dr. Kemp. Patient presented to the ER on 06/06/2019, complaining of shortness of breath, for the last 2 days prior to presentation. He was also complaining of swelling in lower extremities. While in the ER, patient was complaining of slurred speech and there was a concern about CVA. Patient underwent workup including CT angiogram of the chest which came back negative for pulmonary embolism. CT angiogram of the head and neck showed radial diameter reduction of right proximal internal carotid artery of greater than 90%. There was no evidence of acute CVA. Patient was admitted, seen by neurology on consultation, and he felt that the patient most likely had TIA. Recommended to continue aspirin, however no recommendation was made regarding antiplatelet therapy because of his hematuria. Neurology recommended vascular surgical consultation for right internal carotid artery stenosis. Last night, while the patient was on the cardiac floor, he developed worsening shortness of breath, and the rapid response team evaluated the patient. I was notified about this patient that he was in severe respiratory distress, and his chest x-ray showed increased pulmonary edema compared to chest x-ray on admission. Recommended immediate intubation of the patient, Lasix 80 mg IV push, Lasix drip at 10 mg per hour, and transferring the patient to the intensive care unit. Patient is now in the ICU, mechanically ventilated. He is on assist control rate of 20, volume of 500 FiO2 50% and PEEP of 5. His plateau pressure is 23. Chest x-ray continues to show evidence of interstitial edema bilaterally. ABG this morning showed a pO2 of 69 pCO2 of 46 and pH of 7.44. WBC count is 7.7 hemoglobin is 8.3. Renal functioning showed a BUN of 37, creatinine of 1.30. BNP level was borderline elevated. Troponins were noted to be elevated on admission, echocardiogram is pending. Patient was kept on the same ventilator settings. He is not ready to be weaned or extubated at this point, we will arrange for enteral feeding, we will continue GI and DVT prophylaxis, and continue diuretics. Review of Systems ROS unobtainable: due to endotracheal tube 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, states has been currently passing kidney stones History of Any Multi-Drug Resistant Organisms: None Reported Past Surgical History: Heart Catheterization, Joint Replacement, Tonsillectomy Additional Past Surgical History / Comment(s): total left knee, R knee arthroscopy, left wrist tendon repair, vasectomy, kidney stones-4 surgeries for removal, rt carpal tunnel, lt wrist tendonitis , Reversed total left shoulder- very sensitive to movement (01/28/19) Past Anesthesia/Blood Transfusion Reactions: No Reported Reaction Additional Past Anesthesia/Blood Transfusion Reaction / Comment(s): hx vertigo Past Psychological History: No Psychological Hx Reported Additional Psychological History / Comment(s): Pt resides with his spouse of 48yrs. He is independent. He uses no assistive device but feels he would benefit from possibly a cane. He uses a drive cart when shopping due to bi lateral knee pain and R ankle/foot problems. Pt drives a car. Smoking Status: Former smoker Past Alcohol Use History: None Reported Additional Past Alcohol Use History / Comment(s): Pt quit smoking in 1996. Past Drug Use History: None Reported Additional Drug Use History / Comment(s): uses cbd oil for pain in shower - Past Family History Father Family Medical History: CVA/TIA, Diabetes Mellitus, Myocardial Infarction ([place]) Mother Family Medical History: CVA/TIA Medications and Allergies Home Medications Medication Instructions Recorded Confirmed Type Losartan Potassium [Cozaar] 100 mg PO BID 12/30/13 06/06/19 History metFORMIN HCL [metFORMIN HCL ER] 1,000 mg PO AC-BID 12/30/13 06/06/19 History Desloratadine [Clarinex] 5 mg PO HS 12/14/14 06/06/19 History Isosorbide Mononitrate ER [Imdur] 30 mg PO DAILY 01/06/15 06/06/19 History Furosemide [Lasix] 20 mg PO Q48H 05/20/15 06/06/19 History Cyanocobalamin (Vitamin B-12) 1,000 mcg PO BID 01/20/19 06/06/19 History [Vitamin B-12] Fenofibrate [Lofibra] 160 mg PO HS 01/20/19 06/06/19 History Insulin Detemir (Levemir) [Levemir] 44 unit PO AC-BRKFST 01/20/19 06/06/19 History Insulin Detemir (Levemir) [Levemir] 52 unit SQ AC-SUPPER 01/20/19 06/06/19 History Lansoprazole [Prevacid] 30 mg PO HS 01/20/19 06/06/19 History Magnesium Oxide [Mag-Ox] 400 mg PO BID 01/20/19 06/06/19 History Methocarbamol [Robaxin] 500 mg PO BID PRN 01/20/19 06/06/19 History Rosuvastatin [Crestor] 20 mg PO HS 01/20/19 06/06/19 History amLODIPine BESYLATE [Norvasc] 5 mg PO BID 01/20/19 06/06/19 History HYDROcodone/APAP 5-325MG [[place] 1 tab PO Q6H PRN 03/06/19 06/06/19 History 5-325] Aspirin [Adult Low Dose Aspirin EC] 81 mg PO HS 04/05/19 06/06/19 History Meloxicam 15 mg PO DAILY PRN 06/06/19 06/06/19 History Metoprolol Tartrate [Lopressor] 100 mg PO BID 06/06/19 06/06/19 History Allergies Allergy/AdvReac Type Severity Reaction Status Date / Time codeine Allergy Unknown Verified 06/06/19 14:36 iodine Allergy Anaphylaxis Verified 06/06/19 14:36 adhesive AdvReac Mild Rash/Hives Verified 06/06/19 14:36 Physical Exam Vitals: Vital Signs Temp Pulse Pulse Resp BP BP Pulse Ox 06/07/19 09:00 68 20 93 L 06/07/19 08:30 65 20 93 L 06/07/19 08:00 98.6 F 68 20 93 L 06/07/19 07:30 63 20 93 L 06/07/19 07:00 60 20 93 L 06/07/19 06:45 62 20 92 L 06/07/19 06:30 64 20 93 L 06/07/19 06:15 62 20 93 L 06/07/19 06:00 61 20 93 L 06/07/19 05:45 61 20 93 L 06/07/19 05:30 60 20 93 L 06/07/19 05:15 60 20 93 L 06/07/19 05:00 58 L 20 93 L 06/07/19 04:45 58 L 20 94 L 06/07/19 04:30 59 L 21 93 L 06/07/19 04:15 98.5 F 57 L 20 93 L 06/07/19 04:00 57 L 20 92 L 06/07/19 03:45 56 L 20 92 L 06/07/19 03:30 56 L 20 92 L 06/07/19 03:00 59 L 20 92 L 06/07/19 02:30 53 L 20 91 L 06/07/19 02:01 56 L 20 92 L 06/07/19 01:30 55 L 20 90 L 06/07/19 01:00 62 20 89 L 06/07/19 00:30 98.2 F 73 18 94/57 97 06/06/19 19:30 98.5 F 86 20 173/75 96 06/06/19 18:00 84 18 162/78 89 L 06/06/19 17:30 75 06/06/19 17:00 79 18 06/06/19 16:30 79 155/74 06/06/19 16:01 85 153/74 06/06/19 16:00 18 06/06/19 15:47 18 06/06/19 15:35 79 18 143/100 06/06/19 15:30 80 143/71 91 L 06/06/19 15:20 75 18 143/71 06/06/19 15:05 83 18 156/92 06/06/19 15:00 18 94 L 06/06/19 14:50 83 18 145/96 94 L 06/06/19 14:35 80 18 147/99 96 06/06/19 14:30 79 156/92 95 06/06/19 14:00 72 18 95 06/06/19 13:30 57 L 147/99 95 06/06/19 13:05 20 94 L 06/06/19 13:00 143/87 06/06/19 12:05 20 94 L 06/06/19 12:00 98 F 80 20 143/87 86 L 06/06/19 11:59 84 L Intake and Output 06/06/19 06/07/19 06/07/19 22:59 06:59 14:59 Intake Total 237 307.141 279.369 Output Total 330 410 Balance 237 -22.859 -130.631 Intake: IV 150 Sodium Chloride 0.9% 1, 150 000 ml @ 75 mls/hr IV . [id number] [facility] Rx#:[id number] Intake, IV Titration 307.141 129.369 Amount Insulin Regular 100 unit 25.325 6.033 In Sodium Chloride 0.9% 100 ml @ Per Protocol IV .Q0M [facility] Rx#:[id number] Norepinephrine 4 mg In 114.905 24.191 Sodium Chloride 0.9% 250 ml @ 0.05 MCG/KG/MIN 23. 26 mls/hr IV .[id number] [facility] Rx#:[id number] Propofol 1,000 mg In 166.911 99.145 Empty Bag 1 bag @ Titrate IV .Q0M [facility] Rx#: [id number] Oral 237 Output: Urine 330 410 Other: Voiding Method Indwelling Catheter Weight 122.1 kg 123.5 kg ABP, PAP, CO, CI - Last 8 Hours Arterial Blood Pressure 149/58 Arterial Blood Pressure 130/50 Arterial Blood Pressure 77/48 Arterial Blood Pressure 130/38 Arterial Blood Pressure 135/53 Arterial Blood Pressure 135/54 Arterial Blood Pressure 137/54 Arterial Blood Pressure 145/57 Arterial Blood Pressure 145/55 Arterial Blood Pressure 146/55 Arterial Blood Pressure 144/56 Arterial Blood Pressure 145/56 Arterial Blood Pressure 140/58 Arterial Blood Pressure 136/55 Arterial Blood Pressure 117/48 Arterial Blood Pressure 114/46 Arterial Blood Pressure 111/41 Arterial Blood Pressure 111/49 Arterial Blood Pressure 114/49 Physical Exam: Revealed 78-year-old white male obese, on mechanical ventilation, sedated, in no distress. Head: Atraumatic, normocephalic. Endotracheal tube and orogastric tube are intact. HEENT:[Neck is supple.] [No neck masses.] [No thyromegaly.] [No JVD.] Chest: [Symmetrical chest expansion, crackles at the bases, no rhonchi and no wheezes. Cardiac Exam: [Normal S1 and S2, no S3 gallop, no murmur.] Abdomen: [Obese, Soft, nontender, no megaly, no rebound, no guarding, normal bowel sounds.] Extremities: [No clubbing, 1+ bipedal edema, no cyanosis.] Neurological Exam: Patient is sedated, on propofol, neurologic exam could not be assessed. Psychiatric: Could not be assessed. Patient is on propofol sedated intubated. Lymphatics: No lymphadenopathy. Skin: No rashes. Results - Laboratory Findings CBC and BMP: 06/07/19 04:10 06/07/19 04:10 ABG ABG pH 7.44 (7.35-7.45) 06/07/19 07:58 ABG pCO2 46 mmHg (35-45) H 06/07/19 07:58 ABG pO2 69 mmHg (83-108) L 06/07/19 07:58 ABG O2 Saturation 94.2 % (94-97) 06/07/19 07:58 PT/INR, D-dimer PT 11.2 sec (9.0-12.0) 06/06/19 12:23 INR 1.1 (<1.2) 06/06/19 12:23 D-Dimer 1.49 mg/L FEU (<0.60) H 06/06/19 12:23 Abnormal lab findings: Abnormal Labs 06/06/19 06/06/19 06/06/19 12:15 12:23 12:23 RBC 3.79 L Hgb 9.1 L D Hct 31.6 L MCH 23.9 L MCHC 28.7 L RDW 15.6 H Plt Count 465 H Neutrophils # 7.9 H Lymphocytes # D-Dimer ABG pH ABG pCO2 ABG pO2 ABG HCO3 ABG Total CO2 ABG O2 Saturation Potassium Chloride BUN 34 H Creatinine 1.31 H Glucose 236 H POC Glucose (mg/dL) Phosphorus Troponin I Total Protein Albumin 3.4 L Triglycerides HDL Cholesterol Urine Protein 2+ H Urine Glucose (UA) Trace H Urine Ketones Urine Blood Large H Ur Leukocyte Esterase Trace H Urine RBC >182 H Urine WBC 27 H Urine Mucus Rare H 06/06/19 06/06/19 06/06/19 12:23 12:23 14:40 RBC Hgb Hct MCH MCHC RDW Plt Count Neutrophils # Lymphocytes # D-Dimer 1.49 H ABG pH ABG pCO2 ABG pO2 ABG HCO3 ABG Total CO2 ABG O2 Saturation Potassium Chloride BUN Creatinine Glucose POC Glucose (mg/dL) 215 H Phosphorus Troponin I 0.114 H* Total Protein Albumin Triglycerides HDL Cholesterol Urine Protein Urine Glucose (UA) Urine Ketones Urine Blood Ur Leukocyte Esterase Urine RBC Urine WBC Urine Mucus 06/06/19 06/06/19 06/06/19 17:55 20:11 23:07 RBC 3.91 L Hgb 9.4 L Hct 33.3 L MCH 24.0 L MCHC 28.1 L RDW Plt Count Neutrophils # 8.4 H Lymphocytes # 0.7 L D-Dimer ABG pH ABG pCO2 ABG pO2 ABG HCO3 ABG Total CO2 ABG O2 Saturation Potassium Chloride BUN Creatinine Glucose POC Glucose (mg/dL) 369 H 358 H Phosphorus Troponin I Total Protein Albumin Triglycerides HDL Cholesterol Urine Protein Urine Glucose (UA) Urine Ketones Urine Blood Ur Leukocyte Esterase Urine RBC Urine WBC Urine Mucus 06/07/19 06/07/19 06/07/19 00:02 00:02 00:02 RBC 3.59 L Hgb 8.6 L Hct 30.6 L MCH 24.0 L MCHC 28.3 L RDW Plt Count 452 H Neutrophils # Lymphocytes # 0.4 L D-Dimer ABG pH ABG pCO2 ABG pO2 ABG HCO3 ABG Total CO2 ABG O2 Saturation Potassium 5.2 H Chloride BUN 37 H Creatinine 1.30 H Glucose 355 H POC Glucose (mg/dL) Phosphorus Troponin I 0.071 H* Total Protein 6.0 L Albumin 3.2 L Triglycerides HDL Cholesterol Urine Protein Urine Glucose (UA) Urine Ketones Urine Blood Ur Leukocyte Esterase Urine RBC Urine WBC Urine Mucus 06/07/19 06/07/19 06/07/19 00:09 00:30 00:30 RBC 3.48 L Hgb 8.3 L Hct 29.2 L MCH 23.9 L MCHC 28.4 L RDW 16.0 H Plt Count Neutrophils # Lymphocytes # 0.4 L D-Dimer ABG pH ABG pCO2 ABG pO2 ABG HCO3 ABG Total CO2 ABG O2 Saturation Potassium Chloride BUN Creatinine Glucose POC Glucose (mg/dL) 392 H Phosphorus 4.6 H Troponin I Total Protein Albumin Triglycerides HDL Cholesterol Urine Protein Urine Glucose (UA) Urine Ketones Urine Blood Ur Leukocyte Esterase Urine RBC Urine WBC Urine Mucus 06/07/19 06/07/19 06/07/19 00:30 00:30 00:35 RBC Hgb Hct MCH MCHC RDW Plt Count Neutrophils # Lymphocytes # D-Dimer ABG pH 7.30 L ABG pCO2 59 H ABG pO2 213 H ABG HCO3 29 H ABG Total CO2 31 H ABG O2 Saturation 99.5 H Potassium Chloride BUN Creatinine Glucose POC Glucose (mg/dL) Phosphorus Troponin I 0.064 H* Total Protein Albumin Triglycerides HDL Cholesterol Urine Protein 2+ H Urine Glucose (UA) 4+ H Urine Ketones Trace H Urine Blood Large H Ur Leukocyte Esterase Small H Urine RBC >182 H Urine WBC 41 H Urine Mucus 06/07/19 06/07/19 06/07/19 02:06 02:54 04:10 RBC Hgb Hct MCH MCHC RDW Plt Count Neutrophils # Lymphocytes # D-Dimer ABG pH ABG pCO2 ABG pO2 ABG HCO3 ABG Total CO2 ABG O2 Saturation Potassium Chloride 109 H BUN 40 H Creatinine 1.54 H Glucose 166 H POC Glucose (mg/dL) 356 H 315 H Phosphorus Troponin I Total Protein 5.7 L Albumin 3.0 L Triglycerides 208 H HDL Cholesterol 32 L Urine Protein Urine Glucose (UA) Urine Ketones Urine Blood Ur Leukocyte Esterase Urine RBC Urine WBC Urine Mucus 06/07/19 06/07/19 06/07/19 04:10 04:10 04:15 RBC 3.43 L Hgb 8.3 L Hct 28.6 L MCH 24.3 L MCHC 29.2 L RDW Plt Count Neutrophils # 7.8 H Lymphocytes # 0.7 L D-Dimer ABG pH ABG pCO2 ABG pO2 ABG HCO3 ABG Total CO2 ABG O2 Saturation Potassium Chloride BUN Creatinine Glucose POC Glucose (mg/dL) 184 H Phosphorus Troponin I 0.088 H* Total Protein Albumin Triglycerides HDL Cholesterol Urine Protein Urine Glucose (UA) Urine Ketones Urine Blood Ur Leukocyte Esterase Urine RBC Urine WBC Urine Mucus 06/07/19 06/07/19 06/07/19 04:55 06:08 06:54 RBC Hgb Hct MCH MCHC RDW Plt Count Neutrophils # Lymphocytes # D-Dimer ABG pH ABG pCO2 ABG pO2 ABG HCO3 ABG Total CO2 ABG O2 Saturation Potassium Chloride BUN Creatinine Glucose POC Glucose (mg/dL) 167 H 125 H 144 H Phosphorus Troponin I Total Protein Albumin Triglycerides HDL Cholesterol Urine Protein Urine Glucose (UA) Urine Ketones Urine Blood Ur Leukocyte Esterase Urine RBC Urine WBC Urine Mucus 06/07/19 06/07/19 06/07/19 07:58 08:57 10:27 RBC Hgb Hct MCH MCHC RDW Plt Count Neutrophils # Lymphocytes # D-Dimer ABG pH ABG pCO2 46 H ABG pO2 69 L ABG HCO3 31 H ABG Total CO2 32 H ABG O2 Saturation Potassium Chloride BUN Creatinine Glucose POC Glucose (mg/dL) 160 H 166 H Phosphorus Troponin I Total Protein Albumin Triglycerides HDL Cholesterol Urine Protein Urine Glucose (UA) Urine Ketones Urine Blood Ur Leukocyte Esterase Urine RBC Urine WBC Urine Mucus - Diagnostic Findings Chest x-ray: image reviewed (As noted in HPI) CT scan - chest: image reviewed (As noted in HPI.) Additional studies: CT angiogram of head and neck as noted in HPI. Assessment and Plan Assessment: Impression: 1 acute hypoxic and hypercapnic respiratory failure secondary to pulmonary edema, not clear whether this is related to systolic or diastolic dysfunction. Echocardiogram is pending. 2 acute transient ischemic attack. 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 4 acute kidney injury secondary to ATN secondary to hypotension and diaphoresis as well as losartan. 5 history of bladder cancer being followed at the [facility]. 6 type 2 diabetes with diabetic nephropathy 7 benign essential hypertension 8 possible non-ST elevation myocardial infarction 9 dyslipidemia 10 history of degenerative joint disease and history of shoulder arthroplasty. 11 history of nephrolithiasis. 12 history of bowel obstruction 13 morbid obesity with body mass index of 40.9. Recommendation: Continue ventilatory support. Nutritional support/enteral feeding. Diuretics. Bronchodilators. GI and DVT prophylaxis. Resume some of her home meds, and told some including metformin for now. Hold losartan. Insulin as per protocol. Continue sedation, patient is not ready for weaning or extubation at this point. Daily assessment of chest x-ray ABG and assessment for weaning. Continue aspirin as recommended by neurology on the case. Continue cardiac meds including nitrates. Close monitoring of fluid status, discussed and updated his on his condition. Prognosis is definitely guarded. We'll continue to follow. Time with Patient: Greater than 30
--- NOTE | 2019-06-07 11:42 | CONS ---
CONSULTATION This is a 78-year-old gentleman who sees Dr. Jauregui in the outpatient setting. He has a history of known calcified coronaries but cardiac cath in 2014 revealed noncritical moderate CAD for which he was advised medical therapy. He also had shoulder surgery in January and according to the patient's , he had a stress test which was unremarkable. He came into the hospital this time mostly with what seems to be complaints of having shortness of breath and then had swelling of both his lower extremities and also complained of having some swelling in the left arm where he had shoulder surgery in January. With these symptoms, he has been hospitalized. However, while he was here, he also complained of some slurring of the speech and therefore a CT angiogram was performed along with a CT scan. There was a question of TIA or CVA type picture. There was evidence of a significant stenosis involving the right internal carotid artery. His clinical picture after he came into the hospital seemed to be with some slurring of speech and generalized weakness. The possibility of stroke was considered. This patient has history of hypertension, noncritical CAD, hyperlipidemia and type 2 diabetes mellitus. While in the emergency room, his D-dimer was elevated. He was advised to have a CT angio of the chest and soon after that, he complained of about having slurring of speech and he was totally disoriented. A CODE STROKE was called. There was no evidence of pulmonary embolism and following this, a CT scan of the head was normal and CT angiography was also performed which revealed significant disease involving the right internal carotid artery to the extent of 90%. There was no significant disease in the left carotid system. The vertebral seemed to be also on remarkable. Following this, patient became more obtunded. His pCO2 went up to nearly 58 and then he was intubated for what seems to be hypercapnic respiratory failure. The patient received a substantial amount of contrast. He has then been placed on the Lasix drip at this time. He is receiving IV fluids of 10 mL/hour. He is on a Lasix drip at 10 mg/hour with limited urine output. I am very concerned that he will have acute kidney injury in the light of his diabetes and initial mild elevation of creatinine with significant contrast administration and Lasix drip. I am therefore recommending that we immediately discontinue Lasix drip, hydrate him with 75 mL/hour normal saline. His ejection fraction is known to be normal without any systolic heart failure. I will obtain echocardiogram. The patient's troponin profile does not suggest any myocardial injury. The patient was a bit obtunded and his troponin is probably related to that. I do not believe we are dealing with any primary myocardial injury at this point. Patient however is intubated. He is not in heart failure. If any, he is a bit volume depleted. There is a question of CVA and initially the neurologist felt because of claustrophobia, he would not do a MRI, but that may be necessary under the circumstances. Cardiac-narvaez, patient appears to be quite stable, although he is intubated. I cannot communicate with him. I spoke to his at length. His lactic acid levels were normal. Troponin profile does not suggest myocardial injury. He is not in overt heart failure. I am concerned about acute kidney injury related to contrast administration and Lasix drip. PAST MEDICAL HISTORY: 1. Type 2 diabetes. 2. Hypertension. 3. Hyperlipidemia. 4. Known history of noncritical CAD based on a cardiac cath by Dr. Jauregui from January 2015. Apparently, the patient's tells me that he had a stress test which was also unremarkable in January of last year. MEDICATIONS: At home include metoprolol 100 mg b.i.d., losartan 100 mg daily, Lasix 20 mg every other day, metformin 1000 mg b.i.d., insulin. He also takes 20 mg daily, amlodipine 5 mg b.i.d., Imdur 30 mg daily, and fenofibrate. ALLERGIES: HE IS ALLERGIC TO IODINE AND CODEINE. PHYSICAL EXAMINATION: On examination, his blood pressure is about 140/70. He is on a Levophed drip, which I am asking that we wean off. Pulse rate is 90 per minute, rhythm appears to be sinus with nonspecific ST abnormality. HEENT: Limited exam is unremarkable. Fundus was not examined. Patient is intubated. Heart exam reveals S1, S2 heard normally. There is a short systolic murmur that is audible at the base of the heart. Second heart sound is preserved. Lungs revealed diminished air entry over bases. Abdomen is soft. Lower extremities reveal diminished pulses. Central nervous system assessment was not performed because patient is sedated and intubated. IMPRESSION: 1. Rule out any cerebrovascular accident symptoms were suggestive of transient ischemic attack. Patient has been seen by Neurology. 2. Hypercapnic respiratory failure on ventilator. 3. Noncritical coronary artery disease. 4. Hypertension. 5. Hyperlipidemia. 6. Type 2 diabetes mellitus. 7. Probable acute kidney injury. RECOMMENDATIONS: I am recommending that we discontinue the Lasix drip, wean off Levophed, hydrate him at 75 mL/hour normal saline. Place him on subcu heparin. Obtain echocardiogram and MRI also can be performed if okay by Neurology. Cardiac-narvaez, no aggressive intervention is necessary. I discussed my thoughts in detail with the patient's . Thank you very much for the consult. MMODL / IJN: [id number] /
[2019-06-07 12:42] LABS: Glucose,Whole Blood 152 mg/dL (75-99)
--- NOTE | 2019-06-07 13:01 | ECHOF ---
Referral Reason:chf MEASUREMENTS -------- HEIGHT: 172.7 cm WEIGHT: 122.0 kg BP: 145/55 IVSd: 1.7 cm (0.6 - 1.1) LVIDd: 4.7 cm (3.9 - 5.3) LVPWd: 1.8 cm (0.6 - 1.1) IVSs: 2.0 cm LVIDs: 3.2 cm LVPWs: 2.0 cm LA Diam: 3.4 cm (2.7 - 3.8) RVIDd: 3.5 cm (< 3.3) LAESV Index (A-L): 44.59 ml/m Ao Diam: 3.7 cm (2.0 - 3.7) AV Cusp: 2.1 cm (1.5 - 2.6) EPSS: 0.6 cm MV E Rip: 1.14 m/s MV DecT: 248 ms MV A Rip: 0.96 m/s MV E/A Ratio: 1.19 AV maxP.49 mmHg AV meanP.86 mmHg RAP: 15.00 mmHg RVSP: 45.21 mmHg MV EF SLOPE: 88.13 mm/s (70 - 150) MV EXCURSION: 18.44 mm (> 18.000) FINDINGS -------- Sinus rhythm. This was a technically difficult study with suboptimal views. The left ventricular size is normal. There is severe concentric left ventricular hypertrophy. Ove rall left ventricular systolic function is normal with, an EF between 60 - 65 %. The right ventricle is mildly enlarged. LA is severely dilated >40 ml/m2 The right atrium is normal in size. 5.0mg of Lumason was utilized for enhancement of images Interatrial and interventricular septum intact. There is mild aortic valve sclerosis. Trace amount of aortic regurgitation. There is mild aortic stenosis present. Peak/mean gradient across the Aortic Valve is 21.49mmHg / 9.86mmHg. The mitral valve leaflets are mildly thickened. Mild mitral annular calcification present. There is trace to mild mitral regurgitation. Mild tricuspid regurgitation present. There is mild to moderate pulmonary hypertension. The right ventricular systolic pressure, as measured by Doppler, is 45.21mmHg. There is no pulmonic regurgitation present. The aortic root size is normal. The inferior vena cava is dilated with no significant inspiratory collapse which is consistent estima ramirez right atrial pressure of >15 mmHg. There is no pericardial effusion. CONCLUSIONS -------- 1. Sinus rhythm. 2. This was a technically difficult study with suboptimal views. 3. The left ventricular size is normal. 4. There is severe concentric left ventricular hypertrophy. 5. Overall left ventricular systolic function is normal with, an EF between 60 - 65 %. 6. The right ventricle is mildly enlarged. 7. LA is severely dilated >40 ml/m2 8. The right atrium is normal in size. 9. 5.0mg of Lumason was utilized for enhancement of images 10. Interatrial and interventricular septum intact. 11. There is mild aortic valve sclerosis. 12. Trace amount of aortic regurgitation. 13. There is mild aortic stenosis present. 14. Peak/mean gradient across the Aortic Valve is 21.49mmHg / 9.86mmHg. 15. The mitral valve leaflets are mildly thickened. 16. Mild mitral annular calcification present. 17. There is trace to mild mitral regurgitation. 18. Mild tricuspid regurgitation present. 19. There is mild to moderate pulmonary hypertension. 20. The right ventricular systolic pressure, as measured by Doppler, is 45.21mmHg. 21. There is no pulmonic regurgitation present. 22. The aortic root size is normal. 23. The inferior vena cava is dilated with no significant inspiratory collapse which is consistent es timated right atrial pressure of >15 mmHg. 24. There is no pericardial effusion. DATA INTEGRITY CONSULTANT: Nay Cohen RDCS
[2019-06-07 13:19] LABS: Glucose,Whole Blood 140 mg/dL (75-99)
[2019-06-07 14:21] LABS: Glucose,Whole Blood 136 mg/dL (75-99)
[2019-06-07 14:23] LABS: Hemoglobin A1C 10.8 % (4.0-6.0)
[2019-06-07 15:16] LABS: Glucose,Whole Blood 145 mg/dL (75-99)
[2019-06-07] MEDS ORDERED: ASPIRIN 325 MG TAB PO SCH (15:48)
[2019-06-07 16:34] LABS: Glucose,Whole Blood 134 mg/dL (75-99)
[2019-06-07 16:49] LABS: Ferritin 33.2 ng/mL (22.0-322.0)
[2019-06-07 16:51] LABS: % Iron Saturation 3.64 (15.00-50.00)
[2019-06-07 17:12] LABS: Glucose,Whole Blood 146 mg/dL (75-99)
[2019-06-07 18:09] LABS: Glucose,Whole Blood 141 mg/dL (75-99)
--- NOTE | 2019-06-07 18:23 | PN ---
PROGRESS NOTE DATE OF SERVICE: 06/07/2019 This 78-year-old gentleman who was admitted with CHF acute exacerbation, acute respiratory failure, on mechanical ventilation. The patient is also on Lasix drip yesterday. The patient is currently on Lasix 40 mg IV q.8h. The patient also had suspicion of acute stroke or TIA also, internal carotid stenosis also noted. Multiple consultants are following the patient closely. The patient is currently on assist- control 500 of tidal volume, 5 PEEP and 50% FiO2. The patient is off Levophed at this time. PAST MEDICAL HISTORY: Reviewed. REVIEW OF SYMPTOMS: Review of systems could not be taken, the patient is mechanically ventilated and sedated. CURRENT MEDICATIONS: Reviewed and include: 1. Norvasc 5 mg. 2. Aspirin 160 mg. 3. Lipitor 40 mg q.h.s. 4. Rocephin 1 g q.24h. 5. Peridex 15 mL b.i.d. 6. Vitamin B12 1000 mcg p.o. b.i.d. 7. Lofibra 160 mg p.o. q.h.s. 8. Lasix 40 mg IV q.8. 9. Insulin. 10.Imdur 30 mg p.o. daily. 11.Claritin. 12.Magnesium oxide 400 mg p.o. b.i.d. 13.Lopressor 50 mg p.o. b.i.d. 14.Narcan 0.2 q.2 p.r.n. 15.Protonix. 16.Propofol. PHYSICAL EXAM: Patient is mechanically ventilated and sedated. Pulse 84, blood pressure 154/60, respiration 22, temperature is normal. Pulse ox 98% on 50% FiO2, mechanical vent settings are noted. HEENT: Conjunctivae normal. Oral mucosa moist. NECK is no jugular venous distention. No carotid bruit. No lymph node enlargement. CARDIOVASCULAR: S1, S2 muffled. No S3, no S4. RESPIRATORY: Breath sounds diminished in the bases. Bilateral scattered rhonchi and crackles. ABDOMEN: Soft, obese, nontender. No mass palpable. LEGS: No edema. No swelling. NERVOUS SYSTEM: Higher functions as mentioned earlier. Moves all 4 limbs. No focal motor or sensory deficits. LYMPHATICS: No lymph nodes palpable in the neck, axillae or groin. SKIN: No ulcer, no rash and no bleeding. JOINTS: No active deforming arthropathy. LABS: Chest x-ray which was personally reviewed by me showed features of CHF with some improvement. Other labs are Accu-Cheks 135, 136, and 145. Otherwise, hemoglobin is 8.3, and potassium 5.2, creatinine is 1.30, glucose 355 and troponin 0.064. Albumin 3.8 and total protein is 6. UA noted. ASSESSMENT: 1. Congestive heart failure, acute exacerbation with acute on chronic diastolic dysfunction, ejection fraction 60-65 percent. 2. Mild aortic stenosis in the 2D echo. 3. Acute hypoxic hypercarbic respiratory failure, on mechanical ventilation. 4. Slurring of speech. Possible acute urinary tract infection present on admission. 5. Significant right internal carotid artery stenosis in the CT angio, about more than 90% stenosis. 6. Elevated D-dimer without any evidence of any pulmonary embolism. 7. Acute respiratory acidosis secondary to acute hypoxic respiratory failure. 8. Possible cellulitis of the legs. 9. Anemia, normocytic anemia of chronic disease. 10.Obesity with body mass of 40.9. 11.Elevated creatinine with mild acute renal failure possibly prerenal acute tubular necrosis. 12.Diabetes mellitus type 2, uncontrolled with hyperglycemia. 13.Troponin 0.114, possibly acute cgb-MF-[id number]-elevation myocardial infarction. 14.Possible acute urinary tract infection present on admission. 15.History of recent shoulder arthroplasty. 16.Diabetes mellitus type 2. 17.Hypertension. 18.Hyperlipidemia. 19.History of umbilical hernia. 20.History of renal stones. 21.History of bowel obstruction. 22.History of degenerative joint disease. 23.History of vertigo. 24.History of nicotine dependence. 25.Obesity with body mass index 40.9. 26.FULL CODE. RECOMMENDATIONS AND DISCUSSION: Recommend to continue current medications, continue with monitoring, management and symptomatic treatment. Otherwise, at this time, continue with mechanical ventilation per Dr. Leon. Continue with empiric antibiotics. Follow the cultures. Two-D echo has been noted. Continue with Lasix 40 mg IV q.8. Monitor fluid and electrolytes balance closely. Monitor weights daily closely. Prognosis extremely guarded because of multiple complex medical issues. Further recommendations to follow. Also recommend vascular surgery consultation also. MMODL / IJN: [id number] /
[2019-06-07 18:57] LABS: Glucose,Whole Blood 148 mg/dL (75-99)
[2019-06-07 20:05] LABS: Glucose,Whole Blood 152 mg/dL (75-99)
[2019-06-07 21:14] LABS: Glucose,Whole Blood 166 mg/dL (75-99)
[2019-06-07] MEDS: ATORVASTATIN 40 MG TAB PO SCH (21:43)
[2019-06-07] MEDS: LORATADINE 10 MG TAB PO SCH (21:43)
[2019-06-07] MEDS: METOPROLOL TARTRATE 50 MG TAB PO SCH (21:43)
[2019-06-07 22:13] LABS: Glucose,Whole Blood 181 mg/dL (75-99)
[2019-06-07 23:10] LABS: Glucose,Whole Blood 163 mg/dL (75-99)
[2019-06-07] MEDS: FENOFIBRATE 160 MG TAB PO SCH (23:34)
[2019-06-08 00:11] LABS: Glucose,Whole Blood 143 mg/dL (75-99)
[2019-06-08] MEDS: NOREPINEPHRINE 4 MG in SODIUM CHLORIDE 0.9% 250 ML IV SCH ×3 (01:17→23:29)
[2019-06-08 01:18] LABS: Glucose,Whole Blood 157 mg/dL (75-99)
[2019-06-08] MEDS: PROPOFOL 1,000 MG in EMPTY BAG 1 BAG IV SCH ×9 (02:11→23:29)
[2019-06-08 02:21] LABS: Glucose,Whole Blood 175 mg/dL (75-99)
[2019-06-08 03:12] LABS: Glucose,Whole Blood 178 mg/dL (75-99)
[2019-06-08 04:13] LABS: Glucose,Whole Blood 176 mg/dL (75-99)
[2019-06-08 05:08] LABS: Glucose,Whole Blood 167 mg/dL (75-99)
[2019-06-08 06:06] LABS: Basophils % (A) 0 %; Eosinophils # (A) 0.1 k/uL (0-0.7); Eosinophils % (A) 1 %; HGB 8.5 gm/dL (13.0-17.5); Hypochromasia Marked; Lymphocytes # (A) 1.1 k/uL (1.0-4.8); Lymphocytes % (A) 13 %; MCH 24.7 pg (25.0-35.0); MCHC 30.5 g/dL (31.0-37.0); MCV 81.1 fL (80.0-100.0); Mean Platelet Volume 7.8; Monocytes # (A) 0.5 k/uL (0-1.0); Monocytes % (A) 6 %; Neutrophils # (A) 7.1 k/uL (1.3-7.7); Neutrophils % (A) 80 %; Platelet Count 418 k/uL (150-450); Poikilocytosis Slight; RBC 3.45 m/uL (4.30-5.90); RDW 15.6 % (11.5-15.5)
[2019-06-08 06:11] LABS: Calcium 9.1 mg/dL (8.4-10.2)
[2019-06-08 06:24] LABS: Glucose,Whole Blood 174 mg/dL (75-99)
[2019-06-08 07:05] LABS: Glucose,Whole Blood 177 mg/dL (75-99)
[2019-06-08 07:37] LABS: ABG Base Excess 10.3 mmol/L; ABG HCO3 34 mmol/L (21-25); ABG Oxygen Saturation 96.4 % (94-97); ABG PCO2 47 mmHg (35-45); ABG PH 7.47 (7.35-7.45); ABG PO2 83 mmHg (83-108); ABG TCO2 35 mmol/L (19-24); Allen Test Performed? Yes
--- NOTE | 2019-06-08 07:37 | XR ---
EXAMINATION TYPE: XR chest 1V portable DATE OF EXAM: 06/08/2019 COMPARISON: 06/07/2019 HISTORY: Shortness of breath TECHNIQUE: Single frontal view of the chest is obtained. FINDINGS: Redemonstration of endotracheal and orogastric tubes with tips not well-visualized due to body habitus.. There is background chronic emphysematous change and cardiomegaly with bibasilar opaci ties. Scattered peripheral nodules bilaterally are seen better on CT versus x-ray. Scoliotic curvatur e with multilevel spurring in the spine. IMPRESSION: 1. Stable findings compatible with COPD cardiomegaly. Bilateral pleural-parenchymal changes are stabl e. Correlate for CHF versus pneumonia.
[2019-06-08 08:12] LABS: Glucose,Whole Blood 160 mg/dL (75-99)
[2019-06-08] MEDS ORDERED: FUROSEMIDE 10 MG/ML 4 ML VIAL IV SCH (09:00)
[2019-06-08] MEDS: MAGNESIUM OXIDE 400 MG TAB PO SCH ×2 (09:07→21:51)
[2019-06-08] MEDS: amLODIPine 5 MG TAB PO SCH (09:07)
[2019-06-08] MEDS: ASPIRIN 81 MG PO SCH ×2 (09:07→09:15)
[2019-06-08] MEDS: ISOSORBIDE MONONITRATE ER 30 MG TAB.ER.24H PO SCH (09:08)
[2019-06-08] MEDS: CYANOCOBALAMIN 500 MCG TAB PO SCH ×2 (09:08→21:51)
[2019-06-08] MEDS: HEPARIN SODIUM,PORCINE 5,000 UNIT/ML 1 ML VIAL SQ SCH ×2 (09:09→16:19)
[2019-06-08] MEDS: METOPROLOL TARTRATE 50 MG TAB PO SCH ×2 (09:09→21:51)
[2019-06-08] MEDS: CHLORHEXIDINE GLUCONATE 15 ML CUP MUCOUS MEM SCH ×2 (09:10→21:17)
[2019-06-08] MEDS: PANTOPRAZOLE 40 MG/10 ML VIAL IV SCH (09:10)
[2019-06-08] MEDS: FUROSEMIDE 10 MG/ML 4 ML VIAL IV SCH (09:10)
[2019-06-08 09:11] LABS: Glucose,Whole Blood 169 mg/dL (75-99)
--- NOTE | 2019-06-08 09:16 | P.PN ---
Subjective Patient is seen in follow-up for acute kidney injury. Renal function is stable. Currently intubated and sedated. He is receiving tube feeding. Patient is nonoliguric. Hemodynamically stable. No vasopressors. Vital signs are stable. General: The patient appeared well nourished and normally developed. HEENT: Head exam is unremarkable. Neck is without jugular venous distension. Intubated. LUNGS: Breath sounds decreased. HEART: Rate and Rhythm are regular. First and second heart sounds normal. No murmurs, rubs or gallops. ABDOMEN: Abdominal exam reveals normal bowel sounds. Non-tender and non- distended. EXTREMITITES: Trace edema. Objective - Vital Signs Vital signs: Vital Signs Temp 99.2 F 06/08/19 04:00 Pulse 80 06/08/19 07:00 Resp 20 06/08/19 07:00 BP 94/57 06/07/19 00:30 Pulse Ox 94 L 06/08/19 07:00 Intake & Output 06/07/19 06/08/19 06/08/19 18:59 06:59 18:59 Intake Total 0076.708 4707.525 166.587 Output Total 2895 2225 200 Balance -1872.116 -1112.475 -33.413 Weight 123.5 kg Intake: IV 700 550 50 Sodium Chloride 0.9% 1, 650 550 50 000 ml @ 50 mls/hr IV . Q20H [facility] Rx#:[id number] cefTRIAXone 1 gm In 50 Sodium Chloride 0.9% 50 ml @ 100 mls/hr IVPB Q24H [facility] Rx#:[id number] Intake, IV Titration 302.884 352.525 96.587 Amount Insulin Regular 100 unit 12.858 8.550 0.442 In Sodium Chloride 0.9% 100 ml @ Per Protocol IV .Q0M [facility] Rx#:[id number] Norepinephrine 4 mg In 24.191 Sodium Chloride 0.9% 250 ml @ 0.05 MCG/KG/MIN 23. 26 mls/hr IV .[id number] [facility] Rx#:[id number] Propofol 1,000 mg In 265.835 343.975 96.145 Empty Bag 1 bag @ Titrate IV .Q0M [facility] Rx#: [id number] Tube Feeding 20 210 20 Output: Urine 2895 2225 200 Other: Voiding Method Indwelling Catheter Indwelling Catheter ABP, PAP, CO, CI - Last Documented Arterial Blood Pressure 142/59 - Labs CBC & Chem 7: 06/08/19 05:15 06/08/19 05:15 Labs: Abnormal Lab Results - Last 24 Hours (Table) 06/07/19 06/07/19 06/07/19 Range/Units 04:10 04:10 10:27 RBC (4.30-5.90) m/uL Hgb (13.0-17.5) gm/dL Hct (39.0-53.0) % MCH (25.0-35.0) pg MCHC (31.0-37.0) g/dL RDW (11.5-15.5) % ABG pH (7.35-7.45) ABG pCO2 (35-45) mmHg ABG HCO3 (21-25) mmol/L ABG Total CO2 (19-24) mmol/L Carbon Dioxide (22-30) mmol/L BUN (9-20) mg/dL Creatinine (0.66-1.25) mg/dL Glucose (74-99) mg/dL POC Glucose (mg/dL) 166 H (75-99) mg/dL Hemoglobin A1c 10.8 H (4.0-6.0) % Iron 16 L (65-175) ug/dL % Saturation 3.64 L (15.00-50.00) 06/07/19 06/07/19 06/07/19 Range/Units 11:10 12:12 13:07 RBC (4.30-5.90) m/uL Hgb (13.0-17.5) gm/dL Hct (39.0-53.0) % MCH (25.0-35.0) pg MCHC (31.0-37.0) g/dL RDW (11.5-15.5) % ABG pH (7.35-7.45) ABG pCO2 (35-45) mmHg ABG HCO3 (21-25) mmol/L ABG Total CO2 (19-24) mmol/L Carbon Dioxide (22-30) mmol/L BUN (9-20) mg/dL Creatinine (0.66-1.25) mg/dL Glucose (74-99) mg/dL POC Glucose (mg/dL) 167 H 152 H 140 H (75-99) mg/dL Hemoglobin A1c (4.0-6.0) % Iron (65-175) ug/dL % Saturation (15.00-50.00) 06/07/19 06/07/19 06/07/19 Range/Units 14:09 15:04 16:23 RBC (4.30-5.90) m/uL Hgb (13.0-17.5) gm/dL Hct (39.0-53.0) % MCH (25.0-35.0) pg MCHC (31.0-37.0) g/dL RDW (11.5-15.5) % ABG pH (7.35-7.45) ABG pCO2 (35-45) mmHg ABG HCO3 (21-25) mmol/L ABG Total CO2 (19-24) mmol/L Carbon Dioxide (22-30) mmol/L BUN (9-20) mg/dL Creatinine (0.66-1.25) mg/dL Glucose (74-99) mg/dL POC Glucose (mg/dL) 136 H 145 H 134 H (75-99) mg/dL Hemoglobin A1c (4.0-6.0) % Iron (65-175) ug/dL % Saturation (15.00-50.00) 06/07/19 06/07/19 06/07/19 Range/Units 17:01 17:58 18:46 RBC (4.30-5.90) m/uL Hgb (13.0-17.5) gm/dL Hct (39.0-53.0) % MCH (25.0-35.0) pg MCHC (31.0-37.0) g/dL RDW (11.5-15.5) % ABG pH (7.35-7.45) ABG pCO2 (35-45) mmHg ABG HCO3 (21-25) mmol/L ABG Total CO2 (19-24) mmol/L Carbon Dioxide (22-30) mmol/L BUN (9-20) mg/dL Creatinine (0.66-1.25) mg/dL Glucose (74-99) mg/dL POC Glucose (mg/dL) 146 H 141 H 148 H (75-99) mg/dL Hemoglobin A1c (4.0-6.0) % Iron (65-175) ug/dL % Saturation (15.00-50.00) 06/07/19 06/07/19 06/07/19 Range/Units 19:54 21:03 22:02 RBC (4.30-5.90) m/uL Hgb (13.0-17.5) gm/dL Hct (39.0-53.0) % MCH (25.0-35.0) pg MCHC (31.0-37.0) g/dL RDW (11.5-15.5) % ABG pH (7.35-7.45) ABG pCO2 (35-45) mmHg ABG HCO3 (21-25) mmol/L ABG Total CO2 (19-24) mmol/L Carbon Dioxide (22-30) mmol/L BUN (9-20) mg/dL Creatinine (0.66-1.25) mg/dL Glucose (74-99) mg/dL POC Glucose (mg/dL) 152 H 166 H 181 H (75-99) mg/dL Hemoglobin A1c (4.0-6.0) % Iron (65-175) ug/dL % Saturation (15.00-50.00) 06/07/19 06/07/19 06/08/19 Range/Units 22:59 23:59 01:06 RBC (4.30-5.90) m/uL Hgb (13.0-17.5) gm/dL Hct (39.0-53.0) % MCH (25.0-35.0) pg MCHC (31.0-37.0) g/dL RDW (11.5-15.5) % ABG pH (7.35-7.45) ABG pCO2 (35-45) mmHg ABG HCO3 (21-25) mmol/L ABG Total CO2 (19-24) mmol/L Carbon Dioxide (22-30) mmol/L BUN (9-20) mg/dL Creatinine (0.66-1.25) mg/dL Glucose (74-99) mg/dL POC Glucose (mg/dL) 163 H 143 H 157 H (75-99) mg/dL Hemoglobin A1c (4.0-6.0) % Iron (65-175) ug/dL % Saturation (15.00-50.00) 06/08/19 06/08/19 06/08/19 Range/Units 02:10 03:00 04:02 RBC (4.30-5.90) m/uL Hgb (13.0-17.5) gm/dL Hct (39.0-53.0) % MCH (25.0-35.0) pg MCHC (31.0-37.0) g/dL RDW (11.5-15.5) % ABG pH (7.35-7.45) ABG pCO2 (35-45) mmHg ABG HCO3 (21-25) mmol/L ABG Total CO2 (19-24) mmol/L Carbon Dioxide (22-30) mmol/L BUN (9-20) mg/dL Creatinine (0.66-1.25) mg/dL Glucose (74-99) mg/dL POC Glucose (mg/dL) 175 H 178 H 176 H (75-99) mg/dL Hemoglobin A1c (4.0-6.0) % Iron (65-175) ug/dL % Saturation (15.00-50.00) 06/08/19 06/08/19 06/08/19 Range/Units 04:56 05:15 05:15 RBC 3.45 L (4.30-5.90) m/uL Hgb 8.5 L (13.0-17.5) gm/dL Hct 28.0 L (39.0-53.0) % MCH 24.7 L (25.0-35.0) pg MCHC 30.5 L (31.0-37.0) g/dL RDW 15.6 H (11.5-15.5) % ABG pH (7.35-7.45) ABG pCO2 (35-45) mmHg ABG HCO3 (21-25) mmol/L ABG Total CO2 (19-24) mmol/L Carbon Dioxide 32 H (22-30) mmol/L BUN 40 H (9-20) mg/dL Creatinine 1.54 H (0.66-1.25) mg/dL Glucose 158 H (74-99) mg/dL POC Glucose (mg/dL) 167 H (75-99) mg/dL Hemoglobin A1c (4.0-6.0) % Iron (65-175) ug/dL % Saturation (15.00-50.00) 06/08/19 06/08/19 06/08/19 Range/Units 06:12 06:54 07:30 RBC (4.30-5.90) m/uL Hgb (13.0-17.5) gm/dL Hct (39.0-53.0) % MCH (25.0-35.0) pg MCHC (31.0-37.0) g/dL RDW (11.5-15.5) % ABG pH 7.47 H (7.35-7.45) ABG pCO2 47 H (35-45) mmHg ABG HCO3 34 H (21-25) mmol/L ABG Total CO2 35 H (19-24) mmol/L Carbon Dioxide (22-30) mmol/L BUN (9-20) mg/dL Creatinine (0.66-1.25) mg/dL Glucose (74-99) mg/dL POC Glucose (mg/dL) 174 H 177 H (75-99) mg/dL Hemoglobin A1c (4.0-6.0) % Iron (65-175) ug/dL % Saturation (15.00-50.00) 06/08/19 06/08/19 Range/Units 08:00 09:00 RBC (4.30-5.90) m/uL Hgb (13.0-17.5) gm/dL Hct (39.0-53.0) % MCH (25.0-35.0) pg MCHC (31.0-37.0) g/dL RDW (11.5-15.5) % ABG pH (7.35-7.45) ABG pCO2 (35-45) mmHg ABG HCO3 (21-25) mmol/L ABG Total CO2 (19-24) mmol/L Carbon Dioxide (22-30) mmol/L BUN (9-20) mg/dL Creatinine (0.66-1.25) mg/dL Glucose (74-99) mg/dL POC Glucose (mg/dL) 160 H 169 H (75-99) mg/dL Hemoglobin A1c (4.0-6.0) % Iron (65-175) ug/dL % Saturation (15.00-50.00) Microbiology - Last 24 Hours (Table) 06/07/19 01:28 Blood Culture - Preliminary Blood No Growth after 24 hours 06/06/19 12:15 Urine Culture - Final Urine,Voided Assessment and Plan Plan: Assessment: 1. Acute kidney injury secondary to ATN secondary to hypotension, diuresis and further worsened with the use of losartan. Additionally, the patient also received IV contrast on June 06. Creatinine stable at 1.54 today. Renal ultrasound from March 2019 revealed no evidence of hydronephrosis. 2. Acute hypercapnic respiratory failure. Currently intubated. 3. Bladder cancer. Patient follows at [facility]. 4. Proteinuria. This is most likely secondary to underlying diabetic kidney disease. Will need further workup outpatient. 5. Insulin-dependent diabetes mellitus. 6. Benign hypertension. Controlled. 7. Right ICA stenosis. 8. Anemia. Severe iron deficiency noted. Plan: Maintain tube feeding. Lasix decreased to 40 mg IV once daily. Discontinued losartan. Hold antihypertensives for systolic blood pressure less than 120. Avoid nephrotoxins. Continue to monitor renal function and urine output. Contrast toxicity is expec ramirez to peak at 72 hours after exposure.
[2019-06-08 10:09] LABS: Glucose,Whole Blood 199 mg/dL (75-99)
[2019-06-08] MEDS: SODIUM FERRIC GLUCONAT-SUCROSE 125 MG in SODIUM CHLORIDE 0.9% 100 ML IVPB SCH (10:57)
[2019-06-08 11:11] LABS: Glucose,Whole Blood 189 mg/dL (75-99)
--- NOTE | 2019-06-08 11:13 | P.PN ---
Subjective Progress Note Date: 06/08/19 Principal diagnosis: Acute hypoxic and hypercapnic respiratory failure secondary to pulmonary edema secondary to diastolic congestive heart failure. Preserved LV function. This is a 78-year-old white male with history of hypertension, diabetes, degenerative joint disease, coronary artery disease, shoulder arthroplasty in January of 2019, primarily a patient of Dr. Kemp. Patient presented to the ER on 06/06/2019, complaining of shortness of breath, for the last 2 days prior to presentation. He was also complaining of swelling in lower extremities. While in the ER, patient was complaining of slurred speech and there was a concern about CVA. Patient underwent workup including CT angiogram of the chest which came back negative for pulmonary embolism. CT angiogram of the head and neck showed radial diameter reduction of right proximal internal carotid artery of greater than 90%. There was no evidence of acute CVA. Patient was admitted, seen by neurology on consultation, and he felt that the patient most likely had TIA. Recommended to continue aspirin, however no recommendation was made regarding antiplatelet therapy because of his hematuria. Neurology recommended vascular surgical consultation for right internal carotid artery stenosis. Last night, while the patient was on the cardiac floor, he developed worsening shortness of breath, and the rapid response team evaluated the patient. I was notified about this patient that he was in severe respiratory distress, and his chest x-ray showed increased pulmonary edema compared to chest x-ray on admiss ion. Recommended immediate intubation of the patient, Lasix 80 mg IV push, Lasix drip at 10 mg per hour, and transferring the patient to the intensive care unit. Patient is now in the ICU, mechanically ventilated. He is on assist control rate of 20, volume of 500 FiO2 50% and PEEP of 5. His plateau pressure is 23. Chest x-ray continues to show evidence of interstitial edema bilaterally. ABG this morning showed a pO2 of 69 pCO2 of 46 and pH of 7.44. WBC count is 7.7 hemoglobin is 8.3. Renal functioning showed a BUN of 37, creatinine of 1.30. BNP level was borderline elevated. Troponins were noted to be elevated on admission, echocardiogram is pending. Patient was kept on the same ventilator settings. He is not ready to be weaned or extubated at this point, we will arrange for enteral feeding, we will continue GI and DVT prophylaxis, and continue diuretics. Reevaluated today on 06/08/2019, patient remains intubated, mechanically ventilated, and his ventilator settings are assist control rate of 2010 volume is 500 FiO2 is 50% and PEEP is 5. Remains on propofol at 45 mcg/kg/m, not requiring any pressors, remains on insulin drip, his urine output is excellent, seems to be responding well to diuretics. Today I added Diamox, and I'm cutting down on the Lasix mostly because the patient seems to be developing a picture of metabolic alkalosis. His ABG showed a pO2 of 83 pCO2 of 47 pH of 7.47. CBC is relatively normal hemoglobin is a bit low at 8.5. Patient has evidence of slight hematuria noted in the [place] bag today. Patient is nonoliguric, hemodynamically stable, not requiring any pressors, and he is receiving tube feeding. Patient has no major issues over the last 24 hours, however his chest x-ray remains concerning, and his ABG is marginal. Patient was arousable, followed simple instructions, but not ready for further weaning or extubation at this point. Objective - Vital Signs Vital signs: Vital Signs Temp 98.4 F 06/08/19 08:00 Pulse 79 06/08/19 10:00 Resp 21 06/08/19 10:00 BP 139/71 06/08/19 10:00 Pulse Ox 94 L 06/08/19 10:00 Intake & Output 06/07/19 06/08/19 06/08/19 18:59 06:59 18:59 Intake Total 5212.834 1518.525 583.429 Output Total 2895 2225 665 Balance -1872.116 -1112.475 -81.571 Weight 123.5 kg Intake: IV 700 550 200 Sodium Chloride 0.9% 1, 650 550 200 000 ml @ 50 mls/hr IV . Q20H [facility] Rx#:[id number] cefTRIAXone 1 gm In 50 Sodium Chloride 0.9% 50 ml @ 100 mls/hr IVPB Q24H [facility] Rx#:[id number] Intake, IV Titration 302.884 352.525 193.429 Amount Insulin Regular 100 unit 12.858 8.550 4.351 In Sodium Chloride 0.9% 100 ml @ Per Protocol IV .Q0M [facility] Rx#:[id number] Norepinephrine 4 mg In 24.191 Sodium Chloride 0.9% 250 ml @ 0.05 MCG/KG/MIN 23. 26 mls/hr IV .[id number] [facility] Rx#:[id number] Propofol 1,000 mg In 265.835 343.975 189.078 Empty Bag 1 bag @ Titrate IV .Q0M [facility] Rx#: [id number] Tube Feeding 20 210 100 Other 90 Output: Urine 2895 2225 665 Other: Voiding Method Indwelling Catheter Indwelling Catheter ABP, PAP, CO, CI - Last Documented Arterial Blood Pressure 146/60 - Exam Physical Exam: Revealed 78-year-old white male obese, on mechanical ventilation, arousable, follows simple instructions. Head: Atraumatic, normocephalic. Endotracheal tube and orogastric tube are intact. HEENT:[Neck is supple.] [No neck masses.] [No thyromegaly.] [No JVD.] Chest: [Symmetrical chest expansion, crackles at the bases, no rhonchi and no wheezes. Cardiac Exam: [Normal S1 and S2, no S3 gallop, no murmur.] Abdomen: [Obese, Soft, nontender, no megaly, no rebound, no guarding, normal bowel sounds.] Extremities: [No clubbing, trace of bipedal edema, no cyanosis.] Neurological Exam: Patient is sedated, however noted to be arousable, followed simple instructions. No gross focal deficit. Psychiatric: Normal mood, normal affect, normal mental status examination Lymphatics: No lymphadenopathy. Skin: No rashes. - Labs CBC & Chem 7: 06/08/19 05:15 06/08/19 05:15 Labs: Abnormal Lab Results - Last 24 Hours (Table) 06/07/19 06/07/19 06/07/19 Range/Units 04:10 04:10 11:10 RBC (4.30-5.90) m/uL Hgb (13.0-17.5) gm/dL Hct (39.0-53.0) % MCH (25.0-35.0) pg MCHC (31.0-37.0) g/dL RDW (11.5-15.5) % ABG pH (7.35-7.45) ABG pCO2 (35-45) mmHg ABG HCO3 (21-25) mmol/L ABG Total CO2 (19-24) mmol/L Carbon Dioxide (22-30) mmol/L BUN (9-20) mg/dL Creatinine (0.66-1.25) mg/dL Glucose (74-99) mg/dL POC Glucose (mg/dL) 167 H (75-99) mg/dL Hemoglobin A1c 10.8 H (4.0-6.0) % Iron 16 L (65-175) ug/dL % Saturation 3.64 L (15.00-50.00) 06/07/19 06/07/19 06/07/19 Range/Units 12:12 13:07 14:09 RBC (4.30-5.90) m/uL Hgb (13.0-17.5) gm/dL Hct (39.0-53.0) % MCH (25.0-35.0) pg MCHC (31.0-37.0) g/dL RDW (11.5-15.5) % ABG pH (7.35-7.45) ABG pCO2 (35-45) mmHg ABG HCO3 (21-25) mmol/L ABG Total CO2 (19-24) mmol/L Carbon Dioxide (22-30) mmol/L BUN (9-20) mg/dL Creatinine (0.66-1.25) mg/dL Glucose (74-99) mg/dL POC Glucose (mg/dL) 152 H 140 H 136 H (75-99) mg/dL Hemoglobin A1c (4.0-6.0) % Iron (65-175) ug/dL % Saturation (15.00-50.00) 06/07/19 06/07/19 06/07/19 Range/Units 15:04 16:23 17:01 RBC (4.30-5.90) m/uL Hgb (13.0-17.5) gm/dL Hct (39.0-53.0) % MCH (25.0-35.0) pg MCHC (31.0-37.0) g/dL RDW (11.5-15.5) % ABG pH (7.35-7.45) ABG pCO2 (35-45) mmHg ABG HCO3 (21-25) mmol/L ABG Total CO2 (19-24) mmol/L Carbon Dioxide (22-30) mmol/L BUN (9-20) mg/dL Creatinine (0.66-1.25) mg/dL Glucose (74-99) mg/dL POC Glucose (mg/dL) 145 H 134 H 146 H (75-99) mg/dL Hemoglobin A1c (4.0-6.0) % Iron (65-175) ug/dL % Saturation (15.00-50.00) 06/07/19 06/07/19 06/07/19 Range/Units 17:58 18:46 19:54 RBC (4.30-5.90) m/uL Hgb (13.0-17.5) gm/dL Hct (39.0-53.0) % MCH (25.0-35.0) pg MCHC (31.0-37.0) g/dL RDW (11.5-15.5) % ABG pH (7.35-7.45) ABG pCO2 (35-45) mmHg ABG HCO3 (21-25) mmol/L ABG Total CO2 (19-24) mmol/L Carbon Dioxide (22-30) mmol/L BUN (9-20) mg/dL Creatinine (0.66-1.25) mg/dL Glucose (74-99) mg/dL POC Glucose (mg/dL) 141 H 148 H 152 H (75-99) mg/dL Hemoglobin A1c (4.0-6.0) % Iron (65-175) ug/dL % Saturation (15.00-50.00) 06/07/19 06/07/19 06/07/19 Range/Units 21:03 22:02 22:59 RBC (4.30-5.90) m/uL Hgb (13.0-17.5) gm/dL Hct (39.0-53.0) % MCH (25.0-35.0) pg MCHC (31.0-37.0) g/dL RDW (11.5-15.5) % ABG pH (7.35-7.45) ABG pCO2 (35-45) mmHg ABG HCO3 (21-25) mmol/L ABG Total CO2 (19-24) mmol/L Carbon Dioxide (22-30) mmol/L BUN (9-20) mg/dL Creatinine (0.66-1.25) mg/dL Glucose (74-99) mg/dL POC Glucose (mg/dL) 166 H 181 H 163 H (75-99) mg/dL Hemoglobin A1c (4.0-6.0) % Iron (65-175) ug/dL % Saturation (15.00-50.00) 06/07/19 06/08/19 06/08/19 Range/Units 23:59 01:06 02:10 RBC (4.30-5.90) m/uL Hgb (13.0-17.5) gm/dL Hct (39.0-53.0) % MCH (25.0-35.0) pg MCHC (31.0-37.0) g/dL RDW (11.5-15.5) % ABG pH (7.35-7.45) ABG pCO2 (35-45) mmHg ABG HCO3 (21-25) mmol/L ABG Total CO2 (19-24) mmol/L Carbon Dioxide (22-30) mmol/L BUN (9-20) mg/dL Creatinine (0.66-1.25) mg/dL Glucose (74-99) mg/dL POC Glucose (mg/dL) 143 H 157 H 175 H (75-99) mg/dL Hemoglobin A1c (4.0-6.0) % Iron (65-175) ug/dL % Saturation (15.00-50.00) 06/08/19 06/08/19 06/08/19 Range/Units 03:00 04:02 04:56 RBC (4.30-5.90) m/uL Hgb (13.0-17.5) gm/dL Hct (39.0-53.0) % MCH (25.0-35.0) pg MCHC (31.0-37.0) g/dL RDW (11.5-15.5) % ABG pH (7.35-7.45) ABG pCO2 (35-45) mmHg ABG HCO3 (21-25) mmol/L ABG Total CO2 (19-24) mmol/L Carbon Dioxide (22-30) mmol/L BUN (9-20) mg/dL Creatinine (0.66-1.25) mg/dL Glucose (74-99) mg/dL POC Glucose (mg/dL) 178 H 176 H 167 H (75-99) mg/dL Hemoglobin A1c (4.0-6.0) % Iron (65-175) ug/dL % Saturation (15.00-50.00) 06/08/19 06/08/19 06/08/19 Range/Units 05:15 05:15 06:12 RBC 3.45 L (4.30-5.90) m/uL Hgb 8.5 L (13.0-17.5) gm/dL Hct 28.0 L (39.0-53.0) % MCH 24.7 L (25.0-35.0) pg MCHC 30.5 L (31.0-37.0) g/dL RDW 15.6 H (11.5-15.5) % ABG pH (7.35-7.45) ABG pCO2 (35-45) mmHg ABG HCO3 (21-25) mmol/L ABG Total CO2 (19-24) mmol/L Carbon Dioxide 32 H (22-30) mmol/L BUN 40 H (9-20) mg/dL Creatinine 1.54 H (0.66-1.25) mg/dL Glucose 158 H (74-99) mg/dL POC Glucose (mg/dL) 174 H (75-99) mg/dL Hemoglobin A1c (4.0-6.0) % Iron (65-175) ug/dL % Saturation (15.00-50.00) 06/08/19 06/08/19 06/08/19 Range/Units 06:54 07:30 08:00 RBC (4.30-5.90) m/uL Hgb (13.0-17.5) gm/dL Hct (39.0-53.0) % MCH (25.0-35.0) pg MCHC (31.0-37.0) g/dL RDW (11.5-15.5) % ABG pH 7.47 H (7.35-7.45) ABG pCO2 47 H (35-45) mmHg ABG HCO3 34 H (21-25) mmol/L ABG Total CO2 35 H (19-24) mmol/L Carbon Dioxide (22-30) mmol/L BUN (9-20) mg/dL Creatinine (0.66-1.25) mg/dL Glucose (74-99) mg/dL POC Glucose (mg/dL) 177 H 160 H (75-99) mg/dL Hemoglobin A1c (4.0-6.0) % Iron (65-175) ug/dL % Saturation (15.00-50.00) 06/08/19 06/08/19 Range/Units 09:00 09:57 RBC (4.30-5.90) m/uL Hgb (13.0-17.5) gm/dL Hct (39.0-53.0) % MCH (25.0-35.0) pg MCHC (31.0-37.0) g/dL RDW (11.5-15.5) % ABG pH (7.35-7.45) ABG pCO2 (35-45) mmHg ABG HCO3 (21-25) mmol/L ABG Total CO2 (19-24) mmol/L Carbon Dioxide (22-30) mmol/L BUN (9-20) mg/dL Creatinine (0.66-1.25) mg/dL Glucose (74-99) mg/dL POC Glucose (mg/dL) 169 H 199 H (75-99) mg/dL Hemoglobin A1c (4.0-6.0) % Iron (65-175) ug/dL % Saturation (15.00-50.00) Microbiology - Last 24 Hours (Table) 06/07/19 01:28 Blood Culture - Preliminary Blood No Growth after 24 hours 06/06/19 12:15 Urine Culture - Final Urine,Voided Assessment and Plan Assessment: Impression: 1 acute hypoxic and hypercapnic respiratory failure secondary to pulmonary edema, secondary to diastolic congestive heart failure. 2 acute transient ischemic attack. 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 4 acute kidney injury secondary to ATN secondary to hypotension and diuretics as well as losartan 5 history of bladder cancer being followed at the [facility]. 6 type 2 diabetes with diabetic nephropathy 7 benign essential hypertension 8 possible non-ST elevation myocardial infarction 9 dyslipidemia 10 history of degenerative joint disease and history of shoulder arthroplasty. 11 history of nephrolithiasis. 12 history of bowel obstruction 13 morbid obesity with body mass index of 40.9. Recommendation: Continue ventilatory support. Continue nutritional support via enteral feeding. Cut down on Lasix and added Diamox mostly because of the metabolic alkalosis noted today. Bronchodilators. To be continued. GI and DVT prophylaxis. Insulin as per protocol. Continue sedation, not quite ready for weaning at this point. Chest x-ray is marginal ABG is marginal Daily assessment of chest x-ray ABG and assessment for weaning. Continue aspirin as recommended by neurology on the case. Continue cardiac meds including nitrates. Close monitoring of fluid status and fluid balance. Updated on his condition, made aware that he is not ready for weaning at this point yet. We'll continue to follow. Critical care time is 32 minutes Time with Patient: Greater than 30
[2019-06-08 12:19] LABS: Glucose,Whole Blood 202 mg/dL (75-99)
[2019-06-08 13:11] LABS: Glucose,Whole Blood 189 mg/dL (75-99)
[2019-06-08 14:09] LABS: Glucose,Whole Blood 202 mg/dL (75-99)
--- NOTE | 2019-06-08 14:45 | PN ---
PROGRESS NOTE Mr. Garcia is intubated. Overall, this gentleman's condition is about the same. He has what seems to be a respiratory exacerbation type picture and had a CT angio performed, additional contrast given. His creatinine has gone up to 1.54. However, he is hemodynamically stable. He is still receiving some IV fluids. Hemoglobin is 8.5. Prognosis remains guarded. From a cardiac standpoint, I do not have any new specific suggestions at this time. We will continue his current supportive care including beta blockers. There is no evidence to suggest any myocardial injury. The troponin profile is probably related to hypoxemia. I do not believe there is any primary myocardial injury. He is hemodynamically stable. We have to watch the renal function closely and continue cautious hydration. Vitals are stable. There is JVD of 1 cm. No carotid bruit. S1-S2 heard normally. Short systolic murmur noted. Lungs reveal improved air entry. Abdomen and lower extremity exam is unchanged. Central nervous system assessment was not performed. MMODL / IJN: [id number] /
[2019-06-08 15:11] LABS: Glucose,Whole Blood 184 mg/dL (75-99)
[2019-06-08 16:08] LABS: Glucose,Whole Blood 195 mg/dL (75-99)
[2019-06-08 18:13] LABS: Glucose,Whole Blood 184 mg/dL (75-99)
[2019-06-08 19:09] LABS: Glucose,Whole Blood 190 mg/dL (75-99)
[2019-06-08 20:06] LABS: Glucose,Whole Blood 195 mg/dL (75-99)
--- NOTE | 2019-06-08 20:38 | PN ---
PROGRESS NOTE DATE OF SERVICE: 06/08/2019. This 78-year-old gentleman who was admitted with CHF exacerbation, also had acute respiratory failure. The patient being closely monitored. Patient on mechanical ventilation. Dr. Leon is following the patient closely. Chest x-ray which was done today which was reviewed personally by me showed some increased bronchovascular markings, atelectasis and evidence of CHF and cardiomegaly also. Cardiology following the patient closely. The creatinine is slightly worsened to 1.54 PAST MEDICAL HISTORY: Reviewed. REVIEW OF SYSTEM: Review of systems could not be taken because the patient mechanically sedated. CURRENT MEDICATIONS: Reviewed and include: 1. Diamox 250 mg IV b.i.d. 2. Norvasc 5 mg daily. 3. Aspirin 160 mg daily. 4. Lipitor 40 mg q.h.s. 5. Rocephin 1 g daily. 6. Peridex. 7. Vitamin B12 1000 mg p.o. b.i.d. 8. Lofibra 160 mg q.h.s. 9. Lasix 40 mg IV daily. 10.Heparin. 11.Imdur. 12.Claritin. 13.Magnesium oxide. 14.Narcan. 15.Levophed. 16.Off propofol. PHYSICAL EXAM: Patient is mechanically ventilated and sedated. Vent settings are noted. The patient is on assist-control 500 tidal volume, 50% FiO2 and 5 of PEEP. HEENT are conjunctivae normal. NECK: No JVD. CARDIOVASCULAR: S1, S2 muffled. RESPIRATIONS: Breath sounds diminished in the bases. A few scattered rhonchi and crackles. ABDOMEN: Soft, nontender. LEGS are no edema. No swelling. CENTRAL NERVOUS SYSTEM: Diffusely weak. LABS: Creatinine is 1.54, otherwise sodium 142. Potassium 4, and WBC 9, hemoglobin is 8.5. Cultures are negative. Influenza negative. ASSESSMENT: 1. Congestive heart failure acute exacerbation, with acute on chronic diastolic dysfunction ejection fraction 60-65 percent. 2. Acute hypoxic hypercarbic respiratory failure secondary to above on mechanical ventilation. 3. Slurring of speech, possible acute transient ischemic attack, present on admission. 4. Acute urinary tract infection, present on admission. 5. Mild aortic stenosis on 2D echo. 6. Significant right internal carotid artery stenosis in the CT angio about more than 90% stenosis. 7. Elevated D-dimer without any evidence of acute pulmonary embolism. 8. Acute respiratory acidosis secondary to acute hypoxic respiratory failure. 9. Possible cellulitis of the legs. 10.Anemia, normocytic anemia of chronic disease. 11.Obesity with body mass index of 40.9. 12.Elevated creatinine with mild acute renal failure possibly prerenal acute tubular necrosis, slightly worsening. 13.Diabetes mellitus type 2, uncontrolled with hyperglycemia. 14.Troponin 0.114, possibly type 2 myocardial infarction secondary to supply demand mismatch. 15.Possible acute urinary tract infection present on admission. 16.History of recent shoulder arthroplasty on the left. 17.Diabetes mellitus type 2. 18.Hypertension. 19.Hyperlipidemia. 20.History umbilical hernia. 21.History of renal stones. 22.History of bowel obstruction. 23.History of degenerative joint disease. 24.History of vertigo. 25.History of nicotine dependence. 26.Obesity with body mass index of 40.9. 27.FULL CODE. RECOMMENDATIONS AND DISCUSSION: Recommend to continue current medications, monitoring, management and symptomatic treatment. Continue with mechanical ventilation. Continue the bronchodilators. Continue with Lasix cautiously and monitor creatinine closely. Continue the empiric antibiotics. Cultures are negative so far. Otherwise monitor fluid and electrolyte balance closely. Continue the rest of medications. DVT prophylaxis. Proton pump inhibitors. Closely follow with multiple consultants. Cardiology input appreciated. Prognosis extremely guarded because of multiple complex medical issues. Further recommendations to follow. MMODL / IJN: [id number] /
[2019-06-08 21:09] LABS: Glucose,Whole Blood 163 mg/dL (75-99)
[2019-06-08] MEDS: FENOFIBRATE 160 MG TAB PO SCH (21:51)
[2019-06-08] MEDS: LORATADINE 10 MG TAB PO SCH (21:51)
[2019-06-08] MEDS: ATORVASTATIN 40 MG TAB PO SCH (21:51)
[2019-06-08 22:23] LABS: Glucose,Whole Blood 169 mg/dL (75-99)
[2019-06-08 23:09] LABS: Glucose,Whole Blood 157 mg/dL (75-99)
[2019-06-09 00:13] LABS: Glucose,Whole Blood 160 mg/dL (75-99)
[2019-06-09] MEDS: HEPARIN SODIUM,PORCINE 5,000 UNIT/ML 1 ML VIAL SQ SCH ×3 (00:31→15:59)
[2019-06-09 01:10] LABS: Glucose,Whole Blood 149 mg/dL (75-99)
[2019-06-09] MEDS: PROPOFOL 1,000 MG in EMPTY BAG 1 BAG IV SCH ×6 (01:21→22:24)
[2019-06-09 02:14] LABS: Glucose,Whole Blood 157 mg/dL (75-99)
[2019-06-09 03:11] LABS: Glucose,Whole Blood 170 mg/dL (75-99)
[2019-06-09 04:11] LABS: Glucose,Whole Blood 188 mg/dL (75-99)
[2019-06-09 04:23] LABS: ABG Base Excess 4.2 mmol/L; ABG HCO3 29 mmol/L (21-25); ABG Oxygen Saturation 95.2 % (94-97); ABG PCO2 47 mmHg (35-45); ABG PO2 78 mmHg (83-108); ABG TCO2 31 mmol/L (19-24)
[2019-06-09 04:27] LABS: Allen Test Performed? no
[2019-06-09 04:43] LABS: Basophils % (A) 0 %; Eosinophils # (A) 0.2 k/uL (0-0.7); Eosinophils % (A) 2 %; HGB 8.1 gm/dL (13.0-17.5); Hypochromasia Marked; Lymphocytes # (A) 0.7 k/uL (1.0-4.8); Lymphocytes % (A) 9 %; MCH 24.1 pg (25.0-35.0); MCHC 29.1 g/dL (31.0-37.0); MCV 82.8 fL (80.0-100.0); Mean Platelet Volume 7.9; Monocytes # (A) 0.5 k/uL (0-1.0); Monocytes % (A) 6 %; Neutrophils # (A) 6.6 k/uL (1.3-7.7); Neutrophils % (A) 81 %; Platelet Count 356 k/uL (150-450); Poikilocytosis Slight; RBC 3.37 m/uL (4.30-5.90); RDW 15.7 % (11.5-15.5); WBC 8.1 k/uL (3.8-10.6)
[2019-06-09 04:58] LABS: Calcium 8.5 mg/dL (8.4-10.2); Potassium 3.8 mmol/L (3.5-5.1)
[2019-06-09] MEDS ORDERED: Potassium Replacement Protocol 1 EACH MISC MISCELLANE PRN (05:17)
[2019-06-09 05:33] LABS: Glucose,Whole Blood 192 mg/dL (75-99)
[2019-06-09] MEDS ORDERED: POTASSIUM BICARBONATE/CIT AC 20 MEQ TABLET.EFF NG-TUBE SCH (06:00)
[2019-06-09 06:17] LABS: Glucose,Whole Blood 183 mg/dL (75-99)
[2019-06-09 07:10] LABS: Glucose,Whole Blood 190 mg/dL (75-99)
[2019-06-09 07:31] LABS: Glucose,Whole Blood 180 mg/dL (75-99)
[2019-06-09 07:31] LABS: Glucose,Whole Blood 184 mg/dL (75-99)
[2019-06-09 08:35] LABS: Glucose,Whole Blood 179 mg/dL (75-99)
[2019-06-09] MEDS: CHLORHEXIDINE GLUCONATE 15 ML CUP MUCOUS MEM SCH ×2 (08:40→21:05)
[2019-06-09] MEDS: NOREPINEPHRINE 4 MG in SODIUM CHLORIDE 0.9% 250 ML IV SCH ×2 (08:41→21:06)
[2019-06-09] MEDS: ASPIRIN 81 MG PO SCH (08:41)
[2019-06-09] MEDS: CYANOCOBALAMIN 500 MCG TAB PO SCH ×2 (08:41→21:06)
[2019-06-09] MEDS: MAGNESIUM OXIDE 400 MG TAB PO SCH ×2 (08:41→21:06)
[2019-06-09] MEDS: FUROSEMIDE 10 MG/ML 4 ML VIAL IV SCH ×3 (08:42→21:06)
[2019-06-09] MEDS: ISOSORBIDE MONONITRATE ER 30 MG TAB.ER.24H PO SCH ×2 (08:42→08:53)
[2019-06-09] MEDS: amLODIPine 5 MG TAB PO SCH (08:42)
[2019-06-09] MEDS: METOPROLOL TARTRATE 50 MG TAB PO SCH ×2 (08:42→21:06)
[2019-06-09] MEDS: PANTOPRAZOLE 40 MG/10 ML VIAL IV SCH (08:42)
--- NOTE | 2019-06-09 08:42 | P.PN ---
Subjective Patient is seen in follow-up for acute kidney injury. Renal function is stable. Currently intubated but sedation has been turned off. He is receiving tube feeding. Maintain on Lasix 40 mg IV once daily. Patient is nonoliguric. Hemodynamically stable. No vasopressors. Vital signs are stable. General: The patient appeared well nourished and normally developed. HEENT: Head exam is unremarkable. Neck is without jugular venous distension. Intubated. LUNGS: Breath sounds decreased. HEART: Rate and Rhythm are regular. First and second heart sounds normal. No murmurs, rubs or gallops. ABDOMEN: Abdominal exam reveals normal bowel sounds. Non-tender and non- distended. EXTREMITITES: Trace edema. Objective - Vital Signs Vital signs: Vital Signs Temp 99 F 06/09/19 04:00 Pulse 78 06/09/19 07:00 Resp 20 06/09/19 07:00 BP 111/61 06/09/19 02:00 Pulse Ox 94 L 06/09/19 07:00 Intake & Output 06/08/19 06/09/19 06/09/19 18:59 06:59 18:59 Intake Total 3762.866 7626.292 46 Output Total 1700 950 45 Balance -75.413 332.292 1 Weight 120 kg Intake: IV 425 320 20 Sodium Chloride 0.9% 1, 425 270 20 000 ml @ 50 mls/hr IV . Q20H [facility] Rx#:[id number] cefTRIAXone 1 gm In 50 Sodium Chloride 0.9% 50 ml @ 100 mls/hr IVPB Q24H [facility] Rx#:[id number] Intake, IV Titration 669.587 400.292 Amount Insulin Regular 100 unit 22.826 29.800 In Sodium Chloride 0.9% 100 ml @ Per Protocol IV .Q0M [facility] Rx#:[id number] Propofol 1,000 mg In 546.761 370.492 Empty Bag 1 bag @ Titrate IV .Q0M [facility] Rx#: [id number] Sodium Ferric Gluconat- 100 Sucrose 125 mg In Sodium Chloride 0.9% 100 ml @ 100 mls/hr IVPB DAILY [facility] Rx#:[id number] Tube Feeding 380 442 26 Other 150 120 Output: Urine 1700 950 45 Other: Voiding Method Indwelling Catheter Indwelling Catheter ABP, PAP, CO, CI - Last Documented Arterial Blood Pressure 132/53 - Labs CBC & Chem 7: 06/09/19 04:00 06/09/19 04:00 Labs: Abnormal Lab Results - Last 24 Hours (Table) 06/08/19 06/08/19 06/08/19 Range/Units 09:00 09:57 11:00 RBC (4.30-5.90) m/uL Hgb (13.0-17.5) gm/dL Hct (39.0-53.0) % MCH (25.0-35.0) pg MCHC (31.0-37.0) g/dL RDW (11.5-15.5) % Lymphocytes # (1.0-4.8) k/uL ABG pCO2 (35-45) mmHg ABG pO2 (83-108) mmHg ABG HCO3 (21-25) mmol/L ABG Total CO2 (19-24) mmol/L BUN (9-20) mg/dL Creatinine (0.66-1.25) mg/dL Glucose (74-99) mg/dL POC Glucose (mg/dL) 169 H 199 H 189 H (75-99) mg/dL 06/08/19 06/08/19 06/08/19 Range/Units 12:07 13:00 13:57 RBC (4.30-5.90) m/uL Hgb (13.0-17.5) gm/dL Hct (39.0-53.0) % MCH (25.0-35.0) pg MCHC (31.0-37.0) g/dL RDW (11.5-15.5) % Lymphocytes # (1.0-4.8) k/uL ABG pCO2 (35-45) mmHg ABG pO2 (83-108) mmHg ABG HCO3 (21-25) mmol/L ABG Total CO2 (19-24) mmol/L BUN (9-20) mg/dL Creatinine (0.66-1.25) mg/dL Glucose (74-99) mg/dL POC Glucose (mg/dL) 202 H 189 H 202 H (75-99) mg/dL 06/08/19 06/08/19 06/08/19 Range/Units 15:00 15:57 16:59 RBC (4.30-5.90) m/uL Hgb (13.0-17.5) gm/dL Hct (39.0-53.0) % MCH (25.0-35.0) pg MCHC (31.0-37.0) g/dL RDW (11.5-15.5) % Lymphocytes # (1.0-4.8) k/uL ABG pCO2 (35-45) mmHg ABG pO2 (83-108) mmHg ABG HCO3 (21-25) mmol/L ABG Total CO2 (19-24) mmol/L BUN (9-20) mg/dL Creatinine (0.66-1.25) mg/dL Glucose (74-99) mg/dL POC Glucose (mg/dL) 184 H 195 H 180 H (75-99) mg/dL 06/08/19 06/08/19 06/08/19 Range/Units 17:06 18:01 18:58 RBC (4.30-5.90) m/uL Hgb (13.0-17.5) gm/dL Hct (39.0-53.0) % MCH (25.0-35.0) pg MCHC (31.0-37.0) g/dL RDW (11.5-15.5) % Lymphocytes # (1.0-4.8) k/uL ABG pCO2 (35-45) mmHg ABG pO2 (83-108) mmHg ABG HCO3 (21-25) mmol/L ABG Total CO2 (19-24) mmol/L BUN (9-20) mg/dL Creatinine (0.66-1.25) mg/dL Glucose (74-99) mg/dL POC Glucose (mg/dL) 184 H 184 H 190 H (75-99) mg/dL 06/08/19 06/08/19 06/08/19 Range/Units 19:55 20:58 22:01 RBC (4.30-5.90) m/uL Hgb (13.0-17.5) gm/dL Hct (39.0-53.0) % MCH (25.0-35.0) pg MCHC (31.0-37.0) g/dL RDW (11.5-15.5) % Lymphocytes # (1.0-4.8) k/uL ABG pCO2 (35-45) mmHg ABG pO2 (83-108) mmHg ABG HCO3 (21-25) mmol/L ABG Total CO2 (19-24) mmol/L BUN (9-20) mg/dL Creatinine (0.66-1.25) mg/dL Glucose (74-99) mg/dL POC Glucose (mg/dL) 195 H 163 H 169 H (75-99) mg/dL 06/08/19 06/09/19 06/09/19 Range/Units 22:58 00:02 00:59 RBC (4.30-5.90) m/uL Hgb (13.0-17.5) gm/dL Hct (39.0-53.0) % MCH (25.0-35.0) pg MCHC (31.0-37.0) g/dL RDW (11.5-15.5) % Lymphocytes # (1.0-4.8) k/uL ABG pCO2 (35-45) mmHg ABG pO2 (83-108) mmHg ABG HCO3 (21-25) mmol/L ABG Total CO2 (19-24) mmol/L BUN (9-20) mg/dL Creatinine (0.66-1.25) mg/dL Glucose (74-99) mg/dL POC Glucose (mg/dL) 157 H 160 H 149 H (75-99) mg/dL 06/09/19 06/09/19 06/09/19 Range/Units 02:02 02:58 04:00 RBC 3.37 L (4.30-5.90) m/uL Hgb 8.1 L (13.0-17.5) gm/dL Hct 28.0 L (39.0-53.0) % MCH 24.1 L (25.0-35.0) pg MCHC 29.1 L (31.0-37.0) g/dL RDW 15.7 H (11.5-15.5) % Lymphocytes # 0.7 L (1.0-4.8) k/uL ABG pCO2 (35-45) mmHg ABG pO2 (83-108) mmHg ABG HCO3 (21-25) mmol/L ABG Total CO2 (19-24) mmol/L BUN (9-20) mg/dL Creatinine (0.66-1.25) mg/dL Glucose (74-99) mg/dL POC Glucose (mg/dL) 157 H 170 H (75-99) mg/dL 06/09/19 06/09/19 06/09/19 Range/Units 04:00 04:00 04:21 RBC (4.30-5.90) m/uL Hgb (13.0-17.5) gm/dL Hct (39.0-53.0) % MCH (25.0-35.0) pg MCHC (31.0-37.0) g/dL RDW (11.5-15.5) % Lymphocytes # (1.0-4.8) k/uL ABG pCO2 47 H (35-45) mmHg ABG pO2 78 L (83-108) mmHg ABG HCO3 29 H (21-25) mmol/L ABG Total CO2 31 H (19-24) mmol/L BUN 35 H (9-20) mg/dL Creatinine 1.56 H (0.66-1.25) mg/dL Glucose 168 H (74-99) mg/dL POC Glucose (mg/dL) 188 H (75-99) mg/dL 06/09/19 06/09/19 06/09/19 Range/Units 05:10 06:06 06:59 RBC (4.30-5.90) m/uL Hgb (13.0-17.5) gm/dL Hct (39.0-53.0) % MCH (25.0-35.0) pg MCHC (31.0-37.0) g/dL RDW (11.5-15.5) % Lymphocytes # (1.0-4.8) k/uL ABG pCO2 (35-45) mmHg ABG pO2 (83-108) mmHg ABG HCO3 (21-25) mmol/L ABG Total CO2 (19-24) mmol/L BUN (9-20) mg/dL Creatinine (0.66-1.25) mg/dL Glucose (74-99) mg/dL POC Glucose (mg/dL) 192 H 183 H 190 H (75-99) mg/dL 06/09/19 Range/Units 08:24 RBC (4.30-5.90) m/uL Hgb (13.0-17.5) gm/dL Hct (39.0-53.0) % MCH (25.0-35.0) pg MCHC (31.0-37.0) g/dL RDW (11.5-15.5) % Lymphocytes # (1.0-4.8) k/uL ABG pCO2 (35-45) mmHg ABG pO2 (83-108) mmHg ABG HCO3 (21-25) mmol/L ABG Total CO2 (19-24) mmol/L BUN (9-20) mg/dL Creatinine (0.66-1.25) mg/dL Glucose (74-99) mg/dL POC Glucose (mg/dL) 179 H (75-99) mg/dL Microbiology - Last 24 Hours (Table) 06/07/19 01:28 Blood Culture - Preliminary Blood No Growth after 48 hours 06/08/19 03:25 Gram Stain - Preliminary Sputum Sputum Culture - Preliminary Assessment and Plan Plan: Assessment: 1. Acute kidney injury secondary to ATN secondary to hypotension, diuresis and further worsened with the use of losartan. Additionally, the patient also received IV contrast on June 06. Creatinine stable at 1.56 today. Renal ultrasound from March 2019 revealed no evidence of hydronephrosis. 2. Acute hypercapnic respiratory failure. Currently intubated. 3. Bladder cancer. Patient follows at [facility]. 4. Proteinuria. This is most likely secondary to underlying diabetic kidney disease. Will need further workup outpatient. 5. Insulin-dependent diabetes mellitus. 6. Benign hypertension. Controlled. 7. Right ICA stenosis. 8. Anemia. Severe iron deficiency noted. Plan: Maintain tube feeding. Maintain Lasix 40 mg IV once daily. Discontinued losartan. Hold antihypertensives for systolic blood pressure less than 120. Avoid nephrotoxins. Continue to monitor renal function and urine output. Contrast toxicity is expected to peak at 72 hours after exposure.
[2019-06-09] MEDS: SODIUM FERRIC GLUCONAT-SUCROSE 125 MG in SODIUM CHLORIDE 0.9% 100 ML IVPB SCH (08:58)
[2019-06-09] MEDS: INSULIN REGULAR 100 UNIT in SODIUM CHLORIDE 0.9% 100 ML IV SCH (09:00)
[2019-06-09 09:11] LABS: Glucose,Whole Blood 183 mg/dL (75-99)
[2019-06-09 09:24] LABS: ABG Base Excess 3.2 mmol/L; ABG HCO3 29 mmol/L (21-25); ABG Oxygen Saturation 94.2 % (94-97); ABG PCO2 50 mmHg (35-45); ABG PH 7.36 (7.35-7.45); ABG PO2 74 mmHg (83-108); ABG TCO2 30 mmol/L (19-24); Allen Test Performed? Yes
[2019-06-09 11:06] LABS: Glucose,Whole Blood 202 mg/dL (75-99)
--- NOTE | 2019-06-09 11:09 | XR ---
EXAMINATION TYPE: XR chest 1V portable DATE OF EXAM: 06/09/2019 COMPARISON: 06/08/2019 HISTORY: Abnormal lung sounds TECHNIQUE: Single frontal view of the chest is obtained. FINDINGS: FINDINGS: Redemonstration of endotracheal and orogastric tubes with tips not well-visualiz ed due to body habitus.. There is background chronic emphysematous change and cardiomegaly with bibas ilar opacities. Scattered peripheral nodules bilaterally are seen better on CT versus x-ray. Scolioti c curvature with multilevel spurring in the spine. IMPRESSION: 1. Stable findings compatible with COPD cardiomegaly. Bilateral pleural- parenchymal changes are stab le. Correlate for CHF versus pneumonia.
[2019-06-09] MEDS: IPRATROPIUM-ALBUTEROL 3 ML NEB INHALATION SCH ×4 (11:40→23:27)
[2019-06-09 12:08] LABS: Glucose,Whole Blood 194 mg/dL (75-99)
--- NOTE | 2019-06-09 12:48 | PN ---
PROGRESS NOTE PULMONARY/CRITICAL CARE PROGRESS NOTE: DATE OF SERVICE: June 09, 2019 This is a 78-year-old male who was admitted to the hospital on June 06. He apparently was admitted with a diagnosis of CVA/TIA, and fluid overload. Apparently, an A team was called on this patient and the patient was intubated on June 07 for hypoxemic respiratory failure. He remains on the mechanical ventilator as we speak. He does have a history of hypertension, diabetes, DJD, CAD, and shoulder arthroplasty. His primary care provider is Dr. Kemp. Anyway, he is on the volume assist-control mode rate of 20, tidal volume 500, FiO2 of 50%, PEEP of 5. Blood gases show pO2 of 78, pCO2 of 47, and a pH 7.40. These blood gases are consistent with normoxemia and mixed acid-base disturbance including a combination of respiratory acidosis and metabolic alkalosis. He is getting saline at 20 mL an hour, insulin drip which is currently on hold, propofol at 55 mcg/kg per minute and Vital high-protein at 26 with a goal of 26 mL an hour. I did ask the nurse to hold the propofol to see if we can do a daily interruption of sedation and potentially a spontaneous breathing trial. We did do that. After 30 minutes, his weaning parameters were borderline so we decided to re- sedate the patient and place him back on the volume assist-control mode. In addition, a chest x-ray shows significant fluid overload with bilateral effusions and we increased his Lasix to 40 mg every 8 hours at least for 24 hours. His followup ABGs after 30 minutes on the PSV CPAP were not too bad. We actually gave him PSV 8, CPAP of 5. I will give him another full day of mechanical ventilation. PHYSICAL EXAMINATION: VITAL SIGNS: Current vital signs are reviewed. Temperature is 99.1, heart rate 70, respiratory rate 20, blood pressure 116/45, saturations are 93% to 95%. GENERAL: Appears in no acute distress. Currently sedated. HEENT: Examination is grossly unremarkable. Mucous membranes are moist. Oral endotracheal tube and NG tube noted. NECK: Supple. Full range of motion. No adenopathy. Neck veins are flat. CARDIOVASCULAR: Examination reveals regular rhythm and rate. Heart rate in mid 70s. S1, S2 normal. No S3, S4, or murmur. LUNGS: Reveal a few scattered rhonchi. No wheezes or crackles. Breath sounds equal bilaterally. ABDOMEN: Soft. Bowel sounds are heard. No masses. EXTREMITIES: Are intact. No significant cyanosis, clubbing, or edema. SKIN: Without rash. NEUROLOGIC: Examination is difficult to assess given his level of sedation, propofol at 55 mcg/kg per minute. According to the nurse, though when he is given a daily interruption of sedation, the patient appears to be appropriate. LAB DATA: Lab data is reviewed. Current lab data includes a white count 8.1, hemoglobin 8.1, hematocrit 28.0, platelet count 356,000. Blood gases have been noted already. His repeat blood gases on the PSV 8, CPAP of 5 show pO2 of 74, pCO2 of 50, pH 7.36. Sodium, potassium, chloride, CO2 all normal. Anion gap is 7. BUN and creatinine were 35 and 1.56. Labs are otherwise reviewed. Microbiologic studies including blood, urine and sputum are all negative. Chest x-ray today shows bilateral pleural effusions and some mild cephalization. MEDICATIONS: Medications are reviewed. ASSESSMENT: 1. Acute hypoxemic hypercapnic respiratory failure, secondary to pulmonary edema from diastolic congestive heart failure. 2. Routine ventilator management. 3. Acute transient ischemic attack. 4. Near complete stenosis of the right internal carotid artery. 5. Acute kidney injury secondary to acute tubular necrosis. 6. History of bladder cancer, being followed at [facility]. 7. Type 2 diabetes mellitus with diabetic nephropathy. 8. Benign essential hypertension. 9. Possible non ST-segment elevation myocardial infarction. 10.Hyperlipidemia. 11.History of degenerative joint disease, status post shoulder arthroplasty. 12.History of kidney stones. 13.History of bowel obstruction. 14.Morbid obesity. PLAN: The patient failed his spontaneous breathing trial and daily interruption of sedation today. We will place him back on the volume assist-control mode. We will try again tomorrow. We did increase his Lasix up to 40 mg q.8 hours. He is getting nourished with Vital high-protein at 26 with a goal of 26. Propofol will be restarted. Insulin drip will be maintained. Blood sugars will be controlled. Additional recommendations and suggestions are forthcoming. Prognosis is guarded. CRITICAL CARE TIME: 32 minutes. MMODL / IJN: [id number] /
[2019-06-09 13:13] LABS: Glucose,Whole Blood 188 mg/dL (75-99)
--- NOTE | 2019-06-09 13:20 | P.GSCN ---
History of Present Illness Consult date: 06/09/19 Reason for Consult: Carotid stenosis History of present illness: The patient is a 78-year-old white male with a past medical history including diabetes, hypertension, hyperlipidemia, history of cardiac catheterization, and joint replacement. The patient went to the Emergency Center on 06/06/19 with complaints of shortness of breath and increased swelling in bilateral lower extremities. While in the emergency room for evaluation there is report of slight slurring of speech which a code stroke was then initiated. Patient is currently in the ICU intubated and sedated. Patient's is at the bedside currently and states that her at times will have mild slurring of speech sometimes feels as if it is just mumbling. His denies that he has any other focal deficits, and states that his speech had been fine during further evaluations. Chest x-ray showed features of CHF, CT angiogram of head and neck with impression of radial diameter reduction of right proximal ICA of greater than 90% with no significant stenosis of the left. Review of Systems Double to complete review of systems due to patient currently being intubated 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, states has been currently passing kidney stones History of Any Multi-Drug Resistant Organisms: None Reported Past Surgical History: Heart Catheterization, Joint Replacement, Tonsillectomy Additional Past Surgical History / Comment(s): total left knee, R knee arthroscopy, left wrist tendon repair, vasectomy, kidney stones-4 surgeries for removal, rt carpal tunnel, lt wrist tendonitis , Reversed total left shoulder- very sensitive to movement (01/28/19) Past Anesthesia/Blood Transfusion Reactions: No Reported Reaction Additional Past Anesthesia/Blood Transfusion Reaction / Comm: hx vertigo Past Psychological History: No Psychological Hx Reported Additional Psychological History / Comment(s): Pt resides with his spouse of 48yrs. He is independent. He uses no assistive device but feels he would benefit from possibly a cane. He uses a drive cart when shopping due to bilateral knee pain and R ankle/foot problems. Pt drives a car. Smoking Status: Former smoker Past Alcohol Use History: None Reported Additional Past Alcohol Use History / Comment(s): Pt quit smoking in 1996. Past Drug Use History: None Reported Additional Drug Use History / Comment(s): uses cbd oil for pain in shower - Past Family History Father Family Medical History: CVA/TIA, Diabetes Mellitus, Myocardial Infarction (NM) Mother Family Medical History: CVA/TIA Medications and Allergies Home Medications Medication Instructions Recorded Confirmed Type Losartan Potassium [Cozaar] 100 mg PO BID 12/30/13 06/06/19 History metFORMIN HCL [metFORMIN HCL ER] 1,000 mg PO AC-BID 12/30/13 06/06/19 History Desloratadine [Clarinex] 5 mg PO HS 12/14/14 06/06/19 History Isosorbide Mononitrate ER [Imdur] 30 mg PO DAILY 01/06/15 06/06/19 History Furosemide [Lasix] 20 mg PO Q48H 05/20/15 06/06/19 History Cyanocobalamin (Vitamin B-12) 1,000 mcg PO BID 01/20/19 06/06/19 History [Vitamin B-12] Fenofibrate [Lofibra] 160 mg PO HS 01/20/19 06/06/19 History Insulin Detemir (Levemir) [Levemir] 44 unit PO AC-BRKFST 01/20/19 06/06/19 History Insulin Detemir (Levemir) [Levemir] 52 unit SQ AC-SUPPER 01/20/19 06/06/19 History Lansoprazole [Prevacid] 30 mg PO HS 01/20/19 06/06/19 History Magnesium Oxide [Mag-Ox] 400 mg PO BID 01/20/19 06/06/19 History Methocarbamol [Robaxin] 500 mg PO BID PRN 01/20/19 06/06/19 History Rosuvastatin [Crestor] 20 mg PO HS 01/20/19 06/06/19 History amLODIPine BESYLATE [Norvasc] 5 mg PO BID 01/20/19 06/06/19 History HYDROcodone/APAP 5-325MG [Linch 1 tab PO Q6H PRN 03/06/19 06/06/19 History 5-325] Aspirin [Adult Low Dose Aspirin EC] 81 mg PO HS 04/05/19 06/06/19 History Meloxicam 15 mg PO DAILY PRN 06/06/19 06/06/19 History Metoprolol Tartrate [Lopressor] 100 mg PO BID 06/06/19 06/06/19 History Allergies Allergy/AdvReac Type Severity Reaction Status Date / Time codeine Allergy Unknown Verified 06/06/19 14:36 iodine Allergy Anaphylaxis Verified 06/06/19 14:36 adhesive AdvReac Mild Rash/Hives Verified 06/06/19 14:36 Surgical - Exam Vital Signs Pulse Ox 84 L 06/06/19 11:59 General appearance: The patient is lying in bed bated and sedated HET: Head is normocephalic and atraumatic. Neck: Supple without lymphadenopathy. Trachea midline. Heart: S1 S2. Regular rate and rhythm. Lungs: No crackles or wheezes are heard. Extremities: Normal skin color and turgor. No cyanosis, rash, ulceration, clubbing, or edema. Radial and pedal pulses are 2/4 bilaterally. Neurological: Patient is intubated and sedated Results - Labs 06/09/19 04:00 06/09/19 04:00 Abnormal Lab Results - Last 24 Hours (Table) 06/08/19 06/08/19 06/08/19 Range/Units 13:00 13:57 15:00 RBC (4.30-5.90) m/uL Hgb (13.0-17.5) gm/dL Hct (39.0-53.0) % MCH (25.0-35.0) pg MCHC (31.0-37.0) g/dL RDW (11.5-15.5) % Lymphocytes # (1.0-4.8) k/uL ABG pCO2 (35-45) mmHg ABG pO2 (83-108) mmHg ABG HCO3 (21-25) mmol/L ABG Total CO2 (19-24) mmol/L BUN (9-20) mg/dL Creatinine (0.66-1.25) mg/dL Glucose (74-99) mg/dL POC Glucose (mg/dL) 189 H 202 H 184 H (75-99) mg/dL 06/08/19 06/08/19 06/08/19 Range/Units 15:57 16:59 17:06 RBC (4.30-5.90) m/uL Hgb (13.0-17.5) gm/dL Hct (39.0-53.0) % MCH (25.0-35.0) pg MCHC (31.0-37.0) g/dL RDW (11.5-15.5) % Lymphocytes # (1.0-4.8) k/uL ABG pCO2 (35-45) mmHg ABG pO2 (83-108) mmHg ABG HCO3 (21-25) mmol/L ABG Total CO2 (19-24) mmol/L BUN (9-20) mg/dL Creatinine (0.66-1.25) mg/dL Glucose (74-99) mg/dL POC Glucose (mg/dL) 195 H 180 H 184 H (75-99) mg/dL 06/08/19 06/08/19 06/08/19 Range/Units 18:01 18:58 19:55 RBC (4.30-5.90) m/uL Hgb (13.0-17.5) gm/dL Hct (39.0-53.0) % MCH (25.0-35.0) pg MCHC (31.0-37.0) g/dL RDW (11.5-15.5) % Lymphocytes # (1.0-4.8) k/uL ABG pCO2 (35-45) mmHg ABG pO2 (83-108) mmHg ABG HCO3 (21-25) mmol/L ABG Total CO2 (19-24) mmol/L BUN (9-20) mg/dL Creatinine (0.66-1.25) mg/dL Glucose (74-99) mg/dL POC Glucose (mg/dL) 184 H 190 H 195 H (75-99) mg/dL 06/08/19 06/08/19 06/08/19 Range/Units 20:58 22:01 22:58 RBC (4.30-5.90) m/uL Hgb (13.0-17.5) gm/dL Hct (39.0-53.0) % MCH (25.0-35.0) pg MCHC (31.0-37.0) g/dL RDW (11.5-15.5) % Lymphocytes # (1.0-4.8) k/uL ABG pCO2 (35-45) mmHg ABG pO2 (83-108) mmHg ABG HCO3 (21-25) mmol/L ABG Total CO2 (19-24) mmol/L BUN (9-20) mg/dL Creatinine (0.66-1.25) mg/dL Glucose (74-99) mg/dL POC Glucose (mg/dL) 163 H 169 H 157 H (75-99) mg/dL 06/09/19 06/09/19 06/09/19 Range/Units 00:02 00:59 02:02 RBC (4.30-5.90) m/uL Hgb (13.0-17.5) gm/dL Hct (39.0-53.0) % MCH (25.0-35.0) pg MCHC (31.0-37.0) g/dL RDW (11.5-15.5) % Lymphocytes # (1.0-4.8) k/uL ABG pCO2 (35-45) mmHg ABG pO2 (83-108) mmHg ABG HCO3 (21-25) mmol/L ABG Total CO2 (19-24) mmol/L BUN (9-20) mg/dL Creatinine (0.66-1.25) mg/dL Glucose (74-99) mg/dL POC Glucose (mg/dL) 160 H 149 H 157 H (75-99) mg/dL 06/09/19 06/09/19 06/09/19 Range/Units 02:58 04:00 04:00 RBC 3.37 L (4.30-5.90) m/uL Hgb 8.1 L (13.0-17.5) gm/dL Hct 28.0 L (39.0-53.0) % MCH 24.1 L (25.0-35.0) pg MCHC 29.1 L (31.0-37.0) g/dL RDW 15.7 H (11.5-15.5) % Lymphocytes # 0.7 L (1.0-4.8) k/uL ABG pCO2 (35-45) mmHg ABG pO2 (83-108) mmHg ABG HCO3 (21-25) mmol/L ABG Total CO2 (19-24) mmol/L BUN 35 H (9-20) mg/dL Creatinine 1.56 H (0.66-1.25) mg/dL Glucose 168 H (74-99) mg/dL POC Glucose (mg/dL) 170 H (75-99) mg/dL 06/09/19 06/09/19 06/09/19 Range/Units 04:00 04:21 05:10 RBC (4.30-5.90) m/uL Hgb (13.0-17.5) gm/dL Hct (39.0-53.0) % MCH (25.0-35.0) pg MCHC (31.0-37.0) g/dL RDW (11.5-15.5) % Lymphocytes # (1.0-4.8) k/uL ABG pCO2 47 H (35-45) mmHg ABG pO2 78 L (83-108) mmHg ABG HCO3 29 H (21-25) mmol/L ABG Total CO2 31 H (19-24) mmol/L BUN (9-20) mg/dL Creatinine (0.66-1.25) mg/dL Glucose (74-99) mg/dL POC Glucose (mg/dL) 188 H 192 H (75-99) mg/dL 06/09/19 06/09/19 06/09/19 Range/Units 06:06 06:59 08:24 RBC (4.30-5.90) m/uL Hgb (13.0-17.5) gm/dL Hct (39.0-53.0) % MCH (25.0-35.0) pg MCHC (31.0-37.0) g/dL RDW (11.5-15.5) % Lymphocytes # (1.0-4.8) k/uL ABG pCO2 (35-45) mmHg ABG pO2 (83-108) mmHg ABG HCO3 (21-25) mmol/L ABG Total CO2 (19-24) mmol/L BUN (9-20) mg/dL Creatinine (0.66-1.25) mg/dL Glucose (74-99) mg/dL POC Glucose (mg/dL) 183 H 190 H 179 H (75-99) mg/dL 06/09/19 06/09/19 06/09/19 Range/Units 08:59 09:22 10:54 RBC (4.30-5.90) m/uL Hgb (13.0-17.5) gm/dL Hct (39.0-53.0) % MCH (25.0-35.0) pg MCHC (31.0-37.0) g/dL RDW (11.5-15.5) % Lymphocytes # (1.0-4.8) k/uL ABG pCO2 50 H (35-45) mmHg ABG pO2 74 L (83-108) mmHg ABG HCO3 29 H (21-25) mmol/L ABG Total CO2 30 H (19-24) mmol/L BUN (9-20) mg/dL Creatinine (0.66-1.25) mg/dL Glucose (74-99) mg/dL POC Glucose (mg/dL) 183 H 202 H (75-99) mg/dL 06/09/19 Range/Units 11:56 RBC (4.30-5.90) m/uL Hgb (13.0-17.5) gm/dL Hct (39.0-53.0) % MCH (25.0-35.0) pg MCHC (31.0-37.0) g/dL RDW (11.5-15.5) % Lymphocytes # (1.0-4.8) k/uL ABG pCO2 (35-45) mmHg ABG pO2 (83-108) mmHg ABG HCO3 (21-25) mmol/L ABG Total CO2 (19-24) mmol/L BUN (9-20) mg/dL Creatinine (0.66-1.25) mg/dL Glucose (74-99) mg/dL POC Glucose (mg/dL) 194 H (75-99) mg/dL Microbiology - Last 24 Hours (Table) 06/07/19 01:28 Blood Culture - Preliminary Blood No Growth after 48 hours 06/08/19 03:25 Gram Stain - Preliminary Sputum Sputum Culture - Preliminary Diabetes panel 06/09/19 Range/Units 04:00 Sodium 143 (137-145) mmol/L Potassium 3.8 (3.5-5.1) mmol/L Chloride 107 (98-107) mmol/L Carbon Dioxide 29 (22-30) mmol/L BUN 35 H (9-20) mg/dL Creatinine 1.56 H (0.66-1.25) mg/dL Glucose 168 H (74-99) mg/dL Calcium 8.5 (8.4-10.2) mg/dL Calcium panel 06/09/19 Range/Units 04:00 Calcium 8.5 (8.4-10.2) mg/dL Pituitary panel 06/09/19 Range/Units 04:00 Sodium 143 (137-145) mmol/L Potassium 3.8 (3.5-5.1) mmol/L Chloride 107 (98-107) mmol/L Carbon Dioxide 29 (22-30) mmol/L BUN 35 H (9-20) mg/dL Creatinine 1.56 H (0.66-1.25) mg/dL Glucose 168 H (74-99) mg/dL Calcium 8.5 (8.4-10.2) mg/dL Adrenal panel 06/09/19 Range/Units 04:00 Sodium 143 (137-145) mmol/L Potassium 3.8 (3.5-5.1) mmol/L Chloride 107 (98-107) mmol/L Carbon Dioxide 29 (22-30) mmol/L BUN 35 H (9-20) mg/dL Creatinine 1.56 H (0.66-1.25) mg/dL Glucose 168 H (74-99) mg/dL Calcium 8.5 (8.4-10.2) mg/dL Assessment and Plan Assessment: Right proximal ICA stenosis slurring of speech, possible transient ischemic attack hypertension Hyperlipidemia Diabetes mellitus type 2 History of nicotine dependence Plan: Discussed with Dr. Avila. No vascular surgical interventions recommended at this time. Await further recommendations based on Dr. Avila's evaluation. Thank you for this consultation and allowing us to participate in the patient's plan of care during there hospital stay. The above dictated assessment and findings were discussed with Dr. Woods. The impression and plan of care have been directed as dictated.
[2019-06-09 14:11] LABS: Glucose,Whole Blood 172 mg/dL (75-99)
[2019-06-09 15:45] LABS: Glucose,Whole Blood 171 mg/dL (75-99)
[2019-06-09 16:11] LABS: Glucose,Whole Blood 154 mg/dL (75-99)
--- NOTE | 2019-06-09 17:12 | P.PN ---
Subjective Progress Note Date: 06/09/19 This is a 78-year-old gentleman who was admitted to the hospital on with possible CVA/TIA. On June 07 patient required intubation for respiratory failure. The etiology of the respirator failure is not entirely clear. Patient chest x-ray shows mild pleural effusion. Patient has history of hypertension, diabetes, DJD and mild coronary artery disease. Patient also had several tests including CT angiogram, computed tomography scan, etc. His creatinine is up to 1.54. Divisional Merchandising Manager has start him IV diuretics for this. Pleural effusions. His echo Cardigan showed normal LV function. His troponins are mildly elevated but the pattern is not consistent with acute coronary syndrome. From [facility]ec standpoint we'll continue current management. Objective - Vital Signs Vital signs: Vital Signs Temp 99.0 F 06/09/19 16:00 Pulse 75 06/09/19 16:00 Resp 20 06/09/19 16:00 BP 111/61 06/09/19 08:00 Pulse Ox 93 L 06/09/19 16:00 Intake & Output 06/08/19 06/09/19 06/09/19 18:59 06:59 18:59 Intake Total 9060.349 0647.292 713.224 Output Total 1700 950 930 Balance -75.413 332.292 -216.776 Weight 120 kg 120 kg Intake: IV 425 320 200 Sodium Chloride 0.9% 1, 425 270 200 000 ml @ 50 mls/hr IV . Q20H [facility] Rx#:[id number] cefTRIAXone 1 gm In 50 Sodium Chloride 0.9% 50 ml @ 100 mls/hr IVPB Q24H [facility] Rx#:[id number] Intake, IV Titration 669.587 400.292 297.224 Amount Insulin Regular 100 unit 22.826 29.800 32.224 In Sodium Chloride 0.9% 100 ml @ Per Protocol IV .Q0M [facility] Rx#:[id number] Propofol 1,000 mg In 546.761 370.492 165.00 Empty Bag 1 bag @ Titrate IV .Q0M [facility] Rx#: [id number] Sodium Ferric Gluconat- 100 100 Sucrose 125 mg In Sodium Chloride 0.9% 100 ml @ 100 mls/hr IVPB DAILY [facility] Rx#:[id number] Tube Feeding 380 442 156 Other 150 120 60 Output: Urine 1700 950 930 Other: Voiding Method Indwelling Catheter Indwelling Catheter Indwelling Catheter ABP, PAP, CO, CI - Last Documented Arterial Blood Pressure 116/48 - Exam GENERAL EXAM: Patient is alert and oriented and doesn't appear to be in any acute distress HEENT: Normocephalic. Normal reaction of pupils, equal size, normal range of extraocular motion. No erythema or exudates in the throat. NECK: No masses, no nuchal rigidity. CHEST: No chest wall deformity. LUNGS: Diminished breath sounds at bases HEART: S1 and S2 normal. Distant heart sounds ABDOMEN: No hepatosplenomegaly, normal bowel sounds, no guarding or rigidity. SKIN: No rashes CENTRAL NERVOUS SYSTEM: Deferred EXTREMITIES: No cyanosis, clubbing or edema. - Labs CBC & Chem 7: 06/09/19 04:00 06/09/19 04:00 Labs: Abnormal Lab Results - Last 24 Hours (Table) 06/08/19 06/08/19 06/08/19 Range/Units 16:59 17:06 18:01 RBC (4.30-5.90) m/uL Hgb (13.0-17.5) gm/dL Hct (39.0-53.0) % MCH (25.0-35.0) pg MCHC (31.0-37.0) g/dL RDW (11.5-15.5) % Lymphocytes # (1.0-4.8) k/uL ABG pCO2 (35-45) mmHg ABG pO2 (83-108) mmHg ABG HCO3 (21-25) mmol/L ABG Total CO2 (19-24) mmol/L BUN (9-20) mg/dL Creatinine (0.66-1.25) mg/dL Glucose (74-99) mg/dL POC Glucose (mg/dL) 180 H 184 H 184 H (75-99) mg/dL 06/08/19 06/08/19 06/08/19 Range/Units 18:58 19:55 20:58 RBC (4.30-5.90) m/uL Hgb (13.0-17.5) gm/dL Hct (39.0-53.0) % MCH (25.0-35.0) pg MCHC (31.0-37.0) g/dL RDW (11.5-15.5) % Lymphocytes # (1.0-4.8) k/uL ABG pCO2 (35-45) mmHg ABG pO2 (83-108) mmHg ABG HCO3 (21-25) mmol/L ABG Total CO2 (19-24) mmol/L BUN (9-20) mg/dL Creatinine (0.66-1.25) mg/dL Glucose (74-99) mg/dL POC Glucose (mg/dL) 190 H 195 H 163 H (75-99) mg/dL 06/08/19 06/08/19 06/09/19 Range/Units 22:01 22:58 00:02 RBC (4.30-5.90) m/uL Hgb (13.0-17.5) gm/dL Hct (39.0-53.0) % MCH (25.0-35.0) pg MCHC (31.0-37.0) g/dL RDW (11.5-15.5) % Lymphocytes # (1.0-4.8) k/uL ABG pCO2 (35-45) mmHg ABG pO2 (83-108) mmHg ABG HCO3 (21-25) mmol/L ABG Total CO2 (19-24) mmol/L BUN (9-20) mg/dL Creatinine (0.66-1.25) mg/dL Glucose (74-99) mg/dL POC Glucose (mg/dL) 169 H 157 H 160 H (75-99) mg/dL 06/09/19 06/09/19 06/09/19 Range/Units 00:59 02:02 02:58 RBC (4.30-5.90) m/uL Hgb (13.0-17.5) gm/dL Hct (39.0-53.0) % MCH (25.0-35.0) pg MCHC (31.0-37.0) g/dL RDW (11.5-15.5) % Lymphocytes # (1.0-4.8) k/uL ABG pCO2 (35-45) mmHg ABG pO2 (83-108) mmHg ABG HCO3 (21-25) mmol/L ABG Total CO2 (19-24) mmol/L BUN (9-20) mg/dL Creatinine (0.66-1.25) mg/dL Glucose (74-99) mg/dL POC Glucose (mg/dL) 149 H 157 H 170 H (75-99) mg/dL 06/09/19 06/09/19 06/09/19 Range/Units 04:00 04:00 04:00 RBC 3.37 L (4.30-5.90) m/uL Hgb 8.1 L (13.0-17.5) gm/dL Hct 28.0 L (39.0-53.0) % MCH 24.1 L (25.0-35.0) pg MCHC 29.1 L (31.0-37.0) g/dL RDW 15.7 H (11.5-15.5) % Lymphocytes # 0.7 L (1.0-4.8) k/uL ABG pCO2 (35-45) mmHg ABG pO2 (83-108) mmHg ABG HCO3 (21-25) mmol/L ABG Total CO2 (19-24) mmol/L BUN 35 H (9-20) mg/dL Creatinine 1.56 H (0.66-1.25) mg/dL Glucose 168 H (74-99) mg/dL POC Glucose (mg/dL) 188 H (75-99) mg/dL 06/09/19 06/09/19 06/09/19 Range/Units 04:21 05:10 06:06 RBC (4.30-5.90) m/uL Hgb (13.0-17.5) gm/dL Hct (39.0-53.0) % MCH (25.0-35.0) pg MCHC (31.0-37.0) g/dL RDW (11.5-15.5) % Lymphocytes # (1.0-4.8) k/uL ABG pCO2 47 H (35-45) mmHg ABG pO2 78 L (83-108) mmHg ABG HCO3 29 H (21-25) mmol/L ABG Total CO2 31 H (19-24) mmol/L BUN (9-20) mg/dL Creatinine (0.66-1.25) mg/dL Glucose (74-99) mg/dL POC Glucose (mg/dL) 192 H 183 H (75-99) mg/dL 06/09/19 06/09/1919 Range/Units 06:59 08:24 08:59 RBC (4.30-5.90) m/uL Hgb (13.0-17.5) gm/dL Hct (39.0-53.0) % MCH (25.0-35.0) pg MCHC (31.0-37.0) g/dL RDW (11.5-15.5) % Lymphocytes # (1.0-4.8) k/uL ABG pCO2 (35-45) mmHg ABG pO2 (83-108) mmHg ABG HCO3 (21-25) mmol/L ABG Total CO2 (19-24) mmol/L BUN (9-20) mg/dL Creatinine (0.66-1.25) mg/dL Glucose (74-99) mg/dL POC Glucose (mg/dL) 190 H 179 H 183 H (75-99) mg/dL 06/09/19 06/09/19 06/09/19 Range/Units 09:22 10:54 11:56 RBC (4.30-5.90) m/uL Hgb (13.0-17.5) gm/dL Hct (39.0-53.0) % MCH (25.0-35.0) pg MCHC (31.0-37.0) g/dL RDW (11.5-15.5) % Lymphocytes # (1.0-4.8) k/uL ABG pCO2 50 H (35-45) mmHg ABG pO2 74 L (83-108) mmHg ABG HCO3 29 H (21-25) mmol/L ABG Total CO2 30 H (19-24) mmol/L BUN (9-20) mg/dL Creatinine (0.66-1.25) mg/dL Glucose (74-99) mg/dL POC Glucose (mg/dL) 202 H 194 H (75-99) mg/dL 06/09/19 06/09/19 06/09/19 Range/Units 13:02 14:00 15:24 RBC (4.30-5.90) m/uL Hgb (13.0-17.5) gm/dL Hct (39.0-53.0) % MCH (25.0-35.0) pg MCHC (31.0-37.0) g/dL RDW (11.5-15.5) % Lymphocytes # (1.0-4.8) k/uL ABG pCO2 (35-45) mmHg ABG pO2 (83-108) mmHg ABG HCO3 (21-25) mmol/L ABG Total CO2 (19-24) mmol/L BUN (9-20) mg/dL Creatinine (0.66-1.25) mg/dL Glucose (74-99) mg/dL POC Glucose (mg/dL) 188 H 172 H 171 H (75-99) mg/dL 06/09/19 Range/Units 15:59 RBC (4.30-5.90) m/uL Hgb (13.0-17.5) gm/dL Hct (39.0-53.0) % MCH (25.0-35.0) pg MCHC (31.0-37.0) g/dL RDW (11.5-15.5) % Lymphocytes # (1.0-4.8) k/uL ABG pCO2 (35-45) mmHg ABG pO2 (83-108) mmHg ABG HCO3 (21-25) mmol/L ABG Total CO2 (19-24) mmol/L BUN (9-20) mg/dL Creatinine (0.66-1.25) mg/dL Glucose (74-99) mg/dL POC Glucose (mg/dL) 154 H (75-99) mg/dL Microbiology - Last 24 Hours (Table) 06/07/19 01:28 Blood Culture - Preliminary Blood No Growth after 48 hours 06/08/19 03:25 Gram Stain - Preliminary Sputum Sputum Culture - Preliminary Assessment and Plan (1) Anemia Current Visit: Yes Status: Acute Code(s): D64.9 - ANEMIA, UNSPECIFIED SNOMED Code(s): 098387588 (2) CVA (cerebral vascular accident) Current Visit: Yes Status: Acute Code(s): I63.9 - CEREBRAL INFARCTION, UNSPECIFIED SNOMED Code(s): 557472079 (3) Renal insufficiency Current Visit: Yes Status: Acute Code(s): N28.9 - DISORDER OF KIDNEY AND URETER, UNSPECIFIED SNOMED Code(s): 427953000 (4) Pleural effusion Current Visit: Yes Status: Acute Code(s): J90 - PLEURAL EFFUSION, NOT ELSEWHERE CLASSIFIED SNOMED Code(s): 46648987 (5) Elevated troponin Current Visit: Yes Status: Acute Code(s): R79.89 - OTHER SPECIFIED ABNORMAL FINDINGS OF BLOOD CHEMISTRY SNOMED Code(s): 155079194 Plan: Patient is still intubated. The elevation of the troponins doesn't have a pattern consistent with acute myocardial injury pattern. Patient has significant carotid disease which is being addressed. We'll continue current medical therapy and follow
[2019-06-09 18:50] LABS: Glucose,Whole Blood 169 mg/dL (75-99)
[2019-06-09 20:13] LABS: Glucose,Whole Blood 172 mg/dL (75-99)
[2019-06-09] MEDS: FENOFIBRATE 160 MG TAB PO SCH (21:06)
[2019-06-09] MEDS: LORATADINE 10 MG TAB PO SCH (21:06)
[2019-06-09] MEDS: ATORVASTATIN 40 MG TAB PO SCH (21:06)
[2019-06-09 22:27] LABS: Glucose,Whole Blood 176 mg/dL (75-99)
--- NOTE | 2019-06-09 23:37 | PN ---
PROGRESS NOTE DATE OF SERVICE: 06/08/2019. This 78-year-old gentleman who was admitted with CHF acute exacerbation, also had acute hypoxic respiratory failure. Patient is mechanically ventilated, intubated at this time. The patient being closely followed by Dr. Singh who is planning weaning trials and parameters tomorrow otherwise. Otherwise, vascular surgery is also following the patient closely. PAST MEDICAL HISTORY: Reviewed. REVIEW OF SYSTEMS: Could not be taken, the patient mechanically ventilated and sedated. MEDICATIONS: Current medications reviewed and include: 1. Diamox 250 mg IV b.i.d. 2. DuoNeb q.i.d. and p.r.n. 3. Norvasc 5 mg. 4. Aspirin 160 mg daily. 5. Lipitor 40 mg q.h.s. 6. Rocephin 1 g daily. 7. Peridex 15 mL b.i.d. 8. Vitamin B12. 9. Lofibra. 10.Lasix 40 mg IV t.i.d. 11.Heparin 5000 subcu q.8h. 12.Imdur. 13.Claritin. 14.Magnesium oxide. 15.Lopressor. 16.Narcan. 17.Protonix. 18.Propofol. PHYSICAL EXAM: Patient is mechanically sedated. Pulse 80, blood pressure 120/47, respiration 22, temperature normal, pulse ox 94% on mechanical ventilation. 50% FiO2. Vent settings are noted. HEENT: Conjunctivae normal. Oral mucosa moist. NECK is no jugular venous distention. No carotid bruit. No lymph enlargement. CARDIOVASCULAR systems: S1, S2 muffled. RESPIRATION: Breath sounds diminished in the bases. Bilateral scattered rhonchi and crackles. ABDOMEN: Soft, obese, nontender. LEGS: No edema. No swelling. Nervous system: The patient mechanically sedated. LABS: Accu-Cheks noted. Sodium is 143, potassium 3.8, creatinine is 1.56 and hemoglobin is 8.1. ASSESSMENT: 1. Congestive heart failure acute exacerbation with acute on chronic diastolic dysfunction ejection fraction 60-65 percent. 2. Acute hypoxic hypercarbic respiratory failure secondary to above, on mechanical ventilation. 3. Slurring of speech, possible acute TIA, present on admission. 4. Change in mental status, acute metabolic encephalopathy. 5. Acute urinary tract infection, present on admission. 6. Mild aortic stenosis on 2D echo. 7. Significant right internal carotid stenosis of the CT angio about more than 90% proximally. 8. Elevated D-dimer without any evidence of acute pulmonary embolism. 9. Acute respiratory acidosis secondary to acute hypoxic respiratory failure. 10.Possible cellulitis of the legs. 11.Anemia, normocytic anemia of chronic disease. 12.Obesity with body mass index of 40.9. 13.Elevated creatinine with mild acute renal failure possibly prerenal acute tubular necrosis, slightly worsening. 14.Diabetes mellitus type 2, uncontrolled with hyperglycemia. 15.Troponin 0.114, possibly type 2 myocardial infarction secondary to supply demand mismatch. 16.Possible acute urinary tract infection present on admission. 17.History of recent shoulder arthroplasty on the left. 18.Diabetes mellitus type 2. 19.Hypertension. 20.Hyperlipidemia. 21.History of umbilical hernia. 22.History of renal stones. 23.History of bowel obstruction. 24.History of degenerative joint disease. 25.History of vertigo. 26.History of nicotine dependence. 27.Obesity with body mass index of 40.9. 28.FULL CODE. RECOMMENDATIONS AND DISCUSSION: In this 78-year-old gentleman who presented with multiple medical problems, we will monitor the patient closely, continue the current medications, continue diuretics. The patient has an apparent negative balance at this time, more than 3 L as of yesterday. We will continue to monitor. Other than that, continue the rest of medications including empiric antibiotics. Renal function is 1.6. Cultures are negative so far. Monitor blood sugars closely. Continue the insulin drip at 6.5. Guarded prognosis because of multiple complex medical issues. Further recommendations to follow. MMODL / IJN: [id number] /
[2019-06-10 00:12] LABS: Glucose,Whole Blood 168 mg/dL (75-99)
[2019-06-10] MEDS: HEPARIN SODIUM,PORCINE 5,000 UNIT/ML 1 ML VIAL SQ SCH ×3 (00:47→16:50)
[2019-06-10] MEDS: PROPOFOL 1,000 MG in EMPTY BAG 1 BAG IV SCH ×3 (00:51→06:07)
[2019-06-10 02:04] LABS: Glucose,Whole Blood 174 mg/dL (75-99)
[2019-06-10] MEDS: IPRATROPIUM-ALBUTEROL 3 ML NEB INHALATION SCH ×6 (03:11→23:10)
[2019-06-10 04:16] LABS: Anisocytosis Slight; Basophils % (A) 0 %; Eosinophils # (A) 0.2 k/uL (0-0.7); Eosinophils % (A) 2 %; HCT 28.7 % (39.0-53.0); HGB 8.6 gm/dL (13.0-17.5); Hypochromasia Marked; Lymphocytes % (A) 11 %; MCH 24.7 pg (25.0-35.0); MCHC 29.9 g/dL (31.0-37.0); MCV 82.4 fL (80.0-100.0); Mean Platelet Volume 8.2; Monocytes # (A) 0.6 k/uL (0-1.0); Monocytes % (A) 7 %; Neutrophils # (A) 6.7 k/uL (1.3-7.7); Neutrophils % (A) 77 %; Platelet Count 331 k/uL (150-450); Poikilocytosis Slight; RBC 3.48 m/uL (4.30-5.90); RDW 16.3 % (11.5-15.5); WBC 8.7 k/uL (3.8-10.6)
[2019-06-10 04:27] LABS: ABG Base Excess 3.6 mmol/L; ABG HCO3 29 mmol/L (21-25); ABG Oxygen Saturation 95.9 % (94-97); ABG PCO2 51 mmHg (35-45); ABG PH 7.36 (7.35-7.45); ABG PO2 82 mmHg (83-108); ABG TCO2 31 mmol/L (19-24); Allen Test Performed? Yes
[2019-06-10 04:29] LABS: Calcium 8.5 mg/dL (8.4-10.2); Potassium 3.8 mmol/L (3.5-5.1)
[2019-06-10 04:35] LABS: Glucose,Whole Blood 183 mg/dL (75-99)
[2019-06-10] MEDS ORDERED: POTASSIUM BICARBONATE/CIT AC 20 MEQ TABLET.EFF NG-TUBE SCH (06:00)
[2019-06-10 06:34] LABS: Glucose,Whole Blood 177 mg/dL (75-99)
[2019-06-10 08:06] LABS: Glucose,Whole Blood 212 mg/dL (75-99)
[2019-06-10] MEDS: SODIUM FERRIC GLUCONAT-SUCROSE 125 MG in SODIUM CHLORIDE 0.9% 100 ML IVPB SCH (08:09)
[2019-06-10] MEDS: CHLORHEXIDINE GLUCONATE 15 ML CUP MUCOUS MEM SCH ×2 (08:09→21:21)
[2019-06-10] MEDS: MAGNESIUM OXIDE 400 MG TAB PO SCH ×2 (08:09→21:21)
[2019-06-10] MEDS: amLODIPine 5 MG TAB PO SCH (08:09)
[2019-06-10] MEDS: PANTOPRAZOLE 40 MG TABLET PO SCH (08:10)
[2019-06-10] MEDS: CYANOCOBALAMIN 500 MCG TAB PO SCH ×2 (08:10→21:11)
[2019-06-10] MEDS: METOPROLOL TARTRATE 50 MG TAB PO SCH ×2 (08:10→21:21)
[2019-06-10] MEDS: FUROSEMIDE 10 MG/ML 4 ML VIAL IV SCH ×3 (08:10→21:51)
[2019-06-10] MEDS: ASPIRIN 81 MG PO SCH (08:10)
[2019-06-10] MEDS: NOREPINEPHRINE 4 MG in SODIUM CHLORIDE 0.9% 250 ML IV SCH ×2 (08:12→15:28)
[2019-06-10] MEDS: INSULIN REGULAR 100 UNIT in SODIUM CHLORIDE 0.9% 100 ML IV SCH ×2 (08:14→21:37)
--- NOTE | 2019-06-10 08:39 | XR ---
EXAMINATION TYPE: XR chest 1V portable DATE OF EXAM: 06/10/2019 COMPARISON: 06/09/2019 HISTORY: Abnormal lung sounds TECHNIQUE: Single frontal view of the chest is obtained. FINDINGS: ET and NG tube stable. Cardiomegaly bilateral consolidation and pleural effusion noted. Ca lcified lymph nodes in the hilum noted. No pneumothorax. Diffuse interstitial pattern seen. Hypertrop hic and degenerative change of the spine. Postsurgical change left shoulder. IMPRESSION: 1. Diffuse pleural-parenchymal changes correlate for CHF. Pneumonia in the differential diagnosis.
[2019-06-10] MEDS: ISOSORBIDE MONONITRATE ER 30 MG TAB.ER.24H PO SCH (08:48)
--- NOTE | 2019-06-10 08:51 | P.PN ---
Subjective Progress Note Date: 06/10/19 This is a 78-year-old gentleman who was admitted to the hospital on with possible CVA/TIA. On June 07 patient required intubation for respiratory failure. The etiology of the respirator failure is not entirely clear. Patient chest x-ray shows mild pleural effusion. Patient has history of hypertension, diabetes, DJD and mild coronary artery disease. Patient also had several tests including CT angiogram, computed tomography scan, etc. His creatinine is up to 1.54. Director Part has start him IV diuretics for this. Pleural effusions. His echo Cardigan showed normal LV function. His troponins are mildly elevated but the pattern is not consistent with acute coronary syndrome. From [facility] standpoint we'll continue current management. 06/10/2019: This 78-year-old gentleman is admitted to the hospital with symptoms suggestive of possible CVA/TIA. Subsequently patient developed respiratory failure requiring intubation. Patient chest x-ray showed pleural parenchymal changes consistent with CHF/pneumonia. Patient has been IV diuretics. Patient seemed to following commands, Still intubated. Attempts are being made to extubate him today. His creatinine is about 1.58. Patient has bloody urine and has history of bladder cancer which was diagnosed recently. He is also on diuretics. We'll continue current medical therapy Objective - Vital Signs Vital signs: Vital Signs Temp 99.3 F 06/10/19 08:00 Pulse 76 06/10/19 08:00 Resp 20 06/10/19 08:00 BP 123/68 06/10/19 08:00 Pulse Ox 93 L 06/10/19 08:00 Intake & Output 06/09/19 06/10/19 06/10/19 18:59 06:59 18:59 Intake Total 756.437 1968.725 340.353 Output Total 1205 1170 165 Balance -237.253 11.725 175.353 Weight 120 kg Intake: IV 240 290 40 Sodium Chloride 0.9% 1, 240 240 40 000 ml @ 50 mls/hr IV . Q20H [facility] Rx#:[id number] cefTRIAXone 1 gm In 50 Sodium Chloride 0.9% 50 ml @ 100 mls/hr IVPB Q24H [facility] Rx#:[id number] Intake, IV Titration 325.747 385.725 192.353 Amount Insulin Regular 100 unit 38.807 40.925 6.133 In Sodium Chloride 0.9% 100 ml @ Per Protocol IV .Q0M [facility] Rx#:[id number] Propofol 1,000 mg In 186.94 344.8 86.22 Empty Bag 1 bag @ Titrate IV .Q0M [facility] Rx#: [id number] Sodium Ferric Gluconat- 100 100 Sucrose 125 mg In Sodium Chloride 0.9% 100 ml @ 100 mls/hr IVPB DAILY [facility] Rx#:[id number] Tube Feeding 312 416 78 Other 90 90 30 Output: Urine 1205 1170 165 Other: Voiding Method Indwelling Catheter Indwelling Catheter Indwelling Catheter ABP, PAP, CO, CI - Last Documented Arterial Blood Pressure 113/55 - Exam GENERAL EXAM: Patient is intubated but alert and following commands well,when he is off the sedation HEENT: Normocephalic. Normal reaction of pupils, equal size, normal range of extraocular motion. No erythema or exudates in the throat. NECK: No masses, no nuchal rigidity. CHEST: No chest wall deformity. LUNGS: Diminished breath sounds at bases HEART: S1 and S2 normal. Distant heart sounds ABDOMEN: No hepatosplenomegaly, normal bowel sounds, no guarding or rigidity. SKIN: No rashes CENTRAL NERVOUS SYSTEM: Deferred EXTREMITIES: No cyanosis, clubbing or edema. - Labs CBC & Chem 7: 06/10/19 04:00 06/10/19 04:00 Labs: Abnormal Lab Results - Last 24 Hours (Table) 06/09/19 06/09/19 06/09/19 Range/Units 08:59 09:22 10:54 RBC (4.30-5.90) m/uL Hgb (13.0-17.5) gm/dL Hct (39.0-53.0) % MCH (25.0-35.0) pg MCHC (31.0-37.0) g/dL RDW (11.5-15.5) % ABG pCO2 50 H (35-45) mmHg ABG pO2 74 L (83-108) mmHg ABG HCO3 29 H (21-25) mmol/L ABG Total CO2 30 H (19-24) mmol/L Chloride (98-107) mmol/L BUN (9-20) mg/dL Creatinine (0.66-1.25) mg/dL Glucose (74-99) mg/dL POC Glucose (mg/dL) 183 H 202 H (75-99) mg/dL 06/09/19 06/09/19 06/09/19 Range/Units 11:56 13:02 14:00 RBC (4.30-5.90) m/uL Hgb (13.0-17.5) gm/dL Hct (39.0-53.0) % MCH (25.0-35.0) pg MCHC (31.0-37.0) g/dL RDW (11.5-15.5) % ABG pCO2 (35-45) mmHg ABG pO2 (83-108) mmHg ABG HCO3 (21-25) mmol/L ABG Total CO2 (19-24) mmol/L Chloride (98-107) mmol/L BUN (9-20) mg/dL Creatinine (0.66-1.25) mg/dL Glucose (74-99) mg/dL POC Glucose (mg/dL) 194 H 188 H 172 H (75-99) mg/dL 06/09/19 06/09/19 06/09/19 Range/Units 15:24 15:59 18:39 RBC (4.30-5.90) m/uL Hgb (13.0-17.5) gm/dL Hct (39.0-53.0) % MCH (25.0-35.0) pg MCHC (31.0-37.0) g/dL RDW (11.5-15.5) % ABG pCO2 (35-45) mmHg ABG pO2 (83-108) mmHg ABG HCO3 (21-25) mmol/L ABG Total CO2 (19-24) mmol/L Chloride (98-107) mmol/L BUN (9-20) mg/dL Creatinine (0.66-1.25) mg/dL Glucose (74-99) mg/dL POC Glucose (mg/dL) 171 H 154 H 169 H (75-99) mg/dL 06/09/19 06/09/19 06/10/19 Range/Units 20:02 22:16 00:00 RBC (4.30-5.90) m/uL Hgb (13.0-17.5) gm/dL Hct (39.0-53.0) % MCH (25.0-35.0) pg MCHC (31.0-37.0) g/dL RDW (11.5-15.5) % ABG pCO2 (35-45) mmHg ABG pO2 (83-108) mmHg ABG HCO3 (21-25) mmol/L ABG Total CO2 (19-24) mmol/L Chloride (98-107) mmol/L BUN (9-20) mg/dL Creatinine (0.66-1.25) mg/dL Glucose (74-99) mg/dL POC Glucose (mg/dL) 172 H 176 H 168 H (75-99) mg/dL 06/10/19 06/10/19 06/10/19 Range/Units 01:52 03:59 04:00 RBC 3.48 L (4.30-5.90) m/uL Hgb 8.6 L (13.0-17.5) gm/dL Hct 28.7 L (39.0-53.0) % MCH 24.7 L (25.0-35.0) pg MCHC 29.9 L (31.0-37.0) g/dL RDW 16.3 H (11.5-15.5) % ABG pCO2 (35-45) mmHg ABG pO2 (83-108) mmHg ABG HCO3 (21-25) mmol/L ABG Total CO2 (19-24) mmol/L Chloride (98-107) mmol/L BUN (9-20) mg/dL Creatinine (0.66-1.25) mg/dL Glucose (74-99) mg/dL POC Glucose (mg/dL) 174 H 183 H (75-99) mg/dL 06/10/19 06/10/19 06/10/19 Range/Units 04:00 04:25 06:12 RBC (4.30-5.90) m/uL Hgb (13.0-17.5) gm/dL Hct (39.0-53.0) % MCH (25.0-35.0) pg MCHC (31.0-37.0) g/dL RDW (11.5-15.5) % ABG pCO2 51 H (35-45) mmHg ABG pO2 82 L (83-108) mmHg ABG HCO3 29 H (21-25) mmol/L ABG Total CO2 31 H (19-24) mmol/L Chloride 109 H (98-107) mmol/L BUN 32 H (9-20) mg/dL Creatinine 1.58 H (0.66-1.25) mg/dL Glucose 168 H (74-99) mg/dL POC Glucose (mg/dL) 177 H (75-99) mg/dL 06/10/19 Range/Units 07:55 RBC (4.30-5.90) m/uL Hgb (13.0-17.5) gm/dL Hct (39.0-53.0) % MCH (25.0-35.0) pg MCHC (31.0-37.0) g/dL RDW (11.5-15.5) % ABG pCO2 (35-45) mmHg ABG pO2 (83-108) mmHg ABG HCO3 (21-25) mmol/L ABG Total CO2 (19-24) mmol/L Chloride (98-107) mmol/L BUN (9-20) mg/dL Creatinine (0.66-1.25) mg/dL Glucose (74-99) mg/dL POC Glucose (mg/dL) 212 H (75-99) mg/dL Microbiology - Last 24 Hours (Table) 06/07/19 01:28 Blood Culture - Preliminary Blood No Growth after 72 hours Assessment and Plan (1) Anemia Current Visit: Yes Status: Acute Code(s): D64.9 - ANEMIA, UNSPECIFIED SNOMED Code(s): 808910891 (2) CVA (cerebral vascular accident) Current Visit: Yes Status: Acute Code(s): I63.9 - CEREBRAL INFARCTION, UNSPECIFIED SNOMED Code(s): 543285035 (3) Renal insufficiency Current Visit: Yes Status: Acute Code(s): N28.9 - DISORDER OF KIDNEY AND URETER, UNSPECIFIED SNOMED Code(s): 686594729 (4) Pleural effusion Current Visit: Yes Status: Acute Code(s): J90 - PLEURAL EFFUSION, NOT ELSEWHERE CLASSIFIED SNOMED Code(s): 20807873 (5) Elevated troponin Current Visit: Yes Status: Acute Code(s): R79.89 - OTHER SPECIFIED ABNORMAL FINDINGS OF BLOOD CHEMISTRY SNOMED Code(s): 507764662 Plan: Patient's critical status is stable. Symptoms are being made to wean him of the respirator. Continue IV diuretics and the rest of the management. Patient was seen by vascular surgeon. No surgical intervention is planned at this time
[2019-06-10 09:12] LABS: Glucose,Whole Blood 206 mg/dL (75-99)
--- NOTE | 2019-06-10 10:12 | PN ---
PROGRESS NOTE PULMONARY/CRITICAL CARE PROGRESS NOTE: DATE OF SERVICE: 06/10/2019 This is a 78-year-old male who was admitted to the hospital on June 06. He apparently was admitted with a diagnosis of CVA/TIA as well as fluid overload. An A team was called on this patient. The patient was intubated for respiratory failure on June 07. He had profound acute hypoxemic respiratory failure. He remains on the ventilator. Yesterday, we did a daily interruption of sedation and a spontaneous breathing trial. He did reasonably well, but I felt like he needed another day of mechanical ventilation and additional diuresis. He does have a history of benign essential hypertension, diabetes mellitus, DJD, CAD, and shoulder arthroplasty. His primary care provider is Dr. Kemp. His current vent settings include the volume assist-control mode rate of 20, tidal volume 500, FiO2 of 50%, PEEP of 5. Blood gases show a pO2 of 82, pCO2 of 51, pH of 7.36. The patient is getting saline at 20 mL an hour, propofol at 50 mcg/kg per minute, insulin at 3 units an hour, and Vital high-protein at 26 with a goal of 26 mL/hour. The patient will have a daily interruption of sedation today and a spontaneous breathing trial. After 30 minutes, he will have a full set of weaning parameters and a cuff leak test. Will make a decision about extubation. When he is placed on a spontaneous breathing trial, he will go on PSV 8, CPAP of 5. I did speak to his today. Current vital signs are reviewed. Temperature is 99.3, heart rate 75, respiratory rate 20, blood pressure 125/69 mean 87, saturations are 93%. Appears in no acute distress. Seems to be resting comfortably. He is sedated. HEENT: Examination is grossly unremarkable. There is no orally placed endotracheal tube and NG tube. NECK: Supple. Full range of motion. No adenopathy. Neck veins are flat. CARDIOVASCULAR: Examination reveals regular rhythm and rate. HEART: Sounds distant. S1, S2 normal. Heart rate about 75 beats per minute. LUNGS: Reveal a few scattered rhonchi. No wheezes. A few crackles. Breath sounds equal. ABDOMEN: Soft, bowel sounds are heard. EXTREMITIES: Intact. No cyanosis or clubbing. Some slight edema. SKIN: Without rash. NEUROLOGIC: Examination is difficult to assess given the current level of sedation. LABORATORY DATA: Reviewed. White count 8.7, hemoglobin 8.6, hematocrit 28.7, platelet count 331,000. Blood gases are noted. Sodium 142, potassium 3.8, chloride 109, CO2 is 30, anion gap is 3. BUN and creatinine were 32 and 1.58. Chest x-ray shows changes of CHF, which in my opinion are improved. Microbiology is negative currently including blood urine and sputum. Medications are reviewed. ASSESSMENT: 1. Acute hypoxemic and hypercapnic respiratory failure secondary to pulmonary edema from diastolic congestive heart failure, with admission on June 06 and intubation on June 07, 2019. 2. Routine ventilator management. 3. Acute transient ischemic attack. 4. Near complete stenosis of the right internal carotid artery. 5. Acute kidney injury secondary to acute tubular necrosis. 6. History of bladder cancer, being followed at [facility]. 7. Type 2 diabetes mellitus with diabetic nephropathy. 8. Benign essential hypertension. 9. Possible non ST-segment elevation myocardial infarction. 10.Hyperlipidemia. 11.History of degenerative joint disease, status post shoulder arthroplasty. 12.History of kidney stones. 13.History of bowel obstruction. 14.Morbid obesity. PLAN: The patient will be given a daily interruption of sedation with a spontaneous breathing trial. After about 30 minutes, will do a full set of weaning parameters and a cuff leak. The patient was close to being extubated yesterday. We went ahead and increased his Lasix yesterday from 40 mg once a day to 40 mg IV push q.8 hours. In my opinion his chest x-ray looks a bit better. I did speak to his . He remains on propofol and insulin. Obviously he will come off the propofol for the SBT. Vital high-protein is running at 26, which is goal. His blood gases today show a mixed acid-base respiratory disturbance including normoxemia and a combination of both respiratory acidosis and metabolic alkalosis. PH is normal. Additional recommendations and suggestions are forthcoming. Prognosis is guarded. CRITICAL CARE TIME: 35 minutes. MMODL / IJN: [id number] /
[2019-06-10 10:26] LABS: Glucose,Whole Blood 201 mg/dL (75-99)
--- NOTE | 2019-06-10 11:10 | P.PN ---
Subjective Progress Note Date: 06/10/19 Seen and examined for the follow-up of acute kidney injury. On BiPAP. Objective - Vital Signs Vital signs: Vital Signs Temp 99.3 F 06/10/19 08:00 Pulse 85 06/10/19 10:00 Resp 23 06/10/19 10:00 BP 139/71 06/10/19 10:00 Pulse Ox 90 L 06/10/19 10:12 Intake & Output 06/09/19 06/10/19 06/10/19 18:59 06:59 18:59 Intake Total 864.280 9017.725 392.311 Output Total 1205 1170 765 Balance -237.253 11.725 -372.689 Weight 120 kg Intake: IV 240 290 60 Sodium Chloride 0.9% 1, 240 240 60 000 ml @ 50 mls/hr IV . Q20H [facility] Rx#:[id number] cefTRIAXone 1 gm In 50 Sodium Chloride 0.9% 50 ml @ 100 mls/hr IVPB Q24H [facility] Rx#:[id number] Intake, IV Titration 325.747 385.725 198.311 Amount Insulin Regular 100 unit 38.807 40.925 12.091 In Sodium Chloride 0.9% 100 ml @ Per Protocol IV .Q0M [facility] Rx#:[id number] Propofol 1,000 mg In 186.94 344.8 86.22 Empty Bag 1 bag @ Titrate IV .Q0M [facility] Rx#: [id number] Sodium Ferric Gluconat- 100 100 Sucrose 125 mg In Sodium Chloride 0.9% 100 ml @ 100 mls/hr IVPB DAILY [facility] Rx#:[id number] Tube Feeding 312 416 104 Other 90 90 30 Output: Urine 1205 1170 765 Other: Voiding Method Indwelling Catheter Indwelling Catheter Indwelling Catheter ABP, PAP, CO, CI - Last Documented Arterial Blood Pressure 147/56 - Exam No acute distress S1-S2 heard Decreased breath sounds Abdomen distended Edema - Labs CBC & Chem 7: 06/10/19 04:00 06/10/19 04:00 Labs: Abnormal Lab Results - Last 24 Hours (Table) 06/09/19 06/09/19 06/09/19 Range/Units 10:54 11:56 13:02 RBC (4.30-5.90) m/uL Hgb (13.0-17.5) gm/dL Hct (39.0-53.0) % MCH (25.0-35.0) pg MCHC (31.0-37.0) g/dL RDW (11.5-15.5) % ABG pCO2 (35-45) mmHg ABG pO2 (83-108) mmHg ABG HCO3 (21-25) mmol/L ABG Total CO2 (19-24) mmol/L Chloride (98-107) mmol/L BUN (9-20) mg/dL Creatinine (0.66-1.25) mg/dL Glucose (74-99) mg/dL POC Glucose (mg/dL) 202 H 194 H 188 H (75-99) mg/dL 06/09/19 06/09/19 06/09/19 Range/Units 14:00 15:24 15:59 RBC (4.30-5.90) m/uL Hgb (13.0-17.5) gm/dL Hct (39.0-53.0) % MCH (25.0-35.0) pg MCHC (31.0-37.0) g/dL RDW (11.5-15.5) % ABG pCO2 (35-45) mmHg ABG pO2 (83-108) mmHg ABG HCO3 (21-25) mmol/L ABG Total CO2 (19-24) mmol/L Chloride (98-107) mmol/L BUN (9-20) mg/dL Creatinine (0.66-1.25) mg/dL Glucose (74-99) mg/dL POC Glucose (mg/dL) 172 H 171 H 154 H (75-99) mg/dL 06/09/19 06/09/19 06/09/19 Range/Units 18:39 20:02 22:16 RBC (4.30-5.90) m/uL Hgb (13.0-17.5) gm/dL Hct (39.0-53.0) % MCH (25.0-35.0) pg MCHC (31.0-37.0) g/dL RDW (11.5-15.5) % ABG pCO2 (35-45) mmHg ABG pO2 (83-108) mmHg ABG HCO3 (21-25) mmol/L ABG Total CO2 (19-24) mmol/L Chloride (98-107) mmol/L BUN (9-20) mg/dL Creatinine (0.66-1.25) mg/dL Glucose (74-99) mg/dL POC Glucose (mg/dL) 169 H 172 H 176 H (75-99) mg/dL 06/10/19 06/10/19 06/10/19 Range/Units 00:00 01:52 03:59 RBC (4.30-5.90) m/uL Hgb (13.0-17.5) gm/dL Hct (39.0-53.0) % MCH (25.0-35.0) pg MCHC (31.0-37.0) g/dL RDW (11.5-15.5) % ABG pCO2 (35-45) mmHg ABG pO2 (83-108) mmHg ABG HCO3 (21-25) mmol/L ABG Total CO2 (19-24) mmol/L Chloride (98-107) mmol/L BUN (9-20) mg/dL Creatinine (0.66-1.25) mg/dL Glucose (74-99) mg/dL POC Glucose (mg/dL) 168 H 174 H 183 H (75-99) mg/dL 06/10/19 06/10/19 06/10/19 Range/Units 04:00 04:00 04:25 RBC 3.48 L (4.30-5.90) m/uL Hgb 8.6 L (13.0-17.5) gm/dL Hct 28.7 L (39.0-53.0) % MCH 24.7 L (25.0-35.0) pg MCHC 29.9 L (31.0-37.0) g/dL RDW 16.3 H (11.5-15.5) % ABG pCO2 51 H (35-45) mmHg ABG pO2 82 L (83-108) mmHg ABG HCO3 29 H (21-25) mmol/L ABG Total CO2 31 H (19-24) mmol/L Chloride 109 H (98-107) mmol/L BUN 32 H (9-20) mg/dL Creatinine 1.58 H (0.66-1.25) mg/dL Glucose 168 H (74-99) mg/dL POC Glucose (mg/dL) (75-99) mg/dL 06/10/19 06/10/19 06/10/19 Range/Units 06:12 07:55 09:00 RBC (4.30-5.90) m/uL Hgb (13.0-17.5) gm/dL Hct (39.0-53.0) % MCH (25.0-35.0) pg MCHC (31.0-37.0) g/dL RDW (11.5-15.5) % ABG pCO2 (35-45) mmHg ABG pO2 (83-108) mmHg ABG HCO3 (21-25) mmol/L ABG Total CO2 (19-24) mmol/L Chloride (98-107) mmol/L BUN (9-20) mg/dL Creatinine (0.66-1.25) mg/dL Glucose (74-99) mg/dL POC Glucose (mg/dL) 177 H 212 H 206 H (75-99) mg/dL 06/10/19 Range/Units 10:14 RBC (4.30-5.90) m/uL Hgb (13.0-17.5) gm/dL Hct (39.0-53.0) % MCH (25.0-35.0) pg MCHC (31.0-37.0) g/dL RDW (11.5-15.5) % ABG pCO2 (35-45) mmHg ABG pO2 (83-108) mmHg ABG HCO3 (21-25) mmol/L ABG Total CO2 (19-24) mmol/L Chloride (98-107) mmol/L BUN (9-20) mg/dL Creatinine (0.66-1.25) mg/dL Glucose (74-99) mg/dL POC Glucose (mg/dL) 201 H (75-99) mg/dL Microbiology - Last 24 Hours (Table) 06/07/19 01:28 Blood Culture - Preliminary Blood No Growth after 72 hours Assessment and Plan Assessment: #1 nonoliguric acute kidney injury secondary to ischemic ATN #2 acute respiratory failure currently on BiPAP #3 metabolic alkalosis secondary to respiratory acidosis #4 diabetes on insulin #5 anemia with chronic kidney disease. Plan: #1 creatinine slowly creeping. Continue to monitor #2 stop Diamox as metabolic alkalosis is secondary to respiratory acidosis #3 continue with diuretics for now #4 repeat urine analysis, quantify proteinuria and labs in the morning
--- NOTE | 2019-06-10 12:00 | P.PN ---
<Efren Garciaee - Last Filed: 06/10/19 11:53> Subjective Progress Note Date: 06/10/19 Patient seen and evaluatedsitting up in bed. Patient was just extubated and appears in no distress. He is able to communicate light whisper. Objective - Vital Signs Vital signs: Vital Signs Temp 99.3 F 06/10/19 08:00 Pulse 87 06/10/19 11:35 Resp 18 06/10/19 11:00 BP 167/85 06/10/19 11:00 Pulse Ox 97 06/10/19 11:00 Intake & Output 06/09/19 06/10/19 06/10/19 18:59 06:59 18:59 Intake Total 337.286 4457.725 392.311 Output Total 1205 1170 765 Balance -237.253 11.725 -372.689 Weight 120 kg Intake: IV 240 290 60 Sodium Chloride 0.9% 1, 240 240 60 000 ml @ 50 mls/hr IV . Q20H [facility] Rx#:[id number] cefTRIAXone 1 gm In 50 Sodium Chloride 0.9% 50 ml @ 100 mls/hr IVPB Q24H [facility] Rx#:[id number] Intake, IV Titration 325.747 385.725 198.311 Amount Insulin Regular 100 unit 38.807 40.925 12.091 In Sodium Chloride 0.9% 100 ml @ Per Protocol IV .Q0M [facility] Rx#:[id number] Propofol 1,000 mg In 186.94 344.8 86.22 Empty Bag 1 bag @ Titrate IV .Q0M [facility] Rx#: [id number] Sodium Ferric Gluconat- 100 100 Sucrose 125 mg In Sodium Chloride 0.9% 100 ml @ 100 mls/hr IVPB DAILY [facility] Rx#:[id number] Tube Feeding 312 416 104 Other 90 90 30 Output: Urine 1205 1170 765 Other: Voiding Method Indwelling Catheter Indwelling Catheter Indwelling Catheter ABP, PAP, CO, CI - Last Documented Arterial Blood Pressure 133/55 - Exam General appearance: The patient is alert, oriented, in no acute distress. HET: Head is normocephalic and atraumatic. Neck: Supple. Heart: S1 S2. Regular rate and rhythm. Lungs: No crackles or wheezes. Neurological: No focal deficits demonstrated - Labs CBC & Chem 7: 06/10/19 04:00 06/10/19 04:00 Labs: Abnormal Lab Results - Last 24 Hours (Table) 06/09/19 06/09/19 06/09/19 Range/Units 11:56 13:02 14:00 RBC (4.30-5.90) m/uL Hgb (13.0-17.5) gm/dL Hct (39.0-53.0) % MCH (25.0-35.0) pg MCHC (31.0-37.0) g/dL RDW (11.5-15.5) % ABG pCO2 (35-45) mmHg ABG pO2 (83-108) mmHg ABG HCO3 (21-25) mmol/L ABG Total CO2 (19-24) mmol/L Chloride (98-107) mmol/L BUN (9-20) mg/dL Creatinine (0.66-1.25) mg/dL Glucose (74-99) mg/dL POC Glucose (mg/dL) 194 H 188 H 172 H (75-99) mg/dL 06/09/19 06/09/19 06/09/19 Range/Units 15:24 15:59 18:39 RBC (4.30-5.90) m/uL Hgb (13.0-17.5) gm/dL Hct (39.0-53.0) % MCH (25.0-35.0) pg MCHC (31.0-37.0) g/dL RDW (11.5-15.5) % ABG pCO2 (35-45) mmHg ABG pO2 (83-108) mmHg ABG HCO3 (21-25) mmol/L ABG Total CO2 (19-24) mmol/L Chloride (98-107) mmol/L BUN (9-20) mg/dL Creatinine (0.66-1.25) mg/dL Glucose (74-99) mg/dL POC Glucose (mg/dL) 171 H 154 H 169 H (75-99) mg/dL 06/09/19 06/09/19 06/10/19 Range/Units 20:02 22:16 00:00 RBC (4.30-5.90) m/uL Hgb (13.0-17.5) gm/dL Hct (39.0-53.0) % MCH (25.0-35.0) pg MCHC (31.0-37.0) g/dL RDW (11.5-15.5) % ABG pCO2 (35-45) mmHg ABG pO2 (83-108) mmHg ABG HCO3 (21-25) mmol/L ABG Total CO2 (19-24) mmol/L Chloride (98-107) mmol/L BUN (9-20) mg/dL Creatinine (0.66-1.25) mg/dL Glucose (74-99) mg/dL POC Glucose (mg/dL) 172 H 176 H 168 H (75-99) mg/dL 06/10/19 06/10/19 06/10/19 Range/Units 01:52 03:59 04:00 RBC 3.48 L (4.30-5.90) m/uL Hgb 8.6 L (13.0-17.5) gm/dL Hct 28.7 L (39.0-53.0) % MCH 24.7 L (25.0-35.0) pg MCHC 29.9 L (31.0-37.0) g/dL RDW 16.3 H (11.5-15.5) % ABG pCO2 (35-45) mmHg ABG pO2 (83-108) mmHg ABG HCO3 (21-25) mmol/L ABG Total CO2 (19-24) mmol/L Chloride (98-107) mmol/L BUN (9-20) mg/dL Creatinine (0.66-1.25) mg/dL Glucose (74-99) mg/dL POC Glucose (mg/dL) 174 H 183 H (75-99) mg/dL 06/10/19 06/10/19 06/10/19 Range/Units 04:00 04:25 06:12 RBC (4.30-5.90) m/uL Hgb (13.0-17.5) gm/dL Hct (39.0-53.0) % MCH (25.0-35.0) pg MCHC (31.0-37.0) g/dL RDW (11.5-15.5) % ABG pCO2 51 H (35-45) mmHg ABG pO2 82 L (83-108) mmHg ABG HCO3 29 H (21-25) mmol/L ABG Total CO2 31 H (19-24) mmol/L Chloride 109 H (98-107) mmol/L BUN 32 H (9-20) mg/dL Creatinine 1.58 H (0.66-1.25) mg/dL Glucose 168 H (74-99) mg/dL POC Glucose (mg/dL) 177 H (75-99) mg/dL 06/10/19 06/10/19 06/10/19 Range/Units 07:55 09:00 10:14 RBC (4.30-5.90) m/uL Hgb (13.0-17.5) gm/dL Hct (39.0-53.0) % MCH (25.0-35.0) pg MCHC (31.0-37.0) g/dL RDW (11.5-15.5) % ABG pCO2 (35-45) mmHg ABG pO2 (83-108) mmHg ABG HCO3 (21-25) mmol/L ABG Total CO2 (19-24) mmol/L Chloride (98-107) mmol/L BUN (9-20) mg/dL Creatinine (0.66-1.25) mg/dL Glucose (74-99) mg/dL POC Glucose (mg/dL) 212 H 206 H 201 H (75-99) mg/dL Microbiology - Last 24 Hours (Table) 06/07/19 01:28 Blood Culture - Preliminary Blood No Growth after 72 hours Assessment and Plan Assessment: Right proximal ICA stenosis slurring of speech, possible transient ischemic attack hypertension Hyperlipidemia Diabetes mellitus type 2 History of nicotine dependence Plan: Patient was seen and evaluated with Dr. Verdugo. Dr. Verdugo discussed with patient and his at this time there is no need for any vascular surgical interventions. Once patient stabilizes and he is discharged he will need to follow-up with Dr. Verdugo or Dr. Avila in their office for further evaluation and recommendations. The above dictated assessment and findings were discussed with Dr. Verdugo. The impression and plan of care have been directed as dictated. <Mo Verdugo - Last Filed: 06/10/19 12:25> Subjective Principal diagnosis: Carotid stenosis Objective - Vital Signs Vital signs: Vital Signs Temp 99.3 F 06/10/19 08:00 Pulse 87 06/10/19 11:35 Resp 18 06/10/19 11:00 BP 167/85 06/10/19 11:00 Pulse Ox 97 06/10/19 11:00 Intake & Output 06/09/19 06/10/19 06/10/19 18:59 06:59 18:59 Intake Total 103.211 0284.725 411.919 Output Total 1205 1170 765 Balance -237.253 11.725 -353.081 Weight 120 kg Intake: IV 240 290 60 Sodium Chloride 0.9% 1, 240 240 60 000 ml @ 50 mls/hr IV . Q20H [facility] Rx#:[id number] cefTRIAXone 1 gm In 50 Sodium Chloride 0.9% 50 ml @ 100 mls/hr IVPB Q24H [facility] Rx#:[id number] Intake, IV Titration 325.747 385.725 217.919 Amount Insulin Regular 100 unit 38.807 40.925 31.699 In Sodium Chloride 0.9% 100 ml @ Per Protocol IV .Q0M [facility] Rx#:[id number] Propofol 1,000 mg In 186.94 344.8 86.22 Empty Bag 1 bag @ Titrate IV .Q0M [facility] Rx#: [id number] Sodium Ferric Gluconat- 100 100 Sucrose 125 mg In Sodium Chloride 0.9% 100 ml @ 100 mls/hr IVPB DAILY [facility] Rx#:[id number] Tube Feeding 312 416 104 Other 90 90 30 Output: Urine 1205 1170 765 Other: Voiding Method Indwelling Catheter Indwelling Catheter Indwelling Catheter ABP, PAP, CO, CI - Last Documented Arterial Blood Pressure 133/55 - Labs CBC & Chem 7: 06/10/19 04:00 06/10/19 04:00 Labs: Abnormal Lab Results - Last 24 Hours (Table) 06/09/19 06/09/19 06/09/19 Range/Units 13:02 14:00 15:24 RBC (4.30-5.90) m/uL Hgb (13.0-17.5) gm/dL Hct (39.0-53.0) % MCH (25.0-35.0) pg MCHC (31.0-37.0) g/dL RDW (11.5-15.5) % ABG pCO2 (35-45) mmHg ABG pO2 (83-108) mmHg ABG HCO3 (21-25) mmol/L ABG Total CO2 (19-24) mmol/L Chloride (98-107) mmol/L BUN (9-20) mg/dL Creatinine (0.66-1.25) mg/dL Glucose (74-99) mg/dL POC Glucose (mg/dL) 188 H 172 H 171 H (75-99) mg/dL 06/09/19 06/09/19 06/09/19 Range/Units 15:59 18:39 20:02 RBC (4.30-5.90) m/uL Hgb (13.0-17.5) gm/dL Hct (39.0-53.0) % MCH (25.0-35.0) pg MCHC (31.0-37.0) g/dL RDW (11.5-15.5) % ABG pCO2 (35-45) mmHg ABG pO2 (83-108) mmHg ABG HCO3 (21-25) mmol/L ABG Total CO2 (19-24) mmol/L Chloride (98-107) mmol/L BUN (9-20) mg/dL Creatinine (0.66-1.25) mg/dL Glucose (74-99) mg/dL POC Glucose (mg/dL) 154 H 169 H 172 H (75-99) mg/dL 06/09/19 06/10/19 06/10/19 Range/Units 22:16 00:00 01:52 RBC (4.30-5.90) m/uL Hgb (13.0-17.5) gm/dL Hct (39.0-53.0) % MCH (25.0-35.0) pg MCHC (31.0-37.0) g/dL RDW (11.5-15.5) % ABG pCO2 (35-45) mmHg ABG pO2 (83-108) mmHg ABG HCO3 (21-25) mmol/L ABG Total CO2 (19-24) mmol/L Chloride (98-107) mmol/L BUN (9-20) mg/dL Creatinine (0.66-1.25) mg/dL Glucose (74-99) mg/dL POC Glucose (mg/dL) 176 H 168 H 174 H (75-99) mg/dL 06/10/19 06/10/19 06/10/19 Range/Units 03:59 04:00 04:00 RBC 3.48 L (4.30-5.90) m/uL Hgb 8.6 L (13.0-17.5) gm/dL Hct 28.7 L (39.0-53.0) % MCH 24.7 L (25.0-35.0) pg MCHC 29.9 L (31.0-37.0) g/dL RDW 16.3 H (11.5-15.5) % ABG pCO2 (35-45) mmHg ABG pO2 (83-108) mmHg ABG HCO3 (21-25) mmol/L ABG Total CO2 (19-24) mmol/L Chloride 109 H (98-107) mmol/L BUN 32 H (9-20) mg/dL Creatinine 1.58 H (0.66-1.25) mg/dL Glucose 168 H (74-99) mg/dL POC Glucose (mg/dL) 183 H (75-99) mg/dL 06/10/19 06/10/19 06/10/19 Range/Units 04:25 06:12 07:55 RBC (4.30-5.90) m/uL Hgb (13.0-17.5) gm/dL Hct (39.0-53.0) % MCH (25.0-35.0) pg MCHC (31.0-37.0) g/dL RDW (11.5-15.5) % ABG pCO2 51 H (35-45) mmHg ABG pO2 82 L (83-108) mmHg ABG HCO3 29 H (21-25) mmol/L ABG Total CO2 31 H (19-24) mmol/L Chloride (98-107) mmol/L BUN (9-20) mg/dL Creatinine (0.66-1.25) mg/dL Glucose (74-99) mg/dL POC Glucose (mg/dL) 177 H 212 H (75-99) mg/dL 06/10/19 06/10/19 Range/Units 09:00 10:14 RBC (4.30-5.90) m/uL Hgb (13.0-17.5) gm/dL Hct (39.0-53.0) % MCH (25.0-35.0) pg MCHC (31.0-37.0) g/dL RDW (11.5-15.5) % ABG pCO2 (35-45) mmHg ABG pO2 (83-108) mmHg ABG HCO3 (21-25) mmol/L ABG Total CO2 (19-24) mmol/L Chloride (98-107) mmol/L BUN (9-20) mg/dL Creatinine (0.66-1.25) mg/dL Glucose (74-99) mg/dL POC Glucose (mg/dL) 206 H 201 H (75-99) mg/dL Microbiology - Last 24 Hours (Table) 06/07/19 01:28 Blood Culture - Preliminary Blood No Growth after 72 hours Assessment and Plan Plan: Reviewed CTA in full detail. At this time there is no urgency to intervene on the left carotid artery due to his CHF exacerbation. We will follow up in the office and obtain a carotid Doppler at that time for scheduling of carotid endarterectomy. We will sign off but if there is any questions or concerns please contact us at anytime. Thank you allowing me to participate in your patient's care.
[2019-06-10 12:24] LABS: Glucose,Whole Blood 196 mg/dL (75-99)
[2019-06-10 13:47] LABS: Glucose,Whole Blood 180 mg/dL (75-99)
[2019-06-10 15:13] LABS: Glucose,Whole Blood 161 mg/dL (75-99)
[2019-06-10 16:13] LABS: Glucose,Whole Blood 152 mg/dL (75-99)
--- NOTE | 2019-06-10 16:32 | PN ---
PROGRESS NOTE DATE OF SERVICE: 06/10/2019 This 78-year-old gentleman who was admitted with CHF, acute exacerbation, also had acute hypoxic hypercarbic respiratory failure. The patient also had features of TIA. Patient was mechanically intubated and was extubated today. The most recent chest x- ray, which was personally reviewed by me, still showed evidence of CHF. The patient is being closely monitored. Patient is on BiPAP at this time. The patient continues to be confused. CURRENT MEDICATIONS: Reviewed. They include: 1. DuoNeb q.i.d. and p.r.n. 2. Norvasc 5 mg p.o. daily. 3. Aspirin 160 mg p.o. daily. 4. Lipitor 40 mg at bedtime. 5. Rocephin 1 gram IV daily. 6. Peridex 115 mL b.i.d. 7. Vitamin B12 1000 mcg p.o. b.i.d. 8. Lofibra 160 mg p.o. at bedtime. 9. Lasix 40 mg IV t.i.d. 10.Imdur 30 mg daily. 11.Claritin. 12.Magnesium oxide. 13.Lopressor. 14.Narcan. 15.Norepinephrine. PHYSICAL EXAMINATION: The patient is drowsy, on BiPAP. Pulse is 86, blood pressure 120/60, respiration 15, temperature normal, pulse ox 98% on 90% FiO2. BiPAP settings are noted. HEENT: Conjunctivae normal. Oral mucosa moist. NECK: No jugular venous distention. No carotid bruit. No lymph node enlargement. CARDIOVASCULAR SYSTEM: S1, S2 muffled. No S3. No S4. RESPIRATORY SYSTEM: Breath sounds diminished at the bases. A few scattered rhonchi and crackles. Expiratory wheezing also present. ABDOMEN: Soft, obese, non-tender. LEGS: No edema. No swelling. NERVOUS SYSTEM: Diffusely weak. LABS: Accu-Cheks 181, 161. WBC 8.3, hemoglobin is 8.6. Otherwise, ABGs noted. Creatinine is 1.58. The patient is in minimal negative balance. ASSESSMENT: 1. Congestive heart failure, acute exacerbation, with acute on chronic diastolic dysfunction, ejection fraction 60% to 65%. 2. Acute hypoxic hypercarbic respiratory failure secondary to above, on mechanical ventilation. 3. Slurring of speech; possible acute transient ischemic attack, present on admission. 4. Change in mental status, acute metabolic encephalopathy, multifactorial. 5. Acute urinary tract infection, present on admission. 6. Mild aortic stenosis in the 2D echo. 7. Significant right internal carotid stenosis on CT angiogram; about 90% proximally. 8. Elevated D-dimer without any evidence of pulmonary embolism. 9. Acute respiratory acidosis secondary to acute hypoxic respiratory failure. 10.Possible cellulitis of the legs. 11.Nonoliguric acute kidney injury secondary to ischemic acute tubular necrosis. 12.Anemia, normocytic; anemia of chronic disease. 13.Obesity with body mass index of 40.9. 14.Diabetes mellitus, type 2, uncontrolled with hyperglycemia. 15.Troponin 0.114, possibly type 2 myocardial infarction secondary to supply/demand mismatch. 16.Possible acute urinary tract infection, present on admission. 17.History of recent shoulder arthroplasty on the left. 18.Diabetes mellitus, type 2. 19.Hypertension. 20.Hyperlipidemia. 21.History of umbilical hernia. 22.History of renal stones. 23.History of bowel obstruction. 24.History of degenerative joint disease. 25.History of vertigo. 26.History of nicotine dependence. 27.FULL CODE. RECOMMENDATIONS AND DISCUSSION: I recommend to continue current medications, continue with the monitoring, symptomatic treatment. Monitor blood sugars closely. The patient is still drowsy and stuporous. Continue the BiPAP. Continue the rest of the medications. Follow closely with multiple consultants. Prognosis is guarded because of multiple complex medical issues. Further recommendations to follow. Discussed with family, who understands and agrees. Further recommendations to follow. Creatinine is stable at this time. Will continue the diuresis. Chest x-ray, reviewed personally by me, showed bilateral CHF as well as some pleural effusions. Further recommendations to follow. MMODL / IJN: [id number] /
[2019-06-10 18:15] LABS: Glucose,Whole Blood 158 mg/dL (75-99)
[2019-06-10 20:08] LABS: Glucose,Whole Blood 188 mg/dL (75-99)
[2019-06-10 21:17] LABS: Glucose,Whole Blood 174 mg/dL (75-99)
[2019-06-10] MEDS: LORATADINE 10 MG TAB PO SCH (21:21)
[2019-06-10] MEDS: ATORVASTATIN 40 MG TAB PO SCH (21:21)
[2019-06-10] MEDS: FENOFIBRATE 160 MG TAB PO SCH (21:51)
[2019-06-10 22:14] LABS: Glucose,Whole Blood 160 mg/dL (75-99)
[2019-06-10 23:10] LABS: Glucose,Whole Blood 159 mg/dL (75-99)
[2019-06-11 00:14] LABS: Glucose,Whole Blood 163 mg/dL (75-99)
[2019-06-11 01:10] LABS: Glucose,Whole Blood 176 mg/dL (75-99)
[2019-06-11 01:42] LABS: RBC,Urine >182 /hpf (0-5); WBC,Urine >182 /hpf (0-5)
[2019-06-11 01:43] LABS: Appearance,Urine Bloody (Clear); Color,Urine Dark Red
[2019-06-11 02:05] LABS: HCT 29.2 % (39.0-53.0); HGB 8.4 gm/dL (13.0-17.5); Hypochromasia Marked; MCH 24.1 pg (25.0-35.0); MCHC 28.6 g/dL (31.0-37.0); MCV 84.3 fL (80.0-100.0); Mean Platelet Volume 8.1; Platelet Count 363 k/uL (150-450); Poikilocytosis Slight; RBC 3.46 m/uL (4.30-5.90); RDW 15.9 % (11.5-15.5); WBC 9.9 k/uL (3.8-10.6)
[2019-06-11 02:08] LABS: Glucose,Whole Blood 166 mg/dL (75-99)
[2019-06-11] MEDS: HEPARIN SODIUM,PORCINE 5,000 UNIT/ML 1 ML VIAL SQ SCH ×2 (02:44→08:22)
[2019-06-11 03:08] LABS: Glucose,Whole Blood 181 mg/dL (75-99)
[2019-06-11] MEDS: IPRATROPIUM-ALBUTEROL 3 ML NEB INHALATION SCH ×6 (03:17→23:28)
[2019-06-11 04:08] LABS: Glucose,Whole Blood 155 mg/dL (75-99)
[2019-06-11 05:10] LABS: Glucose,Whole Blood 148 mg/dL (75-99)
[2019-06-11 05:31] LABS: Anisocytosis Slight; Basophils % (A) 0 %; Eosinophils # (A) 0.2 k/uL (0-0.7); Eosinophils % (A) 2 %; HCT 30.5 % (39.0-53.0); HGB 8.4 gm/dL (13.0-17.5); Hypochromasia Marked; Lymphocytes # (A) 0.7 k/uL (1.0-4.8); Lymphocytes % (A) 7 %; MCH 22.8 pg (25.0-35.0); MCHC 27.7 g/dL (31.0-37.0); MCV 82.5 fL (80.0-100.0); Mean Platelet Volume 8.5; Monocytes # (A) 0.8 k/uL (0-1.0); Monocytes % (A) 9 %; Neutrophils # (A) 7.6 k/uL (1.3-7.7); Neutrophils % (A) 79 %; Platelet Count 365 k/uL (150-450); Poikilocytosis Slight; RBC 3.69 m/uL (4.30-5.90); RDW 16.5 % (11.5-15.5); WBC 9.6 k/uL (3.8-10.6)
[2019-06-11 05:41] LABS: Total Bilirubin 0.5 mg/dL (0.2-1.3); Total Protein 5.9 g/dL (6.3-8.2)
[2019-06-11] MEDS: NOREPINEPHRINE 4 MG in SODIUM CHLORIDE 0.9% 250 ML IV SCH ×2 (05:42→16:14)
[2019-06-11 06:14] LABS: Glucose,Whole Blood 130 mg/dL (75-99)
[2019-06-11 07:12] LABS: Glucose,Whole Blood 129 mg/dL (75-99)
--- NOTE | 2019-06-11 08:05 | XR ---
EXAMINATION TYPE: XR chest 1V portable DATE OF EXAM: 06/11/2019 COMPARISON: 06/10/2019 INDICATION: Adventitious lung sounds TECHNIQUE: Single frontal view of the chest is obtained. FINDINGS: The heart size is normal. The pulmonary vasculature is normal. Small left pleural effusion is present. There is minimal right pleural effusion. Some mild right lowe r lobe atelectasis may be present. IMPRESSION: 1. Small bilateral pleural effusions. 2. Small amount of right lower lobe atelectasis may be present.
[2019-06-11 08:20] LABS: Glucose,Whole Blood 147 mg/dL (75-99)
[2019-06-11] MEDS: FUROSEMIDE 10 MG/ML 4 ML VIAL IV SCH ×3 (08:21→23:11)
[2019-06-11] MEDS: ASPIRIN 81 MG PO SCH (08:23)
[2019-06-11] MEDS: ISOSORBIDE MONONITRATE ER 30 MG TAB.ER.24H PO SCH (08:23)
[2019-06-11] MEDS: METOPROLOL TARTRATE 50 MG TAB PO SCH ×2 (08:24→21:08)
[2019-06-11] MEDS: PANTOPRAZOLE 40 MG TABLET PO SCH (08:24)
[2019-06-11] MEDS: amLODIPine 5 MG TAB PO SCH (08:24)
[2019-06-11] MEDS: CYANOCOBALAMIN 500 MCG TAB PO SCH ×2 (08:25→21:09)
[2019-06-11] MEDS: MAGNESIUM OXIDE 400 MG TAB PO SCH ×2 (08:25→21:09)
[2019-06-11] MEDS: SODIUM FERRIC GLUCONAT-SUCROSE 125 MG in SODIUM CHLORIDE 0.9% 100 ML IVPB SCH (08:59)
[2019-06-11] MEDS ORDERED: FUROSEMIDE 10 MG/ML 4 ML VIAL IV STA (09:08)
[2019-06-11 09:14] LABS: Glucose,Whole Blood 153 mg/dL (75-99)
--- NOTE | 2019-06-11 10:57 | P.GSCN ---
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 He is referred to the [facility] for further evaluation. He had a negative metastatic evaluation. Due to his morbid obesity and his health issues the [facility] has elected to perform a repeat transurethral resection in the near future. The patient recently presented to the hospital with status changes, speech changes consistent with either a stroke or TIA. The CAT scan did not confirm a stroke. 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 He has been on the ventilator but is now on BiPAP a. His had gross hematuria. This gross hematuria is persistent ever since his resection back in March nicely before that. This is consistent with a muscle invasive carcinoma. Review of Systems ROS unobtainable: due to mental status 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, states has been currently passing kidney stones History of Any Multi-Drug Resistant Organisms: None Reported Past Surgical History: Heart Catheterization, Joint Replacement, Tonsillectomy Additional Past Surgical History / Comment(s): total left knee, R knee arthroscopy, left wrist tendon repair, vasectomy, kidney stones-4 surgeries for removal, rt carpal tunnel, lt wrist tendonitis , Reversed total left shoulder- very sensitive to movement (01/28/19) Past Anesthesia/Blood Transfusion Reactions: No Reported Reaction Additional Past Anesthesia/Blood Transfusion Reaction / Comm: hx vertigo Past Psychological History: No Psychological Hx Reported Additional Psychological History / Comment(s): Pt resides with his spouse of 48yrs. He is independent. He uses no assistive device but feels he would benefit from possibly a cane. He uses a drive cart when shopping due to bilateral knee pain and R ankle/foot problems. Pt drives a car. Smoking Status: Former smoker Past Alcohol Use History: None Reported Additional Past Alcohol Use History / Comment(s): Pt quit smoking in 1996. Past Drug Use History: None Reported Additional Drug Use History / Comment(s): uses cbd oil for pain in shower - Past Family History Father Family Medical History: CVA/TIA, Diabetes Mellitus, Myocardial Infarction (NH) Mother Family Medical History: CVA/TIA Medications and Allergies Home Medications Medication Instructions Recorded Confirmed Type Losartan Potassium [Cozaar] 100 mg PO BID 12/30/13 06/06/19 History metFORMIN HCL [metFORMIN HCL ER] 1,000 mg PO AC-BID 12/30/13 06/06/19 History Desloratadine [Clarinex] 5 mg PO HS 12/14/14 06/06/19 History Isosorbide Mononitrate ER [Imdur] 30 mg PO DAILY 01/06/15 06/06/19 History Furosemide [Lasix] 20 mg PO Q48H 05/20/15 06/06/19 History Cyanocobalamin (Vitamin B-12) 1,000 mcg PO BID 01/20/19 06/06/19 History [Vitamin B-12] Fenofibrate [Lofibra] 160 mg PO HS 01/20/19 06/06/19 History Insulin Detemir (Levemir) [Levemir] 44 unit PO AC-BRKFST 01/20/19 06/06/19 History Insulin Detemir (Levemir) [Levemir] 52 unit SQ AC-SUPPER 01/20/19 06/06/19 History Lansoprazole [Prevacid] 30 mg PO HS 01/20/19 06/06/19 History Magnesium Oxide [Mag-Ox] 400 mg PO BID 01/20/19 06/06/19 History Methocarbamol [Robaxin] 500 mg PO BID PRN 01/20/19 06/06/19 History Rosuvastatin [Crestor] 20 mg PO HS 01/20/19 06/06/19 History amLODIPine BESYLATE [Norvasc] 5 mg PO BID 01/20/19 06/06/19 History HYDROcodone/APAP 5-325MG [[place] 1 tab PO Q6H PRN 03/06/19 06/06/19 History 5-325] Aspirin [Adult Low Dose Aspirin EC] 81 mg PO HS 04/05/19 06/06/19 History Meloxicam 15 mg PO DAILY PRN 06/06/19 06/06/19 History Metoprolol Tartrate [Lopressor] 100 mg PO BID 06/06/19 06/06/19 History Allergies Allergy/AdvReac Type Severity Reaction Status Date / Time codeine Allergy Unknown Verified 06/06/19 14:36 iodine Allergy Anaphylaxis Verified 06/06/19 14:36 adhesive AdvReac Mild Rash/Hives Verified 06/06/19 14:36 Surgical - Exam Vital Signs Pulse Ox 84 L 06/06/19 11:59 - General The patient is in ICU on BiPAP and still somewhat dysarthric. well developed, obese - ENT decreased hearing - Neck trachea midline - Respiratory Patient is on BiPAP. - Cardiovascular Tachycardic - Abdomen Obese, nontender - Genitourinary Indwelling catheter with pinkish urine. - Neurologic confused - Musculoskeletal normal posture - Psychiatric oriented to person, oriented to place Results - Labs 06/11/19 05:15 06/11/19 05:15 Abnormal Lab Results - Last 24 Hours (Table) 06/10/19 06/10/19 06/10/19 Range/Units 12:13 13:36 15:02 RBC (4.30-5.90) m/uL Hgb (13.0-17.5) gm/dL Hct (39.0-53.0) % MCH (25.0-35.0) pg MCHC (31.0-37.0) g/dL RDW (11.5-15.5) % Lymphocytes # (1.0-4.8) k/uL Chloride (98-107) mmol/L Carbon Dioxide (22-30) mmol/L BUN (9-20) mg/dL Creatinine (0.66-1.25) mg/dL Glucose (74-99) mg/dL POC Glucose (mg/dL) 196 H 180 H 161 H (75-99) mg/dL Total Protein (6.3-8.2) g/dL Albumin (3.5-5.0) g/dL Urine RBC (0-5) /hpf Urine WBC (0-5) /hpf 06/10/19 06/10/19 06/10/19 Range/Units 16:01 18:03 19:56 RBC (4.30-5.90) m/uL Hgb (13.0-17.5) gm/dL Hct (39.0-53.0) % MCH (25.0-35.0) pg MCHC (31.0-37.0) g/dL RDW (11.5-15.5) % Lymphocytes # (1.0-4.8) k/uL Chloride (98-107) mmol/L Carbon Dioxide (22-30) mmol/L BUN (9-20) mg/dL Creatinine (0.66-1.25) mg/dL Glucose (74-99) mg/dL POC Glucose (mg/dL) 152 H 158 H 188 H (75-99) mg/dL Total Protein (6.3-8.2) g/dL Albumin (3.5-5.0) g/dL Urine RBC (0-5) /hpf Urine WBC (0-5) /hpf 06/10/19 06/10/19 06/10/19 Range/Units 21:06 22:03 22:59 RBC (4.30-5.90) m/uL Hgb (13.0-17.5) gm/dL Hct (39.0-53.0) % MCH (25.0-35.0) pg MCHC (31.0-37.0) g/dL RDW (11.5-15.5) % Lymphocytes # (1.0-4.8) k/uL Chloride (98-107) mmol/L Carbon Dioxide (22-30) mmol/L BUN (9-20) mg/dL Creatinine (0.66-1.25) mg/dL Glucose (74-99) mg/dL POC Glucose (mg/dL) 174 H 160 H 159 H (75-99) mg/dL Total Protein (6.3-8.2) g/dL Albumin (3.5-5.0) g/dL Urine RBC (0-5) /hpf Urine WBC (0-5) /hpf 06/11/19 06/11/19 06/11/19 Range/Units 00:03 00:10 00:59 RBC (4.30-5.90) m/uL Hgb (13.0-17.5) gm/dL Hct (39.0-53.0) % MCH (25.0-35.0) pg MCHC (31.0-37.0) g/dL RDW (11.5-15.5) % Lymphocytes # (1.0-4.8) k/uL Chloride (98-107) mmol/L Carbon Dioxide (22-30) mmol/L BUN (9-20) mg/dL Creatinine (0.66-1.25) mg/dL Glucose (74-99) mg/dL POC Glucose (mg/dL) 163 H 176 H (75-99) mg/dL Total Protein (6.3-8.2) g/dL Albumin (3.5-5.0) g/dL Urine RBC >182 H (0-5) /hpf Urine WBC >182 H (0-5) /hpf 06/11/19 06/11/19 06/11/19 Range/Units 01:00 01:57 02:57 RBC 3.46 L (4.30-5.90) m/uL Hgb 8.4 L (13.0-17.5) gm/dL Hct 29.2 L (39.0-53.0) % MCH 24.1 L (25.0-35.0) pg MCHC 28.6 L (31.0-37.0) g/dL RDW 15.9 H (11.5-15.5) % Lymphocytes # (1.0-4.8) k/uL Chloride (98-107) mmol/L Carbon Dioxide (22-30) mmol/L BUN (9-20) mg/dL Creatinine (0.66-1.25) mg/dL Glucose (74-99) mg/dL POC Glucose (mg/dL) 166 H 181 H (75-99) mg/dL Total Protein (6.3-8.2) g/dL Albumin (3.5-5.0) g/dL Urine RBC (0-5) /hpf Urine WBC (0-5) /hpf 06/11/19 06/11/19 06/11/19 Range/Units 03:57 04:58 05:15 RBC (4.30-5.90) m/uL Hgb (13.0-17.5) gm/dL Hct (39.0-53.0) % MCH (25.0-35.0) pg MCHC (31.0-37.0) g/dL RDW (11.5-15.5) % Lymphocytes # (1.0-4.8) k/uL Chloride 110 H (98-107) mmol/L Carbon Dioxide 33 H (22-30) mmol/L BUN 29 H (9-20) mg/dL Creatinine 1.46 H (0.66-1.25) mg/dL Glucose 132 H (74-99) mg/dL POC Glucose (mg/dL) 155 H 148 H (75-99) mg/dL Total Protein 5.9 L (6.3-8.2) g/dL Albumin 3.0 L (3.5-5.0) g/dL Urine RBC (0-5) /hpf Urine WBC (0-5) /hpf 06/11/19 06/11/19 06/11/19 Range/Units 05:15 06:03 07:00 RBC 3.69 L (4.30-5.90) m/uL Hgb 8.4 L (13.0-17.5) gm/dL Hct 30.5 L (39.0-53.0) % MCH 22.8 L (25.0-35.0) pg MCHC 27.7 L (31.0-37.0) g/dL RDW 16.5 H (11.5-15.5) % Lymphocytes # 0.7 L (1.0-4.8) k/uL Chloride (98-107) mmol/L Carbon Dioxide (22-30) mmol/L BUN (9-20) mg/dL Creatinine (0.66-1.25) mg/dL Glucose (74-99) mg/dL POC Glucose (mg/dL) 130 H 129 H (75-99) mg/dL Total Protein (6.3-8.2) g/dL Albumin (3.5-5.0) g/dL Urine RBC (0-5) /hpf Urine WBC (0-5) /hpf 06/11/19 06/11/19 Range/Units 08:09 09:03 RBC (4.30-5.90) m/uL Hgb (13.0-17.5) gm/dL Hct (39.0-53.0) % MCH (25.0-35.0) pg MCHC (31.0-37.0) g/dL RDW (11.5-15.5) % Lymphocytes # (1.0-4.8) k/uL Chloride (98-107) mmol/L Carbon Dioxide (22-30) mmol/L BUN (9-20) mg/dL Creatinine (0.66-1.25) mg/dL Glucose (74-99) mg/dL POC Glucose (mg/dL) 147 H 153 H (75-99) mg/dL Total Protein (6.3-8.2) g/dL Albumin (3.5-5.0) g/dL Urine RBC (0-5) /hpf Urine WBC (0-5) /hpf Microbiology - Last 24 Hours (Table) 06/07/19 01:28 Blood Culture - Preliminary Blood No Growth after 96 hours 06/08/19 03:25 Gram Stain - Final Sputum Sputum Culture - Final Diabetes panel 06/11/19 Range/Units 05:15 Sodium 145 (137-145) mmol/L Potassium 4.0 (3.5-5.1) mmol/L Chloride 110 H (98-107) mmol/L Carbon Dioxide 33 H (22-30) mmol/L BUN 29 H (9-20) mg/dL Creatinine 1.46 H (0.66-1.25) mg/dL Glucose 132 H (74-99) mg/dL Calcium 9.0 (8.4-10.2) mg/dL AST 43 (17-59) U/L ALT 16 (4-49) U/L Alkaline Phosphatase 74 (38-126) U/L Total Protein 5.9 L (6.3-8.2) g/dL Albumin 3.0 L (3.5-5.0) g/dL Calcium panel 06/11/19 Range/Units 05:15 Calcium 9.0 (8.4-10.2) mg/dL Albumin 3.0 L (3.5-5.0) g/dL Pituitary panel 06/11/19 Range/Units 05:15 Sodium 145 (137-145) mmol/L Potassium 4.0 (3.5-5.1) mmol/L Chloride 110 H (98-107) mmol/L Carbon Dioxide 33 H (22-30) mmol/L BUN 29 H (9-20) mg/dL Creatinine 1.46 H (0.66-1.25) mg/dL Glucose 132 H (74-99) mg/dL Calcium 9.0 (8.4-10.2) mg/dL Adrenal panel 06/11/19 Range/Units 05:15 Sodium 145 (137-145) mmol/L Potassium 4.0 (3.5-5.1) mmol/L Chloride 110 H (98-107) mmol/L Carbon Dioxide 33 H (22-30) mmol/L BUN 29 H (9-20) mg/dL Creatinine 1.46 H (0.66-1.25) mg/dL Glucose 132 H (74-99) mg/dL Calcium 9.0 (8.4-10.2) mg/dL Total Bilirubin 0.5 (0.2-1.3) mg/dL AST 43 (17-59) U/L ALT 16 (4-49) U/L Alkaline Phosphatase 74 (38-126) U/L Total Protein 5.9 L (6.3-8.2) g/dL Albumin 3.0 L (3.5-5.0) g/dL Assessment and Plan Assessment: Impression: Gross hematuria secondary to catheter, bladder cancer and previous transurethral resection Recommendations: The patients catheter should be irrigated urine. He will need to be sent back to them for follow-up for his bladder cancer. I'll follow this patient with you.
[2019-06-11 11:06] LABS: Glucose,Whole Blood 157 mg/dL (75-99)
--- NOTE | 2019-06-11 11:10 | P.PN ---
Subjective Progress Note Date: 06/11/19 Seen and examined for the follow-up of acute kidney injury. On BiPAP. Gross hematuria. Objective - Vital Signs Vital signs: Vital Signs Temp 99.6 F 06/11/19 08:00 Pulse 80 06/11/19 10:00 Resp 22 06/11/19 10:00 BP 142/75 06/11/19 10:00 Pulse Ox 95 06/11/19 10:00 Intake & Output 06/10/19 06/11/19 06/11/19 18:59 06:59 18:59 Intake Total 598.203 309.508 200 Output Total 1865 1625 635 Balance -1266.797 -1315.492 -435 Intake: IV 220 240 200 Sodium Chloride 0.9% 1, 220 240 100 000 ml @ 50 mls/hr IV . Q20H [facility] Rx#:[id number] Sodium Ferric Gluconat- 100 Sucrose 125 mg In Sodium Chloride 0.9% 100 ml @ 100 mls/hr IVPB DAILY [facility] Rx#:[id number] Intake, IV Titration 244.203 69.508 0 Amount Insulin Regular 100 unit 57.983 69.508 0 In Sodium Chloride 0.9% 100 ml @ Per Protocol IV .Q0M [facility] Rx#:[id number] Propofol 1,000 mg In 86.22 Empty Bag 1 bag @ Titrate IV .Q0M [facility] Rx#: [id number] Sodium Ferric Gluconat- 100 Sucrose 125 mg In Sodium Chloride 0.9% 100 ml @ 100 mls/hr IVPB DAILY [facility] Rx#:[id number] Tube Feeding 104 Other 30 Output: Urine 1865 1625 635 Other: Voiding Method Indwelling Catheter Indwelling Catheter Indwelling Catheter # Voids 1 1 ABP, PAP, CO, CI - Last Documented Arterial Blood Pressure 131/69 - Exam No acute distress S1-S2 heard Decreased breath sounds Abdomen distended Edema Gross hematuria in [place] - Labs CBC & Chem 7: 06/11/19 05:15 06/11/19 05:15 Labs: Abnormal Lab Results - Last 24 Hours (Table) 06/10/19 06/10/19 06/10/19 Range/Units 12:13 13:36 15:02 RBC (4.30-5.90) m/uL Hgb (13.0-17.5) gm/dL Hct (39.0-53.0) % MCH (25.0-35.0) pg MCHC (31.0-37.0) g/dL RDW (11.5-15.5) % Lymphocytes # (1.0-4.8) k/uL Chloride (98-107) mmol/L Carbon Dioxide (22-30) mmol/L BUN (9-20) mg/dL Creatinine (0.66-1.25) mg/dL Glucose (74-99) mg/dL POC Glucose (mg/dL) 196 H 180 H 161 H (75-99) mg/dL Total Protein (6.3-8.2) g/dL Albumin (3.5-5.0) g/dL Urine RBC (0-5) /hpf Urine WBC (0-5) /hpf 06/10/19 06/10/19 06/10/19 Range/Units 16:01 18:03 19:56 RBC (4.30-5.90) m/uL Hgb (13.0-17.5) gm/dL Hct (39.0-53.0) % MCH (25.0-35.0) pg MCHC (31.0-37.0) g/dL RDW (11.5-15.5) % Lymphocytes # (1.0-4.8) k/uL Chloride (98-107) mmol/L Carbon Dioxide (22-30) mmol/L BUN (9-20) mg/dL Creatinine (0.66-1.25) mg/dL Glucose (74-99) mg/dL POC Glucose (mg/dL) 152 H 158 H 188 H (75-99) mg/dL Total Protein (6.3-8.2) g/dL Albumin (3.5-5.0) g/dL Urine RBC (0-5) /hpf Urine WBC (0-5) /hpf 06/10/19 06/10/19 06/10/19 Range/Units 21:06 22:03 22:59 RBC (4.30-5.90) m/uL Hgb (13.0-17.5) gm/dL Hct (39.0-53.0) % MCH (25.0-35.0) pg MCHC (31.0-37.0) g/dL RDW (11.5-15.5) % Lymphocytes # (1.0-4.8) k/uL Chloride (98-107) mmol/L Carbon Dioxide (22-30) mmol/L BUN (9-20) mg/dL Creatinine (0.66-1.25) mg/dL Glucose (74-99) mg/dL POC Glucose (mg/dL) 174 H 160 H 159 H (75-99) mg/dL Total Protein (6.3-8.2) g/dL Albumin (3.5-5.0) g/dL Urine RBC (0-5) /hpf Urine WBC (0-5) /hpf 06/11/19 06/11/19 06/11/19 Range/Units 00:03 00:10 00:59 RBC (4.30-5.90) m/uL Hgb (13.0-17.5) gm/dL Hct (39.0-53.0) % MCH (25.0-35.0) pg MCHC (31.0-37.0) g/dL RDW (11.5-15.5) % Lymphocytes # (1.0-4.8) k/uL Chloride (98-107) mmol/L Carbon Dioxide (22-30) mmol/L BUN (9-20) mg/dL Creatinine (0.66-1.25) mg/dL Glucose (74-99) mg/dL POC Glucose (mg/dL) 163 H 176 H (75-99) mg/dL Total Protein (6.3-8.2) g/dL Albumin (3.5-5.0) g/dL Urine RBC >182 H (0-5) /hpf Urine WBC >182 H (0-5) /hpf 06/11/19 06/11/19 06/11/19 Range/Units 01:00 01:57 02:57 RBC 3.46 L (4.30-5.90) m/uL Hgb 8.4 L (13.0-17.5) gm/dL Hct 29.2 L (39.0-53.0) % MCH 24.1 L (25.0-35.0) pg MCHC 28.6 L (31.0-37.0) g/dL RDW 15.9 H (11.5-15.5) % Lymphocytes # (1.0-4.8) k/uL Chloride (98-107) mmol/L Carbon Dioxide (22-30) mmol/L BUN (9-20) mg/dL Creatinine (0.66-1.25) mg/dL Glucose (74-99) mg/dL POC Glucose (mg/dL) 166 H 181 H (75-99) mg/dL Total Protein (6.3-8.2) g/dL Albumin (3.5-5.0) g/dL Urine RBC (0-5) /hpf Urine WBC (0-5) /hpf 06/11/19 06/11/19 06/11/19 Range/Units 03:57 04:58 05:15 RBC (4.30-5.90) m/uL Hgb (13.0-17.5) gm/dL Hct (39.0-53.0) % MCH (25.0-35.0) pg MCHC (31.0-37.0) g/dL RDW (11.5-15.5) % Lymphocytes # (1.0-4.8) k/uL Chloride 110 H (98-107) mmol/L Carbon Dioxide 33 H (22-30) mmol/L BUN 29 H (9-20) mg/dL Creatinine 1.46 H (0.66-1.25) mg/dL Glucose 132 H (74-99) mg/dL POC Glucose (mg/dL) 155 H 148 H (75-99) mg/dL Total Protein 5.9 L (6.3-8.2) g/dL Albumin 3.0 L (3.5-5.0) g/dL Urine RBC (0-5) /hpf Urine WBC (0-5) /hpf 06/11/19 06/11/19 06/11/19 Range/Units 05:15 06:03 07:00 RBC 3.69 L (4.30-5.90) m/uL Hgb 8.4 L (13.0-17.5) gm/dL Hct 30.5 L (39.0-53.0) % MCH 22.8 L (25.0-35.0) pg MCHC 27.7 L (31.0-37.0) g/dL RDW 16.5 H (11.5-15.5) % Lymphocytes # 0.7 L (1.0-4.8) k/uL Chloride (98-107) mmol/L Carbon Dioxide (22-30) mmol/L BUN (9-20) mg/dL Creatinine (0.66-1.25) mg/dL Glucose (74-99) mg/dL POC Glucose (mg/dL) 130 H 129 H (75-99) mg/dL Total Protein (6.3-8.2) g/dL Albumin (3.5-5.0) g/dL Urine RBC (0-5) /hpf Urine WBC (0-5) /hpf 06/11/19 06/11/19 06/11/19 Range/Units 08:09 09:03 10:54 RBC (4.30-5.90) m/uL Hgb (13.0-17.5) gm/dL Hct (39.0-53.0) % MCH (25.0-35.0) pg MCHC (31.0-37.0) g/dL RDW (11.5-15.5) % Lymphocytes # (1.0-4.8) k/uL Chloride (98-107) mmol/L Carbon Dioxide (22-30) mmol/L BUN (9-20) mg/dL Creatinine (0.66-1.25) mg/dL Glucose (74-99) mg/dL POC Glucose (mg/dL) 147 H 153 H 157 H (75-99) mg/dL Total Protein (6.3-8.2) g/dL Albumin (3.5-5.0) g/dL Urine RBC (0-5) /hpf Urine WBC (0-5) /hpf Microbiology - Last 24 Hours (Table) 06/07/19 01:28 Blood Culture - Preliminary Blood No Growth after 96 hours 06/08/19 03:25 Gram Stain - Final Sputum Sputum Culture - Final Assessment and Plan Assessment: #1 nonoliguric acute kidney injury secondary to ischemic ATN #2 acute respiratory failure currently on BiPAP #3 metabolic alkalosis secondary to respiratory acidosis #4 diabetes on insulin #5 anemia with chronic kidney disease. #6 was hematuria with history of bladder cancer Plan: #1 creatinine stable. #2 continue with diuretics for now #3 awaiting to be transferred to [facility].
--- NOTE | 2019-06-11 12:56 | PN ---
PROGRESS NOTE PULMONARY/CRITICAL CARE PROGRESS NOTE: DATE OF SERVICE: June 11, 2019. This is a 78-year-old male who was admitted to the hospital back on June 06. He was admitted initially with a diagnosis of CVA/TIA as well as fluid overload. An A team was called on this patient because of worsening respiratory status and the patient ended up being intubated on June 07. The patient was found to have profound and acute hypoxemic respiratory failure. Yesterday, he looked better. At that time, we went ahead and did a daily interruption of sedation and assessment for spontaneous breathing trial. He did well on his spontaneous breathing trial. The patient was extubated. His weaning parameters were excellent. His rapid shallow breathing index was in the 40s and his cuff leak was positive. He does have a history of benign essential hypertension, diabetes mellitus, DJD, CAD, shoulder arthroplasty, and invasive bladder cancer. He has had a bladder surgery done here by Dr. Bojorquez. His primary care provider is Dr. Kemp. We actually spoke to Dr. Bojorquez today. He is concerned that the patient will need some more extensive bladder surgery. The patient has a high risk patient and should be transferred back to [facility] where he gets his care. He apparently sees Dr. Plummer there. Currently, the patient's subcu heparin will be discontinued. He is going to get Lasix additionally, 1 additional dose today 40 mg IV push. We are hoping to get a [facility] transfer. Currently, he remains on BiPAP since extubation with an IPAP of 12, EPAP of 6 and 60%. His insulin drip is at 4.5 units an hour. He is getting saline IV at 10 mL an hour. I discussed this with him and his . His understands the gravity of the situation. PHYSICAL EXAMINATION: VITAL SIGNS: Current vital signs are reviewed. Temperature is 99.6, heart rate 80, respiratory rate 22, blood pressure 142/75, mean 97. Saturations are 95%. GENERAL: Appears in no acute distress. The patient does have mild conversational dyspnea. No use of accessory muscles. No audible wheezing. BiPAP mask in place. HEENT examination is grossly unremarkable. NECK: Supple. No adenopathy or thyromegaly. Neck veins are flat. CARDIOVASCULAR examination reveals regular rhythm and rate. Heart sounds are distant. Heart rate about 80-95 beats per minute. S1, S2 normal. LUNGS: Reveal diffuse coarse rhonchi and crackles. Breath sounds are diminished. No wheezes. ABDOMEN: Obese. Bowel sounds are heard. EXTREMITIES are intact. There is some edema. It is pitting. SKIN: Without rash. NEUROLOGIC: Examination is difficult to assess but he appears to move all 4 extremities well. LABORATORY DATA: Reviewed. White count 9.6, hemoglobin 8.4, hematocrit 30.5, platelet count 365,000. Sodium 145, potassium 4, chloride 110, CO2 33, anion gap is 2. BUN and creatinine were 29 and 1.46. Albumin 3.0. Microbiologic study shows negative sputum blood and urine sampling. Chest x-ray from June 11 shows a small bilateral pleural effusions. There is some right lower lobe atelectasis. The heart size is normal. Medications are reviewed. ASSESSMENT: 1. Acute hypoxemic and hypercapnic respiratory failure, secondary to pulmonary edema, from diastolic congestive heart failure, with admission on June 06 and intubation for respiratory failure in June 07. 2. Routine ventilator management, with extubation performed on June 10. 3. Acute transient ischemic attack. 4. Near complete stenosis of his right internal carotid artery. 5. Acute kidney injury, secondary to acute tubular necrosis. 6. History of invasive bladder cancer, being followed by Dr. Plummer at [facility]. 7. Type 2 diabetes mellitus with diabetic nephropathy. 8. Benign essential hypertension. 9. Possible non ST-segment elevation myocardial infarction. 10.Hyperlipidemia. 11.History of degenerative joint disease, status post shoulder arthroplasty. 12.History of nephrolithiasis. 13.History of bowel obstruction. 14.Morbid obesity. PLAN: The patient will be maintained on the BiPAP. He seems to be tolerating it reasonably well. We will give him an extra dose of Lasix 40 mg IV push. We will discontinue the subcu heparin given his ongoing bleeding in his urinary tract. The patient remains maintained on insulin 4.5 units an hour. We will attempt to transfer the patient to Dr. Plummer at [facility]. I did speak to the patient's and the patient himself about transfer. I also spoke to Dr. Bojorquez about this. He thought it was the right thing to do. Additional recommendations and suggestions are forthcoming. Prognosis is guarded. Critical care time: 33 minutes. MMODL / IJN: [id number] /
[2019-06-11 14:11] LABS: Glucose,Whole Blood 139 mg/dL (75-99)
[2019-06-11 15:21] LABS: Glucose,Whole Blood 155 mg/dL (75-99)
[2019-06-11 16:15] LABS: Glucose,Whole Blood 152 mg/dL (75-99)
[2019-06-11] MEDS ORDERED: ACETAMINOPHEN IV (For NPO) 1,000 MG in EMPTY BAG 1 BAG IVPB PRN (17:39)
[2019-06-11 18:06] LABS: Glucose,Whole Blood 137 mg/dL (75-99)
[2019-06-11 19:10] LABS: Glucose,Whole Blood 142 mg/dL (75-99)
[2019-06-11 20:31] LABS: Glucose,Whole Blood 143 mg/dL (75-99)
[2019-06-11] MEDS: ATORVASTATIN 40 MG TAB PO SCH (21:09)
[2019-06-11] MEDS: LORATADINE 10 MG TAB PO SCH (21:09)
[2019-06-11] MEDS: FENOFIBRATE 160 MG TAB PO SCH (21:12)
[2019-06-11 21:19] LABS: Glucose,Whole Blood 140 mg/dL (75-99)
[2019-06-11] MEDS: INSULIN REGULAR 100 UNIT in SODIUM CHLORIDE 0.9% 100 ML IV SCH (21:55)
[2019-06-11 22:05] LABS: Glucose,Whole Blood 147 mg/dL (75-99)
[2019-06-11 23:14] LABS: Glucose,Whole Blood 159 mg/dL (75-99)
[2019-06-11 23:58] LABS: Glucose,Whole Blood 157 mg/dL (75-99)
[2019-06-12 01:17] LABS: Glucose,Whole Blood 159 mg/dL (75-99)
[2019-06-12 02:02] LABS: Glucose,Whole Blood 170 mg/dL (75-99)
[2019-06-12 03:02] LABS: Glucose,Whole Blood 153 mg/dL (75-99)
[2019-06-12] MEDS: IPRATROPIUM-ALBUTEROL 3 ML NEB INHALATION SCH ×5 (03:11→19:09)
[2019-06-12] MEDS: NOREPINEPHRINE 4 MG in SODIUM CHLORIDE 0.9% 250 ML IV SCH ×2 (03:31→12:26)
[2019-06-12 04:31] LABS: Glucose,Whole Blood 158 mg/dL (75-99)
[2019-06-12 05:17] LABS: Glucose,Whole Blood 158 mg/dL (75-99)
[2019-06-12 05:52] LABS: Anisocytosis Slight; Basophils # (A) 0.1 k/uL (0-0.2); Basophils % (A) 1 %; Eosinophils # (A) 0.2 k/uL (0-0.7); Eosinophils % (A) 2 %; HCT 28.9 % (39.0-53.0); HGB 8.2 gm/dL (13.0-17.5); Hypochromasia Marked; Lymphocytes # (A) 0.9 k/uL (1.0-4.8); Lymphocytes % (A) 11 %; MCH 23.5 pg (25.0-35.0); MCHC 28.3 g/dL (31.0-37.0); Monocytes # (A) 0.7 k/uL (0-1.0); Monocytes % (A) 8 %; Neutrophils # (A) 6.7 k/uL (1.3-7.7); Neutrophils % (A) 76 %; Platelet Count 347 k/uL (150-450); RBC 3.48 m/uL (4.30-5.90); RDW 16.9 % (11.5-15.5); WBC 8.8 k/uL (3.8-10.6)
[2019-06-12 06:02] LABS: Albumin 3.1 g/dL (3.5-5.0); Calcium 9.1 mg/dL (8.4-10.2); Total Bilirubin 0.6 mg/dL (0.2-1.3)
[2019-06-12 06:10] LABS: Glucose,Whole Blood 153 mg/dL (75-99)
[2019-06-12 07:02] LABS: Glucose,Whole Blood 144 mg/dL (75-99)
[2019-06-12 08:07] LABS: Glucose,Whole Blood 151 mg/dL (75-99)
[2019-06-12] MEDS: FUROSEMIDE 10 MG/ML 4 ML VIAL IV SCH ×3 (08:54→21:21)
[2019-06-12] MEDS: PANTOPRAZOLE 40 MG TABLET PO SCH (08:55)
[2019-06-12] MEDS: MAGNESIUM OXIDE 400 MG TAB PO SCH ×2 (08:55→21:21)
[2019-06-12] MEDS: CYANOCOBALAMIN 500 MCG TAB PO SCH ×2 (08:55→21:21)
[2019-06-12] MEDS: ISOSORBIDE MONONITRATE ER 30 MG TAB.ER.24H PO SCH (08:55)
[2019-06-12] MEDS: ASPIRIN 81 MG PO SCH (08:55)
[2019-06-12] MEDS: amLODIPine 5 MG TAB PO SCH (08:55)
[2019-06-12] MEDS: METOPROLOL TARTRATE 50 MG TAB PO SCH ×2 (08:57→21:21)
--- NOTE | 2019-06-12 09:03 | XR ---
EXAMINATION TYPE: XR chest 1V portable DATE OF EXAM: 06/12/2019 COMPARISON: 06/11/2019 HISTORY: Shortness of breath TECHNIQUE: Single frontal view of the chest is obtained. FINDINGS: Diffuse interstitial pattern with bilateral consolidation and pleural effusion. The heart is enlarged. Hypertrophic and degenerative change of the spine. Calcified lymph nodes in the hilum. N o pneumothorax. Postsurgical change left shoulder. IMPRESSION: 1. Bilateral infiltrate and pleural effusion correlate for CHF otherwise consider pneumonia.
--- NOTE | 2019-06-12 09:12 | DS ---
DISCHARGE SUMMARY DATE OF SERVICE: 06/11/2019 FINAL DIAGNOSES: 1. Congestive heart failure acute exacerbation with acute diastolic dysfunction, ejection fraction about 60% to 65% with acute hypoxic hypercarbic respiratory failure secondary to above, status post mechanical ventilation. 2. Slurring of speech, possible acute transient ischemic attack, present on admission. 3. Change in mental status secondary to metabolic encephalopathy multifactorial. 4. Acute urinary tract infection, present on admission. 5. Continued hematuria, possibly from bladder cancer. 6. Mild aortic stenosis on 2-D echo. 7. Significant right internal carotid stenosis on CT angiogram about 90% proximally. 8. Elevated D-dimer without any evidence of pulmonary embolism. 9. Acute respiratory acidosis secondary to acute hypoxic respiratory failure. 10.Possible cellulitis of the legs, on admission, improved. 11.Nonoliguric acute kidney injury secondary to ischemic acute tubular necrosis. 12.Anemia, normocytic anemia of chronic disease. 13.Obesity with body mass index of 40.9. 14.Diabetes mellitus type 2, uncontrolled with hyperglycemia. 15.Troponin 0.114, possibly type 2 myocardial infarction secondary to supply demand mismatch. 16.History of recent shoulder arthroplasty of the left. 17.Diabetes mellitus type 2. 18.Hypertension. 19.Hyperlipidemia. 20.History of umbilical hernia. 21.History of renal stones. 22.History of bowel obstruction. 23.History of degenerative joint disease. 24.History of vertigo. 25.History of nicotine dependence. 26.FULL CODE. DISCHARGE DISPOSITION: The patient will be discharged in stable condition with guarded prognosis. The patient will be transferred to [facility] for further evaluation and treatment. Total time taken 35 minutes. HISTORY OF PRESENT ILLNESS: This 78-year-old gentleman with a past medical history of multiple medical problems admitted with CHF acute exacerbation as well as acute hypoxic respiratory failure. The patient was mechanically intubated and patient monitored closely. Patient was given diuresis, initially treated with Lasix drip. Currently the patient is on Lasix 40 mg IV q.8. The patient was extubated. After extubation, the patient was mildly drowsy and confused and the patient is on BiPAP at this time, requiring about 50% FiO2. The patient is closely monitored in ICU. The patient also had continued hematuria with some clots as well. The patient was sent to [facility] for bladder cancer. Urology was consulted and per recommendation of Dr. Singh and Dr. Bojorquez, I discussed the case with Dr. Alexander the on-call hospitalist in [facility]. The patient will be transferred to [facility] for further evaluation and treatment including urology evaluation. The prognosis guarded, but however the patient is currently medically stable and see the medication records and sheet for list of current medications. MMODL / IJN: [id number] /
[2019-06-12 09:28] LABS: Glucose,Whole Blood 148 mg/dL (75-99)
--- NOTE | 2019-06-12 09:35 | P.PN ---
Subjective Patient is seen in follow-up for acute kidney injury. Renal function is a little better. Patient extubated on June 11. Currently on 15 L high flow oxygen. No vasopressors. Maintain on IV Lasix 40 mg 3 times daily. Nonoliguric. Vital signs are stable. General: The patient appeared well nourished and normally developed. HEENT: Head exam is unremarkable. Neck is without jugular venous distension. Intubated. LUNGS: Breath sounds decreased. HEART: Rate and Rhythm are regular. First and second heart sounds normal. No murmurs, rubs or gallops. ABDOMEN: Abdominal exam reveals normal bowel sounds. Non-tender and non- distended. EXTREMITITES: Trace edema. Objective - Vital Signs Vital signs: Vital Signs Temp 99.0 F 06/12/19 08:00 Pulse 92 06/12/19 09:00 Resp 13 06/12/19 09:00 BP 157/81 06/12/19 09:00 Pulse Ox 95 06/12/19 09:00 Intake & Output 06/11/19 06/12/19 06/12/19 18:59 06:59 18:59 Intake Total 371.208 266.732 60 Output Total 1450 1600 290 Balance -1078.792 -1333.268 -230 Weight 118 kg Intake: IV 340 240 60 Sodium Chloride 0.9% 1, 240 240 60 000 ml @ 50 mls/hr IV . Q20H [facility] Rx#:[id number] Sodium Ferric Gluconat- 100 Sucrose 125 mg In Sodium Chloride 0.9% 100 ml @ 100 mls/hr IVPB DAILY [facility] Rx#:[id number] Intake, IV Titration 31.208 26.732 Amount Insulin Regular 100 unit 31.208 26.732 In Sodium Chloride 0.9% 100 ml @ Per Protocol IV .Q0M [facility] Rx#:[id number] Output: Urine 1450 1600 290 Other: Voiding Method Indwelling Catheter Indwelling Catheter ABP, PAP, CO, CI - Last Documented Arterial Blood Pressure 131/69 - Labs CBC & Chem 7: 06/12/19 05:35 06/12/19 05:35 Labs: Abnormal Lab Results - Last 24 Hours (Table) 06/11/19 06/11/19 06/11/19 Range/Units 10:54 13:58 15:10 RBC (4.30-5.90) m/uL Hgb (13.0-17.5) gm/dL Hct (39.0-53.0) % MCH (25.0-35.0) pg MCHC (31.0-37.0) g/dL RDW (11.5-15.5) % Lymphocytes # (1.0-4.8) k/uL Sodium (137-145) mmol/L Chloride (98-107) mmol/L Carbon Dioxide (22-30) mmol/L BUN (9-20) mg/dL Creatinine (0.66-1.25) mg/dL Glucose (74-99) mg/dL POC Glucose (mg/dL) 157 H 139 H 155 H (75-99) mg/dL Total Protein (6.3-8.2) g/dL Albumin (3.5-5.0) g/dL 06/11/19 06/11/19 06/11/19 Range/Units 16:03 17:55 18:59 RBC (4.30-5.90) m/uL Hgb (13.0-17.5) gm/dL Hct (39.0-53.0) % MCH (25.0-35.0) pg MCHC (31.0-37.0) g/dL RDW (11.5-15.5) % Lymphocytes # (1.0-4.8) k/uL Sodium (137-145) mmol/L Chloride (98-107) mmol/L Carbon Dioxide (22-30) mmol/L BUN (9-20) mg/dL Creatinine (0.66-1.25) mg/dL Glucose (74-99) mg/dL POC Glucose (mg/dL) 152 H 137 H 142 H (75-99) mg/dL Total Protein (6.3-8.2) g/dL Albumin (3.5-5.0) g/dL 06/11/19 06/11/19 06/11/19 Range/Units 20:20 21:07 21:54 RBC (4.30-5.90) m/uL Hgb (13.0-17.5) gm/dL Hct (39.0-53.0) % MCH (25.0-35.0) pg MCHC (31.0-37.0) g/dL RDW (11.5-15.5) % Lymphocytes # (1.0-4.8) k/uL Sodium (137-145) mmol/L Chloride (98-107) mmol/L Carbon Dioxide (22-30) mmol/L BUN (9-20) mg/dL Creatinine (0.66-1.25) mg/dL Glucose (74-99) mg/dL POC Glucose (mg/dL) 143 H 140 H 147 H (75-99) mg/dL Total Protein (6.3-8.2) g/dL Albumin (3.5-5.0) g/dL 06/11/19 06/11/19 06/12/19 Range/Units 23:02 23:47 01:06 RBC (4.30-5.90) m/uL Hgb (13.0-17.5) gm/dL Hct (39.0-53.0) % MCH (25.0-35.0) pg MCHC (31.0-37.0) g/dL RDW (11.5-15.5) % Lymphocytes # (1.0-4.8) k/uL Sodium (137-145) mmol/L Chloride (98-107) mmol/L Carbon Dioxide (22-30) mmol/L BUN (9-20) mg/dL Creatinine (0.66-1.25) mg/dL Glucose (74-99) mg/dL POC Glucose (mg/dL) 159 H 157 H 159 H (75-99) mg/dL Total Protein (6.3-8.2) g/dL Albumin (3.5-5.0) g/dL 06/12/19 06/12/19 06/12/19 Range/Units 01:50 02:51 04:20 RBC (4.30-5.90) m/uL Hgb (13.0-17.5) gm/dL Hct (39.0-53.0) % MCH (25.0-35.0) pg MCHC (31.0-37.0) g/dL RDW (11.5-15.5) % Lymphocytes # (1.0-4.8) k/uL Sodium (137-145) mmol/L Chloride (98-107) mmol/L Carbon Dioxide (22-30) mmol/L BUN (9-20) mg/dL Creatinine (0.66-1.25) mg/dL Glucose (74-99) mg/dL POC Glucose (mg/dL) 170 H 153 H 158 H (75-99) mg/dL Total Protein (6.3-8.2) g/dL Albumin (3.5-5.0) g/dL 06/12/19 06/12/19 06/12/19 Range/Units 05:05 05:35 05:35 RBC 3.48 L (4.30-5.90) m/uL Hgb 8.2 L (13.0-17.5) gm/dL Hct 28.9 L (39.0-53.0) % MCH 23.5 L (25.0-35.0) pg MCHC 28.3 L (31.0-37.0) g/dL RDW 16.9 H (11.5-15.5) % Lymphocytes # 0.9 L (1.0-4.8) k/uL Sodium 146 H (137-145) mmol/L Chloride 109 H (98-107) mmol/L Carbon Dioxide 34 H (22-30) mmol/L BUN 32 H (9-20) mg/dL Creatinine 1.37 H (0.66-1.25) mg/dL Glucose 150 H (74-99) mg/dL POC Glucose (mg/dL) 158 H (75-99) mg/dL Total Protein 6.0 L (6.3-8.2) g/dL Albumin 3.1 L (3.5-5.0) g/dL 06/12/19 06/12/19 06/12/19 Range/Units 05:59 06:51 07:55 RBC (4.30-5.90) m/uL Hgb (13.0-17.5) gm/dL Hct (39.0-53.0) % MCH (25.0-35.0) pg MCHC (31.0-37.0) g/dL RDW (11.5-15.5) % Lymphocytes # (1.0-4.8) k/uL Sodium (137-145) mmol/L Chloride (98-107) mmol/L Carbon Dioxide (22-30) mmol/L BUN (9-20) mg/dL Creatinine (0.66-1.25) mg/dL Glucose (74-99) mg/dL POC Glucose (mg/dL) 153 H 144 H 151 H (75-99) mg/dL Total Protein (6.3-8.2) g/dL Albumin (3.5-5.0) g/dL 06/12/19 Range/Units 09:16 RBC (4.30-5.90) m/uL Hgb (13.0-17.5) gm/dL Hct (39.0-53.0) % MCH (25.0-35.0) pg MCHC (31.0-37.0) g/dL RDW (11.5-15.5) % Lymphocytes # (1.0-4.8) k/uL Sodium (137-145) mmol/L Chloride (98-107) mmol/L Carbon Dioxide (22-30) mmol/L BUN (9-20) mg/dL Creatinine (0.66-1.25) mg/dL Glucose (74-99) mg/dL POC Glucose (mg/dL) 148 H (75-99) mg/dL Total Protein (6.3-8.2) g/dL Albumin (3.5-5.0) g/dL Microbiology - Last 24 Hours (Table) 06/07/19 01:28 Blood Culture - Preliminary Blood No Growth after 120 hours Assessment and Plan Plan: Assessment: 1. Acute kidney injury secondary to ATN secondary to hypotension and further worsened with the use of losartan. Additionally, the patient also received IV contrast on June 06. Renal function improving. Creatinine 1.37 today. Re nal ultrasound from March 2019 revealed no evidence of hydronephrosis. 2. Acute hypercapnic respiratory failure. Extubated on June 11. 3. Bladder cancer. Patient follows at [facility]. 4. Proteinuria. This is most likely secondary to underlying diabetic kidney disease. Will need further workup outpatient. 5. Insulin-dependent diabetes mellitus. 6. Benign hypertension. Controlled. 7. Right ICA stenosis. 8. Anemia. Severe iron deficiency noted - status post 3 doses of IV iron. 9. Mild hypernatremia secondary to diuresis and lack of oral water intake. Plan: Maintain IV Lasix 40 mg 3 times daily. Avoid nephrotoxins. Continue to monitor renal function and urine output. Oral diet to be initiated today.
--- NOTE | 2019-06-12 09:36 | P.PN ---
Subjective Progress Note Date: 06/12/19 Principal diagnosis: CVA/TIA and fluid volume overload and subsequent acute hypoxemic and hypercapnic respiratory failure requiring intubation mechanical ventilatory support. The patient is seen today 06/12/2019 in follow-up in the intensive care unit. He is currently awake and alert in no acute distress. Maintaining O2 saturations in the low 90s on 15 L high flow nasal cannula. He's been alternating with BiPAP 12/6 and 50% FiO2. Chest x-ray reveals bilateral infiltrates and pleural effusions most likely related to congestive heart failure versus pneumonia. Sputum culture reveals no growth. Blood culture reveals no growth. Urine culture reveals no growth. White count 8.8. Hemoglobin 8.2. Sodium 146. Creatinine 1.37. He is maintained on bronchodilators, ceftriaxone, IV diuretics. Not requiring any pressors. 0.9 normal saline 20 ML's per hour. Insulin drip at 3 units per hour. The patient is waiting transfer to the [facility]. Objective - Vital Signs Vital signs: Vital Signs Temp 99.0 F 06/12/19 08:00 Pulse 92 06/12/19 09:00 Resp 13 06/12/19 09:00 BP 157/81 06/12/19 09:00 Pulse Ox 95 06/12/19 09:00 Intake & Output 06/11/19 06/12/19 06/12/19 18:59 06:59 18:59 Intake Total 371.208 266.732 60 Output Total 1450 1600 290 Balance -1078.792 -1333.268 -230 Weight 118 kg Intake: IV 340 240 60 Sodium Chloride 0.9% 1, 240 240 60 000 ml @ 50 mls/hr IV . Q20H [facility] Rx#:[id number] Sodium Ferric Gluconat- 100 Sucrose 125 mg In Sodium Chloride 0.9% 100 ml @ 100 mls/hr IVPB DAILY [facility] Rx#:[id number] Intake, IV Titration 31.208 26.732 Amount Insulin Regular 100 unit 31.208 26.732 In Sodium Chloride 0.9% 100 ml @ Per Protocol IV .Q0M [facility] Rx#:[id number] Output: Urine 1450 1600 290 Other: Voiding Method Indwelling Catheter Indwelling Catheter ABP, PAP, CO, CI - Last Documented Arterial Blood Pressure 131/69 - Exam GENERAL EXAM: Alert, pleasant 78 year old gentleman, on 15 L high flow nasal cannula, comfortable in no apparent distress. HEAD: Normocephalic. EYES: Normal reaction of pupils, equal size. NOSE: Clear with pink turbinates. THROAT: No erythema or exudates. NECK: No masses, no JVD. CHEST: No chest wall deformity. LUNGS: Equal air entry with crackles in the bilateral posterior bases CVS: S1 and S2 normal with no audible murmur, regular rhythm. ABDOMEN: No hepatosplenomegaly, normal bowel sounds, no guarding or rigidity. SPINE: No scoliosis or deformity SKIN: No rashes CENTRAL NERVOUS SYSTEM: No focal deficits, tone is normal in all 4 extremities. EXTREMITIES: There is 1-2+ peripheral edema. No clubbing, no cyanosis. Peripheral pulses are intact. - Labs CBC & Chem 7: 06/12/19 05:35 06/12/19 05:35 Labs: Abnormal Lab Results - Last 24 Hours (Table) 06/11/19 06/11/19 06/11/19 Range/Units 10:54 13:58 15:10 RBC (4.30-5.90) m/uL Hgb (13.0-17.5) gm/dL Hct (39.0-53.0) % MCH (25.0-35.0) pg MCHC (31.0-37.0) g/dL RDW (11.5-15.5) % Lymphocytes # (1.0-4.8) k/uL Sodium (137-145) mmol/L Chloride (98-107) mmol/L Carbon Dioxide (22-30) mmol/L BUN (9-20) mg/dL Creatinine (0.66-1.25) mg/dL Glucose (74-99) mg/dL POC Glucose (mg/dL) 157 H 139 H 155 H (75-99) mg/dL Total Protein (6.3-8.2) g/dL Albumin (3.5-5.0) g/dL 06/11/19 06/11/19 06/11/19 Range/Units 16:03 17:55 18:59 RBC (4.30-5.90) m/uL Hgb (13.0-17.5) gm/dL Hct (39.0-53.0) % MCH (25.0-35.0) pg MCHC (31.0-37.0) g/dL RDW (11.5-15.5) % Lymphocytes # (1.0-4.8) k/uL Sodium (137-145) mmol/L Chloride (98-107) mmol/L Carbon Dioxide (22-30) mmol/L BUN (9-20) mg/dL Creatinine (0.66-1.25) mg/dL Glucose (74-99) mg/dL POC Glucose (mg/dL) 152 H 137 H 142 H (75-99) mg/dL Total Protein (6.3-8.2) g/dL Albumin (3.5-5.0) g/dL 06/11/19 06/11/19 06/11/19 Range/Units 20:20 21:07 21:54 RBC (4.30-5.90) m/uL Hgb (13.0-17.5) gm/dL Hct (39.0-53.0) % MCH (25.0-35.0) pg MCHC (31.0-37.0) g/dL RDW (11.5-15.5) % Lymphocytes # (1.0-4.8) k/uL Sodium (137-145) mmol/L Chloride (98-107) mmol/L Carbon Dioxide (22-30) mmol/L BUN (9-20) mg/dL Creatinine (0.66-1.25) mg/dL Glucose (74-99) mg/dL POC Glucose (mg/dL) 143 H 140 H 147 H (75-99) mg/dL Total Protein (6.3-8.2) g/dL Albumin (3.5-5.0) g/dL 06/11/19 06/11/19 06/12/19 Range/Units 23:02 23:47 01:06 RBC (4.30-5.90) m/uL Hgb (13.0-17.5) gm/dL Hct (39.0-53.0) % MCH (25.0-35.0) pg MCHC (31.0-37.0) g/dL RDW (11.5-15.5) % Lymphocytes # (1.0-4.8) k/uL Sodium (137-145) mmol/L Chloride (98-107) mmol/L Carbon Dioxide (22-30) mmol/L BUN (9-20) mg/dL Creatinine (0.66-1.25) mg/dL Glucose (74-99) mg/dL POC Glucose (mg/dL) 159 H 157 H 159 H (75-99) mg/dL Total Protein (6.3-8.2) g/dL Albumin (3.5-5.0) g/dL 06/12/19 06/12/19 06/12/19 Range/Units 01:50 02:51 04:20 RBC (4.30-5.90) m/uL Hgb (13.0-17.5) gm/dL Hct (39.0-53.0) % MCH (25.0-35.0) pg MCHC (31.0-37.0) g/dL RDW (11.5-15.5) % Lymphocytes # (1.0-4.8) k/uL Sodium (137-145) mmol/L Chloride (98-107) mmol/L Carbon Dioxide (22-30) mmol/L BUN (9-20) mg/dL Creatinine (0.66-1.25) mg/dL Glucose (74-99) mg/dL POC Glucose (mg/dL) 170 H 153 H 158 H (75-99) mg/dL Total Protein (6.3-8.2) g/dL Albumin (3.5-5.0) g/dL 06/12/19 06/12/19 06/12/19 Range/Units 05:05 05:35 05:35 RBC 3.48 L (4.30-5.90) m/uL Hgb 8.2 L (13.0-17.5) gm/dL Hct 28.9 L (39.0-53.0) % MCH 23.5 L (25.0-35.0) pg MCHC 28.3 L (31.0-37.0) g/dL RDW 16.9 H (11.5-15.5) % Lymphocytes # 0.9 L (1.0-4.8) k/uL Sodium 146 H (137-145) mmol/L Chloride 109 H (98-107) mmol/L Carbon Dioxide 34 H (22-30) mmol/L BUN 32 H (9-20) mg/dL Creatinine 1.37 H (0.66-1.25) mg/dL Glucose 150 H (74-99) mg/dL POC Glucose (mg/dL) 158 H (75-99) mg/dL Total Protein 6.0 L (6.3-8.2) g/dL Albumin 3.1 L (3.5-5.0) g/dL 06/12/19 06/12/19 06/12/19 Range/Units 05:59 06:51 07:55 RBC (4.30-5.90) m/uL Hgb (13.0-17.5) gm/dL Hct (39.0-53.0) % MCH (25.0-35.0) pg MCHC (31.0-37.0) g/dL RDW (11.5-15.5) % Lymphocytes # (1.0-4.8) k/uL Sodium (137-145) mmol/L Chloride (98-107) mmol/L Carbon Dioxide (22-30) mmol/L BUN (9-20) mg/dL Creatinine (0.66-1.25) mg/dL Glucose (74-99) mg/dL POC Glucose (mg/dL) 153 H 144 H 151 H (75-99) mg/dL Total Protein (6.3-8.2) g/dL Albumin (3.5-5.0) g/dL Microbiology - Last 24 Hours (Table) 06/07/19 01:28 Blood Culture - Preliminary Blood No Growth after 120 hours Assessment and Plan Assessment: 1 Acute hypoxemic and hypercapnic respiratory failure secondary to pulmonary edema from diastolic congestive heart failure requiring intubation mechanical ventilatory support, extubated on 06/10/2019. 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 Plummer at the [facility] 6 Diabetes mellitus, type II with diabetic nephropathy 7 Hypertension. 8 Possible non-ST segment myocardial infarction 9 Hyperlipidemia 10 Degenerative joint disease 11 Nephrolithiasis, history of 12 History of bowel obstruction 13 Morbid obesity Plan: The patient was seen and evaluated by Dr. Dr. Singh. Chest x-ray and labs reviewed. Continue with IV diuretics. Continue bronchodilators and antibiotics. His hemoglobin is currently stable at 8.2. The plan is to transfer the patient to the [facility] to follow up with Dr. Plummer regarding his invasive bladder cancer as recommended by urology here. I, the cosigning physician, performed a history & physical examination of the patient. Lungs sounds with crackles in the bilateral posterior bases. Maintaining good O2 saturations in the 90s on 15 L high flow nasal cannula. I discussed the assessment and plan of care with my nurse practitioner, Marianela Ambrocio. I attest to the above note as dictated by her.
[2019-06-12 10:01] LABS: Glucose,Whole Blood 175 mg/dL (75-99)
[2019-06-12 11:11] LABS: Urine Creatinine 41.1 mg/dL
--- NOTE | 2019-06-12 11:15 | P.PN ---
Subjective Progress Note Date: 06/12/19 This is a 78-year-old gentleman who was admitted to the hospital on with possible CVA/TIA. On June 07 patient required intubation for respiratory failure. The etiology of the respirator failure is not entirely clear. Patient chest x-ray shows mild pleural effusion. Patient has history of hypertension, diabetes, DJD and mild coronary artery disease. Patient also had several tests including CT angiogram, computed tomography scan, etc. His creatinine is up to 1.54. Credit Card Control Clerk has start him IV diuretics for this. Pleural effusions. His echo [place] showed normal LV function. His troponins are mildly elevated but the pattern is not consistent with acute coronary syndrome. From [facility] standpoint we'll continue current management. 06/10/2019: This 78-year-old gentleman is admitted to the hospital with symptoms suggestive of possible CVA/TIA. Subsequently patient developed respiratory failure requiring intubation. Patient chest x-ray showed pleural parenchymal changes consistent with CHF/pneumonia. Patient has been IV diuretics. Patient seemed to following commands, Still intubated. Attempts are being made to extubate him today. His creatinine is about 1.58. Patient has bloody urine and has history of bladder cancer which was diagnosed recently. He is also on diuretics. We'll continue current medical therapy. 06/12/2018: Is patient is admitted to the hospital with possible CVA and subsequently developed respiratory failure requiring intubation. Patient also developed progressive renal failure could be related to the hypotension and also contrast used for the studies. His creatinine is getting better. Patient is currently extubated. His. Patient is following commands and communicating. There seemed to some confusional state. Doesn't appear to be in acute distress. Chest x-ray shows some bilateral effusion and maybe mild CHF changes. Patient has bladder cancer. His being transferred to [facility] for further care. Continue current medical therapy Objective - Vital Signs Vital signs: Vital Signs Temp 99.0 F 06/12/19 08:00 Pulse 79 06/12/19 11:00 Resp 18 06/12/19 11:00 BP 126/62 06/12/19 11:00 Pulse Ox 89 L 06/12/19 11:00 Intake & Output 06/11/19 06/12/19 06/12/19 18:59 06:59 18:59 Intake Total 371.208 266.732 108.5 Output Total 1450 1600 490 Balance -1078.792 -1333.268 -381.5 Weight 118 kg Intake: IV 340 240 100 Sodium Chloride 0.9% 1, 240 240 100 000 ml @ 50 mls/hr IV . Q20H [facility] Rx#:[id number] Sodium Ferric Gluconat- 100 Sucrose 125 mg In Sodium Chloride 0.9% 100 ml @ 100 mls/hr IVPB DAILY [facility] Rx#:[id number] Intake, IV Titration 31.208 26.732 8.5 Amount Insulin Regular 100 unit 31.208 26.732 8.5 In Sodium Chloride 0.9% 100 ml @ Per Protocol IV .Q0M [facility] Rx#:[id number] Output: Urine 1450 1600 490 Other: Voiding Method Indwelling Catheter Indwelling Catheter ABP, PAP, CO, CI - Last Documented Arterial Blood Pressure 131/69 - Exam GENERAL EXAM: Patient is extubated. Alert and following commands HEENT: Normocephalic. NECK: No masses, no nuchal rigidity. CHEST: No chest wall deformity. LUNGS: Diminished breath sounds at bases HEART: S1 and S2 normal. Distant heart sounds ABDOMEN: No hepatosplenomegaly, normal bowel sounds, no guarding or rigidity. SKIN: No rashes CENTRAL NERVOUS SYSTEM: All along the extremities EXTREMITIES: No cyanosis, clubbing or edema. - Labs CBC & Chem 7: 06/12/19 05:35 06/12/19 05:35 Labs: Abnormal Lab Results - Last 24 Hours (Table) 06/11/19 06/11/19 06/11/19 Range/Units 00:10 13:58 15:10 RBC (4.30-5.90) m/uL Hgb (13.0-17.5) gm/dL Hct (39.0-53.0) % MCH (25.0-35.0) pg MCHC (31.0-37.0) g/dL RDW (11.5-15.5) % Lymphocytes # (1.0-4.8) k/uL Sodium (137-145) mmol/L Chloride (98-107) mmol/L Carbon Dioxide (22-30) mmol/L BUN (9-20) mg/dL Creatinine (0.66-1.25) mg/dL Glucose (74-99) mg/dL POC Glucose (mg/dL) 139 H 155 H (75-99) mg/dL Total Protein (6.3-8.2) g/dL Albumin (3.5-5.0) g/dL Ur Random Microalbumin 76.1 H (0.0-1.9) mg/dL Microalb/Creat Ratio 1852 H (0-30) mg/g Creat 06/11/19 06/11/19 06/11/19 Range/Units 16:03 17:55 18:59 RBC (4.30-5.90) m/uL Hgb (13.0-17.5) gm/dL Hct (39.0-53.0) % MCH (25.0-35.0) pg MCHC (31.0-37.0) g/dL RDW (11.5-15.5) % Lymphocytes # (1.0-4.8) k/uL Sodium (137-145) mmol/L Chloride (98-107) mmol/L Carbon Dioxide (22-30) mmol/L BUN (9-20) mg/dL Creatinine (0.66-1.25) mg/dL Glucose (74-99) mg/dL POC Glucose (mg/dL) 152 H 137 H 142 H (75-99) mg/dL Total Protein (6.3-8.2) g/dL Albumin (3.5-5.0) g/dL Ur Random Microalbumin (0.0-1.9) mg/dL Microalb/Creat Ratio (0-30) mg/g Creat 06/11/19 06/11/19 06/11/19 Range/Units 20:20 21:07 21:54 RBC (4.30-5.90) m/uL Hgb (13.0-17.5) gm/dL Hct (39.0-53.0) % MCH (25.0-35.0) pg MCHC (31.0-37.0) g/dL RDW (11.5-15.5) % Lymphocytes # (1.0-4.8) k/uL Sodium (137-145) mmol/L Chloride (98-107) mmol/L Carbon Dioxide (22-30) mmol/L BUN (9-20) mg/dL Creatinine (0.66-1.25) mg/dL Glucose (74-99) mg/dL POC Glucose (mg/dL) 143 H 140 H 147 H (75-99) mg/dL Total Protein (6.3-8.2) g/dL Albumin (3.5-5.0) g/dL Ur Random Microalbumin (0.0-1.9) mg/dL Microalb/Creat Ratio (0-30) mg/g Creat 06/11/19 06/11/19 06/12/19 Range/Units 23:02 23:47 01:06 RBC (4.30-5.90) m/uL Hgb (13.0-17.5) gm/dL Hct (39.0-53.0) % MCH (25.0-35.0) pg MCHC (31.0-37.0) g/dL RDW (11.5-15.5) % Lymphocytes # (1.0-4.8) k/uL Sodium (137-145) mmol/L Chloride (98-107) mmol/L Carbon Dioxide (22-30) mmol/L BUN (9-20) mg/dL Creatinine (0.66-1.25) mg/dL Glucose (74-99) mg/dL POC Glucose (mg/dL) 159 H 157 H 159 H (75-99) mg/dL Total Protein (6.3-8.2) g/dL Albumin (3.5-5.0) g/dL Ur Random Microalbumin (0.0-1.9) mg/dL Microalb/Creat Ratio (0-30) mg/g Creat 06/12/19 06/12/19 06/12/19 Range/Units 01:50 02:51 04:20 RBC (4.30-5.90) m/uL Hgb (13.0-17.5) gm/dL Hct (39.0-53.0) % MCH (25.0-35.0) pg MCHC (31.0-37.0) g/dL RDW (11.5-15.5) % Lymphocytes # (1.0-4.8) k/uL Sodium (137-145) mmol/L Chloride (98-107) mmol/L Carbon Dioxide (22-30) mmol/L BUN (9-20) mg/dL Creatinine (0.66-1.25) mg/dL Glucose (74-99) mg/dL POC Glucose (mg/dL) 170 H 153 H 158 H (75-99) mg/dL Total Protein (6.3-8.2) g/dL Albumin (3.5-5.0) g/dL Ur Random Microalbumin (0.0-1.9) mg/dL Microalb/Creat Ratio (0-30) mg/g Creat 06/12/19 06/12/19 06/12/19 Range/Units 05:05 05:35 05:35 RBC 3.48 L (4.30-5.90) m/uL Hgb 8.2 L (13.0-17.5) gm/dL Hct 28.9 L (39.0-53.0) % MCH 23.5 L (25.0-35.0) pg MCHC 28.3 L (31.0-37.0) g/dL RDW 16.9 H (11.5-15.5) % Lymphocytes # 0.9 L (1.0-4.8) k/uL Sodium 146 H (137-145) mmol/L Chloride 109 H (98-107) mmol/L Carbon Dioxide 34 H (22-30) mmol/L BUN 32 H (9-20) mg/dL Creatinine 1.37 H (0.66-1.25) mg/dL Glucose 150 H (74-99) mg/dL POC Glucose (mg/dL) 158 H (75-99) mg/dL Total Protein 6.0 L (6.3-8.2) g/dL Albumin 3.1 L (3.5-5.0) g/dL Ur Random Microalbumin (0.0-1.9) mg/dL Microalb/Creat Ratio (0-30) mg/g Creat 06/12/19 06/12/19 06/12/19 Range/Units 05:59 06:51 07:55 RBC (4.30-5.90) m/uL Hgb (13.0-17.5) gm/dL Hct (39.0-53.0) % MCH (25.0-35.0) pg MCHC (31.0-37.0) g/dL RDW (11.5-15.5) % Lymphocytes # (1.0-4.8) k/uL Sodium (137-145) mmol/L Chloride (98-107) mmol/L Carbon Dioxide (22-30) mmol/L BUN (9-20) mg/dL Creatinine (0.66-1.25) mg/dL Glucose (74-99) mg/dL POC Glucose (mg/dL) 153 H 144 H 151 H (75-99) mg/dL Total Protein (6.3-8.2) g/dL Albumin (3.5-5.0) g/dL Ur Random Microalbumin (0.0-1.9) mg/dL Microalb/Creat Ratio (0-30) mg/g Creat 06/12/19 06/12/19 Range/Units 09:16 09:49 RBC (4.30-5.90) m/uL Hgb (13.0-17.5) gm/dL Hct (39.0-53.0) % MCH (25.0-35.0) pg MCHC (31.0-37.0) g/dL RDW (11.5-15.5) % Lymphocytes # (1.0-4.8) k/uL Sodium (137-145) mmol/L Chloride (98-107) mmol/L Carbon Dioxide (22-30) mmol/L BUN (9-20) mg/dL Creatinine (0.66-1.25) mg/dL Glucose (74-99) mg/dL POC Glucose (mg/dL) 148 H 175 H (75-99) mg/dL Total Protein (6.3-8.2) g/dL Albumin (3.5-5.0) g/dL Ur Random Microalbumin (0.0-1.9) mg/dL Microalb/Creat Ratio (0-30) mg/g Creat Microbiology - Last 24 Hours (Table) 06/07/19 01:28 Blood Culture - Preliminary Blood No Growth after 120 hours Assessment and Plan (1) Anemia Current Visit: Yes Status: Acute Code(s): D64.9 - ANEMIA, UNSPECIFIED SNOMED Code(s): 801753893 (2) CVA (cerebral vascular accident) Current Visit: Yes Status: Acute Code(s): I63.9 - CEREBRAL INFARCTION, UNSPECIFIED SNOMED Code(s): 704757031 (3) Renal insufficiency Current Visit: Yes Status: Acute Code(s): N28.9 - DISORDER OF KIDNEY AND URETER, UNSPECIFIED SNOMED Code(s): 489637310 (4) Pleural effusion Current Visit: Yes Status: Acute Code(s): J90 - PLEURAL EFFUSION, NOT ELSEWHERE CLASSIFIED SNOMED Code(s): 81825698 (5) Elevated troponin Current Visit: Yes Status: Acute Code(s): R79.89 - OTHER SPECIFIED ABNORMAL FINDINGS OF BLOOD CHEMISTRY SNOMED Code(s): 957740363 Plan: Patient is a being transferred to [facility] for bladder cancer ca re. Meanwhile, continue current medical therapy including diuretics
[2019-06-12 11:17] LABS: Glucose,Whole Blood 173 mg/dL (75-99)
[2019-06-12 11:52] VITALS: BMI 39.5
[2019-06-12 12:16] LABS: Glucose,Whole Blood 158 mg/dL (75-99)
[2019-06-12 13:35] LABS: Glucose,Whole Blood 158 mg/dL (75-99)
[2019-06-12 14:18] LABS: Glucose,Whole Blood 160 mg/dL (75-99)
[2019-06-12 15:15] LABS: Glucose,Whole Blood 211 mg/dL (75-99)
[2019-06-12 16:08] LABS: Glucose,Whole Blood 216 mg/dL (75-99)
--- NOTE | 2019-06-12 17:11 | PN ---
PROGRESS NOTE DATE OF SERVICE: 06/11/2019 This 78-year-old gentleman was admitted with CHF acute exacerbation, also had acute respiratory failure. Patient extubated. Patient mildly confused. Patient on BiPAP. Patient also has continued hematuria secondary to bladder cancer being followed by the [facility]. Per Urology and Pulmonary recommendations I would discuss the case with Dr. Alexander who is the hospitalist on-call for the [facility] and recommended the patient be transferred to [facility] ICU. PAST MEDICAL HISTORY: Reviewed. REVIEW OF SYSTEMS: Could not be taken the patient, the patient is confused. CURRENT MEDICATIONS: 1. DuoNeb q.i.d. and p.r.n. 2. Norvasc 5 mg. 3. Aspirin 160 mg. 4. Lipitor 40 mg q.h.s. 5. Rocephin 1 g daily. 6. Vitamin B2 1000 mcg p.o. b.i.d. 7. Lofibra 160 mg q.h.s. 8. Lasix 40 mg IV t.i.d. 9. Insulin. 10.Imdur 30 mg. 11.Claritin 10 mg q.h.s. 12.Magnesium oxide 400 mg p.o. b.i.d. 13.Lopressor 50 mg p.o. b.i.d. 14.KCl. 15.Narcan. 16.Norepinephrine. 17.Protonix 40 mg p.o. daily. PHYSICAL EXAMINATION: Patient is alert, oriented x2. Pulse is 85, blood pressure 132/60, respiration 24, temperature is normal, pulse ox 93% on 50% FiO2 on BiPAP. HEENT: Conjunctivae normal. Oral mucosa moist. NECK: No jugular venous distention. No lymph node enlargement. CARDIOVASCULAR: S1, S2. RESPIRATORY: Diminished breath sounds at the bases. A few scattered rhonchi and crackles. ABDOMEN: Soft, obese, nontender. LEGS: No edema, no swelling. NERVOUS SYSTEM: No focal deficits. LABS: WBC 8.2, hemoglobin is 8.2, sodium 140, potassium 4, creatinine 1.46. ASSESSMENT: 1. Congestive heart failure acute exacerbation with acute on chronic diastolic dysfunction, ejection fraction about 60% to 65% with acute hypoxic hypercarbic respiratory failure secondary to above, status post mechanical ventilation. 2. Slurring of speech, possible acute transient ischemic attack, present on admission. 3. Change in mental status secondary to metabolic encephalopathy, multifactorial. 4. Acute urinary tract infection present on admission. 5. Continued hematuria, possibly from bladder cancer. 6. Mild aortic stenosis in the 2D echo. 7. Significant right internal carotid stenosis on CT angio, about 90% proximal stenosis. 8. Elevated D-dimer without any evidence of pulmonary embolism. 9. Acute respiratory acidosis secondary to acute hypoxic respiratory failure. 10.Possible cellulitis of the legs on admission, improved. 11.Nonoliguric acute kidney injury secondary to ischemic acute tubular necrosis. 12.Anemia, normocytic anemia of chronic disease. 13.Obesity with body mass index of 40.9. 14.Diabetes mellitus type 2, uncontrolled with hyperglycemia. 15.Troponin 0.114 possibly type 2 myocardial infarction secondary to supply demand mismatch. 16.History of recent shoulder arthroplasty on the left. 17.Diabetes mellitus type 2. 18.Hypertension. 19.Hyperlipidemia. 20.History of umbilical hernia. 21.History of renal stones. 22.History of bowel obstruction. 23.History of degenerative joint disease. 24.History of vertigo. 25.History of nicotine dependence. 26.FULL CODE. RECOMMENDATIONS AND DISCUSSION: I recommend to continue current medication, continue symptomatic treatment, continue with bronchodilators, continue with antibiotics, continue the diuretics, monitor creatinine closely. As mentioned earlier, to be transferred to the [facility] once the bed is available. Further recommendations to follow. MMODL / IJN: [id number] /
[2019-06-12 17:23] LABS: Glucose,Whole Blood 205 mg/dL (75-99)
[2019-06-12 18:14] LABS: Glucose,Whole Blood 199 mg/dL (75-99)
[2019-06-12 19:06] LABS: Glucose,Whole Blood 161 mg/dL (75-99)
[2019-06-12 20:09] LABS: Glucose,Whole Blood 149 mg/dL (75-99)
[2019-06-12 21:09] LABS: Glucose,Whole Blood 141 mg/dL (75-99)
--- NOTE | 2019-06-12 21:20 | PN ---
PROGRESS NOTE DATE OF SERVICE: 06/12/2009 This 78-year-old gentleman who was admitted with multiple medical problems including acute respiratory failure, CHF, acute exacerbation being closely monitored. Patient also has continued hematuria. Urology following the patient closely and discussed with [facility] for possible transfer. The hemoglobin is found to be 8.2 today. The patient being closely monitored. PAST MEDICAL HISTORY: Reviewed. REVIEW OF SYSTEMS: CARDIOVASCULAR SYSTEM: No angina or palpitations. RESPIRATORY: As mentioned earlier. GASTROINTESTINAL: As mentioned earlier. no dysuria. CENTRAL NERVOUS SYSTEM: No numbness or weakness. MEDICATIONS ARE: Reviewed and include: 1. DuoNeb q.i.d. and p.r.n. 2. Norvasc 5 mg p.o. daily. 3. Aspirin 160 mg. 4. Lipitor 40 mg q.h.s. 5. Rocephin 1 g IV daily. 6. B12 1000 mcg p.o. daily. 7. Lofibra 160 mg q.h.s. 8. Lasix 40 mg IV t.i.d. 9. Claritin. 10.Lopressor. 11.Narcan. 12.Levophed drip previously. 13.Protonix. PHYSICAL EXAM: Patient is alert, oriented x2. Pulse 96, blood pressure 140/73, respiration 17, temperature is normal. Pulse ox 98% on 15 L high-flow. HEENT conjunctivae normal. NECK: No jugular venous distention. CARDIOVASCULAR: S1, S2 muffled. RESPIRATORY: Breath sounds diminished in the bases. A few scattered rhonchi and crackles. ABDOMEN: Soft, nontender. No mass palpable. LEGS are no edema. No swelling. Nervous System: No focal deficits. LABS: WBC 8.8, hemoglobin is 8.2, sodium 146, potassium 4, creatinine is 1.37. ASSESSMENT: 1. Congestive heart failure acute exacerbation with acute on chronic diastolic dysfunction, ejection fraction about 60-65 percent with acute hypoxic hypercarbic respiratory failure secondary to above, status post mechanical ventilation. 2. Slurring of speech, possible acute transient ischemic attack, present on admission. 3. Change in mental status, possibly secondary to metabolic encephalopathy, acute multifactorial. 4. Acute urinary tract infection with infection, present on admission. 5. Continued hematuria, possibly from bladder cancer. 6. Mild aortic stenosis in the 2D echo. 7. Significant right internal carotid artery stenosis. CT angio showed 90% proximal stenosis, being followed by Dr. Verdugo. 8. Elevated D-dimer without any evidence of pulmonary embolism. 9. Acute respiratory acidosis secondary to acute hypoxic respiratory failure. 10.Possible cellulitis of the legs, on admission, improved. 11.Nonoliguric acute kidney injury secondary to ischemic acute tubular necrosis. 12.Anemia, normocytic anemia of chronic disease. 13.Obesity with body mass index of 40.9. 14.Diabetes mellitus type 2, uncontrolled with hyperglycemia. 15.Troponin 0.114, possible type 2 myocardial infarction secondary to supply demand mismatch. 16.History of recent shoulder arthroplasty on the left. 17.Diabetes mellitus type 2. 18.Hypertension. 19.Hyperlipidemia. 20.History of umbilical hernia. 21.History of renal stones. 22.History of bowel obstruction. 23.History of degenerative joint disease. 24.History of vertigo. 25.History of nicotine dependence. 26.FULL CODE. RECOMMENDATIONS AND DISCUSSION: In this 78-year-old gentleman who presented with multiple complex medical issues, we will monitor the patient closely, continue the current medications. Continue symptomatic treatment. Otherwise, at this time, continue the diuretics. Continue the fluid and electrolytes balance closely. Currently the patient is still negative balance the last 24 hours. The patient was negative more than 2.5 L. We will continue to monitor. Otherwise await [facility] transfer as mentioned earlier. I have discussed the case with [facility] hospitalist. Further recommendations to follow. MMDAWSONL / LEIGHN: [id number] /
[2019-06-12] MEDS: LORATADINE 10 MG TAB PO SCH (21:21)
[2019-06-12] MEDS: ATORVASTATIN 40 MG TAB PO SCH (21:21)
[2019-06-12] MEDS: CHLORHEXIDINE GLUCONATE 15 ML CUP MUCOUS MEM SCH (21:54)
[2019-06-12 22:15] LABS: Glucose,Whole Blood 158 mg/dL (75-99)
[2019-06-12] MEDS: FENOFIBRATE 160 MG TAB PO SCH (22:40)
[2019-06-12 23:18] LABS: Glucose,Whole Blood 170 mg/dL (75-99)
[2019-06-13] MEDS: IPRATROPIUM-ALBUTEROL 3 ML NEB INHALATION SCH ×7 (00:23→23:26)
[2019-06-13 00:24] LABS: Glucose,Whole Blood 173 mg/dL (75-99)
[2019-06-13 01:17] LABS: Glucose,Whole Blood 150 mg/dL (75-99)
[2019-06-13] MEDS: NOREPINEPHRINE 4 MG in SODIUM CHLORIDE 0.9% 250 ML IV SCH ×3 (01:20→21:38)
[2019-06-13 02:20] LABS: Glucose,Whole Blood 163 mg/dL (75-99)
[2019-06-13 03:12] LABS: Glucose,Whole Blood 173 mg/dL (75-99)
[2019-06-13 04:09] LABS: Glucose,Whole Blood 152 mg/dL (75-99)
[2019-06-13 05:17] LABS: Glucose,Whole Blood 161 mg/dL (75-99)
[2019-06-13 05:58] LABS: Anisocytosis Slight; HCT 29.2 % (39.0-53.0); HGB 8.6 gm/dL (13.0-17.5); Hypochromasia Marked; MCH 24.8 pg (25.0-35.0); MCHC 29.2 g/dL (31.0-37.0); MCV 84.9 fL (80.0-100.0); Mean Platelet Volume 7.8; Platelet Count 379 k/uL (150-450); Poikilocytosis Slight; RBC 3.45 m/uL (4.30-5.90); RDW 16.7 % (11.5-15.5)
[2019-06-13 06:11] LABS: Glucose,Whole Blood 167 mg/dL (75-99)
[2019-06-13 06:13] LABS: ABG HCO3 33 mmol/L (21-25); ABG Oxygen Saturation 97.3 % (94-97); ABG PCO2 54 mmHg (35-45); ABG PH 7.39 (7.35-7.45); ABG PO2 90 mmHg (83-108); ABG TCO2 35 mmol/L (19-24); Allen Test Performed? Yes
[2019-06-13 06:14] LABS: Eosinophils # (M) 0.36 k/uL (0-0.7); Lymphocytes # (M) 1.53 k/uL (1.0-4.8); Monocytes # (M) 1.53 k/uL (0-1.0); Neutrophils # (M) 5.58 k/uL (1.3-7.7); Neutrophils % (M) 62 %; Nucleated Red Blood Cells 0 /100 WBC (0-0); Total Cells Counted 100
[2019-06-13 06:15] LABS: Basophilic Stippling Present
[2019-06-13 07:43] LABS: Calcium 9.4 mg/dL (8.4-10.2); Potassium 4.2 mmol/L (3.5-5.1)
[2019-06-13 08:04] LABS: Glucose,Whole Blood 161 mg/dL (75-99)
--- NOTE | 2019-06-13 08:10 | P.PN ---
Subjective Progress Note Date: 06/13/19 The patient is still extubated He is still some what confused the urine still has blood and the nursing staff is still irrigating this is due to the bladder cancer and the previous surgery. When he is more stable he will require a repeat turbt at the [facility]. Objective - Vital Signs Vital signs: Vital Signs Temp 98.9 F 06/13/19 08:00 Pulse 86 06/13/19 08:00 Resp 32 H 06/13/19 08:00 BP 129/72 06/13/19 08:00 Pulse Ox 91 L 06/13/19 08:00 Intake & Output 06/12/19 06/13/19 06/13/19 18:59 06:59 18:59 Intake Total 274.275 434.200 40 Output Total 1415 1065 110 Balance -1140.725 -630.800 -70 Weight 118 kg 116.6 kg Intake: IV 240 400 40 0.9 280 40 Sodium Chloride 0.9% 1, 240 20 000 ml @ 50 mls/hr IV . Q20H [facility] Rx#:[id number] cefTRIAXone 1 gm In 100 Sodium Chloride 0.9% 50 ml @ 100 mls/hr IVPB Q24H [facility] Rx#:[id number] Intake, IV Titration 34.275 34.200 Amount Insulin Regular 100 unit 34.275 34.200 In Sodium Chloride 0.9% 100 ml @ Per Protocol IV .Q0M [facility] Rx#:[id number] Output: Urine 1415 1065 110 Other: Voiding Method Indwelling Catheter Indwelling Catheter Indwelling Catheter ABP, PAP, CO, CI - Last Documented Arterial Blood Pressure 131/69 - Labs CBC & Chem 7: 06/13/19 05:34 06/13/19 05:30 Labs: Abnormal Lab Results - Last 24 Hours (Table) 06/11/19 06/12/19 06/12/19 Range/Units 00:10 09:16 09:49 RBC (4.30-5.90) m/uL Hgb (13.0-17.5) gm/dL Hct (39.0-53.0) % MCH (25.0-35.0) pg MCHC (31.0-37.0) g/dL RDW (11.5-15.5) % Monocytes # (Manual) (0-1.0) k/uL ABG pCO2 (35-45) mmHg ABG HCO3 (21-25) mmol/L ABG Total CO2 (19-24) mmol/L ABG O2 Saturation (94-97) % Carbon Dioxide (22-30) mmol/L BUN (9-20) mg/dL Glucose (74-99) mg/dL POC Glucose (mg/dL) 148 H 175 H (75-99) mg/dL Ur Random Microalbumin 76.1 H (0.0-1.9) mg/dL Microalb/Creat Ratio 1852 H (0-30) mg/g Creat 06/12/19 06/12/19 06/12/19 Range/Units 11:05 12:05 13:24 RBC (4.30-5.90) m/uL Hgb (13.0-17.5) gm/dL Hct (39.0-53.0) % MCH (25.0-35.0) pg MCHC (31.0-37.0) g/dL RDW (11.5-15.5) % Monocytes # (Manual) (0-1.0) k/uL ABG pCO2 (35-45) mmHg ABG HCO3 (21-25) mmol/L ABG Total CO2 (19-24) mmol/L ABG O2 Saturation (94-97) % Carbon Dioxide (22-30) mmol/L BUN (9-20) mg/dL Glucose (74-99) mg/dL POC Glucose (mg/dL) 173 H 158 H 158 H (75-99) mg/dL Ur Random Microalbumin (0.0-1.9) mg/dL Microalb/Creat Ratio (0-30) mg/g Creat 06/12/19 06/12/19 06/12/19 Range/Units 14:06 15:03 15:56 RBC (4.30-5.90) m/uL Hgb (13.0-17.5) gm/dL Hct (39.0-53.0) % MCH (25.0-35.0) pg MCHC (31.0-37.0) g/dL RDW (11.5-15.5) % Monocytes # (Manual) (0-1.0) k/uL ABG pCO2 (35-45) mmHg ABG HCO3 (21-25) mmol/L ABG Total CO2 (19-24) mmol/L ABG O2 Saturation (94-97) % Carbon Dioxide (22-30) mmol/L BUN (9-20) mg/dL Glucose (74-99) mg/dL POC Glucose (mg/dL) 160 H 211 H 216 H (75-99) mg/dL Ur Random Microalbumin (0.0-1.9) mg/dL Microalb/Creat Ratio (0-30) mg/g Creat 06/12/19 06/12/19 06/12/19 Range/Units 17:12 18:03 18:54 RBC (4.30-5.90) m/uL Hgb (13.0-17.5) gm/dL Hct (39.0-53.0) % MCH (25.0-35.0) pg MCHC (31.0-37.0) g/dL RDW (11.5-15.5) % Monocytes # (Manual) (0-1.0) k/uL ABG pCO2 (35-45) mmHg ABG HCO3 (21-25) mmol/L ABG Total CO2 (19-24) mmol/L ABG O2 Saturation (94-97) % Carbon Dioxide (22-30) mmol/L BUN (9-20) mg/dL Glucose (74-99) mg/dL POC Glucose (mg/dL) 205 H 199 H 161 H (75-99) mg/dL Ur Random Microalbumin (0.0-1.9) mg/dL Microalb/Creat Ratio (0-30) mg/g Creat 06/12/19 06/12/19 06/12/19 Range/Units 19:57 20:58 22:04 RBC (4.30-5.90) m/uL Hgb (13.0-17.5) gm/dL Hct (39.0-53.0) % MCH (25.0-35.0) pg MCHC (31.0-37.0) g/dL RDW (11.5-15.5) % Monocytes # (Manual) (0-1.0) k/uL ABG pCO2 (35-45) mmHg ABG HCO3 (21-25) mmol/L ABG Total CO2 (19-24) mmol/L ABG O2 Saturation (94-97) % Carbon Dioxide (22-30) mmol/L BUN (9-20) mg/dL Glucose (74-99) mg/dL POC Glucose (mg/dL) 149 H 141 H 158 H (75-99) mg/dL Ur Random Microalbumin (0.0-1.9) mg/dL Microalb/Creat Ratio (0-30) mg/g Creat 06/12/19 06/13/19 06/13/19 Range/Units 23:06 00:12 01:06 RBC (4.30-5.90) m/uL Hgb (13.0-17.5) gm/dL Hct (39.0-53.0) % MCH (25.0-35.0) pg MCHC (31.0-37.0) g/dL RDW (11.5-15.5) % Monocytes # (Manual) (0-1.0) k/uL ABG pCO2 (35-45) mmHg ABG HCO3 (21-25) mmol/L ABG Total CO2 (19-24) mmol/L ABG O2 Saturation (94-97) % Carbon Dioxide (22-30) mmol/L BUN (9-20) mg/dL Glucose (74-99) mg/dL POC Glucose (mg/dL) 170 H 173 H 150 H (75-99) mg/dL Ur Random Microalbumin (0.0-1.9) mg/dL Microalb/Creat Ratio (0-30) mg/g Creat 06/13/19 06/13/19 06/13/19 Range/Units 02:09 03:01 03:57 RBC (4.30-5.90) m/uL Hgb (13.0-17.5) gm/dL Hct (39.0-53.0) % MCH (25.0-35.0) pg MCHC (31.0-37.0) g/dL RDW (11.5-15.5) % Monocytes # (Manual) (0-1.0) k/uL ABG pCO2 (35-45) mmHg ABG HCO3 (21-25) mmol/L ABG Total CO2 (19-24) mmol/L ABG O2 Saturation (94-97) % Carbon Dioxide (22-30) mmol/L BUN (9-20) mg/dL Glucose (74-99) mg/dL POC Glucose (mg/dL) 163 H 173 H 152 H (75-99) mg/dL Ur Random Microalbumin (0.0-1.9) mg/dL Microalb/Creat Ratio (0-30) mg/g Creat 06/13/19 06/13/19 06/13/19 Range/Units 05:05 05:30 05:34 RBC 3.45 L (4.30-5.90) m/uL Hgb 8.6 L (13.0-17.5) gm/dL Hct 29.2 L (39.0-53.0) % MCH 24.8 L (25.0-35.0) pg MCHC 29.2 L (31.0-37.0) g/dL RDW 16.7 H (11.5-15.5) % Monocytes # (Manual) 1.53 H (0-1.0) k/uL ABG pCO2 (35-45) mmHg ABG HCO3 (21-25) mmol/L ABG Total CO2 (19-24) mmol/L ABG O2 Saturation (94-97) % Carbon Dioxide 32 H (22-30) mmol/L BUN 40 H (9-20) mg/dL Glucose 157 H (74-99) mg/dL POC Glucose (mg/dL) 161 H (75-99) mg/dL Ur Random Microalbumin (0.0-1.9) mg/dL Microalb/Creat Ratio (0-30) mg/g Creat 06/13/19 06/13/19 06/13/19 Range/Units 06:00 06:10 07:53 RBC (4.30-5.90) m/uL Hgb (13.0-17.5) gm/dL Hct (39.0-53.0) % MCH (25.0-35.0) pg MCHC (31.0-37.0) g/dL RDW (11.5-15.5) % Monocytes # (Manual) (0-1.0) k/uL ABG pCO2 54 H (35-45) mmHg ABG HCO3 33 H (21-25) mmol/L ABG Total CO2 35 H (19-24) mmol/L ABG O2 Saturation 97.3 H (94-97) % Carbon Dioxide (22-30) mmol/L BUN (9-20) mg/dL Glucose (74-99) mg/dL POC Glucose (mg/dL) 167 H 161 H (75-99) mg/dL Ur Random Microalbumin (0.0-1.9) mg/dL Microalb/Creat Ratio (0-30) mg/g Creat Microbiology - Last 24 Hours (Table) 06/07/19 01:28 Blood Culture - Final Blood No Growth after 144 hours 06/11/19 18:45 Blood Culture - Preliminary Blood No Growth after 24 hours 06/11/19 18:40 Blood Culture - Preliminary Blood No Growth after 24 hours
[2019-06-13] MEDS: FUROSEMIDE 10 MG/ML 4 ML VIAL IV SCH ×3 (08:15→21:27)
[2019-06-13] MEDS: CYANOCOBALAMIN 500 MCG TAB PO SCH ×2 (08:15→21:28)
[2019-06-13] MEDS: amLODIPine 5 MG TAB PO SCH (08:16)
[2019-06-13] MEDS: METOPROLOL TARTRATE 50 MG TAB PO SCH ×2 (08:16→21:28)
[2019-06-13] MEDS: ISOSORBIDE MONONITRATE ER 30 MG TAB.ER.24H PO SCH (08:16)
[2019-06-13] MEDS: MAGNESIUM OXIDE 400 MG TAB PO SCH ×2 (08:16→21:28)
[2019-06-13] MEDS: PANTOPRAZOLE 40 MG TABLET PO SCH (08:16)
[2019-06-13] MEDS: ASPIRIN 81 MG PO SCH (08:16)
--- NOTE | 2019-06-13 09:22 | P.PN ---
Subjective Progress Note Date: 06/13/19 Principal diagnosis: CVA/TIA fluid volume overload, hypoxemic and hypercapnic respiratory failure requiring mechanical ventilation The patient is seen today 06/12/2019 in follow-up in the intensive care unit. He is currently awake and alert in no acute distress. Maintaining O2 saturations in the low 90s on 15 L high flow nasal cannula. He's been alternating with BiPAP 12/6 and 50% FiO2. Chest x-ray reveals bilateral infiltrates and pleural effusions most likely related to congestive heart failure versus pneumonia. Sputum culture reveals no growth. Blood culture reveals no growth. Urine culture reveals no growth. White count 8.8. Hemoglobin 8.2. Sodium 146. Creatinine 1.37. He is maintained on bronchodilators, ceftriaxone, IV diuretics. Not requiring any pressors. 0.9 normal saline 20 ML's per hour. Insulin drip at 3 units per hour. The patient is waiting transfer to the [facility]. On 06/13/2019 patient is seen in follow-up in the intensive care unit, he is awake and alert, seems to be reasonably comfortable, remains on high flow oxyg en, currently at 15 L, his pulse ox is 94-95%, did not require BiPAP support last night, BiPAP support is 1 as needed, with pressures of 12 and 6 and FiO2 of 50%, current IVs a 0.9 normal saline at a rate of 20, insulin is infusing at 3 units per hour, lung sounds revealed diminished breath sounds, and some rhonchi, today's chest x-ray still shows small pleural effusions and infiltrates likely related to acute congestive heart failure. He had echocardiogram done this admission, which showed EF of 60-65%, trace amount of aortic regurg, mild aortic stenosis, mild mitral regurgitation, mild tricuspid regurgitation, mild to moderate pulmonary hypertension with right-sided pressures of 45 mmHg. Today's labs have been reviewed, showing blood blood cell, 9.0, hemoglobin of 8.6, sodium is 142, potassium is 4.2, chloride is 107, CO2 32, BUN is 40 creatinine is 1.24. Blood and sputum cultures are negative, urine culture was negative as well. She remains on Rocephin for empiric antibiotic coverage, remains on IV Lasix currently at 40 mg 3 times daily. He is maintaining negative fluid jose ce, -1771 mL over the last 24 hours, fluid volume status is improving. Patient is breathing easier, his oxygenation has improved, and he has not required BiPAP support. No nausea or vomiting, patient is tolerating oral intake. Still has some hematuria, urology is following. Objective - Vital Signs Vital signs: Vital Signs Temp 98.9 F 06/13/19 08:00 Pulse 86 06/13/19 08:00 Resp 32 H 06/13/19 08:00 BP 129/72 06/13/19 08:00 Pulse Ox 91 L 06/13/19 08:00 Intake & Output 06/12/19 06/13/19 06/13/19 18:59 06:59 18:59 Intake Total 274.275 434.200 40 Output Total 1415 1065 110 Balance -1140.725 -630.800 -70 Weight 118 kg 116.6 kg Intake: IV 240 400 40 0.9 280 40 Sodium Chloride 0.9% 1, 240 20 000 ml @ 50 mls/hr IV . Q20H [facility] Rx#:[id number] cefTRIAXone 1 gm In 100 Sodium Chloride 0.9% 50 ml @ 100 mls/hr IVPB Q24H [facility] Rx#:[id number] Intake, IV Titration 34.275 34.200 Amount Insulin Regular 100 unit 34.275 34.200 In Sodium Chloride 0.9% 100 ml @ Per Protocol IV .Q0M [facility] Rx#:[id number] Output: Urine 1415 1065 110 Other: Voiding Method Indwelling Catheter Indwelling Catheter Indwelling Catheter ABP, PAP, CO, CI - Last Documented Arterial Blood Pressure 131/69 - Exam GENERAL EXAM: Alert, obese, 78-year-old white male, on 15 L per high flow nasal cannula with a pulse ox of 94-95% comfortable in no apparent distress. HEAD: Normocephalic/atraumatic. EYES: Normal reaction of pupils, equal size. Conjunctiva pink, sclera white. NOSE: Clear with pink turbinates. THROAT: No erythema or exudates. NECK: No masses, no JVD, no thyroid enlargement, no adenopathy. CHEST: No chest wall deformity. Symmetrical expansion. LUNGS: Equal air entry with rhonchi, dementia sounds at the bases CVS: Regular rate and rhythm, normal S1 and S2, no gallops, no murmurs, no rubs ABDOMEN: Soft, nontender. No hepatosplenomegaly, normal bowel sounds, no guar ding or rigidity. EXTREMITIES: No clubbing, no edema, no cyanosis, 2+ pulses and upper and lower extremities. MUSCULOSKELETAL: Muscle strength and tone normal. SPINE: No scoliosis or deformity SKIN: No rashes CENTRAL NERVOUS SYSTEM: Alert and oriented -3. No focal deficits, tone is normal in all 4 extremities. PSYCHIATRIC: Alert and oriented -3. Appropriate affect. Intact judgment and insight. - Labs CBC & Chem 7: 06/13/19 05:34 06/13/19 05:30 Labs: Abnormal Lab Results - Last 24 Hours (Table) 06/11/19 06/12/19 06/12/19 Range/Units 00:10 09:16 09:49 RBC (4.30-5.90) m/uL Hgb (13.0-17.5) gm/dL Hct (39.0-53.0) % MCH (25.0-35.0) pg MCHC (31.0-37.0) g/dL RDW (11.5-15.5) % Monocytes # (Manual) (0-1.0) k/uL ABG pCO2 (35-45) mmHg ABG HCO3 (21-25) mmol/L ABG Total CO2 (19-24) mmol/L ABG O2 Saturation (94-97) % Carbon Dioxide (22-30) mmol/L BUN (9-20) mg/dL Glucose (74-99) mg/dL POC Glucose (mg/dL) 148 H 175 H (75-99) mg/dL Ur Random Microalbumin 76.1 H (0.0-1.9) mg/dL Microalb/Creat Ratio 1852 H (0-30) mg/g Creat 06/12/19 06/12/19 06/12/19 Range/Units 11:05 12:05 13:24 RBC (4.30-5.90) m/uL Hgb (13.0-17.5) gm/dL Hct (39.0-53.0) % MCH (25.0-35.0) pg MCHC (31.0-37.0) g/dL RDW (11.5-15.5) % Monocytes # (Manual) (0-1.0) k/uL ABG pCO2 (35-45) mmHg ABG HCO3 (21-25) mmol/L ABG Total CO2 (19-24) mmol/L ABG O2 Saturation (94-97) % Carbon Dioxide (22-30) mmol/L BUN (9-20) mg/dL Glucose (74-99) mg/dL POC Glucose (mg/dL) 173 H 158 H 158 H (75-99) mg/dL Ur Random Microalbumin (0.0-1.9) mg/dL Microalb/Creat Ratio (0-30) mg/g Creat 06/12/19 06/12/19 06/12/19 Range/Units 14:06 15:03 15:56 RBC (4.30-5.90) m/uL Hgb (13.0-17.5) gm/dL Hct (39.0-53.0) % MCH (25.0-35.0) pg MCHC (31.0-37.0) g/dL RDW (11.5-15.5) % Monocytes # (Manual) (0-1.0) k/uL ABG pCO2 (35-45) mmHg ABG HCO3 (21-25) mmol/L ABG Total CO2 (19-24) mmol/L ABG O2 Saturation (94-97) % Carbon Dioxide (22-30) mmol/L BUN (9-20) mg/dL Glucose (74-99) mg/dL POC Glucose (mg/dL) 160 H 211 H 216 H (75-99) mg/dL Ur Random Microalbumin (0.0-1.9) mg/dL Microalb/Creat Ratio (0-30) mg/g Creat 06/12/19 06/12/19 06/12/19 Range/Units 17:12 18:03 18:54 RBC (4.30-5.90) m/uL Hgb (13.0-17.5) gm/dL Hct (39.0-53.0) % MCH (25.0-35.0) pg MCHC (31.0-37.0) g/dL RDW (11.5-15.5) % Monocytes # (Manual) (0-1.0) k/uL ABG pCO2 (35-45) mmHg ABG HCO3 (21-25) mmol/L ABG Total CO2 (19-24) mmol/L ABG O2 Saturation (94-97) % Carbon Dioxide (22-30) mmol/L BUN (9-20) mg/dL Glucose (74-99) mg/dL POC Glucose (mg/dL) 205 H 199 H 161 H (75-99) mg/dL Ur Random Microalbumin (0.0-1.9) mg/dL Microalb/Creat Ratio (0-30) mg/g Creat 06/12/19 06/12/19 06/12/19 Range/Units 19:57 20:58 22:04 RBC (4.30-5.90) m/uL Hgb (13.0-17.5) gm/dL Hct (39.0-53.0) % MCH (25.0-35.0) pg MCHC (31.0-37.0) g/dL RDW (11.5-15.5) % Monocytes # (Manual) (0-1.0) k/uL ABG pCO2 (35-45) mmHg ABG HCO3 (21-25) mmol/L ABG Total CO2 (19-24) mmol/L ABG O2 Saturation (94-97) % Carbon Dioxide (22-30) mmol/L BUN (9-20) mg/dL Glucose (74-99) mg/dL POC Glucose (mg/dL) 149 H 141 H 158 H (75-99) mg/dL Ur Random Microalbumin (0.0-1.9) mg/dL Microalb/Creat Ratio (0-30) mg/g Creat 06/12/19 06/13/19 06/13/19 Range/Units 23:06 00:12 01:06 RBC (4.30-5.90) m/uL Hgb (13.0-17.5) gm/dL Hct (39.0-53.0) % MCH (25.0-35.0) pg MCHC (31.0-37.0) g/dL RDW (11.5-15.5) % Monocytes # (Manual) (0-1.0) k/uL ABG pCO2 (35-45) mmHg ABG HCO3 (21-25) mmol/L ABG Total CO2 (19-24) mmol/L ABG O2 Saturation (94-97) % Carbon Dioxide (22-30) mmol/L BUN (9-20) mg/dL Glucose (74-99) mg/dL POC Glucose (mg/dL) 170 H 173 H 150 H (75-99) mg/dL Ur Random Microalbumin (0.0-1.9) mg/dL Microalb/Creat Ratio (0-30) mg/g Creat 06/13/19 06/13/19 06/13/19 Range/Units 02:09 03:01 03:57 RBC (4.30-5.90) m/uL Hgb (13.0-17.5) gm/dL Hct (39.0-53.0) % MCH (25.0-35.0) pg MCHC (31.0-37.0) g/dL RDW (11.5-15.5) % Monocytes # (Manual) (0-1.0) k/uL ABG pCO2 (35-45) mmHg ABG HCO3 (21-25) mmol/L ABG Total CO2 (19-24) mmol/L ABG O2 Saturation (94-97) % Carbon Dioxide (22-30) mmol/L BUN (9-20) mg/dL Glucose (74-99) mg/dL POC Glucose (mg/dL) 163 H 173 H 152 H (75-99) mg/dL Ur Random Microalbumin (0.0-1.9) mg/dL Microalb/Creat Ratio (0-30) mg/g Creat 06/13/19 06/13/19 06/13/19 Range/Units 05:05 05:30 05:34 RBC 3.45 L (4.30-5.90) m/uL Hgb 8.6 L (13.0-17.5) gm/dL Hct 29.2 L (39.0-53.0) % MCH 24.8 L (25.0-35.0) pg MCHC 29.2 L (31.0-37.0) g/dL RDW 16.7 H (11.5-15.5) % Monocytes # (Manual) 1.53 H (0-1.0) k/uL ABG pCO2 (35-45) mmHg ABG HCO3 (21-25) mmol/L ABG Total CO2 (19-24) mmol/L ABG O2 Saturation (94-97) % Carbon Dioxide 32 H (22-30) mmol/L BUN 40 H (9-20) mg/dL Glucose 157 H (74-99) mg/dL POC Glucose (mg/dL) 161 H (75-99) mg/dL Ur Random Microalbumin (0.0-1.9) mg/dL Microalb/Creat Ratio (0-30) mg/g Creat 06/13/19 06/13/19 06/13/19 Range/Units 06:00 06:10 07:53 RBC (4.30-5.90) m/uL Hgb (13.0-17.5) gm/dL Hct (39.0-53.0) % MCH (25.0-35.0) pg MCHC (31.0-37.0) g/dL RDW (11.5-15.5) % Monocytes # (Manual) (0-1.0) k/uL ABG pCO2 54 H (35-45) mmHg ABG HCO3 33 H (21-25) mmol/L ABG Total CO2 35 H (19-24) mmol/L ABG O2 Saturation 97.3 H (94-97) % Carbon Dioxide (22-30) mmol/L BUN (9-20) mg/dL Glucose (74-99) mg/dL POC Glucose (mg/dL) 167 H 161 H (75-99) mg/dL Ur Random Microalbumin (0.0-1.9) mg/dL Microalb/Creat Ratio (0-30) mg/g Creat Microbiology - Last 24 Hours (Table) 06/07/19 01:28 Blood Culture - Final Blood No Growth after 144 hours 06/11/19 18:45 Blood Culture - Preliminary Blood No Growth after 24 hours 06/11/19 18:40 Blood Culture - Preliminary Blood No Growth after 24 hours Assessment and Plan Plan: Assessment: 1 Acute hypoxemic and hypercapnic respiratory failure secondary to pulmonary soha ma from diastolic congestive heart failure requiring intubation mechanical ventilatory support, extubated on 06/10/2019. 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 Plummer at the [facility] 6 Diabetes mellitus, type II with diabetic nephropathy 7 Hypertension. 8 Possible non-ST segment myocardial infarction 9 Hyperlipidemia 10 Degenerative joint disease 11 Nephrolithiasis, history of 12 History of bowel obstruction 13 Morbid obesity Plan: Continue diuretics for another 24 hours, continue Rocephin, hemodynamically stable, off vasopressor support, breathing easier, wean FiO2, patient is currently on 15 L high flow, today's chest x-ray still shows changes of congestive heart failure, small pleural effusions and bilateral infiltrates likely related to fluid overload, however his oxygenation has improved, patient has not required BiPAP support last night, encourage deep breathing and coughing, maintain aspiration precautions, still has hematuria, hemoglobin is stable at 8.6, urologist, patient was recommended to transfer to the [facility] for history of bladder cancer and previous surgery that was performed at the [facility]. Was accepted at [facility] however there are no beds available at this time. I performed a history & physical examination of the patient and discussed their management with my nurse practitioner, Aby Street. I reviewed the nurse practitioner's note and agree with the documented findings and plan of care. Lung sounds are positive for a few diffuse rhonchi The findings and the impression was discussed with the patient. I attest to the documentation by the nurse practitioner. Time with Patient: Less than 30
--- NOTE | 2019-06-13 09:37 | P.PN ---
Subjective Patient is seen in follow-up for acute kidney injury. Renal function is a little better. Patient extubated on June 11. No vasopressors. Maintain on IV Lasix 40 mg 3 times daily. Nonoliguric. Starting to tolerate oral intake. Vital signs are stable. General: The patient appeared well nourished and normally developed. HEENT: Head exam is unremarkable. Neck is without jugular venous distension. LUNGS: Breath sounds decreased. HEART: Rate and Rhythm are regular. First and second heart sounds normal. No murmurs, rubs or gallops. ABDOMEN: Abdominal exam reveals normal bowel sounds. Non-tender and non- distended. EXTREMITITES: Trace edema. Objective - Vital Signs Vital signs: Vital Signs Temp 98.9 F 06/13/19 08:00 Pulse 89 06/13/19 09:34 Resp 32 H 06/13/19 08:00 BP 129/72 06/13/19 08:00 Pulse Ox 91 L 06/13/19 08:00 Intake & Output 06/12/19 06/13/19 06/13/19 18:59 06:59 18:59 Intake Total 274.275 434.200 60 Output Total 1415 1065 185 Balance -1140.725 -630.800 -125 Weight 118 kg 116.6 kg Intake: IV 240 400 60 0.9 280 60 Sodium Chloride 0.9% 1, 240 20 000 ml @ 50 mls/hr IV . Q20H [facility] Rx#:[id number] cefTRIAXone 1 gm In 100 Sodium Chloride 0.9% 50 ml @ 100 mls/hr IVPB Q24H [facility] Rx#:[id number] Intake, IV Titration 34.275 34.200 Amount Insulin Regular 100 unit 34.275 34.200 In Sodium Chloride 0.9% 100 ml @ Per Protocol IV .Q0M [facility] Rx#:[id number] Output: Urine 1415 1065 185 Other: Voiding Method Indwelling Catheter Indwelling Catheter Indwelling Catheter ABP, PAP, CO, CI - Last Documented Arterial Blood Pressure 131/69 - Labs CBC & Chem 7: 06/13/19 05:34 06/13/19 05:30 Labs: Abnormal Lab Results - Last 24 Hours (Table) 06/11/19 06/12/19 06/12/19 Range/Units 00:10 09:49 11:05 RBC (4.30-5.90) m/uL Hgb (13.0-17.5) gm/dL Hct (39.0-53.0) % MCH (25.0-35.0) pg MCHC (31.0-37.0) g/dL RDW (11.5-15.5) % Monocytes # (Manual) (0-1.0) k/uL ABG pCO2 (35-45) mmHg ABG HCO3 (21-25) mmol/L ABG Total CO2 (19-24) mmol/L ABG O2 Saturation (94-97) % Carbon Dioxide (22-30) mmol/L BUN (9-20) mg/dL Glucose (74-99) mg/dL POC Glucose (mg/dL) 175 H 173 H (75-99) mg/dL Ur Random Microalbumin 76.1 H (0.0-1.9) mg/dL Microalb/Creat Ratio 1852 H (0-30) mg/g Creat 06/12/19 06/12/19 06/12/19 Range/Units 12:05 13:24 14:06 RBC (4.30-5.90) m/uL Hgb (13.0-17.5) gm/dL Hct (39.0-53.0) % MCH (25.0-35.0) pg MCHC (31.0-37.0) g/dL RDW (11.5-15.5) % Monocytes # (Manual) (0-1.0) k/uL ABG pCO2 (35-45) mmHg ABG HCO3 (21-25) mmol/L ABG Total CO2 (19-24) mmol/L ABG O2 Saturation (94-97) % Carbon Dioxide (22-30) mmol/L BUN (9-20) mg/dL Glucose (74-99) mg/dL POC Glucose (mg/dL) 158 H 158 H 160 H (75-99) mg/dL Ur Random Microalbumin (0.0-1.9) mg/dL Microalb/Creat Ratio (0-30) mg/g Creat 06/12/19 06/12/19 06/12/19 Range/Units 15:03 15:56 17:12 RBC (4.30-5.90) m/uL Hgb (13.0-17.5) gm/dL Hct (39.0-53.0) % MCH (25.0-35.0) pg MCHC (31.0-37.0) g/dL RDW (11.5-15.5) % Monocytes # (Manual) (0-1.0) k/uL ABG pCO2 (35-45) mmHg ABG HCO3 (21-25) mmol/L ABG Total CO2 (19-24) mmol/L ABG O2 Saturation (94-97) % Carbon Dioxide (22-30) mmol/L BUN (9-20) mg/dL Glucose (74-99) mg/dL POC Glucose (mg/dL) 211 H 216 H 205 H (75-99) mg/dL Ur Random Microalbumin (0.0-1.9) mg/dL Microalb/Creat Ratio (0-30) mg/g Creat 06/12/19 06/12/19 06/12/19 Range/Units 18:03 18:54 19:57 RBC (4.30-5.90) m/uL Hgb (13.0-17.5) gm/dL Hct (39.0-53.0) % MCH (25.0-35.0) pg MCHC (31.0-37.0) g/dL RDW (11.5-15.5) % Monocytes # (Manual) (0-1.0) k/uL ABG pCO2 (35-45) mmHg ABG HCO3 (21-25) mmol/L ABG Total CO2 (19-24) mmol/L ABG O2 Saturation (94-97) % Carbon Dioxide (22-30) mmol/L BUN (9-20) mg/dL Glucose (74-99) mg/dL POC Glucose (mg/dL) 199 H 161 H 149 H (75-99) mg/dL Ur Random Microalbumin (0.0-1.9) mg/dL Microalb/Creat Ratio (0-30) mg/g Creat 06/12/19 06/12/19 06/12/19 Range/Units 20:58 22:04 23:06 RBC (4.30-5.90) m/uL Hgb (13.0-17.5) gm/dL Hct (39.0-53.0) % MCH (25.0-35.0) pg MCHC (31.0-37.0) g/dL RDW (11.5-15.5) % Monocytes # (Manual) (0-1.0) k/uL ABG pCO2 (35-45) mmHg ABG HCO3 (21-25) mmol/L ABG Total CO2 (19-24) mmol/L ABG O2 Saturation (94-97) % Carbon Dioxide (22-30) mmol/L BUN (9-20) mg/dL Glucose (74-99) mg/dL POC Glucose (mg/dL) 141 H 158 H 170 H (75-99) mg/dL Ur Random Microalbumin (0.0-1.9) mg/dL Microalb/Creat Ratio (0-30) mg/g Creat 06/13/19 06/13/19 06/13/19 Range/Units 00:12 01:06 02:09 RBC (4.30-5.90) m/uL Hgb (13.0-17.5) gm/dL Hct (39.0-53.0) % MCH (25.0-35.0) pg MCHC (31.0-37.0) g/dL RDW (11.5-15.5) % Monocytes # (Manual) (0-1.0) k/uL ABG pCO2 (35-45) mmHg ABG HCO3 (21-25) mmol/L ABG Total CO2 (19-24) mmol/L ABG O2 Saturation (94-97) % Carbon Dioxide (22-30) mmol/L BUN (9-20) mg/dL Glucose (74-99) mg/dL POC Glucose (mg/dL) 173 H 150 H 163 H (75-99) mg/dL Ur Random Microalbumin (0.0-1.9) mg/dL Microalb/Creat Ratio (0-30) mg/g Creat 06/13/19 06/13/19 06/13/19 Range/Units 03:01 03:57 05:05 RBC (4.30-5.90) m/uL Hgb (13.0-17.5) gm/dL Hct (39.0-53.0) % MCH (25.0-35.0) pg MCHC (31.0-37.0) g/dL RDW (11.5-15.5) % Monocytes # (Manual) (0-1.0) k/uL ABG pCO2 (35-45) mmHg ABG HCO3 (21-25) mmol/L ABG Total CO2 (19-24) mmol/L ABG O2 Saturation (94-97) % Carbon Dioxide (22-30) mmol/L BUN (9-20) mg/dL Glucose (74-99) mg/dL POC Glucose (mg/dL) 173 H 152 H 161 H (75-99) mg/dL Ur Random Microalbumin (0.0-1.9) mg/dL Microalb/Creat Ratio (0-30) mg/g Creat 06/13/19 06/13/19 06/13/19 Range/Units 05:30 05:34 06:00 RBC 3.45 L (4.30-5.90) m/uL Hgb 8.6 L (13.0-17.5) gm/dL Hct 29.2 L (39.0-53.0) % MCH 24.8 L (25.0-35.0) pg MCHC 29.2 L (31.0-37.0) g/dL RDW 16.7 H (11.5-15.5) % Monocytes # (Manual) 1.53 H (0-1.0) k/uL ABG pCO2 (35-45) mmHg ABG HCO3 (21-25) mmol/L ABG Total CO2 (19-24) mmol/L ABG O2 Saturation (94-97) % Carbon Dioxide 32 H (22-30) mmol/L BUN 40 H (9-20) mg/dL Glucose 157 H (74-99) mg/dL POC Glucose (mg/dL) 167 H (75-99) mg/dL Ur Random Microalbumin (0.0-1.9) mg/dL Microalb/Creat Ratio (0-30) mg/g Creat 06/13/19 06/13/19 Range/Units 06:10 07:53 RBC (4.30-5.90) m/uL Hgb (13.0-17.5) gm/dL Hct (39.0-53.0) % MCH (25.0-35.0) pg MCHC (31.0-37.0) g/dL RDW (11.5-15.5) % Monocytes # (Manual) (0-1.0) k/uL ABG pCO2 54 H (35-45) mmHg ABG HCO3 33 H (21-25) mmol/L ABG Total CO2 35 H (19-24) mmol/L ABG O2 Saturation 97.3 H (94-97) % Carbon Dioxide (22-30) mmol/L BUN (9-20) mg/dL Glucose (74-99) mg/dL POC Glucose (mg/dL) 161 H (75-99) mg/dL Ur Random Microalbumin (0.0-1.9) mg/dL Microalb/Creat Ratio (0-30) mg/g Creat Microbiology - Last 24 Hours (Table) 06/07/19 01:28 Blood Culture - Final Blood No Growth after 144 hours 06/11/19 18:45 Blood Culture - Preliminary Blood No Growth after 24 hours 06/11/19 18:40 Blood Culture - Preliminary Blood No Growth after 24 hours Assessment and Plan Plan: Assessment: 1. Acute kidney injury secondary to ATN secondary to hypotension. Additionally, the patient also received IV contrast on June 06. Renal function improving. Creatinine 1.24 today. Renal ultrasound from March 2019 revealed no evidence of hydronephrosis. 2. Acute hypercapnic respiratory failure. Extubated on June 11. 3. Bladder cancer. Patient follows at [facility]. 4. Proteinuria. This is most likely secondary to underlying diabetic kidney disease. Will need further workup outpatient. 5. Insulin-dependent diabetes mellitus. 6. Benign hypertension. Controlled. 7. Right ICA stenosis. 8. Anemia. Severe iron deficiency noted - status post 3 doses of IV iron. 9. Mild hypernatremia secondary to diuresis and lack of oral water intake. Better. Plan: Maintain IV Lasix 40 mg 3 times daily. Avoid nephrotoxins. Continue to monitor renal function and urine output. Encouraged oral intake as tolerated.
--- NOTE | 2019-06-13 09:43 | P.PN ---
Subjective Progress Note Date: 06/13/19 This is a 78-year-old gentleman who was admitted to the hospital on with possible CVA/TIA. On June 07 patient required intubation for respiratory failure. The etiology of the respirator failure is not entirely clear. Patient chest x-ray shows mild pleural effusion. Patient has history of hypertension, diabetes, DJD and mild coronary artery disease. Patient also had several tests including CT angiogram, computed tomography scan, etc. His creatinine is up to 1.54. Clinical Research Physician has start him IV diuretics for this. Pleural effusions. His echo [facility] showed normal LV function. His troponins are mildly elevated but the pattern is not consistent with acute coronary syndrome. From [facility] standpoint we'll continue current management. 06/10/2019: This 78-year-old gentleman is admitted to the hospital with symptoms suggestive of possible CVA/TIA. Subsequently patient developed respiratory failure requiring intubation. Patient chest x-ray showed pleural parenchymal changes consistent with CHF/pneumonia. Patient has been IV diuretics. Patient seemed to following commands, Still intubated. Attempts are being made to extubate him today. His creatinine is about 1.58. Patient has bloody urine and has history of bladder cancer which was diagnosed recently. He is also on diuretics. We'll continue current medical therapy. 06/12/2018: Is patient is admitted to the hospital with possible CVA and subsequently developed respiratory failure requiring intubation. Patient also developed progressive renal failure could be related to the hypotension and also contrast used for the studies. His creatinine is getting better. Patient is currently extubated. His. Patient is following commands and communicating. There seemed to some confusional state. Doesn't appear to be in acute distress. Chest x-ray shows some bilateral effusion and maybe mild CHF changes. Patient has bladder cancer. His being transferred to [facility] for further care. Continue current medical therapy. 06/13/2018: This patient is alert and seemed to be oriented. Still weak. Denies any chest pain or shortness of breath. Doesn't appear to be in acute distress. His creatinine is improving. He remains to be anemic. Patient was clinically stable. He is waiting to be transferred to [facility]. We'll continue current medical therapy and will follow him as needed. Objective - Vital Signs Vital signs: Vital Signs Temp 98.9 F 01/03/20 08:00 Pulse 89 06/13/19 09:34 Resp 16 06/13/19 09:00 BP 129/69 06/13/19 09:00 Pulse Ox 93 L 06/13/19 09:00 Intake & Output 06/12/19 06/13/19 06/13/19 18:59 06:59 18:59 Intake Total 274.275 434.200 60 Output Total 1415 1065 185 Balance -1140.725 -630.800 -125 Weight 118 kg 116.6 kg Intake: IV 240 400 60 0.9 280 60 Sodium Chloride 0.9% 1, 240 20 000 ml @ 50 mls/hr IV . Q20H [facility] Rx#:[id number] cefTRIAXone 1 gm In 100 Sodium Chloride 0.9% 50 ml @ 100 mls/hr IVPB Q24H [facility] Rx#:[id number] Intake, IV Titration 34.275 34.200 Amount Insulin Regular 100 unit 34.275 34.200 In Sodium Chloride 0.9% 100 ml @ Per Protocol IV .Q0M [facility] Rx#:[id number] Output: Urine 1415 1065 185 Other: Voiding Method Indwelling Catheter Indwelling Catheter Indwelling Catheter ABP, PAP, CO, CI - Last Documented Arterial Blood Pressure 131/69 - Exam GENERAL EXAM: Patient is extubated. Alert and following commands HEENT: Normocephalic. NECK: No masses, no nuchal rigidity. CHEST: No chest wall deformity. LUNGS: Diminished breath sounds at bases HEART: S1 and S2 normal. Distant heart sounds ABDOMEN: No hepatosplenomegaly, normal bowel sounds, no guarding or rigidity. SKIN: No rashes CENTRAL NERVOUS SYSTEM: All along the extremities EXTREMITIES: No cyanosis, clubbing or edema. - Labs CBC & Chem 7: 06/13/19 05:34 06/13/19 05:30 Labs: Abnormal Lab Results - Last 24 Hours (Table) 06/11/19 06/12/19 06/12/19 Range/Units 00:10 09:49 11:05 RBC (4.30-5.90) m/uL Hgb (13.0-17.5) gm/dL Hct (39.0-53.0) % MCH (25.0-35.0) pg MCHC (31.0-37.0) g/dL RDW (11.5-15.5) % Monocytes # (Manual) (0-1.0) k/uL ABG pCO2 (35-45) mmHg ABG HCO3 (21-25) mmol/L ABG Total CO2 (19-24) mmol/L ABG O2 Saturation (94-97) % Carbon Dioxide (22-30) mmol/L BUN (9-20) mg/dL Glucose (74-99) mg/dL POC Glucose (mg/dL) 175 H 173 H (75-99) mg/dL Ur Random Microalbumin 76.1 H (0.0-1.9) mg/dL Microalb/Creat Ratio 1852 H (0-30) mg/g Creat 06/12/19 06/12/19 06/12/19 Range/Units 12:05 13:24 14:06 RBC (4.30-5.90) m/uL Hgb (13.0-17.5) gm/dL Hct (39.0-53.0) % MCH (25.0-35.0) pg MCHC (31.0-37.0) g/dL RDW (11.5-15.5) % Monocytes # (Manual) (0-1.0) k/uL ABG pCO2 (35-45) mmHg ABG HCO3 (21-25) mmol/L ABG Total CO2 (19-24) mmol/L ABG O2 Saturation (94-97) % Carbon Dioxide (22-30) mmol/L BUN (9-20) mg/dL Glucose (74-99) mg/dL POC Glucose (mg/dL) 158 H 158 H 160 H (75-99) mg/dL Ur Random Microalbumin (0.0-1.9) mg/dL Microalb/Creat Ratio (0-30) mg/g Creat 06/12/19 06/12/19 06/12/19 Range/Units 15:03 15:56 17:12 RBC (4.30-5.90) m/uL Hgb (13.0-17.5) gm/dL Hct (39.0-53.0) % MCH (25.0-35.0) pg MCHC (31.0-37.0) g/dL RDW (11.5-15.5) % Monocytes # (Manual) (0-1.0) k/uL ABG pCO2 (35-45) mmHg ABG HCO3 (21-25) mmol/L ABG Total CO2 (19-24) mmol/L ABG O2 Saturation (94-97) % Carbon Dioxide (22-30) mmol/L BUN (9-20) mg/dL Glucose (74-99) mg/dL POC Glucose (mg/dL) 211 H 216 H 205 H (75-99) mg/dL Ur Random Microalbumin (0.0-1.9) mg/dL Microalb/Creat Ratio (0-30) mg/g Creat 06/12/19 06/12/19 06/12/19 Range/Units 18:03 18:54 19:57 RBC (4.30-5.90) m/uL Hgb (13.0-17.5) gm/dL Hct (39.0-53.0) % MCH (25.0-35.0) pg MCHC (31.0-37.0) g/dL RDW (11.5-15.5) % Monocytes # (Manual) (0-1.0) k/uL ABG pCO2 (35-45) mmHg ABG HCO3 (21-25) mmol/L ABG Total CO2 (19-24) mmol/L ABG O2 Saturation (94-97) % Carbon Dioxide (22-30) mmol/L BUN (9-20) mg/dL Glucose (74-99) mg/dL POC Glucose (mg/dL) 199 H 161 H 149 H (75-99) mg/dL Ur Random Microalbumin (0.0-1.9) mg/dL Microalb/Creat Ratio (0-30) mg/g Creat 06/12/19 06/12/19 06/12/19 Range/Units 20:58 22:04 23:06 RBC (4.30-5.90) m/uL Hgb (13.0-17.5) gm/dL Hct (39.0-53.0) % MCH (25.0-35.0) pg MCHC (31.0-37.0) g/dL RDW (11.5-15.5) % Monocytes # (Manual) (0-1.0) k/uL ABG pCO2 (35-45) mmHg ABG HCO3 (21-25) mmol/L ABG Total CO2 (19-24) mmol/L ABG O2 Saturation (94-97) % Carbon Dioxide (22-30) mmol/L BUN (9-20) mg/dL Glucose (74-99) mg/dL POC Glucose (mg/dL) 141 H 158 H 170 H (75-99) mg/dL Ur Random Microalbumin (0.0-1.9) mg/dL Microalb/Creat Ratio (0-30) mg/g Creat 06/13/19 06/13/19 06/13/19 Range/Units 00:12 01:06 02:09 RBC (4.30-5.90) m/uL Hgb (13.0-17.5) gm/dL Hct (39.0-53.0) % MCH (25.0-35.0) pg MCHC (31.0-37.0) g/dL RDW (11.5-15.5) % Monocytes # (Manual) (0-1.0) k/uL ABG pCO2 (35-45) mmHg ABG HCO3 (21-25) mmol/L ABG Total CO2 (19-24) mmol/L ABG O2 Saturation (94-97) % Carbon Dioxide (22-30) mmol/L BUN (9-20) mg/dL Glucose (74-99) mg/dL POC Glucose (mg/dL) 173 H 150 H 163 H (75-99) mg/dL Ur Random Microalbumin (0.0-1.9) mg/dL Microalb/Creat Ratio (0-30) mg/g Creat 06/13/19 06/13/19 06/13/19 Range/Units 03:01 03:57 05:05 RBC (4.30-5.90) m/uL Hgb (13.0-17.5) gm/dL Hct (39.0-53.0) % MCH (25.0-35.0) pg MCHC (31.0-37.0) g/dL RDW (11.5-15.5) % Monocytes # (Manual) (0-1.0) k/uL ABG pCO2 (35-45) mmHg ABG HCO3 (21-25) mmol/L ABG Total CO2 (19-24) mmol/L ABG O2 Saturation (94-97) % Carbon Dioxide (22-30) mmol/L BUN (9-20) mg/dL Glucose (74-99) mg/dL POC Glucose (mg/dL) 173 H 152 H 161 H (75-99) mg/dL Ur Random Microalbumin (0.0-1.9) mg/dL Microalb/Creat Ratio (0-30) mg/g Creat 06/13/19 06/13/19 06/13/19 Range/Units 05:30 05:34 06:00 RBC 3.45 L (4.30-5.90) m/uL Hgb 8.6 L (13.0-17.5) gm/dL Hct 29.2 L (39.0-53.0) % MCH 24.8 L (25.0-35.0) pg MCHC 29.2 L (31.0-37.0) g/dL RDW 16.7 H (11.5-15.5) % Monocytes # (Manual) 1.53 H (0-1.0) k/uL ABG pCO2 (35-45) mmHg ABG HCO3 (21-25) mmol/L ABG Total CO2 (19-24) mmol/L ABG O2 Saturation (94-97) % Carbon Dioxide 32 H (22-30) mmol/L BUN 40 H (9-20) mg/dL Glucose 157 H (74-99) mg/dL POC Glucose (mg/dL) 167 H (75-99) mg/dL Ur Random Microalbumin (0.0-1.9) mg/dL Microalb/Creat Ratio (0-30) mg/g Creat 06/13/19 06/13/19 Range/Units 06:10 07:53 RBC (4.30-5.90) m/uL Hgb (13.0-17.5) gm/dL Hct (39.0-53.0) % MCH (25.0-35.0) pg MCHC (31.0-37.0) g/dL RDW (11.5-15.5) % Monocytes # (Manual) (0-1.0) k/uL ABG pCO2 54 H (35-45) mmHg ABG HCO3 33 H (21-25) mmol/L ABG Total CO2 35 H (19-24) mmol/L ABG O2 Saturation 97.3 H (94-97) % Carbon Dioxide (22-30) mmol/L BUN (9-20) mg/dL Glucose (74-99) mg/dL POC Glucose (mg/dL) 161 H (75-99) mg/dL Ur Random Microalbumin (0.0-1.9) mg/dL Microalb/Creat Ratio (0-30) mg/g Creat Microbiology - Last 24 Hours (Table) 06/07/19 01:28 Blood Culture - Final Blood No Growth after 144 hours 06/11/19 18:45 Blood Culture - Preliminary Blood No Growth after 24 hours 06/11/19 18:40 Blood Culture - Preliminary Blood No Growth after 24 hours Assessment and Plan (1) Anemia Current Visit: Yes Status: Acute Code(s): D64.9 - ANEMIA, UNSPECIFIED SNOMED Code(s): 168946193 (2) CVA (cerebral vascular accident) Current Visit: Yes Status: Acute Code(s): I63.9 - CEREBRAL INFARCTION, UNSPECIFIED SNOMED Code(s): 625349800 (3) Renal insufficiency Current Visit: Yes Status: Acute Code(s): N28.9 - DISORDER OF KIDNEY AND URETER, UNSPECIFIED SNOMED Code(s): 362111715 (4) Pleural effusion Current Visit: Yes Status: Acute Code(s): J90 - PLEURAL EFFUSION, NOT ELSEWHERE CLASSIFIED SNOMED Code(s): 41755270 (5) Elevated troponin Current Visit: Yes Status: Acute Code(s): R79.89 - OTHER SPECIFIED ABNORMAL FINDINGS OF BLOOD CHEMISTRY SNOMED Code(s): 291052060 Plan: Patient is a being transferred to [facility] for bladder cancer care. Meanwhile, continue current medical therapy including diuretics
--- NOTE | 2019-06-13 10:05 | XR ---
EXAMINATION TYPE: XR chest 1V portable DATE OF EXAM: 06/13/2019 COMPARISON: 06/12/2019 HISTORY: Shortness of breath TECHNIQUE: Single frontal view of the chest is obtained. FINDINGS: Diffuse interstitial pattern with bilateral consolidation and pleural effusion. The heart is enlarged. Hypertrophic and degenerative change of the spine. Calcified lymph nodes in the hilum. N o pneumothorax. Postsurgical change left shoulder. IMPRESSION: 1. Bilateral infiltrate and pleural effusion stable. No significant interval change. Correlate for mi ld CHF otherwise consider pneumonia.
[2019-06-13 10:47] LABS: Glucose,Whole Blood 239 mg/dL (75-99)
[2019-06-13] MEDS: INSULIN REGULAR 100 UNIT in SODIUM CHLORIDE 0.9% 100 ML IV SCH (12:17)
[2019-06-13 12:25] LABS: Glucose,Whole Blood 183 mg/dL (75-99)
[2019-06-13 14:51] LABS: Glucose,Whole Blood 192 mg/dL (75-99)
[2019-06-13 16:10] LABS: Glucose,Whole Blood 207 mg/dL (75-99)
[2019-06-13 18:03] LABS: Glucose,Whole Blood 174 mg/dL (75-99)
--- NOTE | 2019-06-13 19:59 | PN ---
PROGRESS NOTE . DATE OF SERVICE: 06/13/2019 This 78 -year-old gentleman who was admitted with multiple medical problems including CHF, acute respiratory is being closely monitored. Patient also had significant bleeding and hematuria. I discussed with the [facility] on-call hospitalist and transfer. The patient is being closely monitored at this time. The patient is on IV insulin drip at this time. PAST MEDICAL HISTORY: Reviewed. REVIEW OF SYSTEMS: CARDIOVASCULAR SYSTEM: No angina or palpitations. RESPIRATION mentioned earlier. Nervous system as mentioned earlier. Slightly improved at this time sensorium. CURRENT MEDICATIONS: Reviewed and include: 1. DuoNeb q.i.d. and p.r.n. 2. Norvasc 5 mg p.o. daily. 3. Aspirin 160 mg p.o. daily. 4. Lipitor 40 mg q.h.s. 5. Rocephin 1 g daily. 6. Vitamin B12 1000 mcg p.o. daily. 7. Lofibra. 8. Lasix 40 mg IV t.i.d. 9. Imdur. 10.Claritin. 11.Magnesium oxide. 12.Lopressor. 13.P.r.n. medications. PHYSICAL EXAM: Patient is alert and oriented times three. Pulse 91, blood pressure 109/97, respirations 16, temperature 98.1, pulse ox 92% on 10 L. HEENT: Conjunctivae normal. NECK: No JVD. CARDIOVASCULAR: S1, S2 muffled. RESPIRATORY: Breath sounds diminished in the bases. Bilateral scattered rhonchi and crackles. ABDOMEN: Soft, obese, nontender. LEGS: No edema. No swelling. Larkin catheter in-situ draining hematuria, clots are present previously. LABS: Glucose 207, otherwise WBC 9, hemoglobin is 8.6, sodium 142, potassium 4.2. ASSESSMENT: 1. Congestive heart failure acute exacerbation acute on chronic diastolic dysfunction ejection fraction about 60% to 65% with acute hypoxic hypercarbic respiratory failure secondary to above, status post mechanical ventilation. 2. Slurring of speech, possible acute transient ischemic attack, present on admission. 3. Change in mental status, possibly secondary to acute metabolic encephalopathy multifactorial. 4. Acute urinary tract infection present on admission. 5. Hematuria continued possibly from bladder cancer. 6. Mild aortic stenosis in the 2D echo. 7. Significant right neck carotid artery stenosis. CT angio 90% proximal stenosis, being followed by Dr. Verdugo. 8. Elevated D-dimer without any evidence of pulmonary embolism. 9. Acute respiratory acidosis secondary to acute hypoxic respiratory failure. 10.Possible cellulitis of the legs on admission, improved. 11.Nonoliguric acute kidney injury secondary to ischemic acute tubular necrosis. 12.Anemia, normocytic anemia of chronic disease. 13.Obesity with body mass index of 40.9. 14.Diabetes mellitus type 2, uncontrolled with hyperglycemia. 15.Troponin 0.114, possibly type 2 myocardial infarction secondary to supply demand mismatch. 16.History of recent shoulder arthroplasty, left. 17.Diabetes mellitus type 2. 18.Hypertension. 19.Hyperlipidemia. 20.History of umbilical hernia. 21.History of renal stones. 22.History of bowel obstruction. 23.History of degenerative joint disease. 24.History of vertigo. 25.History of nicotine dependence. 26.FULL CODE. RECOMMENDATIONS AND DISCUSSION: I recommend to continue current medications, management and symptomatic treatment. Continue with IV diuretics. Monitor fluid and electrolytes balance closely. Continue the antibiotics. Otherwise, I would also recommend advance diet and stop the insulin drip and monitor Accu-Cheks a.c. and q.h.s. closely. Monitor hemoglobin closely. Await [facility] transfer. Guarded prognosis. Further recommendations to follow. MMODL / IJN: [id number] / BLAKE
[2019-06-13 20:22] LABS: Glucose,Whole Blood 170 mg/dL (75-99)
[2019-06-13] MEDS: FENOFIBRATE 160 MG TAB PO SCH (21:27)
[2019-06-13] MEDS: LORATADINE 10 MG TAB PO SCH (21:27)
[2019-06-13] MEDS: ATORVASTATIN 40 MG TAB PO SCH (21:28)
[2019-06-13 22:26] LABS: Glucose,Whole Blood 165 mg/dL (75-99)
[2019-06-14 00:24] LABS: Glucose,Whole Blood 178 mg/dL (75-99)
[2019-06-14] MEDS ORDERED: ACETAMINOPHEN TAB 325 MG TAB PO PRN (02:03)
[2019-06-14 02:18] LABS: Glucose,Whole Blood 189 mg/dL (75-99)
--- NOTE | 2019-06-14 02:37 | XR ---
EXAMINATION TYPE: XR chest 1V DATE OF EXAM: 06/14/2019 COMPARISON: Yesterday HISTORY: Short of breath TECHNIQUE: Single view FINDINGS: Heart is enlarged. There is some pulmonary vascular congestion. There is blunting of the co stophrenic angles. There is infiltrate at both lung bases. IMPRESSION: There is evidence of congestive heart failure with pleural effusions. Lower lobe pneumoni a is possible. Chest appears slightly worse than exam yesterday.
--- NOTE | 2019-06-14 02:39 | XR ---
EXAMINATION TYPE: XR abdomen 1V DATE OF EXAM: 06/14/2019 COMPARISON: NONE HISTORY: Abdominal pain TECHNIQUE: 2 views were obtained supine FINDINGS: Exam is limited by patient's size. There is no sign of intestinal obstruction or pneumoperi toneum. Fecal pattern is normal. There are no definite calcifications over the kidneys. IMPRESSION: Nonacute abdomen.
[2019-06-14] MEDS: IPRATROPIUM-ALBUTEROL 3 ML NEB INHALATION SCH ×6 (03:31→23:00)
[2019-06-14 04:12] LABS: Glucose,Whole Blood 180 mg/dL (75-99)
[2019-06-14 04:41] LABS: Calcium 9.5 mg/dL (8.4-10.2); Potassium 3.8 mmol/L (3.5-5.1)
[2019-06-14 04:44] LABS: Anisocytosis Slight; Basophils % (A) 0 %; Eosinophils # (A) 0.3 k/uL (0-0.7); Eosinophils % (A) 4 %; HCT 30.4 % (39.0-53.0); HGB 8.6 gm/dL (13.0-17.5); Hypochromasia Marked; Lymphocytes # (A) 0.6 k/uL (1.0-4.8); Lymphocytes % (A) 9 %; MCH 23.3 pg (25.0-35.0); MCHC 28.2 g/dL (31.0-37.0); MCV 82.6 fL (80.0-100.0); Mean Platelet Volume 8.1; Monocytes # (A) 0.3 k/uL (0-1.0); Monocytes % (A) 5 %; Neutrophils # (A) 5.2 k/uL (1.3-7.7); Neutrophils % (A) 81 %; Platelet Count 378 k/uL (150-450); RBC 3.68 m/uL (4.30-5.90); RDW 17.5 % (11.5-15.5); WBC 6.5 k/uL (3.8-10.6)
[2019-06-14 04:47] LABS: ABG Base Excess 9.5 mmol/L; ABG HCO3 35 mmol/L (21-25); ABG Oxygen Saturation 92.7 % (94-97); ABG PCO2 58 mmHg (35-45); ABG PH 7.39 (7.35-7.45); ABG PO2 66 mmHg (83-108); ABG TCO2 36 mmol/L (19-24)
[2019-06-14] MEDS: INSULIN REGULAR 100 UNIT in SODIUM CHLORIDE 0.9% 100 ML IV SCH (05:12)
[2019-06-14 05:23] LABS: Allen Test Performed? no
[2019-06-14] MEDS ORDERED: POTASSIUM CHLORIDE ER 20 MEQ TAB.ER PO SCH (06:00)
[2019-06-14 06:06] LABS: Glucose,Whole Blood 163 mg/dL (75-99)
[2019-06-14 08:13] LABS: Glucose,Whole Blood 136 mg/dL (75-99)
[2019-06-14] MEDS ORDERED: diphenhydrAMINE 50 MG CAP PO ONE ×2 (09:09→14:00)
[2019-06-14] MEDS ORDERED: methylPREDNISolone SOD SUCCI 125 MG/2 ML VIAL IV ONE (09:09)
[2019-06-14] MEDS ORDERED: FAMOTIDINE 20 MG/2 ML VIAL IV ONE (09:09)
[2019-06-14] MEDS ORDERED: diphenhydrAMINE 50 MG/ML 1 ML VIAL IVP ONE ×2 (09:09→14:30)
[2019-06-14] MEDS: FUROSEMIDE 10 MG/ML 4 ML VIAL IV SCH ×3 (10:00→21:03)
--- NOTE | 2019-06-14 10:07 | P.PN ---
Subjective Progress Note Date: 06/14/19 Principal diagnosis: CVA/TIA and fluid volume overload and subsequent acute hypoxemic and hypercapnic respiratory failure requiring intubation mechanical ventilatory support, extub ated and currently on BiPAP. The patient is seen today 06/14/2019 in follow-up in the intensive care unit. Last evening he was having trouble with oxygen saturations and is now back on BiPAP. He was quite restless and having abdominal discomfort. Abdominal x-ray revealed a nonacute abdomen. Chest x-ray reveals evidence of congestive heart failure with pleural effusions. Infiltrates a lower bases with possible ongoing pneumonia. Exam is slightly worsened compared to yesterday. He is currently on BiPAP 12/6 and 50% FiO2. Blood cultures reveal no growth. Sputum culture reveals no growth. Urine culture reveals no growth. White count 6.5. Hemoglobin 8.6. Sodium 141. Potassium 3.8. Creatinine 1.26. He is continued on DuoNeb inhalations, ceftriaxone, IV diuretics. He remains in a negative balance. Objective - Vital Signs Vital signs: Vital Signs Temp 102.2 F H 06/14/19 08:00 Pulse 112 H 06/14/19 09:10 Resp 24 06/14/19 08:00 BP 141/78 06/14/19 08:00 Pulse Ox 97 06/14/19 08:00 Intake & Output 06/13/19 06/14/19 06/14/19 18:59 06:59 18:59 Intake Total 277.126 360.583 69 Output Total 606 1715 150 Balance -328.874 -1354.417 -81 Weight 115.2 kg Intake: IV 240 310 60 0.9 240 260 60 cefTRIAXone 1 gm In 50 Sodium Chloride 0.9% 50 ml @ 100 mls/hr IVPB Q24H [facility] Rx#:[id number] Intake, IV Titration 37.126 50.583 9 Amount Insulin Regular 100 unit 37.126 50.583 9 In Sodium Chloride 0.9% 100 ml @ Per Protocol IV .Q0M [facility] Rx#:[id number] Output: Urine 606 1715 150 Other: Voiding Method Indwelling Catheter Indwelling Catheter Indwelling Catheter ABP, PAP, CO, CI - Last Documented Arterial Blood Pressure 131/69 - Exam GENERAL EXAM: 78 year old gentleman, on BiPAP 12/6 and 50% FiO2, fairly comfortable in no apparent distress. HEAD: Normocephalic. EYES: Normal reaction of pupils, equal size. NOSE: Clear with pink turbinates. THROAT: No erythema or exudates. NECK: No masses, no JVD. CHEST: No chest wall deformity. LUNGS: Equal air entry with crackles in the bilateral posterior bases CVS: S1 and S2 normal with no audible murmur, regular rhythm. ABDOMEN: Distended, hypoactive bowel sounds, no guarding or rigidity. SPINE: No scoliosis or deformity SKIN: No rashes CENTRAL NERVOUS SYSTEM: No focal deficits, tone is normal in all 4 extremities. EXTREMITIES: There is 1-2+ peripheral edema. No clubbing, no cyanosis. Peripheral pulses are intact. - Labs CBC & Chem 7: 06/14/19 04:20 06/14/19 04:20 Labs: Abnormal Lab Results - Last 24 Hours (Table) 06/13/19 06/13/19 06/13/19 Range/Units 10:35 12:14 14:38 RBC (4.30-5.90) m/uL Hgb (13.0-17.5) gm/dL Hct (39.0-53.0) % MCH (25.0-35.0) pg MCHC (31.0-37.0) g/dL RDW (11.5-15.5) % Lymphocytes # (1.0-4.8) k/uL ABG pCO2 (35-45) mmHg ABG pO2 (83-108) mmHg ABG HCO3 (21-25) mmol/L ABG Total CO2 (19-24) mmol/L ABG O2 Saturation (94-97) % Carbon Dioxide (22-30) mmol/L BUN (9-20) mg/dL Creatinine (0.66-1.25) mg/dL Glucose (74-99) mg/dL POC Glucose (mg/dL) 239 H 183 H 192 H (75-99) mg/dL 06/13/19 06/13/19 06/13/19 Range/Units 15:58 17:51 20:10 RBC (4.30-5.90) m/uL Hgb (13.0-17.5) gm/dL Hct (39.0-53.0) % MCH (25.0-35.0) pg MCHC (31.0-37.0) g/dL RDW (11.5-15.5) % Lymphocytes # (1.0-4.8) k/uL ABG pCO2 (35-45) mmHg ABG pO2 (83-108) mmHg ABG HCO3 (21-25) mmol/L ABG Total CO2 (19-24) mmol/L ABG O2 Saturation (94-97) % Carbon Dioxide (22-30) mmol/L BUN (9-20) mg/dL Creatinine (0.66-1.25) mg/dL Glucose (74-99) mg/dL POC Glucose (mg/dL) 207 H 174 H 170 H (75-99) mg/dL 06/13/19 06/14/19 06/14/19 Range/Units 22:15 00:12 02:06 RBC (4.30-5.90) m/uL Hgb (13.0-17.5) gm/dL Hct (39.0-53.0) % MCH (25.0-35.0) pg MCHC (31.0-37.0) g/dL RDW (11.5-15.5) % Lymphocytes # (1.0-4.8) k/uL ABG pCO2 (35-45) mmHg ABG pO2 (83-108) mmHg ABG HCO3 (21-25) mmol/L ABG Total CO2 (19-24) mmol/L ABG O2 Saturation (94-97) % Carbon Dioxide (22-30) mmol/L BUN (9-20) mg/dL Creatinine (0.66-1.25) mg/dL Glucose (74-99) mg/dL POC Glucose (mg/dL) 165 H 178 H 189 H (75-99) mg/dL 06/14/19 06/14/19 06/14/19 Range/Units 04:01 04:20 04:20 RBC 3.68 L (4.30-5.90) m/uL Hgb 8.6 L (13.0-17.5) gm/dL Hct 30.4 L (39.0-53.0) % MCH 23.3 L (25.0-35.0) pg MCHC 28.2 L (31.0-37.0) g/dL RDW 17.5 H (11.5-15.5) % Lymphocytes # 0.6 L (1.0-4.8) k/uL ABG pCO2 (35-45) mmHg ABG pO2 (83-108) mmHg ABG HCO3 (21-25) mmol/L ABG Total CO2 (19-24) mmol/L ABG O2 Saturation (94-97) % Carbon Dioxide 37 H (22-30) mmol/L BUN 39 H (9-20) mg/dL Creatinine 1.26 H (0.66-1.25) mg/dL Glucose 172 H (74-99) mg/dL POC Glucose (mg/dL) 180 H (75-99) mg/dL 06/14/19 06/14/19 06/14/19 Range/Units 04:45 05:54 08:02 RBC (4.30-5.90) m/uL Hgb (13.0-17.5) gm/dL Hct (39.0-53.0) % MCH (25.0-35.0) pg MCHC (31.0-37.0) g/dL RDW (11.5-15.5) % Lymphocytes # (1.0-4.8) k/uL ABG pCO2 58 H (35-45) mmHg ABG pO2 66 L (83-108) mmHg ABG HCO3 35 H (21-25) mmol/L ABG Total CO2 36 H (19-24) mmol/L ABG O2 Saturation 92.7 L (94-97) % Carbon Dioxide (22-30) mmol/L BUN (9-20) mg/dL Creatinine (0.66-1.25) mg/dL Glucose (74-99) mg/dL POC Glucose (mg/dL) 163 H 136 H (75-99) mg/dL Microbiology - Last 24 Hours (Table) 06/11/19 18:45 Blood Culture - Preliminary Blood No Growth after 48 hours 06/11/19 18:40 Blood Culture - Preliminary Blood No Growth after 48 hours Assessment and Plan Assessment: 1 Acute hypoxemic and hypercapnic respiratory failure secondary to pulmonary edema from diastolic congestive heart failure requiring intubation mechanical ventilatory support, extubated on 06/10/2019. Slightly worsening chest x-ray today 06/14/2019. The patient required BiPAP support currently 12/6 and 50% FiO2 to maintain O2 saturations in the low 90s. 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 Plummer at the [facility] 6 Diabetes mellitus, type II with diabetic nephropathy 7 Hypertension. 8 Possible non-ST segment myocardial infarction 9 Hyperlipidemia 10 Degenerative joint disease 11 Nephrolithiasis, history of 12 History of bowel obstruction 13 Morbid obesity Plan: The patient was seen and evaluated by Dr. Singh. Plan is for computed tomography scan of the abdomen. Currently on BiPAP 12/6 and 50% FiO2 to maintain O2 saturations in the 90s. Chest x-ray and labs reviewed. Continue w ith IV diuretics. Continue bronchodilators and antibiotics. There is still no bed available at the [facility]. He may require transfer to another tertiary care facility. In the interim, we'll continue full supportive care. We'll continue to follow make further recommendations based on his clinical status. I, the cosigning physician, performed a history & physical examination of the patient. Lungs sounds with crackles in the bilateral posterior bases. Maintain ing good O2 saturations in the 90s on BiPAP 12/6 and 50% FiO2.. I discussed the assessment and plan of care with my nurse practitioner, Marianela Ambrocio. I attest to the above note as dictated by her.
[2019-06-14 10:33] LABS: Glucose,Whole Blood 158 mg/dL (75-99)
--- NOTE | 2019-06-14 10:49 | CT ---
EXAMINATION TYPE: CT abdomen pelvis w con DATE OF EXAM: 06/14/2019 COMPARISON: 04/05/2019 HISTORY: 78-year-old male with abdominal pain, distention. TECHNIQUE: Contiguous axial scanning of the abdomen and pelvis following administration of 80 ml Isov ue 300 IV contrast. Delayed images through the kidneys and coronal/sagittal reconstructions performe d. CT DLP: 3267.4 mGycm Automated exposure control for dose reduction was used. FINDINGS: Heart mild to moderately enlarged. No pericardial effusion. Small effusions with prominent patchy dep endent opacities and consolidation. Tiny calcified granulomas posterior right liver lobe. No biliary ductal dilatation. Portal venous sys tem appears patent. Gallbladder hydropic at 4.5 cm wide with mild wall thickening and mild pericholecystic stranding. Sma ll calculi are present dependently. Adrenal glands and pancreas appear within normal limits. Multiple granulomas within the spleen. 2.7 cm exophytic intermediate density lesion posterior right kidney is unchanged in size from 019. Artifacts from the patient's arms down by the side limits accurate determination of density you urement. Stable 2.0 cm right mid to lower pole renal cyst. Redemonstrated are large left renal cysts measuring 6.2 and 6.1 cm. No excretion of contrast seen on the delayed kidney images. No hydronephrosis. Moderate atherosclerotic calcifications abdominal aorta with areas of fusiform ectasia measuring up t o 2.9 cm. Moderate to severe at the scarring changes throughout the iliac arteries. Extensive breathing motion artifacts. No dilated small bowel, free fluid, or free air Excessive patient motion precludes adequate assessment of the lower ascending colon where some possib le wall thickening may be present, reference axial image 53. Mild reticular change on the left side o f the colon more extensive within the sigmoid colon. No care chronic inflammatory change. Small fatty umbilical hernia measuring 3.1 cm wide. Tafoya catheter is present. The bladder is decompressed with circumference wall thickening and possibl y eccentric wall thickening along the left posterior bladder base measuring up to 1.9 cm, axial image 81. No abnormal fluid collection in the pelvis or pelvic lymphadenopathy. Bones: Mild degenerative changes of the hips and SI joints. Moderate endplate spondylosis throughout the visualized spine. IMPRESSION: 1. SMALL EFFUSIONS WITH MILD TO MODERATE CARDIOMEGALY. CORRELATE FOR POSSIBLE FLUID OVERLOAD STATE. 2. PROMINENT PATCHY BIBASILAR AREAS OF ATELECTASIS AND/OR INFILTRATES. CLINICALLY CORRELATE TO EXCLUD E THE POSSIBILITY OF PNEUMONIA. 3. HYDROPIC GALLBLADDER WITH WALL THICKENING AND MILD SURROUNDING FAT STRANDING. CHOLELITHIASIS. WALL THICKENING MAY RELATE TO FLUID OVERLOAD STATE. HYDROPIC CHANGE MAY BE FROM FASTING. CLINICALLY CORRE LATE TO EXCLUDE EARLY ACUTE CHOLECYSTITIS. 4. EXCESSIVE PATIENT MOTION ARTIFACTS. THIS PRECLUDES ADEQUATE ASSESSMENT OF THE RIGHT SIDE OF THE CO SANDY WHERE WALL THICKENING MAY BE PRESENT ALONG THE LOWER ASCENDING COLON. HIGH QUALITY ORAL AND IV CO NTRAST CT FOLLOW-UP WHEN PATIENT ABLE VERSUS DIRECT VISUALIZATION TO EXCLUDE UNDERLYING NEOPLASM. 5. STABLE 2.7 CM LESION POSTERIOR RIGHT KIDNEY COMPARED TO 04/05/2019. A HEMORRHAGIC OR PROTEINACE OUS CYST IS FAVORED RATHER THAN MASS GIVEN THE STABILITY. ADDITIONAL 6-12 MONTH FOLLOW-UP IS RECOMMEN DED. 6. LEFT-SIDED COLONIC DIVERTICULOSIS WITHOUT ACUTE DIVERTICULITIS. 7. TAFOYA CATHETER IN PLACE. THERE IS CIRCUMFERENTIAL BLADDER WALL THICKENING THAT COULD REPRESENT CHR ONIC BLADDER WALL HYPERTROPHY OR CYSTITIS. HOWEVER, SOME ECCENTRIC WALL THICKENING UP TO 1. 9 CM TANYA G THE LEFT POSTERIOR BLADDER BASE IS NOTED. CORRELATE WITH URINE CYTOLOGY TO EXCLUDE NEOPLASM.
[2019-06-14 12:12] LABS: Glucose,Whole Blood 202 mg/dL (75-99)
[2019-06-14] MEDS: MAGNESIUM OXIDE 400 MG TAB PO SCH ×2 (12:45→21:04)
[2019-06-14] MEDS: PANTOPRAZOLE 40 MG TABLET PO SCH (12:45)
[2019-06-14] MEDS: ASPIRIN 81 MG PO SCH (12:45)
[2019-06-14] MEDS: CYANOCOBALAMIN 500 MCG TAB PO SCH ×2 (12:45→21:04)
[2019-06-14] MEDS: METOPROLOL TARTRATE 50 MG TAB PO SCH ×2 (12:46→21:03)
[2019-06-14] MEDS: ISOSORBIDE MONONITRATE ER 30 MG TAB.ER.24H PO SCH (12:46)
[2019-06-14] MEDS: amLODIPine 5 MG TAB PO SCH (12:46)
[2019-06-14] MEDS: NOREPINEPHRINE 4 MG in SODIUM CHLORIDE 0.9% 250 ML IV SCH (12:46)
[2019-06-14 13:59] LABS: Glucose,Whole Blood 214 mg/dL (75-99)
--- NOTE | 2019-06-14 14:03 | PN ---
PROGRESS NOTE Patient is seen for followup for acute kidney injury. Patient's renal function is improved. His creatinine is down to 1.2 and staying about the same for the last 2 days. Currently, he is off of pressors. He is maintained on IV Lasix and has had good urine output. A 24 hour urine output about 2.3 L. The patient's weight is coming down. PHYSICAL EXAMINATION: On examination today, blood pressure was 143/71, heart rate 112 per minute. He had a temperature of 101.2 degrees Fahrenheit. Examination of the heart S1, S2. Examination of the lungs, bilateral breath sounds are heard. Decreased breath sounds at bases. Abdomen is soft. Examination of the lower extremities shows trace edema bilaterally. COMPUTER SYSTEMS ENGINEER exam not performed in detail, grossly intact. LABS: Show sodium of 141, potassium 3.8, chloride 104, CO2 of 37, BUN 39, creatinine 1.26, hemoglobin 8.6 g/dL. ASSESSMENT: 1. Acute kidney injury, acute tubular necrosis, nonoliguric, currently stable. May continue with the current dose of IV Lasix. 2. Abdominal pain currently being worked up and abdominal CT did not show any significant findings. 3. Acute hypercapnic respiratory failure, extubated on June 11. 4. History of bladder cancer, follows at [facility]. 5. Chronic kidney disease stage III, most likely secondary to underlying diabetic kidney disease with evidence of some proteinuria. 6. Right ICA stenosis. PLAN: No changes. Continue with the IV Lasix for now. Monitor electrolytes. MMODL / IJN: [id number] /
[2019-06-14 15:18] LABS: Glucose,Whole Blood 171 mg/dL (75-99)
[2019-06-14 18:39] LABS: Glucose,Whole Blood 127 mg/dL (75-99)
[2019-06-14 19:54] LABS: Glucose,Whole Blood 173 mg/dL (75-99)
[2019-06-14] MEDS ORDERED: QUEtiapine 25 MG TAB PO PRN (20:25)
--- NOTE | 2019-06-14 20:52 | PN ---
PROGRESS NOTE DATE OF SERVICE: 06/14/2019 This 78-year-old gentleman who was admitted with congestive heart failure acute exacerbation and slurring of speech also had multiple issues last night. The past 24 hours, the patient had hypoxia, breathing difficulties. BiPAP was initiated. Patient also had shortness of breath. Pulse ox 90s. The patient also had abdominal symptoms, abdominal and pelvis CAT scan was also done which showed small effusions, bibasilar atelectasis, hydropic gallbladder thickening and mild surrounding fat stranding with cholelithiasis, possibility of cholecystitis needs to be considered and exacerbation. Multiple other abnormalities also been noted. The patient also had continued hematuria and awaiting transfer to [facility] also. PAST MEDICAL HISTORY: Reviewed. REVIEW OF SYSTEM: Could not be taken the patient is confused currently. CURRENT MEDICATIONS: Medications are reviewed and include: 1. Tylenol p.r.n. 2. DuoNeb q.i.d. and p.r.n. 3. Norvasc 5 mg daily. 4. Aspirin 160 mg. 5. Lipitor 40 mg. 6. Rocephin 1 g IV daily. 7. Vitamin B12. 8. Lofibra. 9. Lasix. 10.Claritin. 11.Magnesium oxide. 12.Lopressor. 13.Narcan. 14.Protonix. PHYSICAL EXAM: Patient is mildly stuporous, arousable. Pulse is 90, blood pressure 130/60, respirations 22. Temperature normal, pulse ox 94% on 10 L high flow. HEENT: Conjunctivae normal. Oral mucosa moist. NECK is no jugular venous distention. No carotid bruit. No lymph node enlargement. CARDIOVASCULAR SYSTEM: S1, S2 muffled. RESPIRATORY: Breath sounds diminished at the bases. A few scattered rhonchi and crackles. ABDOMEN: Soft, obese. No guarding. No rigidity. Mild diffuse discomfort. LEGS are no edema. No swelling. CENTRAL NERVOUS SYSTEM: No focal deficits. LABS: WBC 6.3, hemoglobin is 8.6. ABGs noted. Creatinine is 1.26. ASSESSMENT: 1. Congestive heart failure acute exacerbation with acute on chronic diastolic dysfunction, ejection fraction 60% to 65% with acute hypoxic hypercarbic respiratory failure secondary to above, status post mechanical ventilation. 2. Slurring of speech. Possible transient ischemic attack present on admission. 3. Change in mental status post secondary to acute metabolic encephalopathy, multifactorial. 4. Acute urinary tract infection, present on admission. 5. Cholelithiasis, rule out cholecystitis, acute. 6. Hematuria continued possibly from invasive bladder cancer. 7. Mild aortic stenosis on the 2D echo. 8. Significant right neck carotid artery stenosis, CT angio 90%, proximal stenosis, being followed by Dr. Verdugo. 9. Elevated D-dimer without any evidence of pulmonary embolism. 10.Acute respiratory acidosis secondary to acute hypoxic respiratory failure. 11.Possible cellulitis of the legs on admission, improved. 12.Nonoliguric acute kidney injury secondary to ischemic acute tubular necrosis. 13.Anemia, normocytic anemia of chronic disease. 14.Obesity with body mass index of 40.9. 15.Diabetes mellitus type 2, uncontrolled with hyperglycemia. 16.Troponin 0.114 possibly type 2 myocardial infarction secondary to supply/demand mismatch, present on admission. 17.History of recent shoulder arthroplasty, left. 18.Diabetes mellitus type 2. 19.Hypertension. 20.Hyperlipidemia. 21.History of umbilical hernia. 22.History of renal stones. 23.History of bowel obstruction. 24.History of degenerative joint disease. 25.History of vertigo. 26.History of nicotine dependence. 27.FULL CODE. RECOMMENDATIONS AND DISCUSSION: Recommend to continue the current medications, management and symptomatic treatment. Otherwise, monitor fluid and electrolyte balance closely. Continue the bronchodilators. Ensure oxygenation. I would recommend to change the antibiotic to Zosyn. Surgical evaluation. Otherwise, guarded prognosis because of multiple complex medical issues and further recommendations to follow. Prognosis guarded. As mentioned earlier we are still awaiting [facility] transfer. I discussed the case at length with the [facility] hospitalist container finishing inspector. Prognosis guarded. Discussed with the family on multiple occasions. Further recommendations to follow. MMODL / IJN: [id number] /
[2019-06-14] MEDS: LORATADINE 10 MG TAB PO SCH (21:03)
[2019-06-14] MEDS: FENOFIBRATE 160 MG TAB PO SCH (21:03)
[2019-06-14] MEDS: ATORVASTATIN 40 MG TAB PO SCH (21:03)
[2019-06-14] MEDS: INSULIN DETEMIR (LEVEMIR) 100 UNIT/ML SYR SQ SCH (21:04)
[2019-06-14] MEDS: PIPERACILLIN-TAZOBACTAM 3.375 GM in SODIUM CHLORIDE 0.9% 100 ML IVPB SCH (21:05)
[2019-06-14 21:12] LABS: Glucose,Whole Blood 209 mg/dL (75-99)
[2019-06-14] MEDS: INSULIN ASPART (NovoLOG) 100 UNIT/ML VIAL SQ SCH (21:17)
[2019-06-15] MEDS: IPRATROPIUM-ALBUTEROL 3 ML NEB INHALATION SCH ×6 (03:14→23:30)
[2019-06-15 04:03] LABS: Anisocytosis Slight; Basophils % (A) 0 %; Eosinophils % (A) 0 %; HCT 28.7 % (39.0-53.0); HGB 7.9 gm/dL (13.0-17.5); Hypochromasia Marked; Lymphocytes # (A) 0.8 k/uL (1.0-4.8); Lymphocytes % (A) 6 %; MCHC 27.4 g/dL (31.0-37.0); Mean Platelet Volume 8.9; Monocytes # (A) 0.6 k/uL (0-1.0); Monocytes % (A) 4 %; Neutrophils # (A) 11.9 k/uL (1.3-7.7); Neutrophils % (A) 88 %; Platelet Count 395 k/uL (150-450); RBC 3.27 m/uL (4.30-5.90); WBC 13.5 k/uL (3.8-10.6)
[2019-06-15 04:08] LABS: MCV 87.7 fL (80.0-100.0)
[2019-06-15 04:13] LABS: Calcium 9.5 mg/dL (8.4-10.2); Potassium 4.3 mmol/L (3.5-5.1)
[2019-06-15] MEDS: NOREPINEPHRINE 4 MG in SODIUM CHLORIDE 0.9% 250 ML IV SCH ×3 (04:33→17:36)
[2019-06-15] MEDS: PIPERACILLIN-TAZOBACTAM 3.375 GM in SODIUM CHLORIDE 0.9% 100 ML IVPB SCH ×3 (04:38→21:03)
[2019-06-15 06:52] LABS: Glucose,Whole Blood 184 mg/dL (75-99)
[2019-06-15] MEDS ORDERED: INSULIN DETEMIR (LEVEMIR) 100 UNIT/ML SYR SQ SCH (07:00)
[2019-06-15] MEDS: INSULIN ASPART (NovoLOG) 100 UNIT/ML VIAL SQ SCH ×4 (07:00→20:54)
--- NOTE | 2019-06-15 07:45 | XR ---
EXAMINATION TYPE: XR chest 1V portable DATE OF EXAM: 06/15/2019 Comparison: 06/14/2019 Clinical History: 78 year-old male shortness of breath Findings: Continued mild to moderate cardiomegaly. Diffuse interstitial and vascular prominence persists. Small effusions with prominent bibasilar opacities. Effusion on the left shows slight decrease in size. Impression: 1. Continued mild/moderate cardiomegaly and suspected pulmonary vascular congestion. 2. Continued small pleural effusions, slightly improved on the left but with ongoing prominent bibasi lar atelectasis and/or consolidation.
--- NOTE | 2019-06-15 08:24 | P.PN ---
Subjective Progress Note Date: 06/15/19 Principal diagnosis: CVA/TIA and fluid volume overload and subsequent acute hypoxemic and hypercapnic respiratory failure requiring intubation mechanical ventilatory support, extub ated and currently on BiPAP. The patient is seen today 06/14/2019 in follow-up in the intensive care unit. Last evening he was having trouble with oxygen saturations and is now back on BiPAP. He was quite restless and having abdominal discomfort. Abdominal x-ray revealed a nonacute abdomen. Chest x-ray reveals evidence of congestive heart failure with pleural effusions. Infiltrates a lower bases with possible ongoing pneumonia. Exam is slightly worsened compared to yesterday. He is currently on BiPAP 12/6 and 50% FiO2. Blood cultures reveal no growth. Sputum culture reveals no growth. Urine culture reveals no growth. White count 6.5. Hemoglobin 8.6. Sodium 141. Potassium 3.8. Creatinine 1.26. He is continued on DuoNeb inhalations, ceftriaxone, IV diuretics. He remains in a negative balance. The patient is seen today 06/15/2019 in follow-up in the intensive care unit. He had been on 10 L high flow nasal cannula 3 mostly evening. At 3:00 this morning he was placed back on BiPAP 12/6 and 70% FiO2. He did receive Seroquel last evening and slept through most the night. He is arousable this morning. Currently on BiPAP. No worsening shortness of breath. Blood and sputum cultures reveal no growth. Urine culture reveals no growth. White count 13.5. Hemoglobin 7.9. Creatinine 1.71. He is currently on DuoNeb inhalations, Zosyn. He is receiving Lasix 40 mg IV every 8 hours. He remains in a negative balance. He is off the insulin drip and currently receiving Levemir and NovoLog. 0.9#in the KVO. Chest x-ray continues to evidence of fluid volume overload and congestive heart failure. Bilateral pleural effusions slightly improved on the left. Objective - Vital Signs Vital signs: Vital Signs Temp 98.4 F 06/15/19 04:00 Pulse 79 06/15/19 07:30 Resp 11 L 06/15/19 07:00 BP 109/62 06/15/19 07:00 Pulse Ox 92 L 06/15/19 07:00 Intake & Output 06/14/19 06/15/1920 18:59 06:59 18:59 Intake Total 249 270 50 Output Total 1475 572 10 Balance -1226 -302 40 Weight 113.1 kg Intake: IV 240 120 0 0.9 240 120 0 Intake, IV Titration 9 150 50 Amount Insulin Regular 100 unit 9 In Sodium Chloride 0.9% 100 ml @ Per Protocol IV .Q0M [facility] Rx#:[id number] Piperacillin-Tazobactam 3 150 50 .375 gm In Sodium Chloride 0.9% 100 ml @ 25 mls/hr IVPB Q8H [facility] Rx#: [id number] Output: Urine 1475 572 10 Other: Voiding Method Indwelling Catheter Indwelling Catheter ABP, PAP, CO, CI - Last Documented Arterial Blood Pressure 131/69 - Exam GENERAL EXAM: 78 year old gentleman, on BiPAP 12/6 and 70% FiO2, fairly comfortable in no apparent distress. HEAD: Normocephalic. EYES: Normal reaction of pupils, equal size. NOSE: Clear with pink turbinates. THROAT: No erythema or exudates. NECK: No masses, no JVD. CHEST: No chest wall deformity. LUNGS: Equal air entry with crackles in the bilateral posterior bases CVS: S1 and S2 normal with no audible murmur, regular rhythm. ABDOMEN: Distended, hypoactive bowel sounds, no guarding or rigidity. SPINE: No scoliosis or deformity SKIN: No rashes CENTRAL NERVOUS SYSTEM: No focal deficits, tone is normal in all 4 extremities. EXTREMITIES: There is 1-2+ peripheral edema. No clubbing, no cyanosis. Peripheral pulses are intact. - Labs CBC & Chem 7: 06/15/19 03:45 06/15/19 03:45 Labs: Abnormal Lab Results - Last 24 Hours (Table) 06/14/19 06/14/19 06/14/19 Range/Units 10:22 12:00 13:48 WBC (3.8-10.6) k/uL RBC (4.30-5.90) m/uL Hgb (13.0-17.5) gm/dL Hct (39.0-53.0) % MCH (25.0-35.0) pg MCHC (31.0-37.0) g/dL RDW (11.5-15.5) % Neutrophils # (1.3-7.7) k/uL Lymphocytes # (1.0-4.8) k/uL Carbon Dioxide (22-30) mmol/L BUN (9-20) mg/dL Creatinine (0.66-1.25) mg/dL Glucose (74-99) mg/dL POC Glucose (mg/dL) 158 H 202 H 214 H (75-99) mg/dL 06/14/19 06/14/19 06/14/19 Range/Units 15:06 18:28 19:43 WBC (3.8-10.6) k/uL RBC (4.30-5.90) m/uL Hgb (13.0-17.5) gm/dL Hct (39.0-53.0) % MCH (25.0-35.0) pg MCHC (31.0-37.0) g/dL RDW (11.5-15.5) % Neutrophils # (1.3-7.7) k/uL Lymphocytes # (1.0-4.8) k/uL Carbon Dioxide (22-30) mmol/L BUN (9-20) mg/dL Creatinine (0.66-1.25) mg/dL Glucose (74-99) mg/dL POC Glucose (mg/dL) 171 H 127 H 173 H (75-99) mg/dL 06/14/19 06/15/19 06/15/19 Range/Units 21:02 03:45 03:45 WBC 13.5 H (3.8-10.6) k/uL RBC 3.27 L (4.30-5.90) m/uL Hgb 7.9 L (13.0-17.5) gm/dL Hct 28.7 L (39.0-53.0) % MCH 24.0 L (25.0-35.0) pg MCHC 27.4 L (31.0-37.0) g/dL RDW 17.0 H (11.5-15.5) % Neutrophils # 11.9 H (1.3-7.7) k/uL Lymphocytes # 0.8 L (1.0-4.8) k/uL Carbon Dioxide 38 H (22-30) mmol/L BUN 45 H (9-20) mg/dL Creatinine 1.71 H (0.66-1.25) mg/dL Glucose 190 H (74-99) mg/dL POC Glucose (mg/dL) 209 H (75-99) mg/dL 06/15/19 Range/Units 06:41 WBC (3.8-10.6) k/uL RBC (4.30-5.90) m/uL Hgb (13.0-17.5) gm/dL Hct (39.0-53.0) % MCH (25.0-35.0) pg MCHC (31.0-37.0) g/dL RDW (11.5-15.5) % Neutrophils # (1.3-7.7) k/uL Lymphocytes # (1.0-4.8) k/uL Carbon Dioxide (22-30) mmol/L BUN (9-20) mg/dL Creatinine (0.66-1.25) mg/dL Glucose (74-99) mg/dL POC Glucose (mg/dL) 184 H (75-99) mg/dL Microbiology - Last 24 Hours (Table) 06/11/19 18:45 Blood Culture - Preliminary Blood No Growth after 72 hours 06/11/19 18:40 Blood Culture - Preliminary Blood No Growth after 72 hours Assessment and Plan Assessment: 1 Acute hypoxemic and hypercapnic respiratory failure secondary to pulmonary edema from diastolic congestive heart failure requiring intubation mechanical ventilatory support, extubated on 06/10/2019. Stable chest x-ray today 2019. The patient requires 10 L high flow nasal cannula or BiPAP support currently 12/6 and 70% FiO2 to maintain O2 saturations in the low 90s. Maintained on Lasix 40 mg IV every 8 hours. 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 Plummer at the [facility] 6 Diabetes mellitus, type II with diabetic nephropathy 7 Hypertension. 8 Possible non-ST segment myocardial infarction 9 Hyperlipidemia 10 Degenerative joint disease 11 Nephrolithiasis, history of 12 History of bowel obstruction 13 Morbid obesity Plan: The patient was seen and evaluated by Dr. Singh. Chest x-ray and labs reviewed. Currently on BiPAP 12/6 and 70% FiO2 to maintain O2 saturations in the 90s. Continue with IV diuretics. Continue bronchodilators and antibiotics. There is still no bed available at the [facility]. He may require transfer to another tertiary care facility. In the interim, we'll continue full supp ortive care. We'll continue to follow and make further recommendations based on his clinical status. I, the cosigning physician, performed a history & physical examination of the p atient. Lungs sounds with crackles in the bilateral posterior bases. Maintaining good O2 saturations in the 90s on BiPAP 12/6 and 50% FiO2.. I discussed the assessment and plan of care with my nurse practitioner, Marianela Ambrocio. I attest to the above note as dictated by her.
[2019-06-15] MEDS: FUROSEMIDE 10 MG/ML 4 ML VIAL IV SCH ×3 (08:50→21:04)
--- NOTE | 2019-06-15 11:27 | P.GSCN ---
History of Present Illness Consult date: 06/15/19 Reason for Consult: Right upper quadrant pain History of present illness: This is a 78-year-old male who is admitted to CICU for treatment of shortness of breath and congestive heart failure. Patient complaints of severe right quadrant pain yesterday. His CAT scan shows evidence of cholelithiasis thickened gallbladder wall and hydropic gallbladder. The patient's states that he isn't gallstones for years. The patient still quite tender in the right upper quadrant. 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, states has been currently passing kidney stones History of Any Multi-Drug Resistant Organisms: None Reported Past Surgical History: Heart Catheterization, Joint Replacement, Tonsillectomy Additional Past Surgical History / Comment(s): total left knee, R knee arthroscopy, left wrist tendon repair, vasectomy, kidney stones-4 surgeries for removal, rt carpal tunnel, lt wrist tendonitis , Reversed total left shoulder- very sensitive to movement (01/28/19) Past Anesthesia/Blood Transfusion Reactions: No Reported Reaction Additional Past Anesthesia/Blood Transfusion Reaction / Comm: hx vertigo Past Psychological History: No Psychological Hx Reported Additional Psychological History / Comment(s): Pt resides with his spouse of 48yrs. He is independent. He uses no assistive device but feels he would benefit from possibly a cane. He uses a drive cart when shopping due to bilateral knee pain and R ankle/foot problems. Pt drives a car. Smoking Status: Former smoker Past Alcohol Use History: None Reported Additional Past Alcohol Use History / Comment(s): Pt quit smoking in 1996. Past Drug Use History: None Reported Additional Drug Use History / Comment(s): uses cbd oil for pain in shower - Past Family History Father Family Medical History: CVA/TIA, Diabetes Mellitus, Myocardial Infarction ([place]) Mother Family Medical History: CVA/TIA Medications and Allergies Home Medications Medication Instructions Recorded Confirmed Type Losartan Potassium [Cozaar] 100 mg PO BID 12/30/13 06/06/19 History metFORMIN HCL [metFORMIN HCL ER] 1,000 mg PO AC-BID 12/30/13 06/06/19 History Desloratadine [Clarinex] 5 mg PO HS 12/14/14 06/06/19 History Isosorbide Mononitrate ER [Imdur] 30 mg PO DAILY 01/06/15 06/06/19 History Furosemide [Lasix] 20 mg PO Q48H 05/20/15 06/06/19 History Cyanocobalamin (Vitamin B-12) 1,000 mcg PO BID 01/20/19 06/06/19 History [Vitamin B-12] Fenofibrate [Lofibra] 160 mg PO HS 01/20/19 06/06/19 History Insulin Detemir (Levemir) [Levemir] 44 unit PO AC-BRKFST 01/20/19 06/06/19 History Insulin Detemir (Levemir) [Levemir] 52 unit SQ AC-SUPPER 01/20/19 06/06/19 History Lansoprazole [Prevacid] 30 mg PO HS 01/20/19 06/06/19 History Magnesium Oxide [Mag-Ox] 400 mg PO BID 01/20/19 06/06/19 History Methocarbamol [Robaxin] 500 mg PO BID PRN 01/20/19 06/06/19 History Rosuvastatin [Crestor] 20 mg PO HS 01/20/19 06/06/19 History amLODIPine BESYLATE [Norvasc] 5 mg PO BID 01/20/19 06/06/19 History HYDROcodone/APAP 5-325MG [[place] 1 tab PO Q6H PRN 03/06/19 06/06/19 History 5-325] Aspirin [Adult Low Dose Aspirin EC] 81 mg PO HS 04/05/19 06/06/19 History Meloxicam 15 mg PO DAILY PRN 06/06/19 06/06/19 History Metoprolol Tartrate [Lopressor] 100 mg PO BID 06/06/19 06/06/19 History Allergies Allergy/AdvReac Type Severity Reaction Status Date / Time codeine Allergy Unknown Verified 06/06/19 14:36 iodine Allergy Anaphylaxis Verified 06/06/19 14:36 adhesive AdvReac Mild Rash/Hives Verified 06/06/19 14:36 Surgical - Exam Vital Signs Pulse Ox 84 L 06/06/19 11:59 - General well developed, well nourished, moderate distress - Eyes PERRL - ENT normal pinna - Neck no masses - Respiratory normal expansion - Cardiovascular Rhythm: regular - Abdomen Marked right upper quadrant tenderness Abdomen: soft Results - Labs 06/15/19 03:45 06/15/19 03:45 Abnormal Lab Results - Last 24 Hours (Table) 06/14/19 06/14/19 06/14/19 Range/Units 12:00 13:48 15:06 WBC (3.8-10.6) k/uL RBC (4.30-5.90) m/uL Hgb (13.0-17.5) gm/dL Hct (39.0-53.0) % MCH (25.0-35.0) pg MCHC (31.0-37.0) g/dL RDW (11.5-15.5) % Neutrophils # (1.3-7.7) k/uL Lymphocytes # (1.0-4.8) k/uL Carbon Dioxide (22-30) mmol/L BUN (9-20) mg/dL Creatinine (0.66-1.25) mg/dL Glucose (74-99) mg/dL POC Glucose (mg/dL) 202 H 214 H 171 H (75-99) mg/dL 06/14/19 06/14/19 06/14/19 Range/Units 18:28 19:43 21:02 WBC (3.8-10.6) k/uL RBC (4.30-5.90) m/uL Hgb (13.0-17.5) gm/dL Hct (39.0-53.0) % MCH (25.0-35.0) pg MCHC (31.0-37.0) g/dL RDW (11.5-15.5) % Neutrophils # (1.3-7.7) k/uL Lymphocytes # (1.0-4.8) k/uL Carbon Dioxide (22-30) mmol/L BUN (9-20) mg/dL Creatinine (0.66-1.25) mg/dL Glucose (74-99) mg/dL POC Glucose (mg/dL) 127 H 173 H 209 H (75-99) mg/dL 06/15/19 06/15/19 06/15/19 Range/Units 03:45 03:45 06:41 WBC 13.5 H (3.8-10.6) k/uL RBC 3.27 L (4.30-5.90) m/uL Hgb 7.9 L (13.0-17.5) gm/dL Hct 28.7 L (39.0-53.0) % MCH 24.0 L (25.0-35.0) pg MCHC 27.4 L (31.0-37.0) g/dL RDW 17.0 H (11.5-15.5) % Neutrophils # 11.9 H (1.3-7.7) k/uL Lymphocytes # 0.8 L (1.0-4.8) k/uL Carbon Dioxide 38 H (22-30) mmol/L BUN 45 H (9-20) mg/dL Creatinine 1.71 H (0.66-1.25) mg/dL Glucose 190 H (74-99) mg/dL POC Glucose (mg/dL) 184 H (75-99) mg/dL Microbiology - Last 24 Hours (Table) 06/11/19 18:45 Blood Culture - Preliminary Blood No Growth after 72 hours 06/11/19 18:40 Blood Culture - Preliminary Blood No Growth after 72 hours Diabetes panel 06/15/19 Range/Units 03:45 Sodium 145 (137-145) mmol/L Potassium 4.3 (3.5-5.1) mmol/L Chloride 106 (98-107) mmol/L Carbon Dioxide 38 H (22-30) mmol/L BUN 45 H (9-20) mg/dL Creatinine 1.71 H (0.66-1.25) mg/dL Glucose 190 H (74-99) mg/dL Calcium 9.5 (8.4-10.2) mg/dL Calcium panel 06/15/19 Range/Units 03:45 Calcium 9.5 (8.4-10.2) mg/dL Pituitary panel 06/15/19 Range/Units 03:45 Sodium 145 (137-145) mmol/L Potassium 4.3 (3.5-5.1) mmol/L Chloride 106 (98-107) mmol/L Carbon Dioxide 38 H (22-30) mmol/L BUN 45 H (9-20) mg/dL Creatinine 1.71 H (0.66-1.25) mg/dL Glucose 190 H (74-99) mg/dL Calcium 9.5 (8.4-10.2) mg/dL Adrenal panel 06/15/19 Range/Units 03:45 Sodium 145 (137-145) mmol/L Potassium 4.3 (3.5-5.1) mmol/L Chloride 106 (98-107) mmol/L Carbon Dioxide 38 H (22-30) mmol/L BUN 45 H (9-20) mg/dL Creatinine 1.71 H (0.66-1.25) mg/dL Glucose 190 H (74-99) mg/dL Calcium 9.5 (8.4-10.2) mg/dL - Imaging CT scan - abdomen: report reviewed (Lithiasis, thickened gallbladder wall, hydropic gallbladder) Assessment and Plan Assessment: Acute and chronic cholecystitis with cholelithiasis. Patient will be treated medically at this point. He is currently on a BiPAP mask. He'll be treated with antibiotic. We'll plan for cholecystectomy once he is stable.
[2019-06-15 11:53] LABS: Glucose,Whole Blood 154 mg/dL (75-99)
[2019-06-15] MEDS ORDERED: HYDROCORTISONE 1% CREAM 30 GM TUBE TOPICAL PRN (12:22)
--- NOTE | 2019-06-15 12:39 | P.PN ---
Subjective Progress Note Date: 06/15/19 The patient continues in the ICU. His medical illnesses are noted. He also now has cholecystitis. This is being treated medically. Before the bladder cancer can be addressed these medical issues have to be stabilized. Once that happens the plan is to do a repeat transurethral resection of bladder tumor. Whether this will be done here in [place] or down in [place] has to be decided. In the meanwhile urine remains bloody. He has to have it irrigated periodically. Penile pain that he experiences is due to the tumor location at the bladder neck. Objective - Vital Signs Vital signs: Vital Signs Temp 98.0 F 06/15/19 12:00 Pulse 107 H 06/15/19 12:00 Resp 24 06/15/19 12:00 BP 141/75 06/15/19 12:00 Pulse Ox 92 L 06/15/19 12:00 Intake & Output 06/14/19 06/15/19 06/15/19 18:59 06:59 18:59 Intake Total 249 270 155 Output Total 1475 572 110 Balance -1226 -302 45 Weight 113.1 kg Intake: IV 240 120 80 0.9 240 120 80 Intake, IV Titration 9 150 75 Amount Insulin Regular 100 unit 9 In Sodium Chloride 0.9% 100 ml @ Per Protocol IV .Q0M [facility] Rx#:[id number] Piperacillin-Tazobactam 3 150 75 .375 gm In Sodium Chloride 0.9% 100 ml @ 25 mls/hr IVPB Q8H [facility] Rx#: [id number] Output: Urine 1475 572 110 Other: Voiding Method Indwelling Catheter Indwelling Catheter Indwelling Catheter # Voids 1 ABP, PAP, CO, CI - Last Documented Arterial Blood Pressure 131/69 - Labs CBC & Chem 7: 06/15/19 03:45 06/15/19 03:45 Labs: Abnormal Lab Results - Last 24 Hours (Table) 06/14/19 06/14/19 06/14/19 Range/Units 13:48 15:06 18:28 WBC (3.8-10.6) k/uL RBC (4.30-5.90) m/uL Hgb (13.0-17.5) gm/dL Hct (39.0-53.0) % MCH (25.0-35.0) pg MCHC (31.0-37.0) g/dL RDW (11.5-15.5) % Neutrophils # (1.3-7.7) k/uL Lymphocytes # (1.0-4.8) k/uL Carbon Dioxide (22-30) mmol/L BUN (9-20) mg/dL Creatinine (0.66-1.25) mg/dL Glucose (74-99) mg/dL POC Glucose (mg/dL) 214 H 171 H 127 H (75-99) mg/dL 06/14/19 06/14/19 06/15/19 Range/Units 19:43 21:02 03:45 WBC 13.5 H (3.8-10.6) k/uL RBC 3.27 L (4.30-5.90) m/uL Hgb 7.9 L (13.0-17.5) gm/dL Hct 28.7 L (39.0-53.0) % MCH 24.0 L (25.0-35.0) pg MCHC 27.4 L (31.0-37.0) g/dL RDW 17.0 H (11.5-15.5) % Neutrophils # 11.9 H (1.3-7.7) k/uL Lymphocytes # 0.8 L (1.0-4.8) k/uL Carbon Dioxide (22-30) mmol/L BUN (9-20) mg/dL Creatinine (0.66-1.25) mg/dL Glucose (74-99) mg/dL POC Glucose (mg/dL) 173 H 209 H (75-99) mg/dL 06/15/19 06/15/19 06/15/19 Range/Units 03:45 06:41 11:42 WBC (3.8-10.6) k/uL RBC (4.30-5.90) m/uL Hgb (13.0-17.5) gm/dL Hct (39.0-53.0) % MCH (25.0-35.0) pg MCHC (31.0-37.0) g/dL RDW (11.5-15.5) % Neutrophils # (1.3-7.7) k/uL Lymphocytes # (1.0-4.8) k/uL Carbon Dioxide 38 H (22-30) mmol/L BUN 45 H (9-20) mg/dL Creatinine 1.71 H (0.66-1.25) mg/dL Glucose 190 H (74-99) mg/dL POC Glucose (mg/dL) 184 H 154 H (75-99) mg/dL Microbiology - Last 24 Hours (Table) 06/11/19 18:45 Blood Culture - Preliminary Blood No Growth after 72 hours 06/11/19 18:40 Blood Culture - Preliminary Blood No Growth after 72 hours
--- NOTE | 2019-06-15 12:50 | PN ---
PROGRESS NOTE Patient is seen for followup for acute kidney injury. Yesterday patient was complaining of abdominal pain. The CT scan showed evidence of cholelithiasis with thickened gallbladder and hydropic gallbladder. The patient has been evaluated by General Surgery with plans for medical treatment at this time. He remains on BiPAP on and off. Urine output is at about 60-20 mL an hour. The patient is maintained on IV Lasix 40 mg 3 times a day. His creatinine has increased to 1.7 today from 1.2 yesterday. However, he remains fluid overloaded with similar findings on chest x-ray from today as well. PHYSICAL EXAMINATION: On examination today, blood pressure was 141/75, heart rate 107 per minute, patient is afebrile. Examination of the heart S1, S2. Examination of lungs, decreased breath sounds at bases. Basal crackles are heard. Abdomen is soft, obese with tenderness in the right upper quadrant. Examination of lower extremities shows chronic skin changes and 1+ edema bilaterally. The CARDER BLANKETS exam cannot be assessed in detail. LABS: Show hemoglobin 7.9, sodium 145, potassium 4.3, CO2 is 38, BUN 45, creatinine 1.7. ASSESSMENT: 1. Acute kidney injury, acute tubular necrosis versus cardiorenal renal. Renal function is slightly worse today. The patient remains volume overloaded, therefore, I will continue with the current dose of IV Lasix. Echocardiogram from this admission showed ejection fraction of 60-65%. I would have considered dobutamine if the patient's ejection fraction was lower with systolic heart failure. The patient did receive IV contrast yesterday. However, the increase in creatinine is too early to be from IV contrast. He definitely has a component of acute tubular necrosis. 2. History of bladder cancer, being followed at [facility]. 3. Abdominal pain with CT scan showing cholelithiasis and hydropic gallbladder, currently being managed medically. 4. Volume overload diastolic heart failure. Continue with IV Lasix. 5. Acute hypercapnic respiratory failure, recently extubated on June 11. 6. Chronic kidney disease stage 3 secondary to diabetic kidney disease. 7. History of right internal carotid artery stenosis. PLAN: Continue with the IV Lasix as patient remains volume overloaded. Overall prognosis is guarded. The renal function will likely worsen further over the next few days from contrast nephropathy. MMODL / IJN: [id number] /
[2019-06-15 16:50] LABS: Glucose,Whole Blood 128 mg/dL (75-99)
[2019-06-15] MEDS: amLODIPine 5 MG TAB PO SCH (17:00)
[2019-06-15] MEDS: ISOSORBIDE MONONITRATE ER 30 MG TAB.ER.24H PO SCH (17:00)
[2019-06-15] MEDS: CYANOCOBALAMIN 500 MCG TAB PO SCH ×2 (17:00→21:00)
[2019-06-15] MEDS: METOPROLOL TARTRATE 50 MG TAB PO SCH ×2 (17:00→21:00)
[2019-06-15] MEDS: MAGNESIUM OXIDE 400 MG TAB PO SCH ×2 (17:00→21:00)
[2019-06-15] MEDS: ASPIRIN 81 MG PO SCH (17:00)
[2019-06-15 17:35] VITALS: TEMP 98.4
[2019-06-15 20:48] LABS: Glucose,Whole Blood 104 mg/dL (75-99)
[2019-06-15] MEDS: INSULIN DETEMIR (LEVEMIR) 100 UNIT/ML SYR SQ SCH (20:55)
[2019-06-15] MEDS: FENOFIBRATE 160 MG TAB PO SCH (21:00)
[2019-06-15] MEDS ORDERED: PANTOPRAZOLE 40 MG/10 ML VIAL IVP SCH (21:00)
[2019-06-15] MEDS: ATORVASTATIN 40 MG TAB PO SCH (21:00)
[2019-06-15] MEDS: LORATADINE 10 MG TAB PO SCH (21:00)
[2019-06-15 21:08] LABS: ABG HCO3 37 mmol/L (21-25); ABG Oxygen Saturation 98.6 % (94-97); ABG PH 7.32 (7.35-7.45); ABG PO2 119 mmHg (83-108); ABG TCO2 39 mmol/L (19-24); Allen Test Performed? Yes
[2019-06-15 21:13] LABS: ABG PCO2 72 mmHg (35-45)
--- NOTE | 2019-06-15 21:54 | PN ---
PROGRESS NOTE DATE OF SERVICE: 06/15/2019 This 78-year-old gentleman who was admitted with CHF acute exacerbation, acute respiratory failure was mechanically and extubated. The patient also had change in mental status, metabolic encephalopathy. The patient is on BiPAP on and off. Currently the patient again had shortness of breath. The patient also had an abdominal and pelvis CAT scan which showed bibasilar atelectasis and hydropic gallbladder with wall thickening and some cholelithiasis also. Surgery has seen the patient, recommended to continue the current treatment because of the high risk for the patient at this time. The patient also had hematuria secondary to bladder cancer. Procedure from [facility] pending at this time. I discussed the case with the [facility] a few days ago and secured a transfer which has not materialized so far. Pulmonary is following the patient closely. PAST MEDICAL HISTORY: Reviewed. REVIEW OF SYSTEMS: Could not be taken, the patient is confused at this time. CURRENT MEDICATIONS: 1. Tylenol p.r.n. 2. DuoNeb q.i.d. and p.r.n. 3. Norvasc 5 mg. 4. Aspirin 160 mg. 5. Lipitor 40 mg. 6. Vitamin B12. 8. Lasix 40 mg IV t.i.d. 9. NovoLog scale. 10.Levemir 40 units subcu q.h.s. 11.Imdur 30 mg p.o. daily. 12.Claritin 10 mg p.o. daily. 13.Magnesium oxide. 14.Lopressor. 15.Narcan. 16.Protonix 40 mg p.o. daily. 17.Zosyn 3.375 IV daily. 18.Seroquel 25 mg q.h.s. p.r.n. PHYSICAL EXAMINATION: The patient is conscious, confused. Pulse 99, blood pressure 174/107, respiration 14, temperature is normal, pulse ox 98% on 70% FiO2. HEENT: Conjunctivae normal. Oral mucosa moist. NECK: No jugular venous distention. No lymph node enlargement. CARDIOVASCULAR: S1, S2. RESPIRATORY: Diminished breath sounds at the bases. A few scattered rhonchi and crackles. ABDOMEN: Soft, obese, nontender. No mass palpable. LEGS: No edema, no swelling. NERVOUS SYSTEM: No focal deficits. LABS: WBC 13.2, hemoglobin 7.9, sodium 140, potassium 4.2 creatinine is 1.71. ASSESSMENT: 1. Congestive heart failure acute exacerbation with acute on chronic diastolic dysfunction, ejection fraction 60-65% with acute hypoxic hypercarbic respiratory failure secondary to above, status post mechanical ventilation. 2. Change in mental status, acute metabolic encephalopathy, multifactorial. 3. Hydropic gallbladder with wall thickening and mild surrounding fat stranding with cholelithiasis and possible acute cholecystitis. 4. Hematuria, continued ongoing with blood loss anemia secondary from bladder cancer. 5. Slurring of speech and possible acute urinary tract infection present on admission. 6. Acute urinary tract infection present on admission. 7. Hematuria. 8. Mild aortic stenosis on 2D echo. 9. Significant right neck carotid artery stenosis on CT angio 90% proximal stenosis being followed Dr. Verdugo. 10.Elevated D-dimer without evidence of pulmonary embolism. 11.Acute respiratory acidosis secondary to acute hypoxic respiratory failure. 12.Possible cellulitis of the legs on admission, improved. 13.Nonoliguric acute kidney injury secondary to ischemic acute tubular necrosis. 14.Anemia, normocytic anemia of chronic disease. 15.Obesity with body mass index of 40.9. 16.Diabetes mellitus type 2, uncontrolled with hyperglycemia. 17.Troponin 0.114, possibly type 2 myocardial infarction secondary to supply demand mismatch present on admission. 18.History of recent shoulder arthroplasty, left. 19.Diabetes mellitus type 2. 20.Hypertension. 21.Hyperlipidemia. 22.History umbilical hernia. 23.History of renal stones. 24.History of bowel obstruction. 25.History of degenerative joint disease. 26.History of vertigo. 27.History of nicotine dependence. 28.FULL CODE. RECOMMENDATIONS AND DISCUSSION: I recommend to continue current medications, continue to monitor, continue symptomatic treatment. Otherwise, at this time I recommend continue the current medications, continue the bronchodilators, continue the diuretics. Monitor saturation closely. Monitor blood sugars closely. I would also recommend broad-spectrum IV antibiotics. Also recommend IV Protonix at this time. Surgical input appreciated. Discussed with the patient and the at the bedside and staff. Prognosis guarded. Await [facility] transfer to the ICU regarding above-mentioned multiple complex medical issues. MMODL / IJN: [id number] / MTDD
[2019-06-15] MEDS: PROPOFOL 1,000 MG in EMPTY BAG 1 BAG IV SCH (22:29)
--- NOTE | 2019-06-15 22:55 | XR ---
EXAMINATION TYPE: XR chest 1V portable DATE OF EXAM: 06/15/2019 COMPARISON: Today HISTORY: Respiratory failure TECHNIQUE: Single view FINDINGS: Endotracheal tube is 3 cm from the ashly. There is nasogastric tube. There are chest leads . There is left shoulder prosthesis. There is mild blunting of the costophrenic angles. Heart is enla rged. IMPRESSION: There is some congestive heart failure and pleural effusions unchanged. Bilateral lower l obe pneumonia is possible.
[2019-06-15 23:07] LABS: ABG Base Excess 12.5 mmol/L; ABG HCO3 37 mmol/L (21-25); ABG Oxygen Saturation 98.4 % (94-97); ABG PCO2 60 mmHg (35-45); ABG PO2 102 mmHg (83-108); ABG TCO2 39 mmol/L (19-24); Allen Test Performed? Yes
[2019-06-16] MEDS: PROPOFOL 1,000 MG in EMPTY BAG 1 BAG IV SCH ×2 (01:40→02:19)
[2019-06-16 02:44] VITALS: BP 106/64; PULSE 82; RESP 20
[2019-06-16] MEDS ORDERED: CHLORHEXIDINE GLUCONATE 15 ML CUP MUCOUS MEM SCH (09:00)
--- NOTE | 2019-06-17 08:03 | DS ---
DISCHARGE SUMMARY DISCHARGE ADDENDUM: This 78-year-old gentleman who was admitted with CHF acute exacerbation and multiple complications and continued hematuria. The patient was also having multiple complex medical issues including change in mental status and hydropic gallbladder with thickening with a suspicion of cholecystitis also. I have discussed the case with Dr. Cary The follow Dr. Luis Daniel Alexander who is the [facility] hospitalist and recommend the patient to be transferred to [facility]. Please refer to my previous dictation for the complete list of diagnoses. On exam, vitals are stable. CARDIOVASCULAR: S1, S2 muffled. ABDOMEN: Soft. NERVOUS SYSTEM: No focal deficits. The patient is on BiPAP. The patient is stable for transfer, but overall prognosis is guarded. MMODL / IJN: [id number] / MTDD
== END 2019-06-16 03:00 | disposition short-term general hospital (02) | DRG 280 ==
LOC: EC 11:55 → 3SCARD 15:46 → 2SICU 06-07 00:08
PROVIDERS: ADMIT Internal Medicine; ATTEND Internal Medicine
PROC: 5A1945Z Respiratory Ventilation, 24-96 Consecutive Hours (ICD-10-PCS; principal; 2019-06-07)
PROC: 0BH17EZ Insertion of Endotracheal Airway into Trachea, Via Natural or Artificial Opening (ICD-10-PCS; 2019-06-07)
PROC: 5A09557 Assistance with Respiratory Ventilation, Greater than 96 Consecutive Hours, Continuous Positive Airway Pressure (ICD-10-PCS; 2019-06-10)
DX: I13.0 Hypertensive heart and chronic kidney disease with heart failure and stage 1 through stage 4 chronic kidney disease, or unspecified chronic kidney disease (principal); G93.41 Metabolic encephalopathy; I21.A1 Myocardial infarction type 2; I50.33 Acute on chronic diastolic (congestive) heart failure; J18.9 Pneumonia, unspecified organism; J96.01 Acute respiratory failure with hypoxia; J96.02 Acute respiratory failure with hypercapnia; N17.0 Acute kidney failure with tubular necrosis; E87.4 Mixed disorder of acid-base balance; E87.0 Hyperosmolality and hypernatremia; J98.11 Atelectasis; K80.12 Calculus of gallbladder with acute and chronic cholecystitis without obstruction; K82.1 Hydrops of gallbladder; N39.0 Urinary tract infection, site not specified; Z68.41 Body mass index [BMI] 40.0-44.9, adult; L03.116 Cellulitis of left lower limb; L03.115 Cellulitis of right lower limb; T83.83XA Hemorrhage due to genitourinary prosthetic devices, implants and grafts, initial encounter; I25.10 Atherosclerotic heart disease of native coronary artery without angina pectoris; I65.21 Occlusion and stenosis of right carotid artery; F40.240 Claustrophobia; C67.9 Malignant neoplasm of bladder, unspecified; D63.1 Anemia in chronic kidney disease; D50.0 Iron deficiency anemia secondary to blood loss (chronic); E11.22 Type 2 diabetes mellitus with diabetic chronic kidney disease; E11.65 Type 2 diabetes mellitus with hyperglycemia; E66.01 Morbid (severe) obesity due to excess calories; E78.5 Hyperlipidemia, unspecified; E86.9 Volume depletion, unspecified; T50.2X5A Adverse effect of carbonic-anhydrase inhibitors, benzothiadiazides and other diuretics, initial encounter; T50.8X5A Adverse effect of diagnostic agents, initial encounter; N18.3 Chronic kidney disease, stage 3 (moderate); Z87.442 Personal history of urinary calculi; M19.90 Unspecified osteoarthritis, unspecified site; R31.0 Gross hematuria; Z79.4 Long term (current) use of insulin; Z79.82 Long term (current) use of aspirin; Z79.899 Other long term (current) drug therapy; Z82.49 Family history of ischemic heart disease and other diseases of the circulatory system; Z83.3 Family history of diabetes mellitus; Z86.73 Personal history of transient ischemic attack (TIA), and cerebral infarction without residual deficits; Z87.891 Personal history of nicotine dependence; Z96.612 Presence of left artificial shoulder joint; Z96.653 Presence of artificial knee joint, bilateral; I35.0 Nonrheumatic aortic (valve) stenosis; R79.1 Abnormal coagulation profile; R47.81 Slurred speech; Z87.19 Personal history of other diseases of the digestive system; H26.9 Unspecified cataract; M25.562 Pain in left knee; M25.561 Pain in right knee; R26.9 Unspecified abnormalities of gait and mobility; I95.9 Hypotension, unspecified; Z88.5 Allergy status to narcotic agent; Z88.8 Allergy status to other drugs, medicaments and biological substances
CPT/HCPCS: 36415; 70450; 70496; 70498; 71045; 71046; 71275; 74018; 74177; 80048; 80053; 80061; 81001; 82043; 82570; 82728; 82805; 83036; 83540; 83550; 83605; 83735; 83880; 84100; 84484; 85025; 85027; 85379; 85610; 85730; 87040; 87070; 87086; 87205; 87502; 93005; 93306; 94002; 94003; 94640; 94660; 96361; 96374; 96375; 99291